=== PATIENT | female | born 1960 | race Caucasian/White ===

== ENCOUNTER 2020-11-22 12:24 | Outpatient (REF) | payer OTHER, SELFPAY ==
--- NOTE | ~2020-11-22 | XR_ITS ---
EXAMINATION: XR SHOULDER, RIGHT CLINICAL INFORMATION: Pain right shoulder. COMPARISON: None TECHNIQUE: AP external rotation, Grashey, scapular Y, and axillary views of the right shoulder. FINDINGS: The glenohumeral joint space is normal. There is mild reduction in the right AC joint space with periarticular spurring. There is downsloping of the acromion. No visible acute fracture, dislocation or subluxation seen. XR/XR shoulder RT min 2V IMPRESSION: Mild degenerative changes right AC joint with downsloping of the acromion. The glenohumeral joint space is normal.
== END 2020-11-22 12:25 | disposition home or self-care (01) ==
LOC: HO.XRAY 12:24
PROVIDERS: PCP Student in an Organized Health Care Education/Training Program; Visit Provider Student in an Organized Health Care Education/Training Program
DX: M25.511 Pain in right shoulder (principal)
CPT/HCPCS: 73030

== ENCOUNTER → 2021-03-04 13:17 | Outpatient (REF) | payer OTHER, SELFPAY ==
--- NOTE | 2021-03-04 14:03 | ECG_ITS ---
Hook-up date: 2021-03-04 13:35:00 Duration: 25:46:00 Test Indications: SYNCOPE Medications: 227040 QRS complexes 7 Ventricular ectopics which represent <1 % of total QRS comp. 28 Supraventricular ectopics which represent <1 % of total QRS comp. * Paced QRS complexs which represent % of total QRS comp. VENTRICULAR ECTOPY 7 Isolated 0 Bigeminal Cycles 0 Couplets 0 Runs 0 Beats in Runs * Beats LONGEST at * BPM at :: -- * Beats FASTEST at * BPM at :: -- SUPRAVENTRICULAR ECTOPY 18 Isolated 5 Couplets 0 Runs 0 Beats in Runs * Beats LONGEST at * BPM at :: -- * Beats FASTEST at * BPM at :: -- HEART RATES 62 MIN at 07:53:23 2021-03-05 89 AVG 137 MAX at 12:17:00 2021-03-05 LONGEST RR 1.1520 secs at 07:53:12 2021-03-05 S-T LEVELS Channel 1 - 128 mm at 13:35:00 2021-03-04 - 128 mm at 13:35:00 2021-03-04 Channel 2 - 128 mm at 13:35:00 2021-03-04 - 128 mm at 13:35:00 2021-03-04 Channel 3 - 128 mm at 03:25:41 -- - 128 mm at 03:25:41 Basic rhythm Normal sinus rhythm No long pause or profound bradycardia Rare ectopics No dangerous dysrhythm periods Patient did not report any symptoms in the diary Referred By: Jae Moreno Overread By: JILL TAY MD
== END ==
LOC: HO.CARD 13:17
PROVIDERS: PCP Student in an Organized Health Care Education/Training Program; Visit Provider Psychiatry & Neurology Neurology
DX: R55 Syncope and collapse (principal)
CPT/HCPCS: 93225; 93226

== ENCOUNTER 2021-04-16 15:35 | Outpatient (REF) | payer OTHER, SELFPAY ==
--- NOTE | ~2021-04-16 | MM_ITS ---
EXAMINATION: MM SCREENING DIGITAL BREAST TOMOSYNTHESIS, BILATERAL CLINICAL INFORMATION: Screening. Asymptomatic. The lifetime risk of breast cancer based on the Tyrer-Cuzick Model is 7%. COMPARISON: Mammography: 07/01/2018, targeted left breast ultrasound 07/05/2018 TECHNIQUE: Digital breast tomosynthesis is performed in both the craniocaudal and mediolateral oblique views along with computer-aided detection (CAD). Synthesized 2D images are generated from the tomosynthesis. FINDINGS: The breasts are heterogeneously dense, which may obscure small masses (ACR BI-RADS breast composition Category c). There is fibronodular parenchymal pattern. No interval significant mass or architectural abnormality. Smooth dominant nodule left central outer breast is stable to borderline decreased, consistent with cyst on ultrasound. No abnormal calcifications. The axilla and skin contours are unremarkable. MM/MM tomosynthesis screening BI IMPRESSION: No significant changes from prior exam. ASSESSMENT: BI-RADS 2: Benign RECOMMENDATION: Routine annual mammography screening. This patient's information was entered into a reminder system with a target due date for their next mammogram.
== END 2021-04-16 15:36 | disposition home or self-care (01) ==
LOC: HO.MAMMO 15:35
PROVIDERS: Visit Provider Student in an Organized Health Care Education/Training Program
DX: Z12.31 Encounter for screening mammogram for malignant neoplasm of breast (principal)
CPT/HCPCS: 77063; 77067

== ENCOUNTER 2021-07-02 14:01 | Outpatient (REF) | payer OTHER, SELFPAY ==
--- NOTE | ~2021-07-02 | XR_ITS ---
EXAMINATION: XR HAND, RIGHT XR HAND, LEFT CLINICAL INFORMATION: Right and left hand pain. COMPARISON: None TECHNIQUE: AP, oblique, and lateral views of the right and left hand. FINDINGS: Right Hand: No fracture or dislocation. Normal carpal alignment. No significant joint space narrowing or marginal osteophytes. No osseous erosion. No periarticular osteopenia. No abnormal soft tissue calcification. Left Hand: No fracture or dislocation. Normal carpal alignment. No significant joint space narrowing or marginal osteophytes. No osseous erosion. No periarticular osteopenia. No abnormal soft tissue calcification. XR/XR hand RT min 3V IMPRESSION: Right Hand: Unremarkable examination. Left Hand: Unremarkable examination.
--- NOTE | ~2021-07-02 | XR_ITS ---
EXAMINATION: XR HAND, RIGHT XR HAND, LEFT CLINICAL INFORMATION: Right and left hand pain. COMPARISON: None TECHNIQUE: AP, oblique, and lateral views of the right and left hand. FINDINGS: Right Hand: No fracture or dislocation. Normal carpal alignment. No significant joint space narrowing or marginal osteophytes. No osseous erosion. No periarticular osteopenia. No abnormal soft tissue calcification. Left Hand: No fracture or dislocation. Normal carpal alignment. No significant joint space narrowing or marginal osteophytes. No osseous erosion. No periarticular osteopenia. No abnormal soft tissue calcification. XR/XR hand LT min 3V IMPRESSION: Right Hand: Unremarkable examination. Left Hand: Unremarkable examination.
== END 2021-07-02 14:02 | disposition home or self-care (01) ==
LOC: HO.XRAY 14:01
PROVIDERS: PCP Student in an Organized Health Care Education/Training Program; Visit Provider Student in an Organized Health Care Education/Training Program
DX: M79.641 Pain in right hand (principal); M79.642 Pain in left hand
CPT/HCPCS: 73130

== ENCOUNTER 2021-12-03 14:36 | Outpatient (REF) | payer OTHER, SELFPAY ==
--- NOTE | ~2021-12-03 | XR_ITS ---
EXAMINATION: XR HIP, RIGHT CLINICAL INFORMATION: Pain. COMPARISON: None TECHNIQUE: Two views of the right hip. FINDINGS: Bones and soft tissues are normal. No fracture. Alignment is anatomic. Hip joint space is maintained. XR/XR hip RT min 2V IMPRESSION: Unremarkable right hip.
== END 2021-12-03 14:37 | disposition home or self-care (01) ==
LOC: HO.XRAY 14:36
PROVIDERS: Absent Provider Student in an Organized Health Care Education/Training Program; PCP Student in an Organized Health Care Education/Training Program; Visit Provider Internal Medicine
DX: M25.551 Pain in right hip (principal)
CPT/HCPCS: 73502

== ENCOUNTER 2022-04-28 11:47 | Outpatient (REF) | payer OTHER, SELFPAY ==
[2022-04-28 12:28] LABS: MANUAL DIFF FLAG NO
[2022-04-28 13:07] LABS: Basophils Percent Auto 0.5 % (0-2); Eosinophils Absolute Auto 0.1 X10*3/uL (0.0-0.4); Eosinophils Percent Auto 1.9 % (0-4); Hematocrit 44.8 % (37.0-47.0); Hemoglobin 14.1 g/dl (12.0-16.0); Imm Gran Abs Auto 0.03 X10*3/uL (0.00-0.03); Imm Gran Pct Auto 0.4 % (0.0-0.4); Lymphocytes Absolute Auto 1.9 X10*3/uL (1.2-4.9); Lymphocytes Percent Auto 25.6 % (20-40); Mean Corpuscular HGB Conc 31.5 g/dl (31.0-35.0); Mean Corpuscular Hemoglobin 25.7 pg (27.0-33.0); Mean Corpuscular Volume 81.8 fL (80.0-98.0); Mean Platelet Volume 10.7 fL (9.4-12.3); Monocytes Absolute Auto 0.4 X10*3/uL (0.1-1.2); Monocytes Percent Auto 5.9 % (2-11); Neutrophils Absolute Auto 4.9 x10*3/uL (2.0-8.3); Neutrophils Percent Auto 65.7 % (45-73); Platelet Count 245 X10*3/uL (160-400); Red Blood Count 5.48 X10*6/uL (4.20-5.50); Red Cell Distribution Width 14.8 % (11.0-16.0); White Blood Count 7.4 X10*3/uL (4.8-10.8)
[2022-04-28 13:40] LABS: Alanine Aminotransferase 27 U/L (0-31); Albumin Level 4.4 g/dL (3.5-5.0); Alkaline Phosphatase 123 U/L (39-117); Anion Gap 17 (12-20); Aspartate Amino Transferase 19 U/L (5-31); Bilirubin Total 0.6 mg/dL (0.0-1.0); Blood Urea Nitrogen 16 mg/dL (9-16); C Reactive Protein 2.05 mg/dL (< or = 0.50); Calcium 9.7 mg/dL (8.4-10.2); Carbon Dioxide 22 mmol/L (22-29); Chloride 106 mmol/L (96-108); Cholesterol 164 mg/dL; Estimated Glomerular Filt Rate > 60; Glucose Fasting 116 mg/dL (60-99); HDL Cholesterol 62 mg/dL; Iron 53 mcg/dL (30-160); LDL Cholesterol Calculated 86 mg/dl; Percent Iron Saturation 13 % (15-50); Potassium 4.3 mmol/L (3.3-5.1); Sodium 141 mmol/L (135-145); Total Iron Binding Capacity 408 mcg/dL (228-428); Total Protein 7.7 g/dL (6.5-8.0); Triglycerides 82 mg/dL; Unsaturated Iron Binding 355 ug/dL
[2022-04-28 13:57] LABS: Rheumatoid Factor < 15.0 IU/mL (<15.0)
[2022-04-28 14:09] LABS: Thyroid Stimulating Hormone 1.11 uIU/mL (0.32-4.0); Vitamin D 25-OH Total 32.7 ng/mL (>30)
[2022-04-28 14:19] LABS: Erythrocyte Sedimentation Rate 22 MM/HR (0-20)
[2022-04-28 14:23] LABS: Folate 15.3 ng/mL (> or = 4.0); Vitamin B12 846 pg/mL (200-900)
[2022-04-30 12:42] LABS: Anti DNA DS Antibody 3 IU/mL
[2022-04-30 16:26] LABS: Cyclic Citrullinated Peptide <16 UNITS
== END 2022-04-28 11:48 | disposition home or self-care (01) ==
LOC: HO.LAB 11:47
PROVIDERS: PCP Internal Medicine; Visit Provider Internal Medicine
DX: M06.9 Rheumatoid arthritis, unspecified (principal); M79.7 Fibromyalgia; E78.5 Hyperlipidemia, unspecified; E66.01 Morbid (severe) obesity due to excess calories; E55.9 Vitamin D deficiency, unspecified; D64.9 Anemia, unspecified
CPT/HCPCS: 36415; 80053; 80061; 82306; 82607; 82746; 83540; 84443; 85025; 85652; 86140; 86200; 86225; 86431

== ENCOUNTER 2022-05-01 13:59 | Outpatient (REF) | payer OTHER, SELFPAY ==
--- NOTE | ~2022-05-01 | MM_ITS ---
EXAMINATION: BONE DENSITOMETRY CLINICAL INDICATION: Age-related osteoporosis without current pathological fracture. COMPARISON: Baseline BD dated 09/23/2016. TECHNIQUE: Using a [employer] DXA System (software version: 13.1) manufactured by [employer], dual-energy x-ray absorptiometry was performed of the lumbar spine and left hip. The images are of good technical quality. Summary results are attached. FINDINGS: AP SPINE L1-L4: Current: BMD 0.805 g/cm2, Z-score -3.0, T-score -3.1, osteoporosis, 3.5% decrease from baseline (<5% change is not significant). Baseline: BMD 0.834 g/cm2. LEFT FEMUR, NECK: Current: BMD 0.845 g/cm2, Z-score -0.9, T-score -1.4, osteopenia. Baseline: BMD 0.865 g/cm2. LEFT FEMUR, TOTAL: Current: BMD 0.946 g/cm2, Z-score -0.3, T-score -0.5, normal, 2.6% increase from baseline (<5% change is not significant). Baseline: BMD 0.922 g/cm2. IDENTIFIED RISK FACTORS: Early menopause, secondary osteoporosis, low calcium intake, osteoporosis, recurrent falls, rheumatoid arthritis. HISTORY OF FRACTURE: None listed. MEDICATIONS: Calcium supplements or multivitamin, vitamin D. MM/XR DEXA axial skeleton IMPRESSION: 1. DIAGNOSIS: Osteoporosis based on the lowest T-score value of -3.1 in the lumbar spine applying World Health Organization criteria. 2. 10-YEAR FRACTURE RISK PREDICTION, FRAX: According to the guidelines, FRAX calculation should only be performed on patients in the osteopenia bone density category. Therefore, FRAX was not performed on this patient. 3. Treatment Recommendations: NOF guidelines recommend consideration for treatment in postmenopausal women and men age 50 and older presenting with the following: -A hip or vertebral (clinical or morphometric) fracture. -T-score less than or equal to -2.5 at the femoral neck or spine after appropriate evaluation to exclude secondary causes. -Low bone mass at the hip or spine and a 10-year fracture probability by FRAX of greater than or equal to 3% for hip fracture or greater than or equal to 20% for major osteoporotic fracture based on the [place] adapted WHO algorithm. 4. Other Recommendations: All treatment decisions require clinical judgment and consideration of individual patient factors, including patient preferences, comorbidities, previous drug use, risk factors not captured in the FRAX model (e.g. frailty, falls, vitamin D deficiency, increased bone turnover, interval significant decline in bone density) and possible under or overestimation of fracture risk by FRAX. Additional medical evaluation for secondary cause of low bone mineral density may be appropriate. FUTURE SCAN RECOMMENDATION: People with diagnosed cases of osteoporosis or at high risk for fracture should have regular bone mineral density tests. For patients eligible for Medicare, routine testing is allowed once every 2 years. The testing frequency can be increased to one year for patients who have rapidly progressing disease, those who are receiving or discontinuing medical therapy to restore bone mass, or have additional risk factors.
--- NOTE | ~2022-05-01 | MM_ITS ---
EXAMINATION: MM SCREENING DIGITAL BREAST TOMOSYNTHESIS, BILATERAL CLINICAL INFORMATION: Screening. Asymptomatic. The lifetime risk of breast cancer based on the Tyrer-Cuzick Model is 15%. COMPARISON: Mammography: 04/16/2021, 07/01/2018; left breast ultrasound 07/05/2018. TECHNIQUE: Digital breast tomosynthesis is performed in both the craniocaudal and mediolateral oblique views along with computer-aided detection (CAD). Synthesized 2D images are generated from the tomosynthesis. Additional left MLO view is provided. FINDINGS: The breasts are heterogeneously dense, which may obscure small masses (ACR BI-RADS breast composition Category c). Parenchymal pattern is similar to prior studies. Breast tissue composition borders on average fibroglandular. There is minor fibronodular parenchymal pattern with some scattered smooth circumscribed nodules similar to prior study. No developing density or significant mass or architectural abnormality. No abnormal calcifications. The axilla and skin contours are unremarkable. MM/MM tomosynthesis screening BI IMPRESSION: No mammographic evidence of malignancy. ASSESSMENT: BI-RADS 2: Benign RECOMMENDATION: Routine annual mammography screening. This patient's information was entered into a reminder system with a target due date for their next mammogram.
== END 2022-05-01 14:00 | disposition home or self-care (01) ==
LOC: HO.MAMMO 13:59
PROVIDERS: PCP Internal Medicine; Visit Provider Nurse Practitioner Family
DX: Z12.31 Encounter for screening mammogram for malignant neoplasm of breast (principal); Z13.820 Encounter for screening for osteoporosis; M81.0 Age-related osteoporosis without current pathological fracture; Z78.0 Asymptomatic menopausal state
CPT/HCPCS: 77063; 77067; 77080

== ENCOUNTER → 2022-05-13 15:16 | Outpatient (BNVA) | payer OTHER, SELFPAY | PROVIDERS: PCP Internal Medicine; Visit Provider Internal Medicine | DX: J44.9 Chronic obstructive pulmonary disease, unspecified (principal); G47.33 Obstructive sleep apnea (adult) (pediatric); E66.01 Morbid (severe) obesity due to excess calories; M06.9 Rheumatoid arthritis, unspecified; M17.0 Bilateral primary osteoarthritis of knee; M47.9 Spondylosis, unspecified; M16.0 Bilateral primary osteoarthritis of hip; Z79.899 Other long term (current) drug therapy; Z99.89 Dependence on other enabling machines and devices; Z68.42 Body mass index [BMI] 45.0-49.9, adult | CPT/HCPCS: 99202 ==

== ENCOUNTER 2022-05-27 08:02 | Outpatient (REF) | payer OTHER, SELFPAY ==
--- NOTE | 2022-05-27 13:42 | PFT_ITS ---
FLOWS: FEV1 57% of predicted at 1.17 L. FVC 53% of predicted at 1.40 L. FEV1 to FVC ratio of 0.84. No bronchodilator response. LUNG VOLUMES: Total lung capacity 72% of predicted at 3.10 L. Residual volume 78% of predicted at 1.39 L. Slow vital capacity 67% of predicted at 1.72 L. Expiratory reserve volume 20% of predicted at 0.13 L. Diffusion capacity is normal. In comparison to pulmonary function test from June 2018, FEV1 has decreased by 0.24 L; FVC has decreased by 0.39 L; residual volume, total lung capacity, slow vital capacity have been without significant changes; expiratory reserve volume has decreased by 0.22 L; diffusion capacity has improved by 2.29 mL/minutes per mmHg. IMPRESSION: Moderate restrictive ventilatory defect with no bronchodilator response. Decreased expiratory reserve volume suggests extrathoracic restriction likely secondary to abdominal obesity. MD CHRISTIANE Rodriguez/MOD[facility] / [id number]
== END 2022-05-27 08:03 | disposition home or self-care (01) ==
LOC: HO.RESP 08:02
PROVIDERS: PCP Internal Medicine; Visit Provider Internal Medicine
DX: J44.9 Chronic obstructive pulmonary disease, unspecified (principal)
CPT/HCPCS: 94060; 94727; 94729

== ENCOUNTER → 2022-07-21 10:33 | Outpatient (BNVA) | payer OTHER, SELFPAY | PROVIDERS: PCP Internal Medicine; Visit Provider Internal Medicine | DX: J98.4 Other disorders of lung (principal); J44.9 Chronic obstructive pulmonary disease, unspecified; G47.33 Obstructive sleep apnea (adult) (pediatric); E66.01 Morbid (severe) obesity due to excess calories; M06.9 Rheumatoid arthritis, unspecified; Z99.89 Dependence on other enabling machines and devices; Z68.42 Body mass index [BMI] 45.0-49.9, adult | CPT/HCPCS: 99212 ==

== ENCOUNTER 2022-10-16 08:41 | Outpatient (REF) | payer OTHER, SELFPAY ==
--- NOTE | ~2022-10-16 | XR_ITS ---
EXAMINATION: XR THORACOLUMBAR SPINE CLINICAL INFORMATION: Pain COMPARISON: None TECHNIQUE: 3 views. FINDINGS: There is normal thoracic kyphosis. The vertebral heights and alignment is normal. There is loss of disc height virtually at every disc level with ventral spondylosis. XR/XR thoracic spine 2V IMPRESSION: Degenerative disc changes with ventral spondylosis. No visible acute fracture or dislocation seen.
== END 2022-10-16 08:42 | disposition home or self-care (01) ==
LOC: HO.XRAY 08:41
PROVIDERS: PCP Internal Medicine; Visit Provider Internal Medicine
DX: M54.6 Pain in thoracic spine (principal)
CPT/HCPCS: 72070

== ENCOUNTER → 2022-10-23 08:16 | Outpatient (BNVA) | payer OTHER, SELFPAY | PROVIDERS: PCP Internal Medicine; Visit Provider Internal Medicine | DX: G47.33 Obstructive sleep apnea (adult) (pediatric) (principal); J44.9 Chronic obstructive pulmonary disease, unspecified; J98.4 Other disorders of lung; E66.01 Morbid (severe) obesity due to excess calories; Z99.89 Dependence on other enabling machines and devices; Z68.42 Body mass index [BMI] 45.0-49.9, adult | CPT/HCPCS: 99212 ==

== ENCOUNTER 2022-11-25 08:27 | Emergency (ER) | payer OTHER, SELFPAY ==
--- NOTE | 2022-11-25 | ECG_ITS ---
Test Reason : cp Blood Pressure : / mmHG Vent. Rate : 080 BPM Atrial Rate : 080 BPM P-R Int : 148 ms QRS Dur : 076 ms QT Int : 394 ms P-R-T Axes : 054 029 049 degrees QTc Int : 454 ms Normal sinus rhythm Normal ECG When compared with ECG of 01-APR-2019 12:45, QT has lengthened Referred By: Generic ED Physician Electronically Signed By:OPAL BARGER
--- NOTE | 2022-11-25 | ECG_ITS ---
Test Reason : worsening cp,lt arm numbness Blood Pressure : / mmHG Vent. Rate : 079 BPM Atrial Rate : 079 BPM P-R Int : 146 ms QRS Dur : 076 ms QT Int : 380 ms P-R-T Axes : 050 033 048 degrees QTc Int : 435 ms Normal sinus rhythm Normal ECG When compared with ECG of 25-NOV-2022 08:37, No significant change was found Referred By: Generic ED Physician Electronically Signed By:OPAL BARGER
--- NOTE | ~2022-11-25 | CT_ITS ---
EXAMINATION: CT ANGIOGRAM OF THE CHEST WITH AND WITHOUT CONTRAST (CT PULMONARY ANGIOGRAM FOR PE) CLINICAL INFORMATION: Reason for Exam chest pain, SOB, elevated d dimer COMPARISON: No prior CT. Chest radiograph from today. TECHNIQUE: Prior to contrast administration, noncontrast localization images were obtained. Subsequently, multidetector volumetric imaging was performed from the thoracic inlet to below the diaphragms following the administration of 70 mL Omnipaque 350 intravenous contrast. No contrast reaction reported Sagittal, coronal, and MIP oblique sagittal reformatted images were obtained on the CT workstation, uploaded to PACS, and reviewed. This CT examination was performed using dose optimization techniques as appropriate, variously including the following: *Automated exposure control *Adjustment of mA and/or kV according to patient size (this includes techniques or standardized protocols for targeted exams where dose is matched to indication/reason for exam; i.e. extremities or head) *Use of iterative reconstruction technique Total exam dose-length product 410 mGy-cm FINDINGS: QUALITY OF STUDY/CONTRAST BOLUS: Satisfactory. PULMONARY ARTERIES: No central or segmental pulmonary emboli. THORACIC AORTA: No aneurysm or dissection. LUNG: No focal consolidation, nodules or masses. The central airways are patent. Linear left basilar atelectasis. Linear atelectasis/scarring anteriorly in the left upper lobe. Fissural lymph node noted along the right minor fissure. PLEURA: No pleural effusion or pneumothorax. MEDIASTINUM: Normal heart size. No pericardial effusion. No hilar or mediastinal lymphadenopathy. No evidence of septal bowing or right heart strain. CORONARY ARTERY CALCIFICATION: None visualized on this study. CHEST WALL/AXILLA: No axillary or internal mammary lymphadenopathy. OSSEOUS STRUCTURES: No acute or suspicious osseous abnormality. Mild degenerative change throughout the spine. UPPER ABDOMEN: Unremarkable. No reflux of contrast into the hepatic veins to suggest elevated right heart pressures. CT/CT angio chest PE protocol IMPRESSION: No pulmonary embolism or other acute intrathoracic abnormality. VTE: negative
--- NOTE | ~2022-11-25 | XR_ITS ---
EXAMINATION: XR CHEST CLINICAL INFORMATION: Chest pain. COMPARISON: 04/02/2018 chest radiographs. TECHNIQUE: Frontal view of the chest was obtained. FINDINGS: No significant abnormality is noted involving the heart, lungs, mediastinum, bony thorax or soft tissues. Cervical spine anterior fusion plate appears in good position. XR/XR chest 1V IMPRESSION: No acute cardiopulmonary process.
[2022-11-25 08:50] VITALS: BP 145/58; PULSE 81; RESP 18; TEMP 36.2; O2SAT 94; BMI 48.0
[2022-11-25 08:54] LABS: MANUAL DIFF FLAG NO
[2022-11-25 08:55] LABS: Basophils Percent Auto 0.4 % (0-2); Eosinophils Absolute Auto 0.2 X10*3/uL (0.0-0.4); Eosinophils Percent Auto 2.1 % (0-4); Hematocrit 40.5 % (37.0-47.0); Hemoglobin 13.4 g/dl (12.0-16.0); Imm Gran Abs Auto 0.05 X10*3/uL (0.00-0.03); Imm Gran Pct Auto 0.7 % (0.0-0.4); Lymphocytes Absolute Auto 2.1 X10*3/uL (1.2-4.9); Lymphocytes Percent Auto 28.2 % (20-40); Mean Corpuscular HGB Conc 33.1 g/dl (31.0-35.0); Mean Corpuscular Hemoglobin 26.9 pg (27.0-33.0); Mean Corpuscular Volume 81.2 fL (80.0-98.0); Mean Platelet Volume 10.3 fL (9.4-12.3); Monocytes Absolute Auto 0.4 X10*3/uL (0.1-1.2); Monocytes Percent Auto 5.8 % (2-11); Neutrophils Absolute Auto 4.8 x10*3/uL (2.0-8.3); Neutrophils Percent Auto 62.8 % (45-73); Platelet Count 232 X10*3/uL (160-400); Red Blood Count 4.99 X10*6/uL (4.20-5.50); Red Cell Distribution Width 14.6 % (11.0-16.0); White Blood Count 7.6 X10*3/uL (4.8-10.8)
[2022-11-25 09:00] LABS: Prothrombin Time 11.8 SEC (10.0-13.1)
[2022-11-25 09:10] LABS: Alanine Aminotransferase 25 U/L (0-31); Albumin Level 3.9 g/dL (3.5-5.0); Alkaline Phosphatase 100 U/L (39-117); Anion Gap 15 (12-20); Aspartate Amino Transferase 18 U/L (5-31); Bilirubin Total 0.8 mg/dL (0.0-1.0); Blood Urea Nitrogen 25 mg/dL (9-16); Calcium 9.7 mg/dL (8.4-10.2); Carbon Dioxide 27 mmol/L (22-29); Chloride 100 mmol/L (96-108); Creatinine Clr Calc Pharmacy 78.5; Estimated Glomerular Filt Rate > 60; Glucose Random 144 mg/dL (60-115); Potassium 3.5 mmol/L (3.3-5.1); Sodium 138 mmol/L (135-145); Total Protein 6.6 g/dL (6.5-8.0)
[2022-11-25 09:14] LABS: Troponin-I High Sensitivity < 3.5 ng/L (<3.5-17.0)
--- NOTE | 2022-11-25 09:45 | PC.NURSE ---
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
[2022-11-25 10:35] VITALS: BP 114/63; PULSE 73; RESP 18; O2SAT 94
--- NOTE | 2022-11-25 10:35 | ED.CHESTPAIN ---
HPI - Chest Pain General Chief Complaint: Chest Pain Stated Complaint: Chest pain/Diff breathing Time Seen by Provider: 11/25/22 10:35 Source: patient Mode of arrival: ambulatory Limitations: no limitations History of Present Illness HPI narrative: Patient is a 62 year old assigned female at with a history of HTN, COPD, depression, and fibromyalgia presenting to the emergency department today with left sided chest pain. Patient states that over the last several weeks she has had intermittent chest pain that radiates to the left side of her body and is worth with deep breathing. Patient states that she had a stress test 6 months ago that was normal. Patient denies any dizziness, lightheadedness, abdominal pain, nausea, vomiting, fever, chills, blurry vision, double vision, loss of vision, difficulty breathing, shortness of breath, back pain, night sweats, pain with urination, increased urinary frequency, increased urinary urgency, blood in her urine or stool, syncope or a near syncopal episode, recent trauma or falls, bowel incontinence, bladder incontinence, bowel retention, bladder retention, or any other complaints at this time. MD complaint: chest pain Onset (ago): week(s) (several) Timing of current episode: episodic Pain location: left chest Pain radiation: left arm, neck and left shoulder Severity: mild Pain scale (0-10): 3 Relieving factors: nothing Exacerbating factors: inspiration Treatment prior to arrival: none Risk Factors Coronary artery disease risk factors: hypertension Related Data On Oral Contraceptives: No Home Medications Medication Instructions Recorded Confirmed venlafaxine 75 mg capsule,extended mg PO BID 01/14/22 10/23/22 release 24 hr multivitamin with folic acid 400 1 tab PO DAILY 07/21/22 10/23/22 mcg tablet (Tab-A-Duarte) Previous Rx's Medication Instructions Recorded atorvastatin 20 mg tablet 20 mg PO DAILY 90 days #90 tabs 03/20/22 cyclobenzaprine 5 mg tablet 5 mg PO BID PRN muscle spasm #14 03/28/22 tabs meloxicam 7.5 mg tablet 15 mg PO DAILY PRN pain #14 tabs 05/29/22 Incruse Ellipta 62.5 mcg/actuation 1 inh inhalation BEDTIME 30 days 07/30/22 powder for inhalation #30 ea (umeclidinium) albuterol sulfate 90 mcg/actuation 2 puff inhalation Q6H PRN 07/31/22 aerosol inhaler (Ventolin HFA) bronchospasm #8.5 grams ibuprofen 400 mg tablet 200 mg PO Q8H 30 days #45 tabs 09/08/22 calcium citrate 500 mg-vitamin D3 1 tab PO BID 90 days #180 tabs 09/09/22 12.5 mcg (500 unit) chewable tablet alendronate 70 mg tablet 70 mg PO QWEEK 90 days #13 tabs 09/15/22 trazodone 100 mg tablet 100 mg PO BEDTIME 30 days #30 tabs 09/22/22 acetaminophen 650 mg 650 mg PO Q8H 90 days #270 tabs 09/30/22 tablet,extended release (Mapap Arthritis Pain) docusate sodium 100 mg capsule 100 mg PO BID 90 days #180 caps 10/09/22 escitalopram oxalate 20 mg tablet 20 mg PO DAILY 90 days #90 tabs 10/21/22 blood pressure monitor (Blood #1 ea 11/01/22 Pressure Kit) omeprazole 40 mg capsule,delayed 40 mg PO DAILY 90 days #90 caps 11/03/22 release pregabalin 150 mg capsule 150 mg PO BID 30 days #60 caps 11/18/22 losartan 25 mg tablet 25 mg PO DAILY 90 days #90 tabs 11/21/22 Allergies Allergy/AdvReac Type Severity Reaction Status Date / Time pineapple [PINEAPPLE] AdvReac Severe DIARRHEA Verified 10/23/22 09:08 Review of Systems Constitutional: Constitutional: Reports no additional constitutional complaints, Denies chills, Denies fever(s) and Denies night sweats Eyes: Eyes: Reports no additional eye complaints, Denies blurry vision, Denies change in vision, Denies diplopia, Denies eye discharge, Denies loss of vision and Denies eye pain ENT: Denies dizziness Cardiovascular: Cardiovascular: Reports no additional cardiovascular complaints, Reports chest pain, Denies lightheadedness, Denies Loss of Consciousness and Denies dyspnea Respiratory: Respiratory: Reports no additional respiratory complaints and Denies dyspnea Gastrointestinal: Gastrointestinal: Reports no additional gastrointestinal complaints, Denies abdominal pain, Denies melena, Denies hematochezia, Denies change in bowel habits and Denies change in stool character Genitourinary: Genitourinary: Denies hematuria, Denies urinary frequency, Denies dysuria, Denies urinary incontinence, Denies urinary hesitancy and Denies urinary urgency Musculoskeletal: Musculoskeletal: Reports no additional musculoskeletal complaints, Denies numbness and Denies tingling Neurologic: Denies dizziness, Denies loss of vision, Denies numbness and Denies tingling Psychiatric: Psychiatric: Reports no additional psychiatric complaints Endocrine: Endocrine: Reports no additional endocrine complaints Hematologic/Lymphatic: Hematologic/Lymphatic: Reports no additional hematologic/lymphatic complaints Allergic/Immunologic: Allergic/Immunologic: Reports no additional allergic/immunologic complaints PMFSH Past Medical History Attestation statement: The following information was validated with the patient. 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 Pure hypercholesterolemia Restrictive lung disease Rheumatoid arthritis Severe major depression Surgical History H/O colonoscopy History of back surgery History of neck surgery Family History Family History Mother Uterus cancer Breast cancer, Onset Age: 43 Diabetes Arthritis IBS (irritable bowel syndrome) Father Heart disease Sister Mental health disorder Brother Mental health disorder Social History Social History Housing: Apartment Alcohol intake: never Patient Tobacco Use Status: Former Tobacco user Tobacco use type: Cigarette e-Cigarette/Vaping Use: Never Used Second Hand Smoke Exposure: No Advance Directives: Yes Advance Directives Information Provided: Yes Advance Directives on File: No service: No Current occupational status: disabled 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) Hearing needs: No Vision needs: Yes Physical Exam Vital Signs: Vital Signs: Last Vital Signs Temp 97.2 F 11/25/22 08:50 Pulse 68 11/25/22 12:07 Resp 18 11/25/22 12:07 BP 122/56 L 11/25/22 12:07 Pulse Ox 97 11/25/22 12:07 O2 Del Method 11/25/22 10:35 BMI result Body Mass Index 48.0 Const: General: cooperative, no acute distress, alert and awake Nutritional Appearance: well nourished Orientation/consciousness: patient oriented x3 Limitations: no limitations HEENT: Head: Yes normal to inspection and Yes atraumatic Ears: hearing grossly normal bilaterally and external ears normal General nose exam: Normal external nose present, no nasal discharge noted and no epistaxis Face and sinus: Yes normal facial exam, No abrasion and No laceration Mouth: Normal oral and palatal mucosa present, no drooling and no muffled voice Eyes: General: appearance normal, both eyes and all related structures Periorbital: periorbital findings normal Eyelids: Yes eyelids normal Conjunctivae: conjunctivae normal Pupils: Equal, round and reactive pupils present EOM: EOMs intact bilaterally Neck: Neck: Yes normal visual inspection, Yes full ROM and Yes no lymphadenopathy Chest: Chest palpation & inspection: normal inspection of the chest Resp: Effort & Inspection: normal respiratory effort and able to speak in complete sentences Auscultation: clear to auscultation bilaterally Cardio: Rate: regular rate Rhythm: regular rhythm GI: Inspection: Yes normal to inspection Palpation (GI): Soft to palpation, not firm, nontender, no guarding and not rigid Neuro: General: patient oriented x3 and moves all extremities Cranial nerves: Yes Equal, round and reactive pupils present Cognition (Neuro): normal cognition Motor exam (neuro): 5/5 motor strength present throughout Sensory Exam: Normal double simultaneous stimulation for sensation Coordination: [id number] test normal Extrem: General: Yes normal to inspection, Yes full ROM and Yes capillary refill normal Psych: Appearance: grossly normal Mental Status: mental status grossly normal Affect: normal affect Attitude: cooperative Thought process: Normal thought process present Thought content: Normal thought content present Insight: Good insight present (Psych) Medications Administered Discontinued Medications Generic Name Dose Route Start Last Admin Trade Name Freq PRN Reason Stop Dose Admin Iohexol 100 ml 11/25/22 11:34 11/25/22 11:34 Iohexol 350 Mg/Ml 100 Ml Infus..Btl IV 11/25/22 11:35 71 ml ONCE ONE Administration Ketorolac Tromethamine 15 mg 11/25/22 10:43 11/25/22 10:55 Ketorolac Tromethamine 15 Mg/Ml Vial IM 11/25/22 10:44 15 mg ONCE ONE Administration Medical Decision Making Medical Decision Making MDM Narrative: Patient is a 62 year old assigned female at with a history of HTN, COPD, depression, and fibromyalgia presenting to the emergency department today with left sided chest pain. Patient's physical exam was unremarkable. Patient's blood work showed an elevated d dimer but was otherwise unremarkable. Patient's EKGs were unremarkable. Patient's chest x-ray showed no acute process. Patient's CTA PE study showed no acute process. I explained my physical exam findings as well as all test results to the patient. I answered all questions asked by the patient. I stressed the importance of the patient taking her medication as prescribed. I stressed the importance of the patient following up with her primary care provider and her advisory application developer. I stressed the importance of the patient returning to the emergency department immediately if her symptoms were to worsen or if she were to develop any dizziness, shortness of breath, difficulty breathing, chest pain, blurry vision, loss of vision, nausea, vomiting, abdominal pain, fever, chills, back pain, or any other complaints. Patient verbalized agreement and understanding with this treatment plan and discharge. Differential Diagnosis Differential Diagnoses: The differential diagnosis associated with the presentation includes chest wall pain Lab Data [facility] Lab Attestation statement: I reviewed the patient's lab results. 11/25/22 08:44 11/25/22 08:44 Labs: Lab Results 11/25/22 11/25/22 11/25/22 Range/Units 08:44 08:44 08:44 WBC 7.6 (4.8-10.8) X10*3/uL RBC 4.99 (4.20-5.50) X10*6/uL Hgb 13.4 (12.0-16.0) g/dl Hct 40.5 (37.0-47.0) % MCV 81.2 (80.0-98.0) fL MCH 26.9 L (27.0-33.0) pg MCHC 33.1 (31.0-35.0) g/dl RDW 14.6 (11.0-16.0) % Plt Count 232 (160-400) X10*3/uL MPV 10.3 (9.4-12.3) fL Immature Gran % (Auto) 0.7 H (0.0-0.4) % Neut % (Auto) 62.8 (45-73) % Lymph % (Auto) 28.2 (20-40) % Freestone % (Auto) 5.8 (2-11) % Eos % (Auto) 2.1 (0-4) % Baso % (Auto) 0.4 (0-2) % Lymph # (Auto) 2.1 (1.2-4.9) X10*3/uL Freestone # (Auto) 0.4 (0.1-1.2) X10*3/uL Eos # (Auto) 0.2 (0.0-0.4) X10*3/uL Baso # (Auto) 0.0 (0.0-0.2) X10*3/uL Abs Immat Gran (auto) 0.05 H (0.00-0.03) X10*3/uL Absolute Neuts (auto) 4.8 (2.0-8.3) x10*3/uL Absolute Nucleated RBC 0.000 (0.0-0.012) X10*3/uL Nucleated RBC % (auto) 0.0 (0.0-0.2) /100WBC PT 11.8 (10.0-13.1) SEC INR 1.0 (0.9-1.1) D-Dimer High Sensitivty NG/ML Sodium 138 (135-145) mmol/L Potassium 3.5 (3.3-5.1) mmol/L Chloride 100 (96-108) mmol/L Carbon Dioxide 27 (22-29) mmol/L Anion Gap 15 (12-20) BUN 25 H (9-16) mg/dL Creatinine 0.82 (0.5-1.4) mg/dL Estim Creat Clear Calc 78.5 Estimated GFR > 60 Random Glucose 144 H (60-115) mg/dL Calcium 9.7 (8.4-10.2) mg/dL Total Bilirubin 0.8 (0.0-1.0) mg/dL AST 18 (5-31) U/L ALT 25 (0-31) U/L Alkaline Phosphatase 100 (39-117) U/L Troponin I High Sens (<3.5-17.0) ng/L Total Protein 6.6 (6.5-8.0) g/dL Albumin 3.9 (3.5-5.0) g/dL 11/25/22 11/25/22 11/25/22 Range/Units 08:44 10:54 10:54 WBC (4.8-10.8) X10*3/uL RBC (4.20-5.50) X10*6/uL Hgb (12.0-16.0) g/dl Hct (37.0-47.0) % MCV (80.0-98.0) fL MCH (27.0-33.0) pg MCHC (31.0-35.0) g/dl RDW (11.0-16.0) % Plt Count (160-400) X10*3/uL MPV (9.4-12.3) fL Immature Gran % (Auto) (0.0-0.4) % Neut % (Auto) (45-73) % Lymph % (Auto) (20-40) % Freestone % (Auto) (2-11) % Eos % (Auto) (0-4) % Baso % (Auto) (0-2) % Lymph # (Auto) (1.2-4.9) X10*3/uL Freestone # (Auto) (0.1-1.2) X10*3/uL Eos # (Auto) (0.0-0.4) X10*3/uL Baso # (Auto) (0.0-0.2) X10*3/uL Abs Immat Gran (auto) (0.00-0.03) X10*3/uL Absolute Neuts (auto) (2.0-8.3) x10*3/uL Absolute Nucleated RBC (0.0-0.012) X10*3/uL Nucleated RBC % (auto) (0.0-0.2) /100WBC PT (10.0-13.1) SEC INR (0.9-1.1) D-Dimer High Sensitivty 528 NG/ML Sodium (135-145) mmol/L Potassium (3.3-5.1) mmol/L Chloride (96-108) mmol/L Carbon Dioxide (22-29) mmol/L Anion Gap (12-20) BUN (9-16) mg/dL Creatinine (0.5-1.4) mg/dL Estim Creat Clear Calc Estimated GFR Random Glucose (60-115) mg/dL Calcium (8.4-10.2) mg/dL Total Bilirubin (0.0-1.0) mg/dL AST (5-31) U/L ALT (0-31) U/L Alkaline Phosphatase (39-117) U/L Troponin I High Sens < 3.5 < 3.5 (<3.5-17.0) ng/L Total Protein (6.5-8.0) g/dL Albumin (3.5-5.0) g/dL Independent Interpretation I performed an independent interpretation of an: EKG Interpretation: Vent. Rate: 079 BPM ? ? Atrial Rate: 079 BPM P-R Int: 146 ms? QRS Dur: 076 ms QT Int: 380 ms ? ? ? P-R-T Axes: 050 033 048 degrees QTc Int: 435 ms ? Normal sinus rhythm Normal ECG When compared with ECG of 25-NOV-2022 08:37, No significant change was found ? Electronically Signed By:RAUL BARGER Dictated By: Raul Barger MD Signed By: Electronically signed by Raul Barger MD 11/25/22 1236 Vent. Rate: 080 BPM ? ? Atrial Rate: 080 BPM P-R Int: 148 ms? QRS Dur: 076 ms QT Int: 394 ms ? ? ? P-R-T Axes: 054 029 049 degrees QTc Int: 454 ms ? Normal sinus rhythm Normal ECG When compared with ECG of 01-APR-2019 12:45, QT has lengthened Electronically Signed By:RAUL BARGER Dictated By: Raul Barger MD Signed By: Electronically signed by Raul Barger MD 11/25/22 1235 Radiology Impression Radiologist Impression: My interpretation is in agreement with the radiologist's impression of these imaging studies. EXAMINATION: XR CHEST CLINICAL INFORMATION: Chest pain. COMPARISON: 04/02/2018 chest radiographs. TECHNIQUE: Frontal view of the chest was obtained. FINDINGS: No significant abnormality is noted involving the heart, lungs, mediastinum, bony thorax or soft tissues. Cervical spine anterior fusion plate appears in good position. XR/XR chest 1V IMPRESSION: No acute cardiopulmonary process. ? Dictated By: Junior Schaefer MD Signed By: Electronically signed by Junior Schaefer MD 11/25/22 0908 EXAMINATION: CT ANGIOGRAM OF THE CHEST WITH AND WITHOUT CONTRAST (CT PULMONARY ANGIOGRAM FOR PE) CLINICAL INFORMATION: Reason for Exam chest pain, SOB, elevated d dimer COMPARISON: No prior CT. Chest radiograph from today.? TECHNIQUE: Prior to contrast administration, noncontrast localization images were obtained. ? Subsequently, multidetector volumetric imaging was performed from the thoracic inlet to below the diaphragms following the administration of 70 mL Omnipaque 350 intravenous contrast. No contrast reaction reported Sagittal, coronal, and MIP oblique sagittal reformatted images were obtained on the CT workstation, uploaded to PACS, and reviewed. This CT examination was performed using dose optimization techniques as appropriate, variously including the following: *Automated exposure control *Adjustment of mA and/or kV according to patient size (this includes techniques or standardized protocols for targeted exams where dose is matched to indication/reason for exam; i.e. extremities or head) *Use of iterative reconstruction technique Total exam dose-length product 410 mGy-cm FINDINGS: QUALITY OF STUDY/CONTRAST BOLUS: Satisfactory. PULMONARY ARTERIES: No central or segmental pulmonary emboli.? THORACIC AORTA: No aneurysm or dissection. LUNG: No focal consolidation, nodules or masses. The central airways are patent. Linear left basilar atelectasis. Linear atelectasis/scarring anteriorly in the left upper lobe. Fissural lymph node noted along the right minor fissure. PLEURA: No pleural effusion or pneumothorax. MEDIASTINUM: Normal heart size.? No pericardial effusion.? No hilar or mediastinal lymphadenopathy.? No evidence of septal bowing or right heart strain. CORONARY ARTERY CALCIFICATION: None visualized on this study. CHEST WALL/AXILLA: No axillary or internal mammary lymphadenopathy. OSSEOUS STRUCTURES: No acute or suspicious osseous abnormality. Mild degenerative change throughout the spine. UPPER ABDOMEN: Unremarkable.? No reflux of contrast into the hepatic veins to suggest elevated right heart pressures. CT/CT angio chest PE protocol IMPRESSION: No pulmonary embolism or other acute intrathoracic abnormality. ? VTE: negative Dictated By: Wade Martini MD Signed By: Electronically signed by Wade Martini MD 11/25/22 1148 Chronic Conditions Patient?s care impacted by: Hypertension Critical Care Time Critical Care Time Critical Care Time: Yes Total Critical Care Time: 30 Attestation: I spent 30 minutes of Critical Care Time with this patient. This does not include time spent on separately reported billable procedures. Discharge Plan Discharge Clinical Impression: Acute chest wall pain Patient Disposition: Home, Self-Care Instructions: Chest Wall Pain (ED) Additional Instructions: Follow up with your primary care provider and a advisory application developer. Return to the emergency department immediately if your symptoms worsen or if you develop any dizziness, shortness of breath, difficulty breathing, chest pain, blurry vision, loss of vision, nausea, vomiting, abdominal pain, fever, chills, back pain, or any other complaints. Prescriptions: No Action atorvastatin 20 mg tablet 20 mg PO DAILY 90 Days Qty: 90 1RF Incruse Ellipta 62.5 mcg/actuation blister with device 1 inh inhalation BEDTIME 30 Days Qty: 30 3RF albuterol sulfate [Ventolin HFA] 90 mcg/actuation HFA aerosol inhaler 2 puff inhalation Q6H PRN (Reason: bronchospasm) Qty: 8.5 0RF ibuprofen 400 mg tablet 200 mg PO Q8H 30 Days Qty: 45 1RF calcium citrate-vitamin D3 500 mg-12.5 mcg (500 unit) tablet,chewable 1 tab PO BID 90 Days Qty: 180 1RF alendronate 70 mg tablet 70 mg PO QWEEK 90 Days Qty: 13 1RF trazodone 100 mg tablet 100 mg PO BEDTIME 30 Days Qty: 30 0RF acetaminophen [Mapap Arthritis Pain] 650 mg tablet extended release 650 mg PO Q8H 90 Days Qty: 270 0RF docusate sodium 100 mg capsule 100 mg PO BID 90 Days Qty: 180 0RF escitalopram oxalate 20 mg tablet 20 mg PO DAILY 90 Days Qty: 90 1RF (DME) blood pressure monitor [Blood Pressure Kit] Kit See Rx Instructions .Route Qty: 1 0RF Rx Instructions: As directed omeprazole 40 mg capsule,delayed release(DR/EC) 40 mg PO DAILY 90 Days Qty: 90 1RF pregabalin 150 mg capsule 150 mg PO BID 30 Days Qty: 60 0RF losartan 25 mg tablet 25 mg PO DAILY 90 Days Qty: 90 0RF venlafaxine 75 mg capsule,extended release 24hr PO BID cyclobenzaprine 5 mg tablet 5 mg PO BID PRN (Reason: muscle spasm) Qty: 14 0RF meloxicam 7.5 mg tablet 15 mg PO DAILY PRN (Reason: pain) Qty: 14 0RF multivitamin with folic acid [Tab-A-Duarte] 400 mcg tablet 1 tab PO DAILY Referrals: [facility] [place] Cardi[facility] [Provider Group] Riddhi Chan MD [Primary Care Provider] - Interventions: ED Discharge Assessment Last Done: 11/25/22 12:07 Discharge Date/Time: 11/25/22 12:08 Print Language: Turkish
--- NOTE | 2022-11-25 10:40 | PC.NURSE ---
NSR on monitor
[2022-11-25] MEDS: Ketorolac Tromethamine 15 MG/ML VIAL IM (10:55)
[2022-11-25 11:14] LABS: D Dimer High Sensitivity 528 NG/ML
[2022-11-25 11:28] LABS: Troponin-I High Sensitivity < 3.5 ng/L (<3.5-17.0)
[2022-11-25] MEDS: iohexoL 350 MG/ML 100 ML INFUS..BTL IV (11:34)
[2022-11-25 12:07] VITALS: BP 122/56; PULSE 68; RESP 18; O2SAT 97
== END 2022-11-25 12:08 | disposition home or self-care (01) ==
PROVIDERS: Physician Assistant Medical; Emergency Provider Emergency Medicine; PCP Internal Medicine
DX: R07.89 Other chest pain (principal); R06.02 Shortness of breath; M54.2 Cervicalgia; Z87.891 Personal history of nicotine dependence; Z79.899 Other long term (current) drug therapy
CPT/HCPCS: 36415; 71045; 71275; 80053; 84484; 85025; 85379; 85610; 93005; 96372; 99284; 99285; J1885; Q9967

== ENCOUNTER → 2022-12-04 08:51 | Outpatient (BNVA) | payer OTHER, SELFPAY | PROVIDERS: PCP Internal Medicine; Visit Provider Nurse Practitioner Family | DX: M54.6 Pain in thoracic spine (principal); M25.511 Pain in right shoulder; M19.011 Primary osteoarthritis, right shoulder; M47.816 Spondylosis without myelopathy or radiculopathy, lumbar region; M54.16 Radiculopathy, lumbar region; M79.7 Fibromyalgia; M81.0 Age-related osteoporosis without current pathological fracture; M17.12 Unilateral primary osteoarthritis, left knee | CPT/HCPCS: 99202 ==

== ENCOUNTER 2022-12-05 12:59 | Outpatient (REF) | payer OTHER, SELFPAY ==
--- NOTE | ~2022-12-05 | XR_ITS ---
EXAMINATION: XR lumbar spine 6V w bending CLINICAL INFORMATION: Reason for Exam M47.816 - Spondylosis without myelopathy or radiculopathy, lumbar region COMPARISON: None TECHNIQUE: 5 views of the lumbar spine FINDINGS: 5 nonrib-bearing lumbar-type vertebral bodies. Vertebral body heights are maintained. Leftward scoliosis of the lumbar spine anterolisthesis of L4 on L5. Minimal degenerative change and small anterior disc osteophyte complexes. Disc space heights are maintained. Paravertebral soft tissues are unremarkable. XR/XR lumbar spine 6V w bending IMPRESSION: 1. Mild spondylosis of the lumbar spine, as above detailed. 2. Spondylolisthesis, as above detailed.
--- NOTE | ~2022-12-05 | XR_ITS ---
EXAMINATION: XR SHOULDER, RIGHT CLINICAL INFORMATION: Shoulder pain COMPARISON: 11/22/2020 TECHNIQUE: AP external rotation, Grashey, scapular Y, and axillary views of the right shoulder. FINDINGS: There is mild acromioclavicular osteoarthritis. Glenohumeral joint is well preserved. No fracture. Alignment is anatomic. Soft tissues are normal with no abnormal calcifications. XR/XR shoulder RT min 2V IMPRESSION: Mild osteoarthritis of the acromioclavicular joint.
== END 2022-12-05 13:00 | disposition home or self-care (01) ==
LOC: HO.XRAY 12:59
PROVIDERS: PCP Internal Medicine; Visit Provider Nurse Practitioner Family
DX: M47.816 Spondylosis without myelopathy or radiculopathy, lumbar region (principal); M54.16 Radiculopathy, lumbar region; M19.011 Primary osteoarthritis, right shoulder
CPT/HCPCS: 72114; 73030

== ENCOUNTER → 2022-12-29 08:48 | Outpatient (REF) | payer OTHER, SELFPAY ==
--- NOTE | ~2022-12-29 | NM_ITS ---
Lexiscan Myocardial perfusion study Indication: Chest pain, assess for coronary disease ischemia Technique: The patient was brought in for a Lexiscan perfusion study on 12/29/2022 and was injected 0.4 mg of Lexiscan intravenously. Within a minute of this injection 25 mCi of sestamibi was given intravenously. Images were obtained using the SPECT gamma camera interlaced with the gating device. Images were obtained in supine position. Resting perfusion study was performed on 12/31/2022. Patient was administered 25 mCi of sestamibi intravenously at rest. Images were then obtained in supine position. Images were processed with the software and compared side to side in short axis, horizontal long axis and vertical long axis views. Total DLP 193mGy-cm. Findings: Raw acquisition reviewed. Arms by the patient's side. The stress perfusion study showed mildly reduced tracer uptake in the basal part of septum. Seen in CT corrected as well as uncorrected images, but possibly artifactual. The gated study shows normal LV systolic function with calculated LVEF of 69%. LV cavity is normal in size. The gated study shows normal wall thickening and contraction of segments. Resting study shows no significant perfusion abnormality. Gating at rest reveals normal wall motion with ejection fraction at 60%. The findings are consistent with no clear reversible or fixed perfusion defects. NM/NM emanuel perf SPECT rest & str Impression: 1. Myocardial perfusion imaging study shows probably normal myocardial perfusion. No clear evidence of any ischemia or infarction. 2. Gated LVEF is 69% during stress and 60% during rest. 3. Transient ischemic dilatation not present. EKG component of the test reported separately.
--- NOTE | 2022-12-29 08:51 | CA_ITS ---
Acquisition Time: 2022-12-29 09:09:42 Total Exercise Time: 00:02:00 Test Indications: CP Medications: SEE H Protocol: LEXISCAN Max HR: 100 BPM 62% of Pred: 159 BPM Max BP: 130/082 mmHG Max Work Load: 1.0 METS Pharmacological stress test with Lexiscan injection, while sitting and kicking her legs, with report of pressure in chest post injection, without arrythmia, with normotensive response to injection, with nondiagnostic EKG for ischemia. In recovery she reported lightheadedness and was treated with Aminophylline 75mg IVP to reverse Lexiscan with resolution of symptom. Nuclear images pending. Test reviewed with Dr Cardoso Referred By: Riddhi Michael Overread By: VIDAL CHRIS
== END ==
LOC: HO.CARD 08:48
PROVIDERS: PCP Internal Medicine; Visit Provider Internal Medicine
DX: R07.9 Chest pain, unspecified (principal)
CPT/HCPCS: 78452; 93017; A9500; J0280; J2785

== ENCOUNTER → 2023-01-01 14:53 | Outpatient (BNVA) | payer OTHER, SELFPAY | PROVIDERS: PCP Internal Medicine; Visit Provider Physician Assistant | DX: M19.011 Primary osteoarthritis, right shoulder (principal); M25.511 Pain in right shoulder; M79.7 Fibromyalgia; M75.81 Other shoulder lesions, right shoulder | CPT/HCPCS: 20610; 99202; J1040 ==

== ENCOUNTER → 2023-02-20 14:55 | Outpatient (BNVA) | payer OTHER, SELFPAY | PROVIDERS: PCP Internal Medicine; Visit Provider Nurse Practitioner Family | DX: M54.16 Radiculopathy, lumbar region (principal); M47.816 Spondylosis without myelopathy or radiculopathy, lumbar region; M81.0 Age-related osteoporosis without current pathological fracture; M79.7 Fibromyalgia; M96.1 Postlaminectomy syndrome, not elsewhere classified | CPT/HCPCS: 99212 ==

== ENCOUNTER → 2023-03-11 12:57 | Outpatient (BNVA) | payer OTHER, SELFPAY | PROVIDERS: PCP Internal Medicine; Referring Provider Internal Medicine; Visit Provider Internal Medicine | DX: R07.9 Chest pain, unspecified (principal) | CPT/HCPCS: 99202 ==

== ENCOUNTER → 2023-04-17 14:24 | Outpatient (BNVA) | payer OTHER, SELFPAY | PROVIDERS: PCP Internal Medicine; Visit Provider Nurse Practitioner Family ==

== ENCOUNTER → 2023-05-13 12:50 | Outpatient (REF) | payer OTHER, SELFPAY ==
--- NOTE | 2023-05-13 12:52 | CA_ITS ---
Transthoracic Echocardiogram Patient (Last, First, Middle): Kiersten Park, Gender: Female Date of : 1960 Age: 63 Procedure Date: 05/13/2023 Procedure Type: Transthoracic Echocardiogram Location: OP Height: 149.86 cm Weight: 102.51 kg BSA: 1.94 m2 Heart Rate: bpm BP: 140 / 90 mmHg Dietitian Helper: TO Referring MD: Raul Gonzalez MD Symptoms: R07.9 - Chest pain, unspecified Study Quality: Fair/Contrast ECG Rhythm: Sinus Conclusions: - The left ventricular systolic function is normal. The visually estimated ejection fraction is between 60-65%. - No obvious valvular pathology seen on this study. Findings Procedure Information Contrast agent, definity, is being given per protocol without apparent complications. Left Ventricle Normal left ventricular cavity size. The left ventricular systolic function is normal. The visually estimated ejection fraction is between 60-65%. There is no evidence of regional wall motion abnormalities. Diastolic function is normal for age. Mild focal hypertrophy of the basal septum. Right Ventricle Normal right ventricular cavity size and systolic function. Atria Both atria are normal in size. Aortic Valve There is a normal trileaflet aortic valve. There is no aortic valve stenosis. There is no aortic valve regurgitation. Mitral Valve The mitral valve appears normal. There is no mitral valve regurgitation. There is no mitral valve stenosis. Pulmonic Valve The pulmonic valve is likely normal. Tricuspid Valve There is mild tricuspid valve regurgitation. Top normal RVSP. Great Vessels The asc aorta is normal in size. Venous The inferior vena cava is normal in size and collapses greater than 50% with inspiration. Pericardium/Pleural There is no evidence of pericardial effusion. Prior Study Comparison No significant change compared to prior study dated: 03/01/2016. Recommendations, Care & Conclusions No obvious valvular pathology seen on this study. Measurements 2D Linear Measurements IVSd: 1.37 0.6-0.9/0.6-1.0 cm LVIDd: 4.02 3.9-5.3/4.2-5.9 cm LVIDd Index: 2.07 2.4-3.2/2.2-3.1 cm/m2 LVIDs: 1.98 2.0-3.6 cm LVPWd: 0.78 0.7-1.1 cm LA Diam: 3.80 2.7-3.8/3.0-4.0 cm LAIDs Index: 1.96 1.5-2.3 cm/m2 LV Mass: 177.19 67-162/88-224 g LV Mass Index: 91.34 43-95/49-115 g/m2 LVOT Diam: 1.80 3.0+(-)1.3 cm 2D Systolic Function EF 4C: 64.70 >55% Mitral Valve MV Pk E: 0.75 MV PK A: 0.83 MV Decel Time: 267.00 E/A: 0.90 E'Lateral: 9.36 E'Medial: 7.29 E/E' Med: 10.20 E/E' Lat: 8.00 PHT: 78.00 MVA PHT: 2.82 Decel [place]: 2.79 Aortic Valve AoV Pk Manohar: 1.58 AoV Mn Manohar: 0.95 AoV VTI: 0.30 AoV Pk Grad: 10.00 Aov Mn Grad: 4.00 SHARATH Cont.VTI: 2.16 LVOT LVOT Pk Manohar: 1.38 LVOT Mn Manohar: 0.94 LVOT VTI: 0.25 LVOT Pk Grad: 8.00 LVOT Mn Grad: 4.00 LVOT Diam: 1.80 LVOT Area: 2.54 Diastolic Function MV Pk E: 0.75 MV Pk A: 0.83 E/A: 0.90 E'Medial: 7.29 E/E' Med: 10.20 E' Laterial: 9.36 E/E' Lat: 8.00 Right Ventricle TAPSE (mm): 24.40 TVS' Manohar: 16.40 Tricuspid Valve TR Pk Manohar: 2.84 TR Pk Grad: 32.00 RA Press: 3.00 RVSP: 35.00 Great Vessels Aorta Sinus of Valsalva: 3.03 2.0-3.5 cm Ao Asc: 3.40 2.1-3.4 cm Updated in Other Vendor System with Status of Final Raul Gonzalez MD electronically signed on 05/15/2023 12:34:56 PM with status of Final
== END ==
LOC: HO.CARD 12:50
PROVIDERS: PCP Internal Medicine; Visit Provider Internal Medicine
DX: R07.9 Chest pain, unspecified (principal)
CPT/HCPCS: 93306; Q9957

== ENCOUNTER → 2023-05-13 12:52 | Outpatient (BNV) | payer OTHER, SELFPAY | PROVIDERS: PCP Internal Medicine; Visit Provider Internal Medicine | DX: I36.1 Nonrheumatic tricuspid (valve) insufficiency (principal) | CPT/HCPCS: 93306 ==

== ENCOUNTER 2023-05-20 09:56 | Outpatient (REF) | payer OTHER, SELFPAY ==
--- NOTE | ~2023-05-20 | MR_ITS ---
MR LUMBAR SPINE WITHOUT CONTRAST CLINICAL INFORMATION: Postlaminectomy syndrome. COMPARISON: Lumbar spine MRI 04/16/2017 and lumbar spine radiographs 12/05/2022. TECHNIQUE: MRI of the lumbar spine was obtained using routine sequences without contrast. FINDINGS: Motion degraded MRI of the lumbar spine. There are 5 nonrib-bearing lumbar-type vertebral bodies with hypoplastic ribs at the lowermost thoracic type segment and the last completely developed intervertebral disc considered L5-S1. There is slight grade 1 anterolisthesis of L4 on L5. Lumbar alignment is otherwise maintained. The vertebral body heights are preserved. There is partial disc desiccation at all lumbar levels. There is no bone marrow edema. There are no acute fractures. Conus terminates at the L1-L2 level. Extrarenal pelvises bilaterally. No significant extraspinal soft tissue findings. L1-L2: Slight annular disc bulge. Mild bilateral facet arthropathy. No central canal stenosis and no foraminal stenosis. Findings unchanged. L2-L3: The previously seen small superiorly migrating left paracentral disc extrusion has resorbed. Small annular disc bulge and mild bilateral facet arthropathy. There is no central canal stenosis and there is no foraminal stenosis. L3-L4: There is a small annular disc bulge and there is mild bilateral facet arthropathy. There is no central canal stenosis and there is no foraminal stenosis. L4-L5: There is slight grade 1 anterolisthesis. Diffuse annular disc bulge and severe bilateral facet arthropathy and ligamentum flavum thickening. Findings in concert result in mild bilateral foraminal encroachment. Findings are progressed. L5-S1: Small annular disc bulge. Right greater than left facet arthropathy. No central canal stenosis and mild right-sided foraminal encroachment. MR/MR lumbar spine wo con IMPRESSION: - At L2-L3, the previously seen small superiorly migrating left paracentral disc extrusion has resorbed. - At L4-L5, there is slight grade 1 degenerative anterolisthesis in the setting of advanced bilateral hypertrophic facet arthropathy resulting in worsening mild bilateral foraminal encroachment without exiting nerve root compression. - Additional stable mild spondylitic changes as described. No severe central canal stenosis and no severe foraminal stenosis within the lumbar spine.
== END 2023-05-20 09:57 | disposition home or self-care (01) ==
LOC: HO.MRI 09:56
PROVIDERS: PCP Internal Medicine; Visit Provider Nurse Practitioner Family
DX: M47.816 Spondylosis without myelopathy or radiculopathy, lumbar region (principal); M54.16 Radiculopathy, lumbar region; M96.1 Postlaminectomy syndrome, not elsewhere classified
CPT/HCPCS: 72148

== ENCOUNTER 2023-06-19 02:38 | Emergency (ER) | payer OTHER, SELFPAY ==
--- NOTE | ~2023-06-19 | CT_ITS ---
EXAMINATION: CT HEAD WITHOUT CONTRAST CLINICAL INFORMATION: Headache, hypertension COMPARISON: 11/25/2016 TECHNIQUE: Contiguous axial imaging was performed from the skull base to vertex without intravenous administration of contrast. This CT examination was performed using dose optimization techniques as appropriate, variously including the following: *Automated exposure control *Adjustment of mA and/or kV according to patient size (this includes techniques or standardized protocols for targeted exams where dose is matched to indication/reason for exam; i.e. extremities or head) *Use of iterative reconstruction technique DLP: 640 mGy-cm FINDINGS: There is no evidence of acute intracranial hemorrhage or territorial infarction. No abnormal mass-effect or midline shift is seen. Kaiser to white matter differentiation is well preserved. No extra-axial fluid collections are identified. The ventricles are normal in size. There is no abnormal attenuation within the brain parenchyma. The osseous structures and soft tissues are normal. There is near complete opacification of the left frontal sinus. The mastoid air cells are well-aerated. CT/CT head/brain wo IV con IMPRESSION: No acute intracranial pathology. Near complete opacification of the left frontal sinus.
[2023-06-19 02:43] VITALS: BP 155/90; PULSE 80; O2SAT 96
[2023-06-19 02:47] VITALS: BP 174/81; PULSE 71; RESP 20; TEMP 36.6; O2SAT 95; BMI 46.4
[2023-06-19 02:51] VITALS: BP 174/81; PULSE 73; RESP 20; TEMP 36.6; O2SAT 96
--- NOTE | 2023-06-19 03:02 | ECG_ITS ---
Test Reason : ELEVATED BP Blood Pressure : / mmHG Vent. Rate : 068 BPM Atrial Rate : 068 BPM P-R Int : 144 ms QRS Dur : 072 ms QT Int : 408 ms P-R-T Axes : 057 039 057 degrees QTc Int : 433 ms Normal sinus rhythm Normal ECG When compared with ECG of 25-NOV-2022 09:52, No significant change was found Referred By: Generic ED Physician Electronically Signed By:ELIZABETH KANG
[2023-06-19 03:43] VITALS: BP 156/64; PULSE 72; RESP 16; TEMP 36.6; O2SAT 95
[2023-06-19 03:48] LABS: Basophils Percent Auto 0.5 % (0-2); Eosinophils Absolute Auto 0.2 X10*3/uL (0.0-0.4); Eosinophils Percent Auto 2.8 % (0-4); Hematocrit 41.1 % (37.0-47.0); Hemoglobin 13.4 g/dl (12.0-16.0); Imm Gran Abs Auto 0.03 X10*3/uL (0.00-0.03); Imm Gran Pct Auto 0.5 % (0.0-0.4); Lymphocytes Absolute Auto 1.8 X10*3/uL (1.2-4.9); Lymphocytes Percent Auto 26.8 % (20-40); MANUAL DIFF FLAG NO; Mean Corpuscular HGB Conc 32.6 g/dl (31.0-35.0); Mean Corpuscular Hemoglobin 26.6 pg (27.0-33.0); Mean Corpuscular Volume 81.7 fL (80.0-98.0); Mean Platelet Volume 10.7 fL (9.4-12.3); Monocytes Absolute Auto 0.6 X10*3/uL (0.1-1.2); Monocytes Percent Auto 8.7 % (2-11); Neutrophils Percent Auto 60.7 % (45-73); Platelet Count 221 X10*3/uL (160-400); Red Blood Count 5.03 X10*6/uL (4.20-5.50); Red Cell Distribution Width 15.1 % (11.0-16.0); White Blood Count 6.5 X10*3/uL (4.8-10.8)
--- NOTE | 2023-06-19 03:48 | ED_ITS ---
HPI - Headache General Chief Complaint: Headache Stated Complaint: HTN with headache Time Seen by Provider: 06/19/23 03:41 Source: patient Mode of arrival: EMS Limitations: no limitations History of Present Illness HPI Narrative: Patient comes to the emergency room complaining of high blood pressure and headache. Patient states that for the whole week, patient has been having blood pressure in the 190s and low 200s systolic. Patient takes losartan 50 mg daily, compliant with medication. Headache started yesterday. Patient complaining of photophobia. -patient denies chest pain or shortness of breath. EMS gave the patient 324 mg of aspirin. Patient states that the headache is starting to decrease but it is still present. Related Data Home Medications Medication Instructions Recorded Confirmed venlafaxine 75 mg capsule,extended mg PO BID 01/14/22 03/11/23 release 24 hr multivitamin with folic acid 400 1 tab PO DAILY 07/21/22 03/11/23 mcg tablet (Tab-A-Duarte) hydrochlorothiazide 25 mg tablet 25 mg PO DAILY 12/04/22 03/11/23 bupropion HCl 150 mg 24 hr tablet, 150 mg PO DAILY 03/11/23 03/11/23 extended release Previous Rx's Medication Instructions Recorded albuterol sulfate 90 mcg/actuation 2 puff inhalation Q6H PRN 07/31/22 aerosol inhaler (Ventolin HFA) bronchospasm #8.5 grams calcium citrate 500 mg-vitamin D3 1 tab PO BID 90 days #180 tabs 09/09/22 12.5 mcg (500 unit) chewable tablet trazodone 100 mg tablet 100 mg PO BEDTIME 30 days #30 tabs 09/22/22 escitalopram oxalate 20 mg tablet 20 mg PO DAILY 90 days #90 tabs 10/21/22 blood pressure monitor (Blood #1 ea 11/01/22 Pressure Kit) alendronate 70 mg tablet 70 mg PO QWEEK 90 days #13 tabs 12/29/22 atorvastatin 20 mg tablet 20 mg PO DAILY 90 days #90 tabs 12/29/22 calcium citrate 200 mg 1 tab PO BID 30 days #60 tabs 03/12/23 calcium-vitamin D3 6.25 mcg (250 unit) tablet (Prowers Calcium-Vitamin D3) ferrous sulfate 325 mg (65 mg 325 mg PO DAILY anemia #90 tabs 04/10/23 iron) tablet,delayed release losartan 50 mg tablet 50 mg PO DAILY 90 days #90 tabs 04/16/23 docusate sodium 100 mg capsule 100 mg PO BID 90 days #180 caps 04/28/23 Incruse Ellipta 62.5 mcg/actuation 1 inh inhalation BEDTIME 30 days 05/07/23 powder for inhalation #30 ea (umeclidinium) omeprazole 40 mg capsule,delayed 40 mg PO DAILY 90 days #90 caps 05/08/23 release pregabalin 200 mg capsule 200 mg PO BID pain 30 days #60 caps 06/01/23 acetaminophen 650 mg 650 mg PO Q8H 90 days #270 tabs 06/12/23 tablet,extended release (Mapap Arthritis Pain) ibuprofen 400 mg tablet 200 mg (1/2 x 400 mg) PO Q8H 30 06/12/23 days #45 tabs amlodipine 5 mg tablet 5 mg PO DAILY #30 tabs 06/19/23 ketorolac 10 mg tablet 10 mg PO .B.i.d. PRN pain #7 tabs 06/19/23 Allergies Allergy/AdvReac Type Severity Reaction Status Date / Time pineapple [PINEAPPLE] AdvReac Severe DIARRHEA Verified 06/19/23 02:45 Review of Systems 2 Review of Systems: Constitutional : No Weight loss, No Fever, No Chills, No Night Sweats, No Fatigue, No Malaise ENT/Mouth : No Hearing loss, No Ear Pain, No Nasal Congestion, No Sinus Pain, No Hoarseness, No sore throat, No Rhinorrhea, No Swallowing Difficulty Eyes: No Eye Pain, No Swelling, No Redness, No Foreign Body, No Discharge, No Vision Changes Cardiovascular : No Chest Pain, No SOB, No Dyspnea on Exertion, No Orthopnea, No Edema, No Palpitations, complaining of elevated blood pressure Respiratory : No Cough, No Sputum, No Wheezing, No Smoke Exposure, No Dyspnea Gastrointestinal : No Nausea, No Vomiting, No Diarrhea, No Constipation, No abdominal Pain, No Hematochezia, No Melena Genitourinary : no irregular bleeding, No Dysuria, No Urinary Frequency, No Hematuria, No Urinary Incontinence, No Urgency, No Flank Pain, No Urinary Flow Changes, No Hesitancy Musculoskeletal : No joint pain, No Myalgias, No Joint Swelling Skin : No Skin Lesions, No rash Neuro : No Weakness, No Numbness, No Paresthesias, No Loss of Consciousness, No Dizziness, complaining of headache Psych : No Anxiety/Panic, No Depression, No SI/HI/AH/VH, No Social Issues, Heme/Lymph: No Bruising, No Bleeding,No Lymphadenopathy Endocrine : No Polyuria, No Polydipsia, No Temperature Intolerance [facility] Past Medical History Medical History History of high cholesterol History of high blood pressure Right shoulder pain Restrictive lung disease Morbid obesity with BMI of 45.0-49.9, adult MAGGIE (generalized anxiety disorder) 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 Rheumatoid arthritis Insomnia Chronic back pain COPD (chronic obstructive pulmonary disease) Iron deficiency anemia Morbid obesity Fibromyalgia Chronic GERD Constipation by delayed colonic transit Hypovitaminosis D Pure hypercholesterolemia Severe major depression Surgical History H/O colonoscopy History of back surgery History of neck surgery Family History Family History Mother Uterus cancer Breast cancer, Onset Age: 43 Diabetes Arthritis IBS (irritable bowel syndrome) Father Heart disease Sister Mental health disorder Brother Mental health disorder Social History Social History Housing: Apartment Alcohol intake: never Patient Tobacco Use Status: Former Tobacco user Tobacco use type: Cigarette Smoked in Last 30 Days: No e-Cigarette/Vaping Use: Never Used Second Hand Smoke Exposure: No Use of substances other than those prescribed or required for medical reasons: No Advance Directives: No Advance Directives Information Provided: Yes service: No Current occupational status: disabled 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 Oriented X3. No acute distress. Eyes: Pupils equal, round and reactive to light. Patient has or phobia ENT: Pharynx normal. Neck: Normal inspection. Neck supple. No lymph nodes noted. No crepitus CVS: Normal heart rate and rhythm. Pulses normal. Normal S1 and S2 Respiratory: No respiratory distress. Breath sounds normal. No Wheezing. No rales Abdomen: Soft and nontender. No rigidity. No distention. Skin: Skin warm and dry. Normal skin color. Normal skin turgor. Extremities: No lower extremity edema. No Lacerations. No Rash Neuro: Oriented X 3. No motor deficit. No sensory deficit. Moving all extremities. No slurred speech. CN 2 through 12 grossly intact Psych: calm, cooperative, normal affect Course Course Course Narrative: -patient's labs and head CT pending -depending on the head CT, if negative, patient will get IV ketorolac Medications Administered Discontinued Medications Generic Name Dose Route Start Last Admin Trade Name Freq PRN Reason Stop Dose Admin Diphenhydramine HCl 25 mg 06/19/23 05:00 06/19/23 05:43 Diphenhydramine Hcl 50 Mg/Ml Vial IVPUSH 06/19/23 05:01 25 mg ONCE ONE Administration Sodium Chloride 500 mls @ 999 mls/hr 06/19/23 05:00 06/19/23 05:39 Ns IVCONT 06/19/23 05:30 999 mls/hr .Q31M ONE Administration Ketorolac Tromethamine 30 mg 06/19/23 05:00 06/19/23 05:40 Ketorolac Tromethamine 30 Mg/Ml Vial IVPUSH 06/19/23 05:01 30 mg ONCE ONE Administration Metoclopramide HCl 10 mg 06/19/23 05:00 06/19/23 05:43 Metoclopramide Hcl 10 Mg/2 Ml Vial IVPUSH 06/19/23 05:01 10 mg ONCE ONE Administration Medical Decision Making Medical Decision Making MDM Narrative: -my interpretation a head CT: No intracranial bleed -patient given IV fluids, Toradol -patient states that she is feeling much better, patient ready for discharge. -blood pressure 162/64, discussed with the patient starting a new medication, patient agreeable Differential Diagnosis Differential Diagnoses: The differential diagnosis associated with the presentation includes (Hypertensive urgency, migraine, tension headache) Admission/Observation Consideration of admission/observation: Escalation of care including admission/observation considered (Patient reported a very high blood pressure on arrival, admission considered) Lab Data MDM Lab Attestation statement: I reviewed the patient's lab results. 06/19/23 03:40 06/19/23 03:40 Labs: Lab Results 06/19/23 Range/Units 03:40 WBC 6.5 (4.8-10.8) X10*3/uL RBC 5.03 (4.20-5.50) X10*6/uL Hgb 13.4 (12.0-16.0) g/dl Hct 41.1 (37.0-47.0) % MCV 81.7 (80.0-98.0) fL MCH 26.6 L (27.0-33.0) pg MCHC 32.6 (31.0-35.0) g/dl RDW 15.1 (11.0-16.0) % Plt Count 221 (160-400) X10*3/uL MPV 10.7 (9.4-12.3) fL Immature Gran % (Auto) 0.5 H (0.0-0.4) % Neut % (Auto) 60.7 (45-73) % Lymph % (Auto) 26.8 (20-40) % [place] % (Auto) 8.7 (2-11) % Eos % (Auto) 2.8 (0-4) % Baso % (Auto) 0.5 (0-2) % Lymph # (Auto) 1.8 (1.2-4.9) X10*3/uL [place] # (Auto) 0.6 (0.1-1.2) X10*3/uL Eos # (Auto) 0.2 (0.0-0.4) X10*3/uL Baso # (Auto) 0.0 (0.0-0.2) X10*3/uL Abs Immat Gran (auto) 0.03 (0.00-0.03) X10*3/uL Absolute Neuts (auto) 4.0 (2.0-8.3) x10*3/uL Absolute Nucleated RBC 0.000 (0.0-0.012) X10*3/uL Nucleated RBC % (auto) 0.0 (0.0-0.2) /100WBC Sodium 140 (135-145) mmol/L Potassium 3.5 (3.3-5.1) mmol/L Chloride 108 (96-108) mmol/L Carbon Dioxide 18 L (22-29) mmol/L Anion Gap 18 (12-20) BUN 14 (9-16) mg/dL Creatinine 0.77 (0.5-1.4) mg/dL Estim Creat Clear Calc 80.8 Estimated GFR > 60 Random Glucose 105 (60-115) mg/dL Calcium 9.3 (8.4-10.2) mg/dL Total Bilirubin 0.6 (0.0-1.0) mg/dL AST 16 (5-31) U/L ALT 19 (0-31) U/L Alkaline Phosphatase 111 (39-117) U/L Troponin I High Sens < 2.7 (<3.5-17.0) ng/L Total Protein 7.2 (6.5-8.0) g/dL Albumin 4.0 (3.5-5.0) g/dL Independent Interpretation I performed an independent interpretation of an: CT Scan Radiology Impression Discussion of test interpretation with radiology: I have reviewed the radiologist's reading. Radiologist Impression: FINDINGS: There is no evidence of acute intracranial hemorrhage or territorial infarction. No abnormal mass-effect or midline shift is seen. Kaiser to white matter differentiation is well preserved. No extra-axial fluid collections are identified. The ventricles are normal in size. There is no abnormal attenuation within the brain parenchyma. The osseous structures and soft tissues are normal. There is near complete opacification of the left frontal sinus. The mastoid air cells are well-aerated. CT/CT head/brain wo IV con IMPRESSION: No acute intracranial pathology. Near complete opacification of the left frontal sinus. Independent Historian Clinical information obtained from an independent historian. History obtained from or confirmed by: Spouse Critical Care Time Critical Care Time Critical Care Time: Yes Total Critical Care Time: 60 Attestation: I have personally provided critical care time. Time includes review of lab data, radiology results, discussion with consultants, and monitoring for potential decompensation. Intervention performed as documented. Discharge Plan Discharge Clinical Impression: Headache, Hypertension Patient Disposition: Home, Self-Care Instructions: Acute Headache (ED), Hypertension (ED) Additional Instructions: Please follow-up with your primary care physician tomorrow. If you have any worsening or new symptoms, please return to the emergency room or call 911 Prescriptions: New ketorolac 10 mg tablet 10 mg PO .B.i.d. PRN (Reason: pain) Qty: 7 0RF amlodipine 5 mg tablet 5 mg PO DAILY Qty: 30 1RF No Action albuterol sulfate [Ventolin HFA] 90 mcg/actuation HFA aerosol inhaler 2 puff inhalation Q6H PRN (Reason: bronchospasm) Qty: 8.5 0RF calcium citrate-vitamin D3 500 mg-12.5 mcg (500 unit) tablet,chewable 1 tab PO BID 90 Days Qty: 180 1RF trazodone 100 mg tablet 100 mg PO BEDTIME 30 Days Qty: 30 0RF escitalopram oxalate 20 mg tablet 20 mg PO DAILY 90 Days Qty: 90 1RF (DME) blood pressure monitor [Blood Pressure Kit] Kit See Rx Instructions .Route Qty: 1 0RF Rx Instructions: As directed alendronate 70 mg tablet 70 mg PO QWEEK 90 Days Qty: 13 1RF atorvastatin 20 mg tablet 20 mg PO DAILY 90 Days Qty: 90 1RF calcium citrate-vitamin D3 [Prowers Calcium-Vitamin D3] 200 mg-6.25 mcg (250 unit) tablet 1 tab PO BID 30 Days Qty: 60 4RF ferrous sulfate 325 mg (65 mg iron) tablet,delayed release (DR/EC) 325 mg PO DAILY Qty: 90 1RF losartan 50 mg tablet 50 mg PO DAILY 90 Days Qty: 90 1RF docusate sodium 100 mg capsule 100 mg PO BID 90 Days Qty: 180 0RF Incruse Ellipta 62.5 mcg/actuation blister with device 1 inh inhalation BEDTIME 30 Days Qty: 30 3RF omeprazole 40 mg capsule,delayed release(DR/EC) 40 mg PO DAILY 90 Days Qty: 90 1RF pregabalin 200 mg capsule 200 mg PO BID 30 Days Qty: 60 1RF acetaminophen [Mapap Arthritis Pain] 650 mg tablet extended release 650 mg PO Q8H 90 Days Qty: 270 0RF ibuprofen 400 mg tablet 200 mg PO Q8H 30 Days Qty: 45 1RF venlafaxine 75 mg capsule,extended release 24hr PO BID multivitamin with folic acid [Tab-A-Duarte] 400 mcg tablet 1 tab PO DAILY hydrochlorothiazide 25 mg tablet 25 mg PO DAILY bupropion HCl 150 mg tablet extended release 24 hr 150 mg PO DAILY
[2023-06-19 04:01] LABS: Alanine Aminotransferase 19 U/L (0-31); Alkaline Phosphatase 111 U/L (39-117); Anion Gap 18 (12-20); Aspartate Amino Transferase 16 U/L (5-31); Bilirubin Total 0.6 mg/dL (0.0-1.0); Blood Urea Nitrogen 14 mg/dL (9-16); Calcium 9.3 mg/dL (8.4-10.2); Carbon Dioxide 18 mmol/L (22-29); Chloride 108 mmol/L (96-108); Creatinine Clr Calc Pharmacy 80.8; Estimated Glomerular Filt Rate > 60; Glucose Random 105 mg/dL (60-115); Potassium 3.5 mmol/L (3.3-5.1); Sodium 140 mmol/L (135-145); Total Protein 7.2 g/dL (6.5-8.0)
[2023-06-19 04:11] LABS: Troponin-I High Sensitivity < 2.7 ng/L (<3.5-17.0)
[2023-06-19] MEDS: 0.9 % Sodium Chloride 500 ML 999 ML IVCONT (05:39)
[2023-06-19] MEDS: Ketorolac Tromethamine 30 MG/ML VIAL IVPUSH (05:40)
[2023-06-19] MEDS: diphenhydrAMINE HCL 50 MG/ML VIAL 25 MG IVPUSH (05:43)
[2023-06-19] MEDS: Metoclopramide HCl 10 MG/2 ML VIAL IVPUSH (05:43)
[2023-06-19 05:46] VITALS: BP 162/64; PULSE 76; RESP 16; TEMP 36.5
[2023-06-19 07:28] VITALS: BP 130/65; PULSE 78; RESP 18; TEMP 36.6; O2SAT 96
--- NOTE | 2023-06-19 07:29 | PC.NURSE ---
Assumed care of pt at 0700. Pt sleeping quietly in bed. at bedside. No apparent distress.
== END 2023-06-19 07:58 | disposition home or self-care (01) ==
PROVIDERS: Emergency Provider Emergency Medicine
DX: R51.9 Headache, unspecified (principal); I10 Essential (primary) hypertension; E78.00 Pure hypercholesterolemia, unspecified; G47.33 Obstructive sleep apnea (adult) (pediatric); Z99.89 Dependence on other enabling machines and devices; E66.9 Obesity, unspecified; Z68.42 Body mass index [BMI] 45.0-49.9, adult; Z87.891 Personal history of nicotine dependence; Z79.899 Other long term (current) drug therapy
CPT/HCPCS: 36415; 70450; 80053; 84484; 85025; 93005; 96361; 96374; 96375; 99284; 99285; J1200; J1885; J2765

== ENCOUNTER 2023-07-30 09:25 | Outpatient (AMB) | payer OTHER, SELFPAY ==
--- NOTE | 2023-07-30 09:27 | MHC.OFFVIS ---
Intake Vital Signs 07/30/23 09:30 Height 4 ft 11 in Weight 224 lb 6 oz BMI 45.3 BP 161/81 H Blood Pressure Location Rt radial Position Sitting Pulse 101 H Pulse Source Pulse Oximeter Pulse Oximetry (%) 97 Oxygen Delivery Method Room Air Intake Visit Reasons: Back pain Allergies pineapple [PINEAPPLE] Adverse Reaction (Severe, Verified 07/30/23 09:31) DIARRHEA HPI HPI Comments History of Present Illness Details Patient presents today for follow up to review lumbar spine MRI results and discuss pain management for ongoing low back pain. Pain increases with any movements, worse with range of motions, lumbar extension worse then flexion, sleep and cold weather changes. Pain radiates up to her mid thoracic area but not her legs. She does reports widespread head to toe pain due to fibromyalgia. Lumbar spine MRI results were reviewed with patient today and are noted below. She would like to proceed with minimally invasive Sprint PNS trial for axial low back pain instead of SCS trial. Patient denies any fever, bladder or bowel incontinence or saddle anesthesia. PRIOR: Patient presents today for follow up with increasing low back pain and left sided radiculopathy. She is suffering from chronic polyarthralgias, fibromyalgia, osteoarthritis and degenerative arthritis. Patient reports back pain has been worsening, affecting her daily ADLs, mobility, functioning and sleep. Patient reports intermittent but frequent episodes of significant muscle spasming form neck to her lower back, worse on the left side. She has been taking daily Ibuprofen and has noticed increase in BP and also had recent cardiac work up for chest pain. Patient reports she recently underwent stress test and was notified it was grossly normal. Patient states her pain levels have been unbearable and back and left leg pain increases with walking, standing, prolonged sitting or bending. She ambulates with antalgic gait and uses cane. Patient is interested to undergo diagnostic injections for Sprint PNS as this was discussed last visit but also is reconsidering to undergo another SCS trial with a different system than a Roberto and Roberto that was implanted for one year at [facility] with minimal pain relief. We will update patient's lumbar spine MRI and proceed with behavioral evaluation for SCS trial. Patient denies any fever, bladder or bowel incontinence or saddle anesthesia. PRIOR: Patient is a 62 years old female presents with history of fibromyalgia, major depression, osteoporosis, OA, RA, morbid obesity, previous cervical and lumbar spine surgeries, presents today with chronic widespread pain throughout her body with neck to lower back pain, right shoulder pain, and left knee pain. Her main complaint today is lower back pain and right shoulder pain. She previously managed her pain through [facility] with interventional therapies, including multiple therapeutic injections and short term SCS implant for one year. Her back pain is axial and also radiates to her left lower extremity laterally and posteriorly with numbness and tingling in her left obrien, calf, and toes. Pain is described as constant sharp, pinching, wrenching, searing, exhausting, punishing, spreading, radiating, and tight. Patient rates her daily pain intensity at 10/10. She notes numbness and tingling throughout her body in upper and lower extremities due to fibromyalgia. Denies bladder or bowel incontinence or saddle anesthesia. Ambulates with antalgic gait with mild limping and uses a walker. Patient presents with difficulty with overhead reaches on the right due to significant right shoulder pain. She received [facility]one [facility] [place] with minimal results. Patient was recently at [facility] on 11/25/22 with chest pain with pain radiation into her left arm with intermittent numbness and was referred to cardiology. She denies any shortness of breath, dizziness, chest pain, pressure or tightness today. Patient reports she is currently active with aquatic therapy at [facility] [place]. She is also starting a formal weight management program at [facility]. She completed physical therapy in the past with temporary mild improvements. Patient reports she does not drink sodas or sugary beverages but loves to drink a lot of milk. She is taking Tylenol and Ibuprofen, ice and heat therapy for her pain with minimal to no pain relief. Patient also takes pregabalin with partial results. Previous imaging for cervical and thoracolumbar spines, shoulder and bone scan are reviewed and noted below. 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 Rheumatoid arthritis Insomnia Chronic back pain COPD (chronic obstructive pulmonary disease) Iron deficiency anemia Morbid obesity Fibromyalgia Chronic GERD Constipation by delayed colonic transit Hypovitaminosis D Pure hypercholesterolemia Severe major depression Surgical History H/O colonoscopy History of back surgery History of neck surgery Family History Mother Uterus cancer Breast cancer, Onset Age: 43 Diabetes Arthritis IBS (irritable bowel syndrome) Father Heart disease Sister Mental health disorder Brother Mental health disorder Social History Housing: Apartment Alcohol intake: never Patient Tobacco Use Status: Former Tobacco user Tobacco use type: Cigarette e-Cigarette/Vaping Use: Never Used Second Hand Smoke Exposure: No service: No Current occupational status: disabled 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 Alert and oriented. Mood and affect appropriate. Follows and participates in conversation appropriately. Respiratory effort is unlabored. No cough. Able to transition from sit to stand unassisted. Uses cane with ambulation. Ambulates with bilaterally normal heel strike and toe off. Neck Neck: Yes no lymphadenopathy, Yes supple, No anterior neck swelling and Yes prominent dorsocervical fat pad Back/Spine/Pelvis Other: Lumbar extention reproduces moderate to severe pain, flexion reproduces mild to moderate pain. Painful facet loading bilaterally. Back: back tenderness Cervical Spine: cervical muscular tenderness, Cervical spine scars present and No Cervical spine tenderness Thoracic/Lumbar Spine: thoracic and lumbar spine normal to inspection, straight leg raise negative bilaterally, kyphosis, pain with thoraco-lumbar ROM, paraspinal muscle tenderness, thoraco-lumbar ROM limited, No thoracic spinal tenderness and lumbar spinal tenderness Pelvis: buttock tenderness bilaterally Sacroiliac joints: bilaterally tender to palpation Extrem General: Yes capillary refill normal, Yes no clubbing, cyanosis or edema and Yes no calf tenderness Results Reviewed Results Reviewed: MR LUMBAR SPINE WITHOUT CONTRAST 05/20/23 CLINICAL INFORMATION: Postlaminectomy syndrome. COMPARISON: Lumbar spine MRI 04/16/2017 and lumbar spine radiographs 12/05/2022. TECHNIQUE: MRI of the lumbar spine was obtained using routine sequences without contrast. FINDINGS: Motion degraded MRI of the lumbar spine. There are 5 nonrib-bearing lumbar-type vertebral bodies with hypoplastic ribs at the lowermost thoracic type segment and the last completely developed intervertebral disc considered L5-S1. There is slight grade 1 anterolisthesis of L4 on L5. Lumbar alignment is otherwise maintained. The vertebral body heights are preserved. There is partial disc desiccation at all lumbar levels. There is no bone marrow edema. There are no acute fractures. Conus terminates at the L1-L2 level. Extrarenal pelvises bilaterally. No significant extraspinal soft tissue findings. L1-L2: Slight annular disc bulge. Mild bilateral facet arthropathy. No central canal stenosis and no foraminal stenosis. Findings unchanged. L2-L3: The previously seen small superiorly migrating left paracentral disc extrusion has resorbed. Small annular disc bulge and mild bilateral facet arthropathy. There is no central canal stenosis and there is no foraminal stenosis. L3-L4: There is a small annular disc bulge and there is mild bilateral facet arthropathy. There is no central canal stenosis and there is no foraminal stenosis. L4-L5: There is slight grade 1 anterolisthesis. Diffuse annular disc bulge and severe bilateral facet arthropathy and ligamentum flavum thickening. Findings in concert result in mild bilateral foraminal encroachment. Findings are progressed. L5-S1: Small annular disc bulge. Right greater than left facet arthropathy. No central canal stenosis and mild right-sided foraminal encroachment. IMPRESSION: - At L2-L3, the previously seen small superiorly migrating left paracentral disc extrusion has resorbed. - At L4-L5, there is slight grade 1 degenerative anterolisthesis in the setting of advanced bilateral hypertrophic facet arthropathy resulting in worsening mild bilateral foraminal encroachment without exiting nerve root compression. - Additional stable mild spondylitic changes as described. No severe central canal stenosis and no severe foraminal stenosis within the lumbar spine. Assessment & Plan Assessment & Plan (1) Post laminectomy syndrome: Code(s): M96.1 - Postlaminectomy syndrome, not elsewhere classified (2) Lumbar spondylosis: Code(s): M47.816 - Spondylosis without myelopathy or radiculopathy, lumbar region (3) Fibromyalgia: Code(s): M79.7 - Fibromyalgia (4) Osteoporosis: Code(s): M81.0 - Age-related osteoporosis without current pathological fracture (5) Lumbar degenerative disc disease: Code(s): M51.36 - Other intervertebral disc degeneration, lumbar region Plan 1. Continue pregabalin to 200 mg BID. I will send her short script of tramadol for moderate-severe pain, side effects and precautions discussed with patient. 2. Lumbar spine MRI results reviewed with patient. She would like to proceed with minimally invasive Sprint PNS trial for axial low back pain instead of SCS trial. Will schedule bilateral diagnostic medial branch blocks of L3-L4-L5 with local and fluoroscopy. Patient is noted candidate for therapeutic lumbar injections due to significant osteoporosis based on T-score value of -3.1 in her lumbar spine. Informational pamphlets were provided. All questions were answered and patient agreed with the plan. Follow up after injections and sooner if needed. Anticoagulation: Patient on anticoagulation (Aspirin) and instructions given on when to pause with prescribing physician permission. Justification for interventional therapy: ? Patient with average pain > 6/10 ? Patient has exhausted conservative therapy, NSAIDs, PT, aqua therapy The risks, consequences, alternatives, and benefits of various treatment options were discussed with the patient in great detail, including conservative management, injections and procedures. Medications: New meloxicam Take it with food and full glass of water. Avoid other NSAIDs. 7.5 mg PO DAILY PRN 60 tabs 0RF pain M47.816 - Spondylosis without myelopathy or radiculopathy, lumbar region, M96.1 - Postlaminectomy syndrome, not elsewhere classified tramadol 50 mg PO BID-TID 7 days PRN 21 tabs 0RF pain M47.816 - Spondylosis without myelopathy or radiculopathy, lumbar region, M96.1 - Postlaminectomy syndrome, not elsewhere classified Discontinued ketorolac Discontinued Reason: Doctor's Order 10 mg PO .B.i.d. PRN 7 tabs 0RF pain ibuprofen Discontinued Reason: Patient Completed Course 200 mg (1/2 x 400 mg) PO Q8H 30 days 45 tabs 1RF Coding Level of Care Code Est Pt Level 4 (55582) Diagnoses Post laminectomy syndrome M96.1 Lumbar spondylosis M47.816 Fibromyalgia M79.7 Osteoporosis M81.0 Lumbar degenerative disc disease M51.36
[2023-07-30 09:30] VITALS: BP 161/81; PULSE 101; O2SAT 97; BMI 45.3
== END 2023-07-30 09:48 | disposition home or self-care (01) ==
PROVIDERS: Visit Provider Nurse Practitioner Family
DX: M96.1 Postlaminectomy syndrome, not elsewhere classified (principal); M47.816 Spondylosis without myelopathy or radiculopathy, lumbar region; M79.7 Fibromyalgia; M81.0 Age-related osteoporosis without current pathological fracture; M51.36 Other intervertebral disc degeneration, lumbar region
CPT/HCPCS: 99214

== ENCOUNTER → 2023-07-30 09:25 | Outpatient (BNVA) | payer OTHER, SELFPAY | PROVIDERS: Visit Provider Nurse Practitioner Family | DX: M96.1 Postlaminectomy syndrome, not elsewhere classified (principal); M47.816 Spondylosis without myelopathy or radiculopathy, lumbar region; M79.7 Fibromyalgia; M81.0 Age-related osteoporosis without current pathological fracture; M51.36 Other intervertebral disc degeneration, lumbar region | CPT/HCPCS: 99212 ==

== ENCOUNTER 2023-08-26 06:09 | Outpatient (REF) | payer OTHER, SELFPAY ==
--- NOTE | ~2023-08-26 | FL_ITS ---
EXAMINATION: XR FLUOROSCOPY WITH IMAGES CLINICAL INFORMATION: Other intervertebral disc degeneration, lumbar region. COMPARISON: None available. TECHNIQUE: Fluoroscopy Supervised By: Dr. Wenceslao Walsh. Fluoroscopy Time: 0.2 minutes. Cumulative Dose: 7.70 mGy. DAP: 1.10 Gycm2. Images: 4. FINDINGS: Images demonstrate needle placement and contrast injection adjacent to the bilateral lateral L3, L4 and L5 vertebrae FL/FL guidance in treatment room IMPRESSION: Fluoroscopic guidance for lumbar pain management procedure.
== END 2023-08-26 06:10 | disposition home or self-care (01) ==
LOC: CF 06:09
PROVIDERS: Visit Provider Internal Medicine
DX: M51.36 Other intervertebral disc degeneration, lumbar region (principal); M47.816 Spondylosis without myelopathy or radiculopathy, lumbar region
CPT/HCPCS: 64493; 64494; J2795; Q9967

== ENCOUNTER 2023-08-26 07:50 | Outpatient (AMB) | payer OTHER, SELFPAY ==
[2023-08-26 07:56] VITALS: BP 130/78; PULSE 91; RESP 12; O2SAT 95
--- NOTE | 2023-08-26 07:56 | A.OFFVIS_ITS ---
Intake Vital Signs 08/26/23 07:56 08/26/23 09:31 BP 130/78 140/80 H Blood Pressure Location Rt brachial Rt radial Position Sitting Sitting Respiration 12 12 Pulse 91 82 Pulse Source Pulse Oximeter Pulse Oximeter Pulse Oximetry (%) 95 96 Oxygen Delivery Method Room Air Room Air Intake Visit Reasons: Jacky Dx L3-L4-L5 Allergies pineapple [PINEAPPLE] Adverse Reaction (Severe, Verified 08/26/23 07:57) DIARRHEA HPI Jacky Dx L3-L4-L5 HPI Details Patient presents for scheduled procedure. Denies any recent cough, cold, infection, fever or other significant changes in medical history since last office visit. 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 Rheumatoid arthritis Insomnia Chronic back pain COPD (chronic obstructive pulmonary disease) Iron deficiency anemia Morbid obesity Fibromyalgia Chronic GERD Constipation by delayed colonic transit Hypovitaminosis D Pure hypercholesterolemia Severe major depression Surgical History H/O colonoscopy History of back surgery History of neck surgery Family History Mother Uterus cancer Breast cancer, Onset Age: 43 Diabetes Arthritis IBS (irritable bowel syndrome) Father Heart disease Sister Mental health disorder Brother Mental health disorder Social History Housing: Apartment Alcohol intake: never Patient Tobacco Use Status: Former Tobacco user Tobacco use type: Cigarette e-Cigarette/Vaping Use: Never Used Second Hand Smoke Exposure: No service: No Current occupational status: disabled 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 The patient was placed in a prone position. The respective lumbosacral area was prepped with chloraprep and draped in sterile fashion. The skin over the target medial branch nerves was ane sthetized with 0.5% lidocaine. A 22 gauge 3.5 inch needle was inserted into the target medial branch nerve under fluoroscopic guidance. No paresthesias were elicited with needle placement and aspiration was negative for blood and CSF. Next, 0.2cc of omnipaque 180 was injected to verify positioning. Next 0.5 ml 0.5% ropivicaine was injected (0.5cc total per level). The identical procedure was performed at the remaining levels. The skin was cleansed and a sterile bandage was applied. Following the procedure the patient's vital signs were stable. The patient tolerated the procedure well and no complications were encountered. Following the procedure the patient's vital signs were stable. The patient was discharged home in good condition with post-procedural instructions. Time Out: Immediately prior to the procedure, the following was verbally confirmed that there is a signed consent form and that the correct patient, planned procedure, site and side are consistent with documentation and that necessary equipment and/or blood products are available prior to the start of the case. Complications: none EBL: <5 cc 68625 - second level, with Fluoroscopy (bilateral) Procedure code (CPT) selection complete Assessment & Plan Assessment & Plan (1) Lumbar spondylosis: Code(s): M47.816 - Spondylosis without myelopathy or radiculopathy, lumbar region Plan Patient is status post bilateral L3, L4 MB and L5 DR diagnostic blocks. Patient tolerated procedure well and was discharged home in stable condition with discharge instructions. All questions were answered. We will follow-up via telephone or in clinic to assess response to therapy. A follow-up appointment was made during today's visit. Coding Level of Care Code Procedure Only Diagnoses Lumbar spondylosis M47.816 CPT Codes Facet Injection-Lumbar/Sacral - CPT: 26290 - second level, with Fluoroscopy ([id number])
[2023-08-26 09:31] VITALS: BP 140/80; PULSE 82; RESP 12; O2SAT 96
== END 2023-08-26 09:23 | disposition home or self-care (01) ==
LOC: HO.PMCPRC 07:50
PROVIDERS: Visit Provider Internal Medicine
DX: M47.816 Spondylosis without myelopathy or radiculopathy, lumbar region (principal)
CPT/HCPCS: 64493; 64494

== ENCOUNTER 2023-08-28 12:43 | Outpatient (AMB) | payer OTHER, SELFPAY ==
--- NOTE | 2023-08-28 12:52 | MHC.OFFVIS ---
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 Walsh. Patient reports 40% pain relief for one hour post procedure. She states her fibromyalgia was exacerbated after injections during which she felt very tense and stiff. Patient reports immediately after procedure her pain was significantly minimized which she wishes would have longer lasting. She is interested to repeat diagnostic lumbar medial branch block injections with sedation in order to establish reproducible response to the treatment for potential Sprint peripheral nerve stimulation. Denies any recent cough, cold, infection, fever, bladder or bowel dysfunction, saddle anesthesia or other significant changes in medical history since last office visit. Past Procedures: 08/26/23: Diagnostic Bilateral L3-L4-L5 MBB-40% pain relief for 1 hour PRIOR: Patient presents today for follow up to review lumbar spine MRI results and discuss pain management for ongoing low back pain. Pain increases with any movements, worse with range of motions, lumbar extension worse then flexion, sleep and cold weather changes. Pain radiates up to her mid thoracic area but not her legs. She does reports widespread head to toe pain due to fibromyalgia. Lumbar spine MRI results were reviewed with patient today and are noted below. She would like to proceed with minimally invasive Sprint PNS trial for axial low back pain instead of SCS trial. Patient denies any fever, bladder or bowel incontinence or saddle anesthesia. PRIOR: Patient presents today for follow up with increasing low back pain and left sided radiculopathy. She is suffering from chronic polyarthralgias, fibromyalgia, osteoarthritis and degenerative arthritis. Patient reports back pain has been worsening, affecting her daily ADLs, mobility, functioning and sleep. Patient reports intermittent but frequent episodes of significant muscle spasming form neck to her lower back, worse on the left side. She has been taking daily Ibuprofen and has noticed increase in BP and also had recent cardiac work up for chest pain. Patient reports she recently underwent stress test and was notified it was grossly normal. Patient states her pain levels have been unbearable and back and left leg pain increases with walking, standing, prolonged sitting or bending. She ambulates with antalgic gait and uses cane. Patient is interested to undergo diagnostic injections for Sprint PNS as this was discussed last visit but also is reconsidering to undergo another SCS trial with a different system than a Roberto and Roberto that was implanted for one year at [facility] with minimal pain relief. We will update patient's lumbar spine MRI and proceed with behavioral evaluation for SCS trial. Patient denies any fever, bladder or bowel incontinence or saddle anesthesia. PRIOR: Patient is a 62 years old female presents with history of fibromyalgia, major depression, osteoporosis, OA, RA, morbid obesity, previous cervical and lumbar spine surgeries, presents today with chronic widespread pain throughout her body with neck to lower back pain, right shoulder pain, and left knee pain. Her main complaint today is lower back pain and right shoulder pain. She previously managed her pain through [facility] with interventional therapies, including multiple therapeutic injections and short term SCS implant for one year. Her back pain is axial and also radiates to her left lower extremity laterally and posteriorly with numbness and tingling in her left obrien, calf, and toes. Pain is described as constant sharp, pinching, wrenching, searing, exhausting, punishing, spreading, radiating, and tight. Patient rates her daily pain intensity at 10/10. She notes numbness and tingling throughout her body in upper and lower extremities due to fibromyalgia. Denies bladder or bowel incontinence or saddle anesthesia. Ambulates with antalgic gait with mild limping and uses a walker. Patient presents with difficulty with overhead reaches on the right due to significant right shoulder pain. She received [facility] [place] with minimal results. Patient was recently at [facility] on 11/25/22 with chest pain with pain radiation into her left arm with intermittent numbness and was referred to cardiology. She denies any shortness of breath, dizziness, chest pain, pressure or tightness today. Patient reports she is currently active with aquatic therapy at [facility] at [place]. She is also starting a formal weight management program at [facility]. She completed physical therapy in the past with temporary mild improvements. Patient reports she does not drink sodas or sugary beverages but loves to drink a lot of milk. She is taking Tylenol and Ibuprofen, ice and heat therapy for her pain with minimal to no pain relief. Patient also takes pregabalin with partial results. Previous imaging for cervical and thoracolumbar spines, shoulder and bone scan are reviewed and noted below. 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 Rheumatoid arthritis Insomnia Chronic back pain COPD (chronic obstructive pulmonary disease) Iron deficiency anemia Morbid obesity Fibromyalgia Chronic GERD Constipation by delayed colonic transit Hypovitaminosis D Pure hypercholesterolemia Severe major depression Surgical History H/O colonoscopy History of back surgery History of neck surgery Family History Mother Uterus cancer Breast cancer, Onset Age: 43 Diabetes Arthritis IBS (irritable bowel syndrome) Father Heart disease Sister Mental health disorder Brother Mental health disorder Social History Housing: Apartment Alcohol intake: never Patient Tobacco Use Status: Former Tobacco user Tobacco use type: Cigarette e-Cigarette/Vaping Use: Never Used Second Hand Smoke Exposure: No service: No Current occupational status: disabled 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) Hearing needs: No Vision needs: Yes Review of Systems Const All systems reviewed & are unremarkable except as noted in HPI and below Physical Exam Vital Signs: Last Vital Signs Pulse 85 08/28/23 13:05 BP 137/73 08/28/23 13:05 Pulse Ox 97 08/28/23 13:05 Oxygen Delivery Method Room Air 08/28/23 13:05 BMI result Body Mass Index 46.9 General: Appears afebrile. Alert and oriented. Mood and affect appropriate. Follows and participates in conversation appropriately. Respiratory effort is unlabored. No cough. Able to transition from sit to stand unassisted. Uses cane with ambulation. Ambulates with bilaterally normal heel strike and toe off. Back/Spine/Pelvis Other: No midline tenderness to palpation in the thoracic or lumbar spine. Painful facet loading bilaterally. Lumbar extention reproduces moderate to severe pain, flexion reproduces mild to moderate pain. Multiple widespread TTP 16/16 of upper and lower extremities. Back: back tenderness Cervical Spine: cervical muscular tenderness, pain with cervical ROM, Cervical spine scars present and No Cervical spine tenderness Thoracic/Lumbar Spine: thoracic and lumbar spine normal to inspection, Thoracic/lumbar spine scar(s), straight leg raise negative bilaterally, kyphosis, pain with thoraco-lumbar ROM, paraspinal muscle tenderness, thoraco-lumbar ROM limited, No thoracic spinal tenderness and lumbar spinal tenderness Pelvis: buttock tenderness bilaterally Sacroiliac joints: bilaterally tender to palpation Results Reviewed Results Reviewed: MR LUMBAR SPINE WITHOUT CONTRAST 05/20/23 CLINICAL INFORMATION: Postlaminectomy syndrome. COMPARISON: Lumbar spine MRI 04/16/2017 and lumbar spine radiographs 12/05/2022. TECHNIQUE: MRI of the lumbar spine was obtained using routine sequences without contrast. FINDINGS: Motion degraded MRI of the lumbar spine. There are 5 nonrib-bearing lumbar-type vertebral bodies with hypoplastic ribs at the lowermost thoracic type segment and the last completely developed intervertebral disc considered L5-S1. There is slight grade 1 anterolisthesis of L4 on L5. Lumbar alignment is otherwise maintained. The vertebral body heights are preserved. There is partial disc desiccation at all lumbar levels. There is no bone marrow edema. There are no acute fractures. Conus terminates at the L1-L2 level. Extrarenal pelvises bilaterally. No significant extraspinal soft tissue findings. L1-L2: Slight annular disc bulge. Mild bilateral facet arthropathy. No central canal stenosis and no foraminal stenosis. Findings unchanged. L2-L3: The previously seen small superiorly migrating left paracentral disc extrusion has resorbed. Small annular disc bulge and mild bilateral facet arthropathy. There is no central canal stenosis and there is no foraminal stenosis. L3-L4: There is a small annular disc bulge and there is mild bilateral facet arthropathy. There is no central canal stenosis and there is no foraminal stenosis. L4-L5: There is slight grade 1 anterolisthesis. Diffuse annular disc bulge and severe bilateral facet arthropathy and ligamentum flavum thickening. Findings in concert result in mild bilateral foraminal encroachment. Findings are progressed. L5-S1: Small annular disc bulge. Right greater than left facet arthropathy. No central canal stenosis and mild right-sided foraminal encroachment. IMPRESSION: - At L2-L3, the previously seen small superiorly migrating left paracentral disc extrusion has resorbed. - At L4-L5, there is slight grade 1 degenerative anterolisthesis in the setting of advanced bilateral hypertrophic facet arthropathy resulting in worsening mild bilateral foraminal encroachment without exiting nerve root compression. - Additional stable mild spondylitic changes as described. No severe central canal stenosis and no severe foraminal stenosis within the lumbar spine. Assessment & Plan Assessment & Plan (1) Post laminectomy syndrome: Code(s): M96.1 - Postlaminectomy syndrome, not elsewhere classified (2) Lumbar spondylosis: Code(s): M47.816 - Spondylosis without myelopathy or radiculopathy, lumbar region (3) Fibromyalgia: Code(s): M79.7 - Fibromyalgia (4) Osteoporosis: Code(s): M81.0 - Age-related osteoporosis without current pathological fracture (5) Lumbar degenerative disc disease: Code(s): M51.36 - Other intervertebral disc degeneration, lumbar region Plan Schedule for repeat bilateral diagnostic L3-L4-L5 MBB with sedation and fluoroscopy. Her recent lumbar MBBs injections provided 40% pain relief for one hour and have significantly exacerbated her fibromyalgia symptoms. She would like to in order to establish reproducible response to the treatment for potential Sprint peripheral nerve stimulation. Patient is not interested in SCS trial. Patient is not candidate for therapeutic lumbar injections due to significant osteoporosis based on T-score value of -3.1 in her lumbar spine. All questions were answered and patient agreed with the plan. Follow up after injections and sooner if needed. Anticoagulation: Patient on anticoagulation (Aspirin) and instructions given on when to pause with prescribing physician permission. Justification for interventional therapy: ? Patient with average pain > 6/10 ? Patient has exhausted conservative therapy, NSAIDs, PT, aqua therapy The risks, consequences, alternatives, and benefits of various treatment options were discussed with the patient in great detail, including conservative management, injections and procedures. Coding Level of Care Code Est Pt Level 3 (73952) Diagnoses Post laminectomy syndrome M96.1 Lumbar spondylosis M47.816 Fibromyalgia M79.7 Osteoporosis M81.0 Lumbar degenerative disc disease M51.36
[2023-08-28 13:05] VITALS: BP 137/73; PULSE 85; O2SAT 97; BMI 46.9
== END 2023-08-28 13:22 | disposition home or self-care (01) ==
PROVIDERS: Visit Provider Nurse Practitioner Family
DX: M96.1 Postlaminectomy syndrome, not elsewhere classified (principal); M47.816 Spondylosis without myelopathy or radiculopathy, lumbar region; M79.7 Fibromyalgia; M81.0 Age-related osteoporosis without current pathological fracture; M51.36 Other intervertebral disc degeneration, lumbar region
CPT/HCPCS: 99213

== ENCOUNTER → 2023-08-28 12:43 | Outpatient (BNVA) | payer OTHER, SELFPAY | PROVIDERS: Visit Provider Nurse Practitioner Family | DX: M96.1 Postlaminectomy syndrome, not elsewhere classified (principal); M47.816 Spondylosis without myelopathy or radiculopathy, lumbar region; M79.7 Fibromyalgia; M81.0 Age-related osteoporosis without current pathological fracture; M51.36 Other intervertebral disc degeneration, lumbar region | CPT/HCPCS: 99212 ==

== ENCOUNTER 2023-10-14 12:42 | Day surgery (SDC) | payer OTHER, SELFPAY ==
[2023-10-12 10:33] VITALS: BMI 46.9
--- NOTE | 2023-10-13 08:25 | P.CONAN_ITS ---
Documented by User: Daksha Little NP 10/13/23 08:32 HPI - Anesthesia Eval Consult details Narrative: 63yo F for Bilateral Diagnostic L3-L4-L5 Medial Branch Block Seen by [facility] cardiology 02/2023 for abnormal EKG. ECHO and stress OK. [facility] Active Problems Active Problems: All Active Problems (Updated 07/30/23 @ 10:05 by KATERINE Mills) Lumbar degenerative disc disease (Acute) Post laminectomy syndrome (Acute) Tendinitis of right rotator cuff (Acute) Osteoarthritis of right acromioclavicular joint (Acute) Chest pain (Acute) Lumbar back pain with radiculopathy affecting left lower extremity (Acute) Lumbar spondylosis (Acute) Osteoarthritis of right shoulder (Acute) Right shoulder pain (Acute) Essential hypertension (Acute) Restrictive lung disease (Acute) Mild recurrent major depression (Acute) Thoracic spine pain (Acute) Screening for cervical cancer (Acute) Physical exam (Acute) Morbid obesity with BMI of 45.0-49.9, adult (Acute) Osteoarthritis of left knee (Acute) Left leg pain (Acute) Osteoporosis (Acute) MAGGIE (generalized anxiety disorder) (Acute) 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 (Acute) Rheumatoid arthritis (Acute) Insomnia (Acute) Chronic back pain (Acute) COPD (chronic obstructive pulmonary disease) (Acute) Iron deficiency anemia (Acute) Morbid obesity (Acute) Fibromyalgia (Acute) Chronic GERD (Acute) Constipation by delayed colonic transit (Acute) Hypovitaminosis D (Acute) Pure hypercholesterolemia (Acute) Severe major depression (Acute) Past Medical History Medical History History of high cholesterol History of high blood pressure Right shoulder pain Restrictive lung disease Morbid obesity with BMI of 45.0-49.9, adult MAGGIE (generalized anxiety disorder) 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 Rheumatoid arthritis Insomnia Chronic back pain COPD (chronic obstructive pulmonary disease) Iron deficiency anemia Morbid obesity Fibromyalgia Chronic GERD Constipation by delayed colonic transit Hypovitaminosis D Pure hypercholesterolemia Severe major depression Family History Family History Mother Uterus cancer Breast cancer, Onset Age: 43 Diabetes Arthritis IBS (irritable bowel syndrome) Father Heart disease Sister Mental health disorder Brother Mental health disorder Surgical History Surgical History H/O colonoscopy History of back surgery History of neck surgery Social History Social History Housing: Apartment Alcohol intake: never Patient Tobacco Use Status: Former Tobacco user Tobacco use type: Cigarette e-Cigarette/Vaping Use: Never Used Second Hand Smoke Exposure: No Use of substances other than those prescribed or required for medical reasons: No Are you DNR?: No Advance Directives: No Advance Directives Information Provided: Yes service: No Current occupational status: disabled 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) Hearing needs: No Vision needs: Yes Meds Allergies Allergy/AdvReac Type Severity Reaction Status Date / Time pineapple [PINEAPPLE] AdvReac Severe DIARRHEA Verified 08/28/23 13:01 Home Medications Medication Instructions Recorded Confirmed Last Taken Type venlafaxine 75 mg capsule,extended 75 mg PO BID 01/14/22 10/12/23 Unknown History release 24 hr multivitamin with folic acid 400 1 tab PO DAILY 07/21/22 10/12/23 Unknown History mcg tablet (Tab-A-Duarte) hydrochlorothiazide 25 mg tablet 25 mg PO DAILY 12/04/22 10/12/23 Unknown History bupropion HCl 150 mg 24 hr tablet, 150 mg PO DAILY 03/11/23 10/12/23 Unknown History extended release Exam Height,Weight and Vital Signs: Height 4 ft 11 in Weight 105.233 kg Pertinent Lab Results Pertinent Lab Results: Laboratory Tests 06/19/23 03:40 WBC 6.5 Hgb 13.4 Hct 41.1 Plt Count 221 Sodium 140 Potassium 3.5 Chloride 108 Carbon Dioxide 18 L BUN 14 Creatinine 0.77 Narrative Narrative: EKG 05/2023 Vent. Rate : 068 BPM Atrial Rate : 068 BPM P-R Int : 144 ms QRS Dur : 072 ms QT Int : 408 ms P-R-T Axes : 057 039 057 degrees QTc Int : 433 ms Normal sinus rhythm Normal ECG When compared with ECG of 25-NOV-2022 09:52, No significant change was found ECHO 04/2023 Conclusions: - The left ventricular systolic function is normal. The visually estimated ejection fraction is between 60-65%. - No obvious valvular pathology seen on this study. NM emanuel perf SPECT rest & str 04/2023 Impression: 1. Myocardial perfusion imaging study shows probably normal myocardial perfusion. No clear evidence of any ischemia or infarction. 2. Gated LVEF is 69% during stress and 60% during rest. 3. Transient ischemic dilatation not present. EKG component of the test reported separately. 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 Rheumatoid arthritis Insomnia Chronic back pain COPD (chronic obstructive pulmonary disease) Iron deficiency anemia Morbid obesity Fibromyalgia Chronic GERD Constipation by delayed colonic transit Hypovitaminosis D Pure hypercholesterolemia Severe major depression Family History Family History Mother Uterus cancer Breast cancer, Onset Age: 43 Diabetes Arthritis IBS (irritable bowel syndrome) Father Heart disease Sister Mental health disorder Brother Mental health disorder Family history of problems with anesthesia: No Surgical History Surgical History H/O colonoscopy History of back surgery History of neck surgery History of Problems with Anesthesia: No Social History Social History Housing: Apartment Alcohol intake: never Patient Tobacco Use Status: Former Tobacco user Tobacco use type: Cigarette e-Cigarette/Vaping Use: Never Used Second Hand Smoke Exposure: No Use of substances other than those prescribed or required for medical reasons: No Are you DNR?: No Advance Directives: No Advance Directives Information Provided: Yes service: No Current occupational status: disabled 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) Hearing needs: No Vision needs: Yes Meds Allergies Allergy/AdvReac Type Severity Reaction Status Date / Time pineapple [PINEAPPLE] AdvReac Severe DIARRHEA Verified 08/28/23 13:01 Home Medications Medication Instructions Recorded Confirmed Last Taken Type venlafaxine 75 mg capsule,extended 75 mg PO BID 01/14/22 10/12/23 Unknown History release 24 hr multivitamin with folic acid 400 1 tab PO DAILY 07/21/22 10/12/23 Unknown History mcg tablet (Tab-A-Duarte) hydrochlorothiazide 25 mg tablet 25 mg PO DAILY 12/04/22 10/12/23 Unknown History bupropion HCl 150 mg 24 hr tablet, 150 mg PO DAILY 03/11/23 10/12/23 Unknown History extended release Exam Airway Mallampati Class: III TM Dist: >3cm Neck ROM: Full Heart: rrr Lungs: cts Assessment and Plan Assessment Anesthesia Assessment: Anesthesia Plan Discussed Final Anesthetic Review Family History of Problems with Anesthesia: No History of Problems with Anesthesia: No NPO: Yes ASA Class: III Final Preanesthetic Review: No Changes in Pt Med Stat, Meds/Allgs Chart Reviewed and Consent Obtained/Reviewed Patient Risk: Intermediate Procedure Risk: Intermediate Anesthetic Plan Anesthetic Plan: MAC: Disposition: Standard PACU
--- NOTE | ~2023-10-14 | FL_ITS ---
EXAMINATION: XR FLUOROSCOPY WITH IMAGES CLINICAL INFORMATION: Bilateral lumbar MBB. COMPARISON: Intraoperative fluoroscopy dated 09/01/2023. TECHNIQUE: Fluoroscopy Supervised By: Dr. Wenceslao Walsh. Fluoroscopy Time: 0.2 minutes. Cumulative Dose: 8.19 mGy. DAP: 0.768 Gycm2. Images: 4. FINDINGS: The intraoperative fluoroscopic images show needle placements and contrast injections at the left L3-L4, L4-L5 and L5-S1 levels and the right L4-L5 level. FL/FL guidance in OR IMPRESSION: Intraoperative fluoroscopic guidance is provided for pain management injection. Please see the patient's Operative Report for full procedural details.
[2023-10-14 13:05] VITALS: BMI 46.3
[2023-10-14 13:23] VITALS: BP 144/80; PULSE 72; RESP 16; TEMP 36.3; O2SAT 93
[2023-10-14] MEDS: Lactated Ringers 1,000 ML 100 ML IVCONT (13:32)
--- NOTE | 2023-10-14 15:29 | MHC.SHP ---
Pre-Procedural Eval Section A Date of Service: 10/14/23 The patient is an INPATIENT: No Changes since office visit: Yes Patient answered all questions The History & Physical has been completed within 30 days and I have reviewed it.: No Section B Chief Complaint: Spondylosis without myelopathy or radiculopathy, Relevant Family History (Specify if Yes): No Relevant Social History: None Present Medications: see Short Stay Collaborative assessment Medical History: No relevant PMH History of Previous Operations: Relevant previous surgery/procedure and date(s) Allergies: Allergies Allergy/AdvReac Type Severity Reaction Status Date / Time pineapple [PINEAPPLE] AdvReac Severe DIARRHEA Verified 08/28/23 13:01 Review of Systems Sugical H&P ROS: Negative: Constitution, Cardiovascular and Respiratory Exam Surgical H&P Exam: Normal: HEENT, Normal: Heart and Normal: Lungs Plan Diagnosis/Plan: Unchanged I have reviewed the history and physical and performed a pertinent physical examination on my patient. No changes have occurred unless specified. Time Spent With Patient Time: Total time managing care of this patient today ____ minutes.
--- NOTE | 2023-10-14 15:54 | PM.OP ---
Brief Operative Note Date of Service: 10/14/23 Pre-op diagnosis: Lumbar spondylosis Post-op diagnosis: same Procedure: Diagnostic bilateral L3, L4, L5 medial branch blocks Implants: None Surgeon: Wenceslao Walsh MD Anesthesia: MAC Was an Industrial Management Teacher used for this Procedure?: No Estimated blood loss (mL): 1 Pathology: none sent Condition: stable Disposition: same day
--- NOTE | 2023-10-14 15:56 | W.PM.OPN ---
Operative Note Operative Note Date of Service: 10/14/23 Narrative: Lumbar Medial Branch Block, Bilateral L3, L4 medial branches and L5 Dorsal Ramus (2 levels, 3 nerves) After obtaining written consent, pre-procedure blood pressure and pulse were recorded and are in the nursing record for review. The patient was placed in a prone position and sedated by the stretch box tender. The respective lumbosacral area was prepped with chloraprep and draped in sterile fashion. The skin over the target medial branch nerves was anesthetized with 0.5% lidocaine. A 22 gauge 5 inch needle was inserted into the target medial branch nerve under fluoroscopic guidance. No paresthesias were elicited with needle placement and aspiration was negative for blood and CSF. Next, 0.2cc of omnipaque 180 was injected to verify positioning. Next 0.5 ml 0.5% bupivicaine was injected (0.5cc total per level). The identical procedure was performed at the remaining levels. The skin was cleansed and a sterile bandage was applied. Following the procedure the patient's vital signs were stable. The patient tolerated the procedure well and no complications were encountered. Following the procedure the patient's vital signs were stable. The patient was discharged home in good condition with post-procedural instructions. Time Out: Immediately prior to the procedure, the following was verbally confirmed that there is a signed consent form and that the correct patient, planned procedure, site and side are consistent with documentation and that necessary equipment and/or blood products are available prior to the start of the case. Complications: none EBL: <5 cc
[2023-10-14 15:58] VITALS: BP 117/78; PULSE 76; RESP 16; TEMP 37.1; O2SAT 94
[2023-10-14 16:13] VITALS: BP 143/75; PULSE 61; RESP 16; O2SAT 96
== END 2023-10-14 16:45 | disposition home or self-care (01) ==
PROVIDERS: PCP Internal Medicine; Visit Provider Internal Medicine
PROC: (CPT 64493; principal; 2023-10-14 14:40)
DX: M47.816 Spondylosis without myelopathy or radiculopathy, lumbar region (principal); M54.50 Low back pain, unspecified; G89.29 Other chronic pain; M79.7 Fibromyalgia; M06.9 Rheumatoid arthritis, unspecified; M81.0 Age-related osteoporosis without current pathological fracture; E66.01 Morbid (severe) obesity due to excess calories; Z68.42 Body mass index [BMI] 45.0-49.9, adult; F32.A Depression, unspecified; G47.33 Obstructive sleep apnea (adult) (pediatric); I10 Essential (primary) hypertension; E78.00 Pure hypercholesterolemia, unspecified; E55.9 Vitamin D deficiency, unspecified; Z79.899 Other long term (current) drug therapy; Z99.89 Dependence on other enabling machines and devices; Z98.890 Other specified postprocedural states; Z87.891 Personal history of nicotine dependence
CPT/HCPCS: 64493; 64494; J2250; J2704; J2795; Q9965; Q9967

== ENCOUNTER → 2023-10-14 12:42 | Outpatient (BNV) | payer OTHER, SELFPAY | PROVIDERS: PCP Internal Medicine; Visit Provider Internal Medicine | DX: M47.816 Spondylosis without myelopathy or radiculopathy, lumbar region (principal) | CPT/HCPCS: 64493; 64494 ==

== ENCOUNTER 2023-10-19 08:46 | Outpatient (AMB) | payer OTHER, SELFPAY ==
--- NOTE | 2023-10-19 09:03 | A.OFFVIS_ITS ---
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 Walsh. Patient reports 100% pain relief for 4 days post procedure with significant improvement in her daily functioning, mobility, social activities and sleep. Patient reports she did not take her usual pain relief medications, including Tylenol, during these 4 days of significant pain relief. Patient reports she was able to participate in daily home exercise program, more walking and also signed up for yoga class. 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 Pain is rated at 10/10 today. Patient is interested to proceed with bilateral lumbar medial branch Sprint PNS trial as next steps for a longer term pain relief. Denies any recent cough, cold, infection, fever, bladder or bowel dysfunction, saddle anesthesia or other significant changes in medical history since last office visit. Past Procedures: 10/14/23: Repeat Diagnostic Bilateral L3 -L4-L5 MBB with 0.5% bupivicaine -100% pain relief for 4 days 08/26/23: Diagnostic Bilateral L3-L4-L5 MBB with 0.5% ropivicaine -40% pain r elief for 1 hour PRIOR: Patient presents today for follow up with increasing low back pain and left sided radiculopathy. She is suffering from chronic polyarthralgias, fibromyalgia, osteoarthritis and degenerative arthritis. Patient reports back pain has been worsening, affecting her daily ADLs, mobility, functioning and sleep. Patient reports intermittent but frequent episodes of significant muscle spasming form neck to her lower back, worse on the left side. She has been taking daily Ibuprofen and has noticed increase in BP and also had recent cardiac work up for chest pain. Patient reports she recently underwent stress test and was notified it was grossly normal. Patient states her pain levels have been unbearable and back and left leg pain increases with walking, standing, prolonged sitting or bending. She ambulates with antalgic gait and uses cane. Patient is interested to undergo diagnostic injections for Sprint PNS as this was discussed last visit but also is reconsidering to undergo another SCS trial with a different system than a Roberto and Roberto [place] [facility] [place] relief. We will update patient's lumbar spine MRI and proceed with behavioral evaluation for SCS trial. Patient denies any fever, bladder or bowel incontinence or saddle anesthesia. PRIOR: Patient is a 62 years old female presents with history of fibromyalgia, major depression, osteoporosis, OA, RA, morbid obesity, previous cervical and lumbar spine surgeries, presents today with chronic widespread pain throughout her body with neck to lower back pain, right shoulder pain, and left knee pain. Her main complaint today is lower back pain and right shoulder pain. She previously managed her pain through PSSP with interventional therapies, including multiple therapeutic injections and short term SCS implant for one year. Her back pain is axial and also radiates to her left lower extremity laterally and posteriorly with numbness and tingling in her left obrien, calf, and toes. Pain is described as constant sharp, pinching, wrenching, searing, exhausting, punishing, spreading, radiating, and tight. Patient rates her daily pain intensity at 10/10. She notes numbness and tingling throughout her body in upper and lower extremities due to fibromyalgia. Denies bladder or bowel incontinence or saddle anesthesia. Ambulates with antalgic gait with mild limping and uses a walker. Patient presents with difficulty with overhead reaches on the right due to significant right shoulder pain. She received [facility] [place] with minimal results. Patient was recently at [facility] on 11/25/22 with chest pain with pain radiation into her left arm with intermittent numbness and was referred to cardiology. She denies any shortness of breath, dizziness, chest pain, pressure or tightness today. Patient reports she is currently active with aquatic therapy at [facility] [place]. She is also starting a formal weight management program at [facility]. She completed physical therapy in the past with temporary mild improvements. Patient reports she does not drink sodas or sugary beverages but loves to drink a lot of milk. She is taking Tylenol and Ibuprofen, ice and heat therapy for her pain with minimal to no pain relief. Patient also takes pregabalin with partial results. Previous imaging for cervical and thoracolumbar spines, shoulder and bone scan are reviewed and noted below. 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 Rheumatoid arthritis Insomnia Chronic back pain COPD (chronic obstructive pulmonary disease) Iron deficiency anemia Morbid obesity Fibromyalgia Chronic GERD Constipation by delayed colonic transit Hypovitaminosis D Pure hypercholesterolemia Severe major depression Surgical History H/O colonoscopy History of back surgery History of neck surgery Family History Mother Uterus cancer Breast cancer, Onset Age: 43 Diabetes Arthritis IBS (irritable bowel syndrome) Father Heart disease Sister Mental health disorder Brother Mental health disorder Social History Housing: Apartment Alcohol intake: never Patient Tobacco Use Status: Former Tobacco user Tobacco use type: Cigarette e-Cigarette/Vaping Use: Never Used Second Hand Smoke Exposure: No service: No Current occupational status: disabled 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 Alert and oriented. Mood and affect appropriate. Follows and participates in conversation appropriately. Respiratory effort is unlabored. No cough. Able to transition from sit to stand unassisted. Uses cane with ambulation. Ambulates with bilaterally normal heel strike and toe off. Back/Spine/Pelvis Other: Limited lumbar ROM due to pain. Painful facet loading bilaterally. Lumbar extention reproduces moderate to severe pain, flexion reproduces mild to moderate pain. Multiple widespread TTP 16/16 of upper and lower extremities. Cervical Spine: cervical ROM normal, cervical muscular tenderness, Cervical spine scars present and No Cervical spine tenderness Thoracic/Lumbar Spine: thoracic and lumbar spine normal to inspection, Thoracic/lumbar spine scar(s), Lasegue's sign negative, straight leg raise negative bilaterally, kyphosis, pain with thoraco-lumbar ROM, paraspinal muscle tenderness, thoraco-lumbar ROM limited, No thoracic spinal tenderness and lumbar spinal tenderness Pelvis: buttock tenderness bilaterally Sacroiliac joints: bilaterally (+Mike's) tender to palpation Results Reviewed Results Reviewed: MR LUMBAR SPINE WITHOUT CONTRAST 05/20/23 CLINICAL INFORMATION: Postlaminectomy syndrome. COMPARISON: Lumbar spine MRI 04/16/2017 and lumbar spine radiographs 12/05/2022. TECHNIQUE: MRI of the lumbar spine was obtained using routine sequences without contrast. FINDINGS: Motion degraded MRI of the lumbar spine. There are 5 nonrib-bearing lumbar-type vertebral bodies with hypoplastic ribs at the lowermost thoracic type segment and the last completely developed intervertebral disc considered L5-S1. There is slight grade 1 anterolisthesis of L4 on L5. Lumbar alignment is otherwise maintained. The vertebral body heights are preserved. There is partial disc desiccation at all lumbar levels. There is no bone marrow edema. There are no acute fractures. Conus terminates at the L1-L2 level. Extrarenal pelvises bilaterally. No significant extraspinal soft tissue findings. L1-L2: Slight annular disc bulge. Mild bilateral facet arthropathy. No central canal stenosis and no foraminal stenosis. Findings unchanged. L2-L3: The previously seen small superiorly migrating left paracentral disc extrusion has resorbed. Small annular disc bulge and mild bilateral facet arthropathy. There is no central canal stenosis and there is no foraminal stenosis. L3-L4: There is a small annular disc bulge and there is mild bilateral facet arthropathy. There is no central canal stenosis and there is no foraminal stenosis. L4-L5: There is slight grade 1 anterolisthesis. Diffuse annular disc bulge and severe bilateral facet arthropathy and ligamentum flavum thickening. Findings in concert result in mild bilateral foraminal encroachment. Findings are progressed. L5-S1: Small annular disc bulge. Right greater than left facet arthropathy. No central canal stenosis and mild right-sided foraminal encroachment. IMPRESSION: - At L2-L3, the previously seen small superiorly migrating left paracentral disc extrusion has resorbed. - At L4-L5, there is slight grade 1 degenerative anterolisthesis in the setting of advanced bilateral hypertrophic facet arthropathy resulting in worsening mild bilateral foraminal encroachment without exiting nerve root compression. - Additional stable mild spondylitic changes as described. No severe central canal stenosis and no severe foraminal stenosis within the lumbar spine. Assessment & Plan Assessment & Plan (1) Post laminectomy syndrome: Code(s): M96.1 - Postlaminectomy syndrome, not elsewhere classified (2) Lumbar spondylosis: Code(s): M47.816 - Spondylosis without myelopathy or radiculopathy, lumbar region (3) Fibromyalgia: Code(s): M79.7 - Fibromyalgia (4) Lumbar degenerative disc disease: Code(s): M51.36 - Other intervertebral disc degeneration, lumbar region Plan Patient is status post repeat bilateral diagnostic lumbar medial branch blocks with 0.5% bupivicaine which provided her 100% pain relief for 4 days. She reports improved functioning, ROM, mobility and sleep. Schedule for Bilateral L3 medial branch Sprint PNS trial with sedation and fluoroscopy for a longer term pain relief for axial low back pain. Continue HEP, daily physical activity, walking, weight loss and good posture. I will provide her short script of tramadol for moderate-severe pain while she awaits for Sprint procedure. All questions were answered and patient agreed with the plan. Follow up after injections and sooner if needed. Anticoagulation: Patient on anticoagulation (Aspirin) and instructions given on when to pause with prescribing physician permission. Justification for interventional therapy: ? Patient with average pain > 6/10 ? Patient has exhausted conservative therapy, NSAIDs, PT, aqua therapy, yoga ? Diagnostic lumbar MBB injections provided 100% pain relief x 4 days The risks, consequences, alternatives, and benefits of various treatment options were discussed with the patient in great detail, including conservative management, injections and procedures. Medications: Changed From tramadol 50 mg PO BID-TID PRN 21 tabs 0RF pain 7 days M47.816 - Spondylosis without myelopathy or radiculopathy, lumbar region, M96.1 - Postlaminectomy syndrome, not elsewhere classified To tramadol 50 mg PO BID 10 days PRN 20 tabs 0RF pain M47.816 - Spondylosis without myelopathy or radiculopathy, lumbar region, M96.1 - Postlaminectomy syndrome, not elsewhere classified Coding Level of Care Code Est Pt Level 4 (01452) Diagnoses Post laminectomy syndrome M96.1 Lumbar spondylosis M47.816 Fibromyalgia M79.7 Lumbar degenerative disc disease M51.36
[2023-10-19 09:06] VITALS: BP 139/62; PULSE 84; O2SAT 96; BMI 46.4
== END 2023-10-19 09:20 | disposition home or self-care (01) ==
PROVIDERS: PCP Internal Medicine; Visit Provider Nurse Practitioner Family
DX: M96.1 Postlaminectomy syndrome, not elsewhere classified (principal); M47.816 Spondylosis without myelopathy or radiculopathy, lumbar region; M79.7 Fibromyalgia; M51.36 Other intervertebral disc degeneration, lumbar region
CPT/HCPCS: 99214

== ENCOUNTER → 2023-10-19 08:46 | Outpatient (BNVA) | payer OTHER, SELFPAY | PROVIDERS: PCP Internal Medicine; Visit Provider Nurse Practitioner Family | DX: M96.1 Postlaminectomy syndrome, not elsewhere classified (principal); M47.816 Spondylosis without myelopathy or radiculopathy, lumbar region; M79.7 Fibromyalgia; M51.36 Other intervertebral disc degeneration, lumbar region | CPT/HCPCS: 99212 ==

== ENCOUNTER 2023-11-12 06:10 | Outpatient (REF) | payer OTHER, SELFPAY ==
--- NOTE | ~2023-11-12 | FL_ITS ---
INDICATION: Intraoperative fluoroscopy. FLUOROSCOPY: Fluoroscopy Time: 0.1 minutes Dose/air kerma: 7.94 mGy Images saved: 3 FINDINGS: Multiple intraoperative fluoroscopic images are submitted during reported surgical procedure of the spine. Correlation with operative report. Evaluation is limited secondary to fluoroscopic technique. IMPRESSION: Intra-operative fluoroscopic imaging provided by radiology during reported surgical procedure of the lumbar spine. Please refer to operative note for further information.
== END 2023-11-12 06:11 | disposition home or self-care (01) ==
LOC: CF 06:10
PROVIDERS: Visit Provider Internal Medicine
DX: M47.816 Spondylosis without myelopathy or radiculopathy, lumbar region (principal); M96.1 Postlaminectomy syndrome, not elsewhere classified
CPT/HCPCS: 64555; C1778

== ENCOUNTER 2023-11-12 10:49 | Outpatient (AMB) | payer OTHER, SELFPAY ==
--- NOTE | 2023-11-12 11:52 | A.OFFVIS_ITS ---
Intake Vital Signs 11/12/23 12:10 11/12/23 12:13 Height 4 ft 11 in Weight 230 lb BMI 46.4 BP 136/76 144/88 H Blood Pressure Location Rt radial Rt radial Position Sitting Sitting Respiration 16 16 Pulse 78 84 Pulse Source Pulse Oximeter Pulse Oximeter Pulse Oximetry (%) 98 96 Oxygen Delivery Method Room Air Room Air Comment Pre-Op Post-Op Intake Visit Reasons: Left L3 Sprint Allergies pineapple [PINEAPPLE] Adverse Reaction (Severe, Verified 10/19/23 09:07) DIARRHEA HPI Left L3 Sprint HPI Details Patient presents for scheduled procedure. Denies any recent cough, cold, infection, fever or other significant changes in medical history since last office visit. 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 Rheumatoid arthritis Insomnia Chronic back pain COPD (chronic obstructive pulmonary disease) Iron deficiency anemia Morbid obesity Fibromyalgia Chronic GERD Constipation by delayed colonic transit Hypovitaminosis D Pure hypercholesterolemia Severe major depression Surgical History H/O colonoscopy History of back surgery History of neck surgery Family History Mother Uterus cancer Breast cancer, Onset Age: 43 Diabetes Arthritis IBS (irritable bowel syndrome) Father Heart disease Sister Mental health disorder Brother Mental health disorder Social History Housing: Apartment Alcohol intake: never Patient Tobacco Use Status: Former Tobacco user Tobacco use type: Cigarette e-Cigarette/Vaping Use: Never Used Second Hand Smoke Exposure: No service: No Current occupational status: disabled 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 After the risks, benefits and alternatives were discussed with the patient and informed consent was obtained, patient was placed in the prone position and padded to foster comfort. The skin overlying the lumbosacral spine was prepped and draped in sterile fashion. Fluoroscopy was used to identify the spinous process and lamina in the center of the patient?s region of pain. After identifying and marking the intended target along the course of the medial branch nerve, the skin around the planned entry point and the subcutaneous tissues were injected with lidocaine 1%. An introducer needle and stimulating probe were assembled, inserted and advanced along the intended course of the medial branch nerve as it traverses the lamina medial and inferior to the zygapophyseal joint, taking care to maintain the proper depth of insertion as the introducer is advanced under fluoroscopic guidance. The introducer needle was delivered to a location in proximity to the nerve. Multiple stimulation parameters were used to deliver stimulation to the target medial branch nerve in concert with stimulating at multiple positions around the nerve. Nerve target acquisition was confirmed noting generation of paresthesias in the paravertebral regions corresponding to the level being stimulated. Various electrical parameter combinations were tested, and the lead location was adjusted (physically relocated) until the patient indicated paresthesia/muscle tension overlapping the distribution of the patient?s typical region of pain. The stimulating probe was removed from the introducer and a percutaneous lead was guided through the needle and delivered to a location in similar proximity to the nerve. Final location was verified with electrical stimulation and documented with fluoroscopy. The introducer needle was removed, and the exposed end of the percutaneous lead was attached to an external stimulator unit. Various electrical parameter combinations were again tested until the patient indicated paresthesia or muscle tension overlapping the distribution of the patient?s typical region of pain. After confirming that lead impedance was in the normal range, the external unit was detached, the needle was removed, and the lead was anchored at the skin. The lead was threaded into the connector block and electrical continuity and desired patient response was confirmed. The connector block was attached to the external stimulator unit. The site was covered with a sterile occlusive dressing. The patient was observed for stability of vital signs and comfort. Sprint PNS Device: Sprint PNS Device [id number] Percutaneous Peripheral Neuroelectrode Procedure: 58995 - Percutaneous Peripheral Neuroelectrode Procedure code (CPT) selection complete Office Meds lidocaine (PF) 50 mg/5 mL (1 %) injection syringe Performing Provider: Kristi Ramirez APRN, CNP Performing Location: [facility] Administered by: Darshana Garcia LPN on 11/12/23 11:52 Dose Route Admin Location Dispensed Lot Number Expiration Date NDC Miner Pick 5 mL subcut 5 mL Assessment & Plan Assessment & Plan (1) Intractable back pain: Code(s): M54.9 - Dorsalgia, unspecified (2) Post laminectomy syndrome: Code(s): M96.1 - Postlaminectomy syndrome, not elsewhere classified Plan Patient is status post temporary left L3 medial branch nerve stimulator placement. Patient tolerated procedure well and was discharged home in stable condition with discharge instructions. All questions were answered. We will follow-up via telephone or in clinic to assess response to therapy. A follow-up appointment was made during today's visit. Orders: Orders AMB Sprint PNS Today M47.816 - Spondylosis without myelopathy or radiculopathy, lumbar region Coding Level of Care Code Procedure Only Diagnoses Intractable back pain M54.9 Post laminectomy syndrome M96.1 CPT Codes Sprint PNS - Sprint PNS Device: Sprint PNS Device ([id number]) Sprint PNS - SPRINT: [id number] - Percutaneous Peripheral Neuroelectrode ([id number])
[2023-11-12 12:10] VITALS: BP 136/76; PULSE 78; RESP 16; O2SAT 98; BMI 46.4
[2023-11-12 12:13] VITALS: BP 144/88; PULSE 84; RESP 16; O2SAT 96
== END 2023-11-12 12:03 | disposition home or self-care (01) ==
LOC: HO.PMCPRC 10:49
PROVIDERS: PCP Internal Medicine; Visit Provider Internal Medicine
DX: M54.9 Dorsalgia, unspecified (principal); M96.1 Postlaminectomy syndrome, not elsewhere classified
CPT/HCPCS: 64555

== ENCOUNTER 2023-11-16 08:03 | Outpatient (AMB) | payer OTHER, SELFPAY ==
--- NOTE | 2023-11-16 08:05 | MHC.OFFVIS ---
Intake Vital Signs 11/16/23 08:07 Height 4 ft 11 in Weight 230 lb BMI 46.4 BP 130/82 Blood Pressure Location Lt brachial Position Sitting Respiration 14 Pulse 94 Pulse Source Pulse Oximeter Pulse Oximetry (%) 94 Oxygen Delivery Method Room Air Intake Visit Reasons: s/p Left L3 Sprint Allergies pineapple [PINEAPPLE] Adverse Reaction (Severe, Verified 11/16/23 08:09) DIARRHEA Medication List - Last Reconciled 11/16/23 by Darshana Garcia LPN acetaminophen ER 650 mg PO Q8H 90 days albuterol sulfate 90 mcg/actuation (Ventolin HFA) 2 puffs inhalation Q6H PRN alendronate 70 mg PO QWEEK 90 days amlodipine 5 mg PO DAILY 90 days atorvastatin 20 mg PO DAILY 90 days blood pressure monitor (Blood Pressure Kit) As directed bupropion HCl 150 mg PO DAILY calcium citrate-vitamin D3 200 mg-6.25 mcg (250 unit) (Harper Calcium-Vitamin D3) 1 tab PO BID 30 days docusate sodium 100 mg PO BID 90 days escitalopram oxalate 20 mg PO DAILY 90 days ferrous sulfate 325 mg PO DAILY hydrochlorothiazide 25 mg PO DAILY Incruse Ellipta 62.5 mcg/actuation (umeclidinium) 1 inh inhalation BEDTIME 30 days NS losartan 50 mg PO DAILY 90 days meloxicam 7.5 mg PO DAILY PRN multivitamin with folic acid 400 mcg (Tab-A-Duarte) 1 tab PO DAILY omeprazole 40 mg PO DAILY 90 days pregabalin 200 mg PO BID 30 days selenium sulfide 1% (Dandruff Shampoo (selenium sulfide)) 5 mL topical 2XW 14 days tramadol 50 mg PO BID PRN 10 days trazodone 100 mg PO BEDTIME 30 days triamcinolone acetonide 0.1% 1 appl topical DAILY 30 days venlafaxine ER 75 mg PO BID HPI s/p Left L3 Sprint HPI Details 63-year-old female who presents today to the office for a status post left L3 sprint. The patient reports 80-90 % relief following the procedure. The patient has been doing well. She has no concerns today. She changed her dressing today in the office. She reports mild upper back pain this morning, worsening with cold weather changes and movements. She has had a history of cervical and lumbar spine surgeries in the past. Past Procedures: 11/12/23: Lumbar Medial Branch Nerve Stimulation Lead Placement, SPR (Sprint) System, Left L3: 80-90% initial relief. 10/14/23: Diagnostic Bilateral L3-L4-L5 MBB with 0.5% bupivicaine -100% pain relief for 4 days 08/26/23: Lumbar Medial Branch Block, Bilateral L3, L4 medial branches and L5 Dorsal Ramus (2 levels, 3 nerves): % relief. 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 Rheumatoid arthritis Insomnia Chronic back pain COPD (chronic obstructive pulmonary disease) Iron deficiency anemia Morbid obesity Fibromyalgia Chronic GERD Constipation by delayed colonic transit Hypovitaminosis D Pure hypercholesterolemia Severe major depression Surgical History H/O colonoscopy History of back surgery History of neck surgery Family History Mother Uterus cancer Breast cancer, Onset Age: 43 Diabetes Arthritis IBS (irritable bowel syndrome) Father Heart disease Sister Mental health disorder Brother Mental health disorder Social History Housing: Apartment Alcohol intake: never Patient Tobacco Use Status: Former Tobacco user Tobacco use type: Cigarette e-Cigarette/Vaping Use: Never Used Second Hand Smoke Exposure: No service: No Current occupational status: disabled 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 Alert and oriented. Mood and affect appropriate. Follows and participates in conversation appropriately. Respiratory effort is unlabored. Able to transition from sit to stand unassisted. Ambulates with bilaterally normal heel strike and toe off. Lead insertion site is clean dry and intact. Results Reviewed Results Reviewed: No imaging is available for review. Assessment & Plan Assessment & Plan (1) Cervicalgia: Code(s): M54.2 - Cervicalgia (2) Intractable back pain: Code(s): M54.9 - Dorsalgia, unspecified (3) Lumbar degenerative disc disease: Code(s): M51.36 - Other intervertebral disc degeneration, lumbar region Plan The patient will continue the stimulation therapy. The dressing was changed today. She will follow up in seven weeks for the removal of the device. For her upper back pain, we will order an x-ray of the cervical spine for further evaluation.? Scribed for Dr. Walsh by Martir Elise, medical language specialist, on 11/16/2023. I, Dr. Walsh, have personally reviewed and agree with the information entered by the scribe. Orders: Orders XR cervical spine 2V 11/16/23 M51.36 - Other intervertebral disc degeneration, lumbar region, M54.2 - Cervicalgia, M54.9 - Dorsalgia, unspecified Coding Level of Care Code Est Pt Level 3 (10109) Diagnoses Cervicalgia M54.2 Intractable back pain M54.9 Lumbar degenerative disc disease M51.36
[2023-11-16 08:07] VITALS: BP 130/82; PULSE 94; RESP 14; O2SAT 94; BMI 46.4
== END 2023-11-16 08:28 | disposition home or self-care (01) ==
PROVIDERS: PCP Internal Medicine; Visit Provider Internal Medicine
DX: M54.2 Cervicalgia (principal); M54.9 Dorsalgia, unspecified; M51.36 Other intervertebral disc degeneration, lumbar region
CPT/HCPCS: 99024

== ENCOUNTER → 2023-11-16 08:03 | Outpatient (BNVA) | payer OTHER, SELFPAY | PROVIDERS: PCP Internal Medicine; Visit Provider Internal Medicine | DX: M54.2 Cervicalgia (principal); M54.9 Dorsalgia, unspecified; M51.36 Other intervertebral disc degeneration, lumbar region | CPT/HCPCS: 99212 ==

== ENCOUNTER 2023-11-26 06:15 | Outpatient (REF) | payer OTHER, SELFPAY ==
--- NOTE | ~2023-11-26 | FL_ITS ---
EXAMINATION: XR FLUOROSCOPY WITH IMAGES CLINICAL INFORMATION: Dorsalgia. COMPARISON: MR lumbar spine 05/20/2023. TECHNIQUE: Fluoroscopy Supervised By: Dr. Walsh. Fluoroscopy Time: 0.1 minute. Cumulative Dose: 5.57 mGy. DAP: 0.753 Gycm2. Images: 2. FINDINGS: Two images provided show what appears to be a needle near a facet joint on the right. Please see Dr. Walsh' report for complete details. FL/FL guidance in treatment room IMPRESSION: Fluoroscopy and spot films provided during lumbar procedure.
== END 2023-11-26 06:16 | disposition home or self-care (01) ==
LOC: CF 06:15
PROVIDERS: Visit Provider Internal Medicine
DX: M47.816 Spondylosis without myelopathy or radiculopathy, lumbar region (principal)
CPT/HCPCS: 64555; C1778

== ENCOUNTER 2023-11-26 07:49 | Outpatient (AMB) | payer OTHER, SELFPAY ==
--- NOTE | 2023-11-26 07:58 | MHC.OFFVIS ---
Intake Vital Signs 11/26/23 07:59 11/26/23 09:06 Height 4 ft 11 in Weight 230 lb BMI 46.4 BP 132/82 120/82 Blood Pressure Location Lt brachial Lt brachial Position Sitting Sitting Respiration 18 16 Pulse 86 86 Pulse Source Pulse Oximeter Pulse Oximeter Pulse Oximetry (%) 96 97 Oxygen Delivery Method Room Air Room Air Comment Pre-Op Post-Op Intake Visit Reasons: Right L3 Sprint Allergies pineapple [PINEAPPLE] Adverse Reaction (Severe, Verified 11/16/23 08:09) DIARRHEA HPI Right L3 Sprint HPI Details Patient presents for scheduled procedure. Denies any recent cough, cold, infection, fever or other significant changes in medical history since last office visit. 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 Rheumatoid arthritis Insomnia Chronic back pain COPD (chronic obstructive pulmonary disease) Iron deficiency anemia Morbid obesity Fibromyalgia Chronic GERD Constipation by delayed colonic transit Hypovitaminosis D Pure hypercholesterolemia Severe major depression Surgical History H/O colonoscopy History of back surgery History of neck surgery Family History Mother Uterus cancer Breast cancer, Onset Age: 43 Diabetes Arthritis IBS (irritable bowel syndrome) Father Heart disease Sister Mental health disorder Brother Mental health disorder Social History Housing: Apartment Alcohol intake: never Patient Tobacco Use Status: Former Tobacco user Tobacco use type: Cigarette e-Cigarette/Vaping Use: Never Used Second Hand Smoke Exposure: No service: No Current occupational status: disabled 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) Hearing needs: No Vision needs: Yes Physical Exam Vital Signs: Last Vital Signs Pulse 86 11/26/23 07:59 Resp 18 11/26/23 07:59 BP 132/82 11/26/23 07:59 Pulse Ox 96 11/26/23 07:59 Oxygen Delivery Method Room Air 11/26/23 07:59 BMI result Body Mass Index 46.4 Office Procedures Details: Lumbar Medial Branch Nerve Stimulation Lead Placement, SPR (Sprint) System, Right L3 ? After the risks, benefits and alternatives were discussed with the patient and informed consent was obtained, patient was placed in the prone position and padded to foster comfort. The skin overlying the lumbosacral spine was prepped and draped in sterile fashion. Fluoroscopy was used to identify the spinous process and lamina in the center of the patient?s region of pain. After identifying and marking the intended target along the course of the medial branch nerve, the skin around the planned entry point and the subcutaneous tissues were injected with lidocaine 1%. An introducer needle and stimulating probe were assembled, inserted and advanced along the intended course of the medial branch nerve as it traverses the lamina medial and inferior to the zygapophyseal joint, taking care to maintain the proper depth of insertion as the introducer is advanced under fluoroscopic guidance. The introducer needle was delivered to a location in proximity to the nerve. Multiple stimulation parameters were used to deliver stimulation to the target medial branch nerve in concert with stimulating at multiple positions around the nerve. Nerve target acquisition was confirmed noting generation of paresthesias in the paravertebral regions corresponding to the level being stimulated. Various electrical parameter combinations were tested, and the lead location was adjusted (physically relocated) until the patient indicated paresthesia/muscle tension overlapping the distribution of the patient?s typical region of pain. The stimulating probe was removed from the introducer and a percutaneous lead was guided through the needle and delivered to a location in similar proximity to the nerve. Final location was verified with electrical stimulation and documented with fluoroscopy. The introducer needle was removed, and the exposed end of the percutaneous lead was attached to an external stimulator unit. Various electrical parameter combinations were again tested until the patient indicated paresthesia or muscle tension overlapping the distribution of the patient?s typical region of pain. After confirming that lead impedance was in the normal range, the external unit was detached, the needle was removed, and the lead was anchored at the skin. The lead was threaded into the connector block and electrical continuity and desired patient response was confirmed. The connector block was attached to the external stimulator unit. The site was covered with a sterile occlusive dressing. The patient was observed for stability of vital signs and comfort. Sprint PNS Device: Sprint PNS Device [id number] Percutaneous Peripheral Neuroelectrode Procedure: 53978 - Percutaneous Peripheral Neuroelectrode Procedure code (CPT) selection complete Office Meds lidocaine (PF) 50 mg/5 mL (1 %) injection syringe Performing Provider: KATERINE Mills Performing Location: [facility] [place] [facility] Administered by: Darshana Garcia LPN on 11/26/23 08:49 Dose Route Admin Location Dispensed Lot Number Expiration Date NDC [facility] Nursing Director 5 mL subcut 5 mL Assessment & Plan Assessment & Plan (1) Intractable back pain: Code(s): M54.9 - Dorsalgia, unspecified Plan Patient is status post temporary right L3 medial branch nerve stimulator placement. Patient tolerated procedure well and was discharged home in stable condition with discharge instructions. All questions were answered. We will follow-up via telephone or in clinic to assess response to therapy. A follow-up appointment was made during today's visit. Orders: Orders FL guidance in treatment room Today M47.816 - Spondylosis without myelopathy or radiculopathy, lumbar region, M54.9 - Dorsalgia, unspecified AMB Sprint PNS Today M47.816 - Spondylosis without myelopathy or radiculopathy, lumbar region, M54.9 - Dorsalgia, unspecified Coding Level of Care Code Procedure Only Diagnoses Intractable back pain M54.9 CPT Codes Sprint PNS - Sprint PNS Device: Sprint PNS Device ([id number]) Sprint PNS - SPRINT: 49514 - Percutaneous Peripheral Neuroelectrode ([id number]) Implantable Device Implantable Device Implantable Devices Qty [facility] Nursing Director Implant Date Expiration Date Analgesic PENS system 1 [employer] 11/12/23 04/30/25 Analgesic PENS system 1 [employer] 11/26/23 01/16/25
[2023-11-26 07:59] VITALS: BP 132/82; PULSE 86; RESP 18; O2SAT 96; BMI 46.4
[2023-11-26 09:06] VITALS: BP 120/82; PULSE 86; RESP 16; O2SAT 97
== END 2023-11-26 09:04 | disposition home or self-care (01) ==
LOC: HO.PMCPRC 07:49
PROVIDERS: PCP Internal Medicine; Visit Provider Internal Medicine
DX: M54.9 Dorsalgia, unspecified (principal)
CPT/HCPCS: 64555

== ENCOUNTER → 2023-12-03 14:20 | Outpatient (BNVA) | payer OTHER, SELFPAY | PROVIDERS: PCP Internal Medicine; Visit Provider Internal Medicine ==

== ENCOUNTER 2023-12-04 11:27 | Outpatient (AMB) | payer OTHER, SELFPAY ==
[2023-12-04 11:36] VITALS: BP 142/74; PULSE 72; RESP 12; BMI 46.4
--- NOTE | 2023-12-04 11:36 | MHC.OFFVIS ---
Intake Vital Signs 12/04/23 11:36 Height 4 ft 11 in Weight 230 lb BMI 46.4 BP 142/74 H Blood Pressure Location Lt radial Position Sitting Respiration 12 Pulse 72 Pulse Source Pulse Oximeter Intake Visit Reasons: RIGHT L3 SPRINT Allergies pineapple [PINEAPPLE] Adverse Reaction (Severe, Verified 12/04/23 11:37) DIARRHEA HPI RIGHT L3 SPRINT HPI Details 63-year-old female who presents today to the office for a right L3 sprint. The patient reports significant relief following the procedure. She has noticed some improvement on her right side. She rates her pain level at 6/10 on the right side and 8/10 in intensity on the left side. The dressing was changed today in the office. She requested a prescription for a muscle relaxant for her upper back pain. She is taking tramadol for pain management. Past Procedures: 11/26/23: Lumbar Medial Branch Nerve Stimulation Lead Placement, SPR (Sprint) System, Right L3: >60% relief. 11/12/23: Lumbar Medial Branch Nerve Stimulation Lead Placement, SPR (Sprint) System, Left L3: 80-90% initial relief. 10/14/23: Diagnostic Bilateral L3-L4-L5 MBB with 0.5% bupivicaine -100% pain relief for 4 days 08/26/23: Lumbar Medial Branch Block, Bilateral L3, L4 medial branches and L5 Dorsal Ramus (2 levels, 3 nerves): % relief. 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 Rheumatoid arthritis Insomnia Chronic back pain COPD (chronic obstructive pulmonary disease) Iron deficiency anemia Morbid obesity Fibromyalgia Chronic GERD Constipation by delayed colonic transit Hypovitaminosis D Pure hypercholesterolemia Severe major depression Surgical History H/O colonoscopy History of back surgery History of neck surgery Family History Mother Uterus cancer Breast cancer, Onset Age: 43 Diabetes Arthritis IBS (irritable bowel syndrome) Father Heart disease Sister Mental health disorder Brother Mental health disorder Social History Housing: Apartment Alcohol intake: never Patient Tobacco Use Status: Former Tobacco user Tobacco use type: Cigarette e-Cigarette/Vaping Use: Never Used Second Hand Smoke Exposure: No service: No Current occupational status: disabled 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) Hearing needs: No Vision needs: Yes Review of Systems Const All systems reviewed & are unremarkable except as noted in HPI and below Physical Exam Vital Signs: Last Vital Signs Pulse 72 12/04/23 11:36 Resp 12 12/04/23 11:36 BP 142/74 H 12/04/23 11:36 BMI result Body Mass Index 46.4 General: Appears afebrile. Alert and oriented. Mood and affect appropriate. Follows and participates in conversation appropriately. Respiratory effort is unlabored. Able to transition from sit to stand unassisted. Ambulates with bilaterally normal heel strike and toe off. Results Reviewed Results Reviewed: No imaging is available for review. Assessment & Plan Assessment & Plan (1) Intractable back pain: Code(s): M54.9 - Dorsalgia, unspecified Plan The patient will continue the stimulation therapy for the next seven weeks and follow-up for the removal of the device. The dressing was changed today in the office. I also prescribed cyclobenzaprine (5 mg) for back pain. I advised her to avoid taking tramadol and cyclobenzaprine together. Scribed for Dr. Walsh by Martir Elise, spanish medical interpreter, on 12/04/2023. I, Dr. Walsh, have personally reviewed and agree with the information entered by the scribe. Medications: New cyclobenzaprine 5 mg PO TID PRN 90 tabs 0RF muscle spasm Coding Level of Care Code Est Pt Level 3 (87889) Diagnoses Intractable back pain M54.9
== END 2023-12-04 11:56 | disposition home or self-care (01) ==
PROVIDERS: PCP Internal Medicine; Visit Provider Internal Medicine
DX: M54.9 Dorsalgia, unspecified (principal)
CPT/HCPCS: 99024

== ENCOUNTER → 2023-12-04 11:27 | Outpatient (BNVA) | payer OTHER, SELFPAY | PROVIDERS: PCP Internal Medicine; Visit Provider Internal Medicine | DX: M54.9 Dorsalgia, unspecified (principal); Z98.890 Other specified postprocedural states | CPT/HCPCS: 99212 ==

== ENCOUNTER 2024-01-08 09:24 | Outpatient (AMB) | payer OTHER, SELFPAY ==
[2024-01-08 09:31] VITALS: BP 118/69; PULSE 109; RESP 18; O2SAT 94; BMI 46.4
--- NOTE | 2024-01-08 09:31 | A.OFFVIS_ITS ---
Vital Signs 01/08/24 09:31 Height 4 ft 11 in Weight 230 lb BMI 46.4 BP 118/69 Blood Pressure Location Lt brachial Position Sitting Respiration 18 Pulse 109 H Pulse Source Pulse Oximeter Pulse Oximetry (%) 94 Oxygen Delivery Method Room Air Intake Visit Reasons: Left L3 Sprint removal Allergies pineapple [PINEAPPLE] Adverse Reaction (Severe, Verified 01/08/24 09:30) DIARRHEA HPI Comments Details: Patient presents back to the office for follow-up and removal of left L3 sprint PNS Pain today is rated as a 0/10 Patient denies untoward effects of the device She is requesting that both leads we pulled today Today complaining of pain over right GTB, worse with walking that has been going on for several months but seems to be getting worse Prior: 63-year-old female who presents today to the office for a right L3 sprint. The patient reports significant relief following the procedure. She has noticed some improvement on her right side. She rates her pain level at 6/10 on the right side and 8/10 in intensity on the left side. The dressing was changed today in the office. She requested a prescription for a muscle relaxant for her upper back pain. She is taking tramadol for pain management. Past Procedures: 11/26/23: Lumbar Medial Branch Nerve Stimulation Lead Placement, SPR (Sprint) System, Right L3: >60% relief. 11/12/23: Lumbar Medial Branch Nerve Stimulation Lead Placement, SPR (Sprint) System, Left L3: 80-90% initial relief. 10/14/23: Diagnostic Bilateral L3-L4-L5 MBB with 0.5% bupivicaine -100% pain relief for 4 days 08/26/23: Lumbar Medial Branch Block, Bilateral L3, L4 medial branches and L5 Dorsal Ramus (2 levels, 3 nerves): % relief. 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 Rheumatoid arthritis Insomnia Chronic back pain COPD (chronic obstructive pulmonary disease) Iron deficiency anemia Morbid obesity Fibromyalgia Chronic GERD Constipation by delayed colonic transit Hypovitaminosis D Pure hypercholesterolemia Severe major depression Surgical History H/O colonoscopy History of back surgery History of neck surgery Family History Mother Uterus cancer Breast cancer, Onset Age: 43 Diabetes Arthritis IBS (irritable bowel syndrome) Father Heart disease Sister Mental health disorder Brother Mental health disorder Social History Housing: Apartment Alcohol intake: never Patient Tobacco Use Status: Former Tobacco user Tobacco use type: Cigarette e-Cigarette/Vaping Use: Never Used Second Hand Smoke Exposure: No service: No Current occupational status: disabled 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) Hearing needs: No Vision needs: Yes Review of Systems Const All systems reviewed & are unremarkable except as noted in HPI and below Physical Exam Vital Signs: Last Vital Signs Pulse 109 H 01/08/24 09:31 Resp 18 01/08/24 09:31 BP 118/69 01/08/24 09:31 Pulse Ox 94 01/08/24 09:31 Oxygen Delivery Method Room Air 01/08/24 09:31 BMI result Body Mass Index 46.4 General: awake, alert, oriented. Answers questions appropriately. Fully engaged in examination. Skin: warm, dry, intact HEENT: Normocephalic. Hearing intact. Cardiac: External chest normal in appearance. Respiratory: No cough, audible wheezing or stridor. Abdomen: without gross distension. MS: No obvious swelling or deformities. Tenderness to palpation over right GTB Nontender over PSIS No pain with internal or external rotation of the right hip SLR negative on the right Neurological: Oriented to person, place, time and situation. Thought process intact. No gait abnormalities appreciated. Psychiatric: Appropriate mood and affect. Good judgment and insight. Sprint removal: Dressing removed, Site dry, clean, intact. Area cleansed with chloraprep, both leads removed with intacts tip. Area cleansed again with chloraprep, bacitracin dressing with tegaderm applied. Patient tolerated removal well. Assessment & Plan Assessment & Plan (1) Intractable back pain: Code(s): M54.9 - Dorsalgia, unspecified Category: Medical Plan Patient presented to the office today for follow-up, removal of left L3 sprint PNS device Sprint device removed as per above. Patient requested both leads be removed today. Pain was rated as 0/10 Patient with tenderness to palpation over right GTB, worse with movement and palpation. Will schedule for right GTB steroid injection All questions and concerns were answered, patient agrees with the plan, follow up for injection sooner if needed.
== END 2024-01-08 09:50 | disposition home or self-care (01) ==
PROVIDERS: PCP Internal Medicine; Visit Provider Registered Nurse Emergency
DX: M54.9 Dorsalgia, unspecified (principal)
CPT/HCPCS: 99213

== ENCOUNTER → 2024-01-08 09:24 | Outpatient (BNVA) | payer OTHER, SELFPAY | PROVIDERS: PCP Internal Medicine; Visit Provider Registered Nurse Emergency | DX: M54.9 Dorsalgia, unspecified (principal) | CPT/HCPCS: 99212 ==

== ENCOUNTER 2024-01-20 10:43 | Outpatient (AMB) | payer OTHER, SELFPAY ==
--- NOTE | 2024-01-20 10:46 | MHC.OFFVIS ---
Vital Signs 01/20/24 10:47 Height 4 ft 11 in Weight 231 lb BMI 46.7 BP 162/77 H Blood Pressure Location Lt radial Position Sitting Respiration 14 Pulse 86 Pulse Source Pulse Oximeter Pulse Oximetry (%) 95 Oxygen Delivery Method Room Air Intake Visit Reasons: Right GTB inj/ Right Sprint removal Allergies pineapple [PINEAPPLE] Adverse Reaction (Severe, Verified 01/20/24 10:49) DIARRHEA Medication List - Last Reconciled 01/20/24 by Darshana Garcia LPN acetaminophen ER 650 mg PO Q8H 90 days albuterol sulfate 90 mcg/actuation (Ventolin HFA) 2 puffs inhalation Q6H PRN alendronate 70 mg PO QWEEK 90 days amlodipine 5 mg PO DAILY 90 days atorvastatin 20 mg PO DAILY 90 days blood pressure monitor (Blood Pressure Kit) As directed bupropion HCl XL 150 mg PO DAILY calcium citrate-vitamin D3 200 mg-6.25 mcg (250 unit) ([place] Calcium-Vitamin D3) 1 tab PO BID 30 days cyclobenzaprine 5 mg PO TID PRN docusate sodium 100 mg PO BID 90 days escitalopram oxalate 20 mg PO DAILY 90 days ferrous sulfate 325 mg PO DAILY hydrochlorothiazide 25 mg PO DAILY Incruse Ellipta 62.5 mcg/actuation (umeclidinium) 1 inh inhalation BEDTIME 30 days NS losartan 50 mg PO DAILY 90 days meloxicam 7.5 mg PO DAILY PRN multivitamin with folic acid 400 mcg (Tab-A-Duarte) 1 tab PO DAILY omeprazole 40 mg PO DAILY 90 days pregabalin 200 mg PO BID 30 days selenium sulfide 1% (Dandruff Shampoo (selenium sulfide)) 5 mL topical 2XW 14 days tramadol 50 mg PO BID PRN 10 days trazodone 100 mg PO BEDTIME 30 days triamcinolone acetonide 0.1% 1 appl topical DAILY 30 days venlafaxine ER 75 mg PO BID HPI HPI Right GTB inj/ Right Sprint removal: Details: 63-year-old female who presents today to the office for right GTB injection Primary Site: Right greater trochanteric bursa, ultrasound guided Prep: site was prepped using sterile technique Injected: 40 mg of, Kenalog, with 3 mL of (0.5% ropivacaine) and other (Around the right greater trochanter) Approach Used: other (Lateral approach under ultrasound guidance) Procedure: The patient tolerated the procedure well The patient tolerated the procedure well. Patient denied any lower extremity weakness or numbness. Patient was observed for 30 min and was discharged after fulfilling the standard discharge criteria. Past Procedures: 11/26/23: Lumbar Medial Branch Nerve Stimulation Lead Placement, SPR (Sprint) System, Right L3: >60% relief. 11/12/23: Lumbar Medial Branch Nerve Stimulation Lead Placement, SPR (Sprint) System, Left L3: 80-90% initial relief. 10/14/23: Diagnostic Bilateral L3-L4-L5 MBB with 0.5% bupivicaine -100% pain relief for 4 days 08/26/23: Lumbar Medial Branch Block, Bilateral L3, L4 medial branches and L5 Dorsal Ramus (2 levels, 3 nerves): % relief. 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 Rheumatoid arthritis Insomnia Chronic back pain COPD (chronic obstructive pulmonary disease) Iron deficiency anemia Morbid obesity Fibromyalgia Chronic GERD Constipation by delayed colonic transit Hypovitaminosis D Pure hypercholesterolemia Severe major depression Surgical History H/O colonoscopy History of back surgery History of neck surgery Family History Mother Uterus cancer Breast cancer, Onset Age: 43 Diabetes Arthritis IBS (irritable bowel syndrome) Father Heart disease Sister Mental health disorder Brother Mental health disorder Social History Housing: Apartment Alcohol intake: never Patient Tobacco Use Status: Former Tobacco user Tobacco use type: Cigarette e-Cigarette/Vaping Use: Never Used Second Hand Smoke Exposure: No service: No Current occupational status: disabled 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) Hearing needs: No Vision needs: Yes Review of Systems Const All systems reviewed & are unremarkable except as noted in HPI and below Physical Exam Vital Signs: Last Vital Signs Pulse 86 01/20/24 10:47 Resp 14 01/20/24 10:47 BP 162/77 H 01/20/24 10:47 Pulse Ox 95 01/20/24 10:47 Oxygen Delivery Method Room Air 01/20/24 10:47 BMI result Body Mass Index 46.7 General: Appears afebrile. Alert and oriented. Mood and affect appropriate. Follows and participates in conversation appropriately. Respiratory effort is unlabored. Able to transition from sit to stand unassisted. Results Reviewed Results Reviewed: 11/26/23: XR FLUOROSCOPY WITH IMAGES FINDINGS: Two images provided show what appears to be a needle near a facet joint on the right. Please see Dr. Walsh' report for complete details. IMPRESSION: Fluoroscopy and spot films provided during lumbar procedure. Assessment & Plan Assessment & Plan (1) Cervicalgia: Code(s): M54.2 - Cervicalgia Category: Medical (2) Greater trochanteric pain syndrome: Code(s): M25.559 - Pain in unspecified hip Category: Medical Plan She will follow up in the fall to decide the next steps for further treatment of her upper back and bilateral shoulder pain. She is interested in trialing PNS for those areas, but would like to wait a few months to see which area she would like to proceed with the next. Scribed for Dr. Walsh by Ayush Guy, medical practice manager, on 01/20/2024. I, Dr. Walsh, have personally reviewed and agree with the information entered by the scribe. Coding Level of Care Code Est Pt Level 3 (56848) Diagnoses Cervicalgia M54.2 Greater trochanteric pain syndrome M25.559
[2024-01-20 10:47] VITALS: BP 162/77; PULSE 86; RESP 14; O2SAT 95; BMI 46.7
== END 2024-01-20 11:12 | disposition home or self-care (01) ==
PROVIDERS: PCP Internal Medicine; Visit Provider Internal Medicine
DX: M54.2 Cervicalgia (principal); M25.551 Pain in right hip
CPT/HCPCS: 20611; 99213

== ENCOUNTER → 2024-01-20 10:43 | Outpatient (BNVA) | payer OTHER, SELFPAY | PROVIDERS: PCP Internal Medicine; Visit Provider Internal Medicine | DX: M25.551 Pain in right hip (principal); M54.2 Cervicalgia | CPT/HCPCS: 20611; 99212; J2795; J3301 ==

== ENCOUNTER 2024-02-25 10:29 | Emergency (ER) | payer OTHER, SELFPAY ==
--- NOTE | ~2024-02-25 | XR_ITS ---
EXAMINATION: LEFT KNEE, THORACIC SPINE CLINICAL INFORMATION: Fall with left knee and upper back pain COMPARISON: CT chest 11/25/2022, left knee 11/25/2017 TECHNIQUE: 4 views left knee, 3 views thoracic spine FINDINGS: Knee: Some minimal tricompartmental degenerative changes are present with some mild compartmental narrowing. Small posterior patellar osteophytes noted inferiorly. No acute fractures or chondrocalcinosis. No joint effusion. Thoracic spine: Mild degenerative change seen in the midthoracic spine with some disc space narrowing endplate sclerosis and mild osteophyte formation. Fractures or bony destructive lesions are seen. Paraspinal soft tissues appear normal incidental note made of ACDF hardware from C4 through C6. XR/XR thoracic spine 3V IMPRESSION: 1. No evidence of an acute traumatic injury. 2. Mild degenerative changes in the left knee and thoracic spine.
--- NOTE | ~2024-02-25 | XR_ITS ---
EXAMINATION: LEFT KNEE, THORACIC SPINE CLINICAL INFORMATION: Fall with left knee and upper back pain COMPARISON: CT chest 11/25/2022, left knee 11/25/2017 TECHNIQUE: 4 views left knee, 3 views thoracic spine FINDINGS: Knee: Some minimal tricompartmental degenerative changes are present with some mild compartmental narrowing. Small posterior patellar osteophytes noted inferiorly. No acute fractures or chondrocalcinosis. No joint effusion. Thoracic spine: Mild degenerative change seen in the midthoracic spine with some disc space narrowing endplate sclerosis and mild osteophyte formation. Fractures or bony destructive lesions are seen. Paraspinal soft tissues appear normal incidental note made of ACDF hardware from C4 through C6. XR/XR knee LT 4V IMPRESSION: 1. No evidence of an acute traumatic injury. 2. Mild degenerative changes in the left knee and thoracic spine.
[2024-02-25 10:38] VITALS: BP 186/71; PULSE 87; RESP 18; TEMP 37; O2SAT 96; BMI 46.9
[2024-02-25 10:44] VITALS: BP 186/71; PULSE 87; RESP 18; TEMP 37; O2SAT 96
--- NOTE | 2024-02-25 10:47 | PC.NURSE ---
Pt reports dizzy and fall around 0800 falling on left hip. C/O back pain from attempting to brace fall. Also reports right LE tingling that started around 0600 that is mostly resolved at this time, no unilateral weakness on exam, other neuros intact, clear speech and symmetrical smile. Skin PWD. Pt reports HTN with visiting RN, paulak reading. Compliant with meds at home. Left knee ?swelling per pt, old bruising noted. NSR on tele, breathing even and unlabored. Dr Dhaliwal to bedside for eval at this time
--- NOTE | 2024-02-25 10:53 | ED.GENADULT ---
HPI - General Adult General Chief complaint: General Medical Stated complaint: High BP, fall today, numbness R leg Time Seen by Provider: 02/25/24 10:40 Source: patient Mode of arrival: ambulatory Limitations: no limitations History of Present Illness ED Provider: Dr. Joselito Pete HPI narrative: 63-year-old female past medical history hypertension hyperlipidemia anxiety depression COPD intractable back pain degenerative disc disease status post laminectomy morbid obesity osteoporosis leg pain anemia fibromyalgia presents emergency department with multiple complaints. She states she was ambulating when she had some slight dizziness she does have chronic dizziness states this is nothing does have normal when she tried to sit down on the couch she missed and hit her back and then landed on her knees. She only has pain to her left knee and she states that her back was rinsing she has pain to her back from this as well. She has not take anything for pain. States that this morning she woke up she also had some numbness to her right knee down to her toes Related Data Home Medications ?Medication ?Instructions ?Recorded ?Confirmed venlafaxine 75 mg capsule,extended 75 mg PO BID 01/14/22 01/20/24 release 24 hr multivitamin with folic acid 400 1 tab PO DAILY 07/21/22 01/20/24 mcg tablet (Tab-A-Duarte) hydrochlorothiazide 25 mg tablet 25 mg PO DAILY 12/04/22 01/20/24 bupropion HCl 150 mg 24 hr tablet, 150 mg PO DAILY 03/11/23 01/20/24 extended release Previous Rx's ?Medication ?Instructions ?Recorded escitalopram oxalate 20 mg tablet 20 mg PO DAILY 90 days #90 tabs 10/21/22 blood pressure monitor (Blood #1 ea 11/01/22 Pressure Kit) meloxicam 7.5 mg tablet 7.5 mg PO DAILY PRN pain #60 tabs 07/30/23 acetaminophen 650 mg 650 mg PO Q8H 90 days #270 tabs 09/03/23 tablet,extended release ferrous sulfate 325 mg (65 mg 325 mg PO DAILY #30 tabs 10/14/23 iron) tablet,delayed release tramadol 50 mg tablet 50 mg PO BID PRN pain 10 days #20 10/19/23 tabs selenium sulfide 1 % shampoo 5 ml topical 2XW 14 days #207 mL 11/03/23 (Dandruff Shampoo (selenium sulfide)) amlodipine 5 mg tablet 5 mg PO DAILY 90 days #90 tabs 11/06/23 trazodone 100 mg tablet 100 mg PO BEDTIME 30 days #30 tabs 11/06/23 triamcinolone acetonide 0.1 % 1 appl topical DAILY 30 days #30 11/06/23 topical cream grams cyclobenzaprine 5 mg tablet 5 mg PO TID PRN muscle spasm #90 12/04/23 tabs omeprazole 40 mg capsule,delayed 40 mg PO DAILY 90 days #90 caps 12/13/23 release docusate sodium 100 mg capsule 100 mg PO BID 90 days #180 caps 12/18/23 atorvastatin 20 mg tablet 20 mg PO DAILY 90 days #90 tabs 12/23/23 losartan 50 mg tablet 50 mg PO DAILY 90 days #90 tabs 01/05/24 alendronate 70 mg tablet 70 mg PO QWEEK 90 days #13 tabs 01/25/24 Incruse Ellipta 62.5 mcg/actuation 1 inh inhalation BEDTIME 30 days 02/10/24 powder for inhalation #30 ea (umeclidinium) calcium citrate 200 mg 1 tab PO BID 30 days #60 tabs 02/16/24 calcium-vitamin D3 6.25 mcg (250 unit) tablet ([place] Calcium-Vitamin D3) albuterol sulfate 90 mcg/actuation 2 puff inhalation Q6H PRN 02/17/24 aerosol inhaler (Ventolin HFA) bronchospasm #8.5 grams pregabalin 200 mg capsule 200 mg PO BID pain 30 days #60 caps 02/19/24 acetaminophen 325 mg tablet 325 mg PO QID PRN pain #90 tabs 02/25/24 (Tylenol) cyclobenzaprine 5 mg tablet 5 mg PO BEDTIME PRN muscle spasm 02/25/24 #20 tabs prednisone 20 mg tablet 60 mg (3 x 20 mg) PO DAILY Asthma 02/25/24 5 days #15 tabs Allergies Allergy/AdvReac Type Severity Reaction Status Date / Time pineapple [PINEAPPLE] AdvReac Severe DIARRHEA Verified 02/25/24 10:39 Review of Systems Review of Systems: Review of systems: General: Patient denies any fever chills recent illness Musculoskeletal: Back pain denies any or body aches or other injuries HEENT: denies headache, runny nose, ear pain Respiratory: denies shortness of breath, cough Cardiovascular: no chest pain or palpitations : denies dysuria, frequency Abdomen: no nausea vomiting denies abdominal pain Extremities: no swelling, left knee pain and pain from her right knee down to her toes Skin: no diaphoresis Yes all other systems are reviewed and are negative PMFSH Past Medical History Medical History History of high cholesterol History of high blood pressure Right shoulder pain Restrictive lung disease Morbid obesity with BMI of 45.0-49.9, adult MAGGIE (generalized anxiety disorder) 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 Rheumatoid arthritis Insomnia Chronic back pain COPD (chronic obstructive pulmonary disease) Iron deficiency anemia Morbid obesity Fibromyalgia Chronic GERD Constipation by delayed colonic transit Hypovitaminosis D Pure hypercholesterolemia Severe major depression Surgical History H/O colonoscopy History of back surgery History of neck surgery Family History Family History Mother Uterus cancer Breast cancer, Onset Age: 43 Diabetes Arthritis IBS (irritable bowel syndrome) Father Heart disease Sister Mental health disorder Brother Mental health disorder Social History Social History Housing: Apartment Alcohol intake: never Patient Tobacco Use Status: Former Tobacco user Tobacco use type: Cigarette Smoked in Last 30 Days: No e-Cigarette/Vaping Use: Never Used Second Hand Smoke Exposure: No Use of substances other than those prescribed or required for medical reasons: No Advance Directives: Yes Advance Directives Information Provided: Yes Advance Directives on File: No Patient : No service: No Current occupational status: disabled 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) Hearing needs: No Vision needs: Yes Physical Exam ED Vital Signs: Vital Signs - 24 hr 02/25/24 10:38 02/25/24 10:44 02/25/24 11:11 Temperature 98.6 F 98.6 F Pulse Rate 87 87 79 Respiratory Rate 18 18 16 Blood Pressure 186/71 H 186/71 H 132/51 L Pulse Oximetry 96 96 Oxygen Delivery Method Room Air Room Air BMI result Body Mass Index 46.9 General: Well-appearing well-nourished in no signs of distress HEENT: Normocephalic atraumatic Neck: No signs of JVD, no masses no tenderness or lymphadenopathy Cardiovascular: Regular rate and rhythm Respiratory: Clear to auscultation bilaterally Abdomen: Soft nontender no masses Extremities: Normal pedal pulses no signs of edema Skin: Dry warm no rashes Back: Tenderness to back to palpation in the thoracic there is no tenderness in the cervical or lumbar area it is in the midthoracic and between the shoulder blades full range motion normal strength full ROM negative straight leg test able to bend and flex the knee and ankle has normal sensation to lower extremity Course Course Course Narrative: X-rays are unremarkable pain has completely resolved patient is feeling much better sample with a plan to go home I will send home with cyclobenzaprine and prednisone. She can take Tylenol as needed for pain Medications Administered Discontinued Medications Generic Name Dose Route Start Last Admin Trade Name Freq PRN Reason Stop Dose Admin Acetaminophen 650 mg 02/25/24 10:51 02/25/24 11:09 Acetaminophen 325 Mg Tablet PO 02/25/24 10:52 650 mg ONCE ONE Administration Ketorolac Tromethamine 15 mg 02/25/24 10:51 02/25/24 11:09 Ketorolac Tromethamine 30 Mg/Ml Vial IM 02/25/24 10:52 15 mg ONCE ONE Administration Medical Decision Making Medical Decision Making MDM Narrative: Will give the patient over for x-ray of the thoracic spine and the left knee I do not think this is electrolyte abnormality started the day that is chronic problem for the patient I do not think workup is required for that today she has no other concerning features appears at baseline at this time. Differential Diagnosis Differential Diagnoses: The differential diagnosis associated with the presentation includes Back pain after a fall does appear to be musculoskeletal as she states she wrenched her back she was falling as far as the right leg pain this does sound like it could be sciatica but she is normal strength normal sensation and normal pulses does not appear to be an arterial issue as far as her left knee she had fallen the knee could be contusion or fracture Independent Interpretation I performed an independent interpretation of an: Plain X-Ray Radiology Impression Discussion of test interpretation with radiology: I have reviewed the radiologist's reading. External Record Review External record reviewed: Inpatient record, Office record, Outpatient record and Prior outpatient radiology Discharge Plan Discharge Clinical Impression: Strain of muscle and tendon of back wall of thorax, initial encounter, Contusion of knee, left Patient Disposition: Home, Self-Care Instructions: Contusion in Adults (ED), Thoracic Back Strain (ED) Additional Instructions: You were seen in the emergency room after fall onto her knees and hurting her back. You had x-rays done which were all unremarkable. He was started on prednisone you can take cyclobenzaprine as needed help you sleep at night do not mix with alcohol or drive while on cyclobenzaprine. Please call follow-up doctor. Prescriptions: New acetaminophen [Tylenol] 325 mg tablet 325 mg PO QID PRN (Reason: pain) Qty: 90 0RF prednisone 20 mg tablet 60 mg PO DAILY 5 Days Qty: 15 0RF cyclobenzaprine 5 mg tablet 5 mg PO BEDTIME PRN (Reason: muscle spasm) Qty: 20 0RF No Action escitalopram oxalate 20 mg tablet 20 mg PO DAILY 90 Days Qty: 90 1RF (DME) blood pressure monitor [Blood Pressure Kit] Kit See Rx Instructions .Route Qty: 1 0RF Rx Instructions: As directed acetaminophen 650 mg tablet extended release 650 mg PO Q8H 90 Days Qty: 270 0RF ferrous sulfate 325 mg (65 mg iron) tablet,delayed release (DR/EC) 325 mg PO DAILY Qty: 30 0RF Dandruff Shampoo (selenium) 1 % shampoo 5 ml topical 2XW 14 Days Qty: 207 2RF Rx Instructions: lather into wet hair; leave in place for approximately 3 mins ; rinse amlodipine 5 mg tablet 5 mg PO DAILY 90 Days Qty: 90 3RF triamcinolone acetonide 0.1 % cream 1 appl topical DAILY 30 Days Qty: 30 1RF trazodone 100 mg tablet 100 mg PO BEDTIME 30 Days Qty: 30 6RF omeprazole 40 mg capsule,delayed release(DR/EC) 40 mg PO DAILY 90 Days Qty: 90 1RF docusate sodium 100 mg capsule 100 mg PO BID 90 Days Qty: 180 0RF atorvastatin 20 mg tablet 20 mg PO DAILY 90 Days Qty: 90 1RF losartan 50 mg tablet 50 mg PO DAILY 90 Days Qty: 90 4RF alendronate 70 mg tablet 70 mg PO QWEEK 90 Days Qty: 13 0RF Incruse Ellipta 62.5 mcg/actuation blister with device 1 inh inhalation BEDTIME 30 Days Qty: 30 2RF calcium citrate-vitamin D3 [[place] Calcium-Vitamin D3] 200 mg-6.25 mcg (250 unit) tablet 1 tab PO BID 30 Days Qty: 60 3RF albuterol sulfate [Ventolin HFA] 90 mcg/actuation HFA aerosol inhaler 2 puff inhalation Q6H PRN (Reason: bronchospasm) Qty: 8.5 0RF pregabalin 200 mg capsule 200 mg PO BID 30 Days Qty: 60 1RF venlafaxine 75 mg capsule,extended release 24hr 75 mg PO BID multivitamin with folic acid [Tab-A-Duarte] 400 mcg tablet 1 tab PO DAILY hydrochlorothiazide 25 mg tablet 25 mg PO DAILY meloxicam 7.5 mg tablet 7.5 mg PO DAILY PRN (Reason: pain) Qty: 60 0RF Rx Instructions: Take it with food and full glass of water. Avoid other NSAIDs. cyclobenzaprine 5 mg tablet 5 mg PO TID PRN (Reason: muscle spasm) Qty: 90 0RF bupropion HCl 150 mg tablet extended release 24 hr 150 mg PO DAILY tramadol 50 mg tablet 50 mg PO BID PRN (Reason: pain) 10 Days Qty: 20 0RF Print Language: Kyr[place]
[2024-02-25] MEDS: Ketorolac Tromethamine 30 MG/ML VIAL 15 MG IM (11:09)
[2024-02-25] MEDS: Acetaminophen 325 MG TABLET 650 MG PO (11:09)
[2024-02-25 11:11] VITALS: BP 132/51; PULSE 79; RESP 16
[2024-02-25 14:36] VITALS: BP 140/77; PULSE 63; RESP 95; TEMP 36.6; O2SAT 95
== END 2024-02-25 14:39 | disposition home or self-care (01) ==
PROVIDERS: Emergency Provider Student in an Organized Health Care Education/Training Program; PCP Internal Medicine
DX: S29.012A Strain of muscle and tendon of back wall of thorax, initial encounter (principal); S80.02XA Contusion of left knee, initial encounter; R20.0 Anesthesia of skin; M25.562 Pain in left knee; M54.50 Low back pain, unspecified; W01.10XA Fall on same level from slipping, tripping and stumbling with subsequent striking against unspecified object, initial encounter; Y93.9 Activity, unspecified; Y92.9 Unspecified place or not applicable; Y99.8 Other external cause status; Z79.899 Other long term (current) drug therapy
CPT/HCPCS: 72072; 73564; 96372; 99284; J1885

== ENCOUNTER 2024-03-01 14:09 | Outpatient (REF) | payer OTHER, SELFPAY | END 2024-03-01 14:10 | disposition home or self-care (01) | LOC: HO.MAMMO 14:09 | PROVIDERS: PCP Internal Medicine; Visit Provider Internal Medicine | DX: Z12.31 Encounter for screening mammogram for malignant neoplasm of breast (principal) | CPT/HCPCS: 77063; 77067 ==

== ENCOUNTER → 2024-03-01 14:30 | Outpatient (BNV) | payer OTHER, SELFPAY | PROVIDERS: PCP Internal Medicine; Visit Provider Radiology Diagnostic Radiology | DX: Z12.31 Encounter for screening mammogram for malignant neoplasm of breast (principal) | CPT/HCPCS: 77063; 77067 ==

== ENCOUNTER 2024-03-02 10:17 | Outpatient (AMB) | payer OTHER, SELFPAY ==
--- NOTE | 2024-03-02 10:26 | A.OFFVIS_ITS ---
Vital Signs 03/02/24 10:28 Height 4 ft 11 in Weight 230 lb BMI 46.4 BP 142/87 H Blood Pressure Location Lt radial Position Sitting Respiration 14 Pulse 92 Pulse Source Pulse Oximeter Pulse Oximetry (%) 93 Oxygen Delivery Method Room Air Intake Visit Reasons: RIGHT GTB INJECTION Allergies pineapple [PINEAPPLE] Adverse Reaction (Severe, Verified 03/02/24 10:29) DIARRHEA Medication List - Last Reconciled 03/02/24 by Darshana Garcia LPN acetaminophen (Tylenol) 325 mg PO QID PRN acetaminophen ER 650 mg PO Q8H 90 days albuterol sulfate 90 mcg/actuation (Ventolin HFA) 2 puffs inhalation Q6H PRN alendronate 70 mg PO QWEEK 90 days amlodipine 5 mg PO DAILY 90 days atorvastatin 20 mg PO DAILY 90 days blood pressure monitor (Blood Pressure Kit) As directed bupropion HCl XL 150 mg PO DAILY calcium citrate-vitamin D3 200 mg-6.25 mcg (250 unit) ([place] Calcium-Vitamin D3) 1 tab PO BID 30 days cyclobenzaprine 5 mg PO BEDTIME PRN cyclobenzaprine 5 mg PO TID PRN docusate sodium 100 mg PO BID 90 days escitalopram oxalate 20 mg PO DAILY 90 days ferrous sulfate 325 mg PO DAILY hydrochlorothiazide 25 mg PO DAILY Incruse Ellipta 62.5 mcg/actuation (umeclidinium) 1 inh inhalation BEDTIME 30 days NS losartan 50 mg PO DAILY 90 days meloxicam 7.5 mg PO DAILY PRN multivitamin with folic acid 400 mcg (Tab-A-Duarte) 1 tab PO DAILY omeprazole 40 mg PO DAILY 90 days prednisone 60 mg (3 x 20 mg) PO DAILY 5 days pregabalin 200 mg PO BID 30 days selenium sulfide 1% (Dandruff Shampoo (selenium sulfide)) 5 mL topical 2XW 14 days tramadol 50 mg PO BID PRN 10 days trazodone 100 mg PO BEDTIME 30 days triamcinolone acetonide 0.1% 1 appl topical DAILY 30 days venlafaxine ER 75 mg PO BID HPI HPI RIGHT GTB INJECTION: Details: 63-year-old female who presents for upper and mid back pain that got worse after a fall. Her low back pain has been under good control. She has tried ibuprofen, heat and ice for her upper back pain that has not been helpful. She is interested in trigger point injections to her upper back today. Past Procedures: 11/26/23: Lumbar Medial Branch Nerve Stimulation Lead Placement, SPR (Sprint) System, Right L3: >60% relief. 11/12/23: Lumbar Medial Branch Nerve Stimulation Lead Placement, SPR (Sprint) System, Left L3: 80-90% initial relief. 10/14/23: Diagnostic Bilateral L3-L4-L5 MBB with 0.5% bupivicaine -100% pain relief for 4 days 08/26/23: Lumbar Medial Branch Block, Bilateral L3, L4 medial branches and L5 Dorsal Ramus (2 levels, 3 nerves): 90% relief. 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 Rheumatoid arthritis Insomnia Chronic back pain COPD (chronic obstructive pulmonary disease) Iron deficiency anemia Morbid obesity Fibromyalgia Chronic GERD Constipation by delayed colonic transit Hypovitaminosis D Pure hypercholesterolemia Severe major depression Surgical History H/O colonoscopy History of back surgery History of neck surgery Family History Mother Uterus cancer Breast cancer, Onset Age: 43 Diabetes Arthritis IBS (irritable bowel syndrome) Father Heart disease Sister Mental health disorder Brother Mental health disorder Social History Housing: Apartment Alcohol intake: never Patient Tobacco Use Status: Former Tobacco user Tobacco use type: Cigarette e-Cigarette/Vaping Use: Never Used Second Hand Smoke Exposure: No service: No Current occupational status: disabled 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) Hearing needs: No Vision needs: Yes Review of Systems Const All systems reviewed & are unremarkable except as noted in HPI and below Physical Exam Vital Signs: Last Vital Signs Pulse 92 03/02/24 10:28 Resp 14 03/02/24 10:28 BP 142/87 H 03/02/24 10:28 Pulse Ox 93 03/02/24 10:28 Oxygen Delivery Method Room Air 03/02/24 10:28 BMI result Body Mass Index 46.4 General: Appears afebrile. Alert and oriented. Mood and affect appropriate. Follows and participates in conversation appropriately. Respiratory effort is unlabored. Able to transition from sit to stand unassisted. Tenderness to palpation in the mid back area in the lower thoracic spine Office Procedures Injection Trigger Point Multi Trigger Point Injections: Pre-procedure diagnosis: Myofascial pain Post-procedure diagnosis: Myofascial pain Site and number of trigger points: Thoracic paraspinal muscles Solution: Total volume administered 20 ml ropivacaine 0.5% The procedure, its benefits, and its risks were explained to the patient and all questions were answered. Prior to the start of the procedure, a ?time out? was performed to confirm correct patient, procedure, and laterality. Trigger points were identified by manual palpation and marked. The skin was cleaned with Chloraprep. A 1.5 inch 25 G needle was used. Each of the trigger points were approximated and elevated in the direction away from the body. Dry needling then took place for five seconds. Approximately 0.5 ml to 1 ml of injectate was delivered to the trigger point followed by dry needling for five seconds. This process was repeated at each trigger point site. The patient tolerated the procedure well. Post-procedure, breath sounds were equal at both sides of the chest. The patient tolerated the procedure well, without complication. The patient denied any numbness, paresthesias, or weakness. Post-procedure vitals were recorded as part of the nursing discharge note in electronic medical record. Following a period of observation, the patient was discharged in stable condition with written discharge instructions. Site and number of trigger points: Trapezius, bilateral Rhomboid, bilateral Latissimus dorsi, bilateral Trigger Point Multiple: 92771- Trigger point injection =/>3 Results Reviewed Results Reviewed: 02/25/24: LEFT KNEE, THORACIC SPINE FINDINGS: Knee: Some minimal tricompartmental degenerative changes are present with some mild compartmental narrowing. Small posterior patellar osteophytes noted inferiorly. No acute fractures or chondrocalcinosis. No joint effusion. Thoracic spine: Mild degenerative change seen in the midthoracic spine with some disc space narrowing endplate sclerosis and mild osteophyte formation. Fractures or bony destructive lesions are seen. Paraspinal soft tissues appear normal incidental note made of ACDF hardware from C4 through C6. IMPRESSION: 1. No evidence of an acute traumatic injury. 2. Mild degenerative changes in the left knee and thoracic spine. 11/26/23: XR FLUOROSCOPY WITH IMAGES FINDINGS: Two images provided show what appears to be a needle near a facet joint on the right. Please see Dr. Walsh' report for complete details. IMPRESSION: Fluoroscopy and spot films provided during lumbar procedure. Assessment & Plan Assessment & Plan (1) Myofascial pain: Code(s): M79.18 - Myalgia, other site Category: Medical (2) Thoracic spine pain: Code(s): M54.6 - Pain in thoracic spine Category: Medical (3) Intractable back pain: Code(s): M54.9 - Dorsalgia, unspecified Category: Medical Plan We can repeat trigger point injections as needed for mid back pain. We had originally planned to potentially proceed with trial of temporary nerve stimulation for her mid back pain in the fall. We will request insurance authorization for a Sprint trial for her mid back pain if the trigger point injections are not helpful in providing long-term relief. Scribed for Dr. Walsh by Ayush Guy certified medical records coder, on 03/02/2024. I, Dr. Walsh, have personally reviewed and agree with the information entered by the scribe. Coding Level of Care Code Est Pt Level 3 (76678) Diagnoses Myofascial pain M79.18 Thoracic spine pain M54.6 Intractable back pain M54.9 CPT Codes Details - Trigger Point Multiple: 29525- Trigger point injection =/>3 ([id number])
[2024-03-02 10:28] VITALS: BP 142/87; PULSE 92; RESP 14; O2SAT 93; BMI 46.4
== END 2024-03-02 10:51 | disposition home or self-care (01) ==
PROVIDERS: PCP Internal Medicine; Visit Provider Internal Medicine
DX: M54.6 Pain in thoracic spine (principal); M54.9 Dorsalgia, unspecified; M79.18 Myalgia, other site
CPT/HCPCS: 20553; 99213

== ENCOUNTER → 2024-03-02 10:17 | Outpatient (BNVA) | payer OTHER, SELFPAY | PROVIDERS: PCP Internal Medicine; Visit Provider Internal Medicine | DX: M79.18 Myalgia, other site (principal); M54.6 Pain in thoracic spine; M54.9 Dorsalgia, unspecified | CPT/HCPCS: 20553; 99212; J2795 ==

== ENCOUNTER 2024-04-13 14:42 | Outpatient (AMB) | payer OTHER, SELFPAY ==
[2024-04-13 14:57] VITALS: BP 170/90; BMI 48.1
--- NOTE | 2024-04-13 14:57 | A.OFFPC_ITS ---
Vital Signs 04/13/24 14:57 Height 4 ft 11 in Weight 238 lb BMI 48.1 BP 170/90 H Blood Pressure Location Lt brachial Position Sitting Intake Visit Reasons: Hip pain Intake Note: Patient here for bilateral hip pain [employer] Repair Technician Required: No Accompanied by: Self / Same As Patient Allergies pineapple [PINEAPPLE] Adverse Reaction (Severe, Verified 04/13/24 15:20) DIARRHEA Medication List - Last Reconciled 04/13/24 by Riddhi Michael MD acetaminophen (Tylenol) 325 mg PO QID PRN acetaminophen ER 650 mg PO Q8H 90 days albuterol sulfate 90 mcg/actuation (Ventolin HFA) 2 puffs inhalation Q6H PRN alendronate 70 mg PO QWEEK 90 days amlodipine 5 mg PO DAILY 90 days atorvastatin 20 mg PO DAILY 90 days blood pressure monitor (Blood Pressure Kit) As directed bupropion HCl XL 150 mg PO DAILY calcium citrate-vitamin D3 200 mg-6.25 mcg (250 unit) ([place] Calcium) 1 tab PO BID 30 days cyclobenzaprine 5 mg PO BEDTIME PRN cyclobenzaprine 5 mg PO TID PRN docusate sodium 100 mg PO BID 90 days escitalopram oxalate 20 mg PO DAILY 90 days ferrous sulfate 325 mg PO DAILY hydrochlorothiazide 25 mg PO DAILY incontinence pad, liner, disp Use 1 pad three times a day Incruse Ellipta 62.5 mcg/actuation (umeclidinium) 1 inh inhalation BEDTIME 30 days NS losartan 50 mg PO DAILY 90 days meloxicam 7.5 mg PO DAILY PRN multivitamin with folic acid 400 mcg (Tab-A-Duarte) 1 tab PO DAILY omeprazole 40 mg PO DAILY 90 days prednisone 60 mg (3 x 20 mg) PO DAILY 5 days pregabalin 200 mg PO BID 30 days selenium sulfide 1% (Dandruff Shampoo (selenium sulfide)) 5 mL topical 2XW 14 days tramadol 50 mg PO BID PRN 10 days trazodone 100 mg PO BEDTIME 30 days triamcinolone acetonide 0.1% 1 appl topical DAILY 30 days venlafaxine ER 75 mg PO BID walker (Ultra-Light Rollator misc) As directed [wipes As directed] Tobacco use date assessed: 04/13/24 Dental Screening Dental Screen Date: 04/13/24 Did you have a dental visit in the last 12 months?: Yes Did you have a dental problem in the last 6 months where you did not have access to dental care?: No Was dental information given to patient?: Patient has dentist HPI HPI Comments History of Present Illness Details This is a 64 year old female with hypertension, mild recurrent major depression, morbid obesity, COPD and rheumatoid arthritis that comes today complaining of bilateral hip pain that started few weeks ago. Denies previous trauma. Walks with a walker for gait stability. Clinically has pain in right hip on hip adduction. Blood pressure elevated and will be recheck in 3 weeks by nurse navigator. Depression stable with medications and follow by Psychiatry. She is morbidly obese with a BMI of 48.1 and declines weight loss surgery. I will start her on Wegovy. Common side effects such as abdominal pain and nausea as well as vomiting were discussed. COPD stable. Rheumatoid arthritis follow by Rheumatology. 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 Rheumatoid arthritis Insomnia Chronic back pain COPD (chronic obstructive pulmonary disease) Iron deficiency anemia Morbid obesity Fibromyalgia Chronic GERD Constipation by delayed colonic transit Hypovitaminosis D Pure hypercholesterolemia Severe major depression Surgical History H/O colonoscopy History of back surgery History of neck surgery Family History Mother Uterus cancer Breast cancer, Onset Age: 43 Diabetes Arthritis IBS (irritable bowel syndrome) Father Heart disease Sister Mental health disorder Brother Mental health disorder Social History Housing: Apartment Alcohol intake: never Patient Tobacco Use Status: Former Tobacco user Tobacco use type: Cigarette e-Cigarette/Vaping Use: Never Used Second Hand Smoke Exposure: No service: No Current occupational status: disabled 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) Hearing needs: No Vision needs: Yes Questionnaire PHQ-9 Over the last 2 weeks, how often have you been bothered by any of the following problems? 1. Little interest or pleasure in doing things: several days 2. Feeling down, depressed, or hopeless: nearly every day 3. Trouble falling or staying asleep, or sleeping too much: nearly every day 4. Feeling tired or having little energy: nearly every day 5. Poor appetite or overeating: several days 6. Feeling bad about yourself - or that you are a failure or have let yourself or your family down: nearly every day 7. Trouble concentrating on things, such as reading the newspaper or watching television: nearly every day 8. Moving or speaking so slowly that other people could have noticed. Or the opposite - being so fidgety or restless that you have been moving around a lot more than usual: several days 9. Thoughts that you would be better off or of hurting yourself in some way: not at all Total score: 18 Depression Screening Interpretation: Positive (no suicidal thoughts) Depression Screening Follow-up: Existing condition, In treatment, Community Mental Health Worker F/U and Follow-up Visit Requested Depression Screening Done: Yes Source: Developed by Drs. Luis Antonio Rice, Alyssa Levin, Larry Dennison and colleagues, with an educational kareem from [employer]. Thrive Questionnaire Date Thrive assessed: 04/13/24 I am a: Patient What is your living situation today?: I have a steady place to live Within the past 12 months, did the food you bought not last and you didn't have the money to get more?: Never true Within the past 12 months, did you worry whether your food would run out before you got money to buy more?: Never true Do you have trouble paying for medicines?: No Do you have trouble getting transportation to medical appointments?: No Do you have trouble paying your heating and electricity bill?: No Do you have trouble taking care of your child, family member or friend?: No Do you have trouble with day-to-day activities such as bathing, preparing meals, shopping, managing finances, etc.?: Yes Are you currently unemployed and looking for a job?: No Are you interested in more education?: No Please select the resources that you would like help with: None Currently or been in a relationship where the following occur: No concerns reported THRIVE Score: 0 AUDIT C Alcohol Use Questionnaire (AUDIT-C) 1. How often do you have a drink containing alcohol?: Never Total Score: 0 Score Reviewed/Action Taken: No MAGGIE-7 AMB Questionnaire MAGGIE-7 Date MAGGIE - 7 assessed: 04/13/24 Feeling nervous, anxious, or on edge: 3 = Nearly every day Not being able to stop or control worryin = Not at all Worrying too much about different things: 1 = Several days Trouble relaxin = More than half the days Being so restless that it is hard to sit still: 2 = More than half the days Becoming easily annoyed or irritable: 0 = Not at all Feeling afraid as if something awful might happen: 0 = Not at all Total MAGIGE-7 score (0-4 normal; 5-9 mild; 10-14 moderate; 15-21 severe): 8 Source: Developed by Drs. Luis Antonio Rice, Alyssa Levin, Larry Dennison and colleagues, with an educational kareem from [employer]. MAGGIE-7 Assessment Billing MAGGIE-7 Assessment Tool: MAGGIE-7 Assessment 35703 Review of Systems Const All systems reviewed & are unremarkable except as noted in HPI and below Card Denies chest pain at rest, Denies chest pain with activity, Denies edema, Denies irregular heart rhythm, Denies claudication, Denies dyspnea, Denies dyspnea on exertion, Denies orthopnea, Denies paroxysmal nocturnal dyspnea and Denies slow heart rate Resp Denies cough, Denies dyspnea and Denies dyspnea on exertion Musc Reports back pain and Reports arthralgias Physical exam (Primary Care) Vital Signs: Last Vital Signs BP 170/90 H 04/13/24 14:57 BMI result Body Mass Index 48.1 BMI Assessment/Plan discussion: High BMI High, discussed plan: lifestyle, weight reduction, dietary and physical activity Tobacco/Smoking Status: Tobacco use Status Tobacco use date assessed 04/13/24 04/13/24 15:06 Patient Tobacco Use Status Former Tobacco user 04/13/24 15:06 Tobacco use type Cigarette 04/13/24 15:06 e-Cigarette/Vaping Use Never Used 04/13/24 15:06 PHQ-9: PHQ-9 Score PHQ-9: Total score 18 04/13/24 15:25 Depression Screening Interpretation: Positive (no suicidal thoughts) Depression Screening Follow-up: Existing condition, In treatment, Community Mental Health Worker F/U and Follow-up Visit Requested Thrive Assessment: Date of Thrive Assessment Date Thrive assessed 04/13/24 04/13/24 15:06 Currently or been in a relationship where the following occur: No concerns reported Const General: cooperative Limitations: ambulation with walker Resp Effort & Inspection: normal respiratory effort Auscultation: clear to auscultation bilaterally Cardio Jugular venous distension: no JVD Rate: regular rate Rhythm: regular rhythm Heart sounds: S1 normal heart sound present and S2 normal heart sound present Extrem General: Yes full ROM Right lower extremity: hip/thigh Details: tenderness Location: of the hip Location: laterally and abnormal ROM Details: pain with passive ROM during Details: to ADduction Assessment and Plan Assessment & Plan (1) Mild recurrent major depression: Code(s): F33.0 - Major depressive disorder, recurrent, mild Plan: Continue bupropion. Follow-up with psychiatry. (2) Morbid obesity with BMI of 45.0-49.9, adult: Comment: Explained that her sleep apnea as well as dyspnea on exertion is due to her morbid obesity. She needs to lose weight but is handicap because of her arthritis , Advised to reduce the intake of calories especially by carbohydrates. Code(s): E66.01 - Morbid (severe) obesity due to excess calories; Z68.42 - Body mass index [BMI] 45.0-49.9, adult Plan: Start Wegovy. BMI goal is less 30 (3) Essential hypertension: Code(s): I10 - Essential (primary) hypertension Plan: Continue amlodipine. Recheck blood pressure with nurse navigator in 3 weeks. Blood pressure goal is equal or less than 130/80. (4) Rheumatoid arthritis: Comment: Follow by oven tender bagels Dr. Knox at [facility] Code(s): M06.9 - Rheumatoid arthritis, unspecified Plan: Follow with rheumatology. (5) COPD (chronic obstructive pulmonary disease): Comment: Patient known to have mild to moderate degree of chronic obstructive pulmonary disease. Doing well with use of Incruse Ellipta 1 inhalation daily. Should also have a rescue inhaler on hand and I have prescribed ProAir 2 puffs Q 6 hours p.r.n. * I explained to her that her obstructive disorder is very mild, CONTINUE TO USE INCRUSE ELLIPTA ONE INH DAILY AND VENTOLIN HFA 2 PUFFS Q 6 HRS ONLY PRN . Code(s): J44.9 - Chronic obstructive pulmonary disease, unspecified Qualifiers: COPD type: unspecified COPD Qualified Code(s): J44.9 - Chronic obstructive pulmonary disease, unspecified Plan: Use rescue inhaler as needed. (6) Right hip pain: Code(s): M25.551 - Pain in right hip Plan: X-ray ordered. (7) Left hip pain: Code(s): M25.552 - Pain in left hip Plan: X-ray ordered. Orders: Orders XR hip LT min 2V Today M25.552 - Pain in left hip Comprehensive [place]. Panel Fast Today I10 - Essential (primary) hypertension Lipid Panel Today I10 - Essential (primary) hypertension Complete Blood Count Auto Diff Today D64.9 - Anemia, unspecified IRON PROFILE Today D64.9 - Anemia, unspecified XR DEXA axial skeleton Today N95.9 - Unspecified menopausal and perimenopausal disorder XR hip RT min 2V Today M25.551 - Pain in right hip Vitamin D 25-OH Total Today E55.9 - Vitamin D deficiency, unspecified Medications: New semaglutide (weight loss) (Wegovy) administer weeks 1 through 4 of therapy 0.25 mg (0.5 mL) subcut QWEEK 4 weeks 2 mL 0RF Discontinued prednisone Discontinued Reason: Patient Completed Course 60 mg (3 x 20 mg) PO DAILY 5 days 15 tabs 0RF Asthma Coding Level of Care Code Est Pt Level 4 (90025) Diagnoses Mild recurrent major depression F33.0 Morbid obesity with BMI of 45.0-49.9, adult E66.01; Z68.42 Essential hypertension I10 Rheumatoid arthritis M06.9 Chronic obstructive pulmonary disease, unspecified COPD type J44.9 COPD type: unspecified COPD Right hip pain M25.551 Left hip pain M25.552 Additional Codes MAGGIE-7 Assessment Billing - MAGGIE-7 Assessment Tool: MAGGIE-7 Assessment 23366 ([id number]) Time Spent (min) 24
== END 2024-04-13 15:32 | disposition home or self-care (01) ==
PROVIDERS: PCP Internal Medicine; Visit Provider Internal Medicine
DX: M06.9 Rheumatoid arthritis, unspecified (principal); F33.0 Major depressive disorder, recurrent, mild; E66.01 Morbid (severe) obesity due to excess calories; Z68.42 Body mass index [BMI] 45.0-49.9, adult; J44.9 Chronic obstructive pulmonary disease, unspecified; I10 Essential (primary) hypertension; M25.551 Pain in right hip; M25.552 Pain in left hip
CPT/HCPCS: 99214

== ENCOUNTER 2024-04-14 13:43 | Outpatient (REF) | payer OTHER, SELFPAY ==
--- NOTE | ~2024-04-14 | XR_ITS ---
EXAMINATION: XR HIP, RIGHT CLINICAL INFORMATION: Pain in the right COMPARISON: 12/03/2021 TECHNIQUE: Two views of the right hip. FINDINGS: No fracture. Alignment is anatomic. Hip joint space is maintained. Soft tissues are unremarkable. XR/XR hip RT min 2V IMPRESSION: Normal right hip.
--- NOTE | ~2024-04-14 | XR_ITS ---
EXAMINATION: XR HIP, LEFT CLINICAL INFORMATION: Pain in left hip COMPARISON: None available. TECHNIQUE: Two views of the left hip. FINDINGS: No fracture. Alignment is anatomic. Hip joint space is maintained. Soft tissues are unremarkable. XR/XR hip LT min 2V IMPRESSION: Normal left hip.
== END 2024-04-14 13:44 | disposition home or self-care (01) ==
LOC: HO.XRAY 13:43
PROVIDERS: PCP Internal Medicine; Visit Provider Internal Medicine
DX: M25.552 Pain in left hip (principal); M25.551 Pain in right hip
CPT/HCPCS: 73502

== ENCOUNTER 2024-04-15 08:49 | Outpatient (REF) | payer OTHER, SELFPAY ==
[2024-04-15 09:06] LABS: MANUAL DIFF FLAG NO
[2024-04-15 09:30] LABS: Basophils Percent Auto 0.6 % (0-2); Eosinophils Absolute Auto 0.2 X10*3/uL (0.0-0.4); Eosinophils Percent Auto 2.5 % (0-4); Hematocrit 43.4 % (37.0-47.0); Hemoglobin 14.4 g/dl (12.0-16.0); Imm Gran Abs Auto 0.03 X10*3/uL (0.00-0.03); Imm Gran Pct Auto 0.5 % (0.0-0.4); Lymphocytes Absolute Auto 2.4 X10*3/uL (1.2-4.9); Lymphocytes Percent Auto 37.2 % (20-40); Mean Corpuscular HGB Conc 33.2 g/dl (31.0-35.0); Mean Corpuscular Hemoglobin 27.7 pg (27.0-33.0); Mean Corpuscular Volume 83.6 fL (80.0-98.0); Mean Platelet Volume 10.7 fL (9.4-12.3); Monocytes Absolute Auto 0.5 X10*3/uL (0.1-1.2); Monocytes Percent Auto 7.4 % (2-11); Neutrophils Absolute Auto 3.4 x10*3/uL (2.0-8.3); Neutrophils Percent Auto 51.8 % (45-73); Platelet Count 233 X10*3/uL (160-400); Red Blood Count 5.19 X10*6/uL (4.20-5.50); Red Cell Distribution Width 14.4 % (11.0-16.0); White Blood Count 6.5 X10*3/uL (4.8-10.8)
[2024-04-15 10:30] LABS: Alanine Aminotransferase 27 U/L (0-31); Albumin Level 4.3 g/dL (3.5-5.0); Alkaline Phosphatase 117 U/L (39-117); Anion Gap 15 (12-20); Aspartate Amino Transferase 20 U/L (5-31); Blood Urea Nitrogen 11 mg/dL (9-16); Calcium 9.3 mg/dL (8.4-10.2); Carbon Dioxide 23 mmol/L (22-29); Chloride 107 mmol/L (96-108); Cholesterol 172 mg/dL (<200); Estimated Glomerular Filt Rate > 60; Glucose Fasting 123 mg/dL (60-99); HDL Cholesterol 67 mg/dL (>40); Iron 95 mcg/dL (30-160); LDL Cholesterol Calculated 79 mg/dL (<100); Percent Iron Saturation 27 % (15-50); Potassium 3.8 mmol/L (3.3-5.1); Sodium 141 mmol/L (135-145); Total Iron Binding Capacity 357 mcg/dL (228-428); Total Protein 7.5 g/dL (6.5-8.0); Triglycerides 131 mg/dL (<150); Unsaturated Iron Binding 262 ug/dL
[2024-04-15 10:46] LABS: Vitamin D 25-OH Total 30.9 ng/mL (>30)
== END 2024-04-15 08:50 | disposition home or self-care (01) ==
LOC: HO.LAB 08:49
PROVIDERS: PCP Internal Medicine; Visit Provider Internal Medicine
DX: I10 Essential (primary) hypertension (principal); E55.9 Vitamin D deficiency, unspecified; D64.9 Anemia, unspecified
CPT/HCPCS: 36415; 80053; 80061; 82306; 83540; 85025

== ENCOUNTER 2024-04-20 10:43 | Outpatient (AMB) | payer OTHER, SELFPAY ==
[2024-04-20 10:45] VITALS: BP 192/100; BMI 47.9
--- NOTE | 2024-04-20 10:45 | MHC.PC.OV ---
Vital Signs 04/20/24 10:45 04/20/24 12:17 Height 4 ft 11 in Weight 237 lb BMI 47.9 BP 192/100 H 190/100 H Blood Pressure Location Lt brachial Lt brachial Position Sitting Sitting Intake Visit Reasons: Annual Exam Intake Note: Patient here for a physical exam Vault Teller Required: No Accompanied by: Self / Same As Patient Allergies pineapple [PINEAPPLE] Adverse Reaction (Severe, Verified 04/20/24 10:54) DIARRHEA Medication List - Last Reconciled 04/20/24 by Riddhi Michael MD acetaminophen (Tylenol) 325 mg PO QID PRN acetaminophen ER 650 mg PO Q8H 90 days albuterol sulfate 90 mcg/actuation (Ventolin HFA) 2 puffs inhalation Q6H PRN alendronate 70 mg PO QWEEK 90 days amlodipine 5 mg PO DAILY 90 days atorvastatin 20 mg PO DAILY 90 days blood pressure monitor (Blood Pressure Kit) As directed bupropion HCl XL 150 mg PO DAILY calcium citrate-vitamin D3 200 mg-6.25 mcg (250 unit) ([place] Calcium) 1 tab PO BID 30 days cyclobenzaprine 5 mg PO BEDTIME PRN cyclobenzaprine 5 mg PO TID PRN docusate sodium 100 mg PO BID 90 days escitalopram oxalate 20 mg PO DAILY 90 days ferrous sulfate 325 mg PO DAILY hydrochlorothiazide 25 mg PO DAILY incontinence pad, liner, disp Use 1 pad three times a day Incruse Ellipta 62.5 mcg/actuation (umeclidinium) 1 inh inhalation BEDTIME 30 days NS losartan 50 mg PO DAILY 90 days meloxicam 7.5 mg PO DAILY PRN multivitamin with folic acid 400 mcg (Tab-A-Duarte) 1 tab PO DAILY omeprazole 40 mg PO DAILY 90 days pregabalin 200 mg PO BID 30 days selenium sulfide 1% (Dandruff Shampoo (selenium sulfide)) 5 mL topical 2XW 14 days semaglutide (weight loss) (Wegovy) 0.25 mg (0.5 mL) subcut QWEEK 4 weeks tramadol 50 mg PO BID PRN 10 days trazodone 100 mg PO BEDTIME 30 days triamcinolone acetonide 0.1% 1 appl topical DAILY 30 days venlafaxine ER 75 mg PO BID walker (Ultra-Light Rollator misc) As directed [wipes As directed] Tobacco use date assessed: 04/13/24 Dental Screening Dental Screen Date: 04/13/24 HPI HPI Comments History of Present Illness Details This is a 64-year-old female with mild recurrent major depression, morbid obesity, COPD and rheumatoid arthritis that comes for her physical exam. Mammogram up-to-date. Pap smear was last year and was normal as per patient. Colonoscopy done 2018 and was normal. Last bone DXA scan was 2021 and I will order another DEXA. Depression stable with medications and follow by Psychiatry. She is morbidly obese with a BMI of 47.9 and declines weight loss surgery. Wegovy will start if insurance approves. Has COPD and would like a 2nd opinion in [place]. Rheumatoid arthritis is follow by Rheumatology. Complains of tender varicose pain and will be referred to vascular surgery. Labs were discussed and has impaired glucose tolerance and low-carbohydrate diet was advised. Blood pressure elevated and I will increase losartan and change hydrochlorothiazide to chlorthalidone. Blood pressure will be recheck in 3 weeks by nurse navigator. 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 Rheumatoid arthritis Insomnia Chronic back pain COPD (chronic obstructive pulmonary disease) Iron deficiency anemia Morbid obesity Fibromyalgia Chronic GERD Constipation by delayed colonic transit Hypovitaminosis D Pure hypercholesterolemia Severe major depression Surgical History H/O colonoscopy History of back surgery History of neck surgery Family History Mother Uterus cancer Breast cancer, Onset Age: 43 Diabetes Arthritis IBS (irritable bowel syndrome) Father Heart disease Sister Mental health disorder Brother Mental health disorder Social History Housing: Apartment Alcohol intake: never Patient Tobacco Use Status: Former Tobacco user Tobacco use type: Cigarette e-Cigarette/Vaping Use: Never Used Second Hand Smoke Exposure: No service: No Current occupational status: disabled 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) Hearing needs: No Vision needs: Yes Questionnaire Thrive Questionnaire Date Thrive assessed: 04/13/24 MAGGIE-7 AMB Questionnaire MAGGIE-7 Date MAGGIE - 7 assessed: 04/13/24 Source: Developed by Drs. Luis Antonio Rice, Alyssa Levin, Larry Dennison and colleagues, with an educational kareem from [employer]. Review of Systems Const All systems reviewed & are unremarkable except as noted in HPI and below Card Denies chest pain at rest, Denies chest pain with activity, Denies edema, Denies irregular heart rhythm, Denies claudication, Denies dyspnea, Denies dyspnea on exertion, Denies orthopnea, Denies paroxysmal nocturnal dyspnea and Denies slow heart rate Resp Denies cough, Denies dyspnea and Denies dyspnea on exertion Neuro Denies lack of coordination Physical exam (Primary Care) Vital Signs: Last Vital Signs BP 192/100 H 04/20/24 10:45 BMI result Body Mass Index 47.9 BMI Assessment/Plan discussion: High BMI High, discussed plan: lifestyle, weight reduction, dietary and physical activity Tobacco/Smoking Status: Tobacco use Status Tobacco use date assessed 04/13/24 04/20/24 10:49 Patient Tobacco Use Status Former Tobacco user 04/20/24 10:49 Tobacco use type Cigarette 04/20/24 10:49 e-Cigarette/Vaping Use Never Used 04/20/24 10:49 Thrive Assessment: Date of Thrive Assessment Date Thrive assessed 04/13/24 04/20/24 10:49 Const Limitations: ambulation with walker HENMT Head: Yes normal to inspection, Yes normocephalic and Yes atraumatic Ears: external ears normal Eyes General: appearance normal, both eyes and all related structures Eyelids: Yes eyelids normal Conjunctivae: conjunctivae normal Neck Neck: Yes normal visual inspection and Yes supple Resp Effort & Inspection: normal respiratory effort Auscultation: clear to auscultation bilaterally Cardio Jugular venous distension: no JVD Rate: regular rate Rhythm: regular rhythm Heart sounds: S1 normal heart sound present and S2 normal heart sound present GI Inspection: Yes normal to inspection Palpation (GI): Soft to palpation and nontender Auscultation: normal bowel sounds Skin General skin exam: no rashes or lesions noted Neuro General: no focal motor deficits Extrem General: Yes full ROM Psych Appearance: grossly normal Assessment and Plan Assessment & Plan (1) Physical exam: Code(s): Z00.00 - Encounter for general adult medical examination without abnormal findings Plan: Repeat in a year. (2) Mild recurrent major depression: Code(s): F33.0 - Major depressive disorder, recurrent, mild Plan: Continue bupropion and escitalopram. Follow-up with psychiatry. (3) Morbid obesity with BMI of 45.0-49.9, adult: Comment: Explained that her sleep apnea as well as dyspnea on exertion is due to her morbid obesity. She needs to lose weight but is handicap because of her arthritis , Advised to reduce the intake of calories especially by carbohydrates. Code(s): E66.01 - Morbid (severe) obesity due to excess calories; Z68.42 - Body mass index [BMI] 45.0-49.9, adult Plan: Start WEgovy. (4) Rheumatoid arthritis: Comment: Follow by oleo hasher and renderer Dr. Knox at [facility] Code(s): M06.9 - Rheumatoid arthritis, unspecified Plan: Follow-up with rheumatology. (5) COPD (chronic obstructive pulmonary disease): Comment: Patient known to have mild to moderate degree of chronic obstructive pulmonary disease. Doing well with use of Incruse Ellipta 1 inhalation daily. Should also have a rescue inhaler on hand and I have prescribed ProAir 2 puffs Q 6 hours p.r.n. * I explained to her that her obstructive disorder is very mild, CONTINUE TO USE INCRUSE ELLIPTA ONE INH DAILY AND VENTOLIN HFA 2 PUFFS Q 6 HRS ONLY PRN . Code(s): J44.9 - Chronic obstructive pulmonary disease, unspecified Qualifiers: COPD type: unspecified COPD Qualified Code(s): J44.9 - Chronic obstructive pulmonary disease, unspecified Plan: Referred to pulmonology. (6) Venous (peripheral) insufficiency: Code(s): I87.2 - Venous insufficiency (chronic) (peripheral) Plan: Referred to vascular surgery. Orders: Orders XR DEXA axial skeleton Today N95.9 - Unspecified menopausal and perimenopausal disorder Medications: Refilled semaglutide (weight loss) (Wegovy) administer weeks 1 through 4 of therapy 0.25 mg (0.5 mL) subcut QWEEK 4 weeks 2 mL 0RF Coding Level of Care Code Est Pt Level 3 (45381) Est Pt Prev Care 40-64y(16945) Diagnoses Physical exam Z00.00 Mild recurrent major depression F33.0 Morbid obesity with BMI of 45.0-49.9, adult E66.01; Z68.42 Rheumatoid arthritis M06.9 Chronic obstructive pulmonary disease, unspecified COPD type J44.9 COPD type: unspecified COPD Venous (peripheral) insufficiency I87.2 Time Spent (min) 35
[2024-04-20 12:17] VITALS: BP 190/100
== END 2024-04-20 11:18 | disposition home or self-care (01) ==
PROVIDERS: PCP Internal Medicine; Visit Provider Internal Medicine
DX: Z00.00 Encounter for general adult medical examination without abnormal findings (principal); F33.0 Major depressive disorder, recurrent, mild; E66.01 Morbid (severe) obesity due to excess calories; Z68.42 Body mass index [BMI] 45.0-49.9, adult; J44.9 Chronic obstructive pulmonary disease, unspecified; I87.2 Venous insufficiency (chronic) (peripheral)
CPT/HCPCS: 99213; 99396

== ENCOUNTER 2024-05-18 08:23 | Outpatient (AMB) | payer OTHER, SELFPAY ==
--- NOTE | 2024-05-18 08:26 | MHC.OFFVIS ---
Vital Signs 05/18/24 08:27 Height 4 ft 11 in Weight 236 lb BMI 47.7 BP 140/84 H Blood Pressure Location Rt brachial Position Sitting Pulse 86 Pulse Source Pulse Oximeter Pulse Oximetry (%) 95 Oxygen Delivery Method Room Air Intake Visit Reasons: geraldo upper back pain/ Nico Pt Allergies pineapple [PINEAPPLE] Adverse Reaction (Severe, Verified 05/18/24 08:28) DIARRHEA Medication List - Last Reconciled 05/18/24 by Mary Acosta acetaminophen (Tylenol) 325 mg PO QID PRN acetaminophen ER 650 mg PO Q8H 90 days albuterol sulfate 90 mcg/actuation (Ventolin HFA) 2 puffs inhalation Q6H PRN alendronate 70 mg PO QWEEK 90 days amlodipine 5 mg PO DAILY 90 days atorvastatin 20 mg PO DAILY 90 days [bath mat As directed] blood pressure monitor (Blood Pressure Kit) As directed bupropion HCl XL 150 mg PO DAILY calcium citrate-vitamin D3 200 mg-6.25 mcg (250 unit) ([place] Calcium) 1 tab PO BID 30 days chlorthalidone 25 mg PO DAILY 90 days cyclobenzaprine 5 mg PO BEDTIME PRN cyclobenzaprine 5 mg PO TID PRN docusate sodium 100 mg PO BID 90 days escitalopram oxalate 20 mg PO DAILY 90 days incontinence pad, liner, disp Use 1 pad three times a day Incruse Ellipta 62.5 mcg/actuation (umeclidinium) 1 inh inhalation BEDTIME 30 days NS losartan 100 mg PO DAILY 90 days meloxicam 7.5 mg PO DAILY PRN multivitamin with folic acid 400 mcg (Tab-A-Duarte) 1 tab PO DAILY omeprazole 40 mg PO DAILY 90 days pregabalin 200 mg PO BID 30 days selenium sulfide 1% (Dandruff Shampoo (selenium sulfide)) 5 mL topical 2XW 14 days semaglutide (weight loss) (Wegovy) 0.25 mg (0.5 mL) subcut QWEEK 4 weeks tramadol 50 mg PO BID PRN 10 days trazodone 100 mg PO BEDTIME 30 days triamcinolone acetonide 0.1% 1 appl topical DAILY 30 days venlafaxine ER 75 mg PO BID walker (Ultra-Light Rollator misc) As directed [wipes As directed] HPI Comments Details: Patient presents back to the office today for follow-up thoracic back pain She states no relief after trigger point injections that she received at last visit. She then had family emergency and was not able to follow up with our office until today. Today reports 10/10 bilateral thoracic back pain, worse with movement and palpation She is currently in physical therapy doing aquatherapy Has been taking Tylenol, ibuprofen and using tiger balm without improvement of her symptoms 03/02/[address] Walsh: 63-year-old female who presents for upper and mid back pain that got worse after a fall. Her low back pain has been under good control. She has tried ibuprofen, heat and ice for her upper back pain that has not been helpful. She is interested in trigger point injections to her upper back today. Past Procedures: 11/26/23: Lumbar Medial Branch Nerve Stimulation Lead Placement, SPR (Sprint) System, Right L3: >60% relief. 11/12/23: Lumbar Medial Branch Nerve Stimulation Lead Placement, SPR (Sprint) System, Left L3: 80-90% initial relief. 10/14/23: Diagnostic Bilateral L3-L4-L5 MBB with 0.5% bupivicaine -100% pain relief for 4 days 08/26/23: Lumbar Medial Branch Block, Bilateral L3, L4 medial branches and L5 Dorsal Ramus (2 levels, 3 nerves): 90% relief. 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 Rheumatoid arthritis Insomnia Chronic back pain COPD (chronic obstructive pulmonary disease) Iron deficiency anemia Morbid obesity Fibromyalgia Chronic GERD Constipation by delayed colonic transit Hypovitaminosis D Pure hypercholesterolemia Severe major depression Surgical History H/O colonoscopy History of back surgery History of neck surgery Family History Mother Uterus cancer Breast cancer, Onset Age: 43 Diabetes Arthritis IBS (irritable bowel syndrome) Father Heart disease Sister Mental health disorder Brother Mental health disorder Social History Housing: Apartment Alcohol intake: never Patient Tobacco Use Status: Former Tobacco user Tobacco use type: Cigarette e-Cigarette/Vaping Use: Never Used Second Hand Smoke Exposure: No service: No Current occupational status: disabled 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) Hearing needs: No Vision needs: Yes Review of Systems Const All systems reviewed & are unremarkable except as noted in HPI and below Physical Exam Vital Signs: Last Vital Signs Pulse 86 05/18/24 08:27 BP 140/84 H 05/18/24 08:27 Pulse Ox 95 05/18/24 08:27 Oxygen Delivery Method Room Air 05/18/24 08:27 BMI result Body Mass Index 47.7 General: awake, alert, oriented. Answers questions appropriately. Fully engaged in examination. Skin: warm, dry, intact HEENT: Normocephalic. Hearing intact. Cardiac: External chest normal in appearance. Respiratory: No cough, audible wheezing or stridor. Abdomen: without gross distension. MS: No obvious swelling or deformities. Significantly tender to palpation of her thoracic back, midline thoracic vertebrae and paraspinal muscles Neurological: Oriented to person, place, time and situation. Thought process intact. No gait abnormalities appreciated. Psychiatric: Appropriate mood and affect. Good judgment and insight. Results Reviewed Results Reviewed: 02/25/24: LEFT KNEE, THORACIC SPINE FINDINGS: Knee: Some minimal tricompartmental degenerative changes are present with some mild compartmental narrowing. Small posterior patellar osteophytes noted inferiorly. No acute fractures or chondrocalcinosis. No joint effusion. Thoracic spine: Mild degenerative change seen in the midthoracic spine with some disc space narrowing endplate sclerosis and mild osteophyte formation. Fractures or bony destructive lesions are seen. Paraspinal soft tissues appear normal incidental note made of ACDF hardware from C4 through C6. IMPRESSION: 1. No evidence of an acute traumatic injury. 2. Mild degenerative changes in the left knee and thoracic spine. 11/26/23: XR FLUOROSCOPY WITH IMAGES FINDINGS: Two images provided show what appears to be a needle near a facet joint on the right. Please see Dr. Walsh' report for complete details. IMPRESSION: Fluoroscopy and spot films provided during lumbar procedure. Assessment & Plan Assessment & Plan (1) Myofascial pain: Code(s): M79.18 - Myalgia, other site Category: Medical (2) Thoracic spine pain: Code(s): M54.6 - Pain in thoracic spine Category: Medical (3) Intractable back pain: Code(s): M54.9 - Dorsalgia, unspecified Category: Medical Plan Patient presented back to the office today for follow-up thoracic back pain She has exhausted conservative therapy including PT, ice, topical applications, nonsteroidal anti-inflammatory medications and [id number] medications Methocarbamol 500 mg p.o. t.i.d. as needed for muscle spasms. Patient advised on cautions for use. Celecoxib 100 mg p.o. twice daily as needed. Patient advised on cautions for use. Do not take with any other nonsteroidal anti-inflammatory medications. Discussed at length patient's diagnosis and treatment options. She would like to proceed with sprint PNS trial. Will schedule for bilateral T10 sprint PNS local anesthetic under fluoroscopy guidance. She would like to start with the right side, left side will follow 2 weeks after. All questions and concerns were answered, patient agrees with the plan. Follow-up after procedure, sooner if needed Medications: New celecoxib 100 mg PO BID 60 caps 0RF methocarbamol No driving while taking this medication. 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 Avoid other NSAIDs. Discontinued Reason: Doctor's Order 7.5 mg PO DAILY PRN 60 tabs 0RF pain M47.816 - Spondylosis without myelopathy or radiculopathy, lumbar region, M96.1 - Postlaminectomy syndrome, not elsewhere classified cyclobenzaprine Discontinued Reason: Doctor's Order 5 mg PO TID PRN 90 tabs 0RF muscle spasm Coding Level of Care Code Est Pt Level 4 (57231) Diagnoses Myofascial pain M79.18 Thoracic spine pain M54.6 Intractable back pain M54.9
[2024-05-18 08:27] VITALS: BP 140/84; PULSE 86; O2SAT 95; BMI 47.7
== END 2024-05-18 08:43 | disposition home or self-care (01) ==
PROVIDERS: PCP Internal Medicine; Visit Provider Registered Nurse Emergency
DX: M79.18 Myalgia, other site (principal); M54.6 Pain in thoracic spine; M54.9 Dorsalgia, unspecified
CPT/HCPCS: 99214

== ENCOUNTER → 2024-05-18 08:23 | Outpatient (BNVA) | payer OTHER, SELFPAY | PROVIDERS: PCP Internal Medicine; Visit Provider Registered Nurse Emergency | DX: M47.816 Spondylosis without myelopathy or radiculopathy, lumbar region (principal); M79.18 Myalgia, other site; M96.1 Postlaminectomy syndrome, not elsewhere classified; M54.6 Pain in thoracic spine; M54.9 Dorsalgia, unspecified | CPT/HCPCS: 99212 ==

== ENCOUNTER 2024-06-16 06:02 | Outpatient (REF) | payer OTHER, SELFPAY | END 2024-06-16 06:03 | disposition home or self-care (01) | LOC: CF 06:02 | PROVIDERS: Visit Provider Internal Medicine | DX: M54.9 Dorsalgia, unspecified (principal); M47.814 Spondylosis without myelopathy or radiculopathy, thoracic region | CPT/HCPCS: 64555; C1778 ==

== ENCOUNTER 2024-06-16 08:39 | Outpatient (AMB) | payer OTHER, SELFPAY ==
[2024-06-16 08:46] VITALS: BP 143/80; PULSE 115; RESP 18; O2SAT 94
--- NOTE | 2024-06-16 09:22 | MHC.OFFVIS ---
Vital Signs 06/16/24 08:46 06/16/24 09:39 BP 143/80 H 189/69 H Blood Pressure Location Rt brachial Rt brachial Position Sitting Sitting Respiration 18 19 Pulse 115 H 98 Pulse Source Pulse Oximeter Pulse Oximeter Pulse Oximetry (%) 94 95 Oxygen Delivery Method Room Air Room Air Comment Pre-op Post-op Intake Visit Reasons: Right T10 Sprint/ Ativan Allergies pineapple [PINEAPPLE] Adverse Reaction (Severe, Verified 05/18/24 08:28) DIARRHEA HPI HPI Right T10 Sprint/ Ativan: Details: Patient presents for scheduled procedure. Denies any recent cough, cold, infection, fever or other significant changes in medical history since last office visit. 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 Rheumatoid arthritis Insomnia Chronic back pain COPD (chronic obstructive pulmonary disease) Iron deficiency anemia Morbid obesity Fibromyalgia Chronic GERD Constipation by delayed colonic transit Hypovitaminosis D Pure hypercholesterolemia Severe major depression Surgical History H/O colonoscopy History of back surgery History of neck surgery Family History Mother Uterus cancer Breast cancer, Onset Age: 43 Diabetes Arthritis IBS (irritable bowel syndrome) Father Heart disease Sister Mental health disorder Brother Mental health disorder Social History Housing: Apartment Alcohol intake: never Patient Tobacco Use Status: Former Tobacco user Tobacco use type: Cigarette e-Cigarette/Vaping Use: Never Used Second Hand Smoke Exposure: No service: No Current occupational status: disabled 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) Hearing needs: No Vision needs: Yes Physical Exam Vital Signs: Last Vital Signs Pulse 98 06/16/24 09:39 Resp 19 06/16/24 09:39 BP 189/69 H 06/16/24 09:39 Pulse Ox 95 06/16/24 09:39 Oxygen Delivery Method Room Air 09/26/24 09:39 Office Procedures Details: Thoracic Medial Branch Nerve Stimulation Lead Placement, SPR (Sprint) System, Right T12 ? After the risks, benefits and alternatives were discussed with the patient and informed consent was obtained, patient was placed in the prone position and padded to foster comfort. The skin overlying the lumbosacral spine was prepped and draped in sterile fashion. Fluoroscopy was used to identify the spinous process and lamina in the center of the patient?s region of pain. After identifying and marking the intended target along the course of the medial branch nerve, the skin around the planned entry point and the subcutaneous tissues were injected with lidocaine 1%. An introducer needle and stimulating probe were assembled, inserted and advanced along the intended course of the medial branch nerve as it traverses the lamina medial and inferior to the zygapophyseal joint, taking care to maintain the proper depth of insertion as the introducer is advanced under fluoroscopic guidance. The introducer needle was delivered to a location in proximity to the nerve. Multiple stimulation parameters were used to deliver stimulation to the target medial branch nerve in concert with stimulating at multiple positions around the nerve. Nerve target acquisition was confirmed noting generation of paresthesias in the paravertebral regions corresponding to the level being stimulated. Various electrical parameter combinations were tested, and the lead location was adjusted (physically relocated) until the patient indicated paresthesia/muscle tension overlapping the distribution of the patient?s typical region of pain. The stimulating probe was removed from the introducer and a percutaneous lead was guided through the needle and delivered to a location in similar proximity to the nerve. Final location was verified with electrical stimulation and documented with fluoroscopy. The introducer needle was removed, and the exposed end of the percutaneous lead was attached to an external stimulator unit. Various electrical parameter combinations were again tested until the patient indicated paresthesia or muscle tension overlapping the distribution of the patient?s typical region of pain. After confirming that lead impedance was in the normal range, the external unit was detached, the needle was removed, and the lead was anchored at the skin. The lead was threaded into the connector block and electrical continuity and desired patient response was confirmed. The connector block was attached to the external stimulator unit. The site was covered with a sterile occlusive dressing. The patient was observed for stability of vital signs and comfort. Sprint PNS Device: Sprint PNS Device [id number] Percutaneous Peripheral Neuroelectrode Procedure: 98426 - Percutaneous Peripheral Neuroelectrode Procedure code (CPT) selection complete Office Meds lidocaine HCl 10 mg/mL (1 %) injection solution Performing Provider: Kristi Ramirez APRN, SIMI Performing Location: [facility] Administered by: Darshana Garcia LPN on 06/16/24 09:22 Dose Route Admin Location Dispensed Lot Number Expiration Date NDC [place] Mixer Operator 5 mL subcut 5 mL Assessment & Plan Assessment & Plan (1) Intractable back pain: Code(s): M54.9 - Dorsalgia, unspecified Category: Medical (2) Thoracic spondylosis: Code(s): M47.814 - Spondylosis without myelopathy or radiculopathy, thoracic region Category: Medical Plan Patient is status post temporary right T12 medial branch nerve stimulator placement. Patient tolerated procedure well and was discharged home in stable condition with discharge instructions. All questions were answered. We will follow-up via telephone or in clinic to assess response to therapy. A follow-up appointment was made during today's visit. Orders: Orders FL guidance in treatment room Today M54.9 - Dorsalgia, unspecified AMB Sprint PNS Today M54.9 - Dorsalgia, unspecified Medications: New lorazepam (Ativan) Take 30 minutes prior to arrival to procedure 1 mg PO ONCE 1 tab 0RF anxiety Coding Level of Care Code Procedure Only Diagnoses Intractable back pain M54.9 Thoracic spondylosis M47.814 CPT Codes Sprint PNS - Sprint PNS Device: Sprint PNS Device ([id number]) Sprint PNS - SPRINT: 67625 - Percutaneous Peripheral Neuroelectrode ([id number]) Implantable Device Implantable Device Implantable Devices Qty [place] Mixer Operator Implant Date Expiration Date Analgesic PENS system 1 [employer] 06/16/24 12/09/25
[2024-06-16 09:39] VITALS: BP 189/69; PULSE 98; RESP 19; O2SAT 95
== END 2024-06-16 09:43 | disposition home or self-care (01) ==
LOC: HO.PMCPRC 08:39
PROVIDERS: PCP Internal Medicine; Visit Provider Internal Medicine
DX: M54.9 Dorsalgia, unspecified (principal); M47.814 Spondylosis without myelopathy or radiculopathy, thoracic region
CPT/HCPCS: 64555

== ENCOUNTER 2024-06-22 09:31 | Outpatient (AMB) | payer OTHER, SELFPAY ==
--- NOTE | 2024-06-22 09:46 | A.OFFVIS_ITS ---
Vital Signs 06/22/24 09:48 Height 4 ft 11 in Weight 232 lb BMI 46.9 BP 134/83 Blood Pressure Location Lt brachial Position Sitting Respiration 16 Pulse 102 H Pulse Source Pulse Oximeter Pulse Oximetry (%) 94 Oxygen Delivery Method Room Air Intake Visit Reasons: s/p Right T10 Sprint Allergies pineapple [PINEAPPLE] Adverse Reaction (Severe, Verified 07/07/24 13:44) DIARRHEA Medication List - Last Reconciled 06/22/24 by Darshana Garcia LPN acetaminophen (Tylenol) 325 mg PO QID PRN acetaminophen ER 650 mg PO Q8H 90 days albuterol sulfate 90 mcg/actuation (Ventolin HFA) 2 puffs inhalation Q6H PRN alendronate 70 mg PO QWEEK 90 days amlodipine 5 mg PO DAILY 90 days atorvastatin 20 mg PO DAILY 90 days [bath mat As directed] blood pressure monitor (Blood Pressure Kit) As directed bupropion HCl XL 150 mg PO DAILY calcium citrate-vitamin D3 200 mg-6.25 mcg (250 unit) ([place] Calcium) 1 tab PO BID 30 days celecoxib 100 mg PO BID chlorthalidone 25 mg PO DAILY 90 days docusate sodium 100 mg PO BID 90 days escitalopram oxalate 20 mg PO DAILY 90 days incontinence pad, liner, disp Use 1 pad three times a day Incruse Ellipta 62.5 mcg/actuation (umeclidinium) 1 inh inhalation BEDTIME 30 days NS lorazepam (Ativan) 1 mg PO ONCE losartan 100 mg PO DAILY 90 days methocarbamol 500 mg PO TID PRN multivitamin with folic acid 400 mcg (Tab-A-Duarte) 1 tab PO DAILY omeprazole 40 mg PO DAILY 90 days pregabalin 200 mg PO BID 30 days selenium sulfide 1% (Dandruff Shampoo (selenium sulfide)) 5 mL topical 2XW 14 days semaglutide (weight loss) (Wegovy) 0.5 mg (0.5 mL) subcut QWEEK 4 weeks tramadol 50 mg PO BID PRN 10 days trazodone 100 mg PO BEDTIME 30 days triamcinolone acetonide 0.1% 1 appl topical DAILY 30 days venlafaxine ER 75 mg PO BID walker (Ultra-Light Rollator misc) As directed [wipes As directed] HPI HPI s/p Right T10 Sprint: Details: 64-year-old female who presents today for status post temporary right T12 medial branch nerve stimulator placement. The patient reports she is starting to get relief following the procedure. She reports pain in the upper back area at the insertion site; however, her usual pain is starting to improve. Past Procedures: 06/16/24: Temporary right T12 medial branch nerve stimulator placement: starting to get relief. 03/02/24: Trigger point injections: No relief. 11/26/23: Lumbar Medial Branch Nerve Stimulation Lead Placement, SPR (Sprint) System, Right L3: >60% relief. 11/12/23: Lumbar Medial Branch Nerve Stimulation Lead Placement, SPR (Sprint) Sy stem, Left L3: 80-90% initial relief. 10/14/23: Diagnostic Bilateral L3-L4-L5 MBB with 0.5% bupivicaine -100% pain relief for 4 days 08/26/23: Lumbar Medial Branch Block, Bilateral L3, L4 medial branches and L5 Dorsal Ramus (2 levels, 3 nerves): 90% relief. 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 Rheumatoid arthritis Insomnia Chronic back pain COPD (chronic obstructive pulmonary disease) Iron deficiency anemia Morbid obesity Fibromyalgia Chronic GERD Constipation by delayed colonic transit Hypovitaminosis D Pure hypercholesterolemia Severe major depression Surgical History H/O colonoscopy History of back surgery History of neck surgery Family History Mother Uterus cancer Breast cancer, Onset Age: 43 Diabetes Arthritis IBS (irritable bowel syndrome) Father Heart disease Sister Mental health disorder Brother Mental health disorder Social History Housing: Apartment Alcohol intake: never Patient Tobacco Use Status: Former Tobacco user Tobacco use type: Cigarette e-Cigarette/Vaping Use: Never Used Second Hand Smoke Exposure: No service: No Current occupational status: disabled 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) Hearing needs: No Vision needs: Yes Physical Exam Vital Signs: Last Vital Signs Pulse 102 H 06/22/24 09:48 Resp 16 06/22/24 09:48 BP 134/83 06/22/24 09:48 Pulse Ox 94 06/22/24 09:48 Oxygen Delivery Method Room Air 06/22/24 09:48 BMI result Body Mass Index 46.9 General: Appears afebrile. Alert and oriented. Mood and affect appropriate. Follows and participates in conversation appropriately. Respiratory effort is unlabored. Able to transition from sit to stand unassisted. Ambulates with bilaterally normal heel strike and toe off. Lead insertion site is clean, dry and intact. Dressing was changed in the office today. Assessment & Plan Assessment & Plan (1) Thoracic spondylosis: Code(s): M47.814 - Spondylosis without myelopathy or radiculopathy, thoracic region Category: Medical (2) Intractable back pain: Code(s): M54.9 - Dorsalgia, unspecified Category: Medical Plan Patient reports initial improvement in her pain following the temporary right T12 medial branch nerve stimulator placement. Counseled on continuing the thera py for 7 weeks. She will follow-up for left-sided placement as previously scheduled. Scribed for Dr. Walsh by [place] medical office technologist, on 06/22/2024. I, Dr. Walsh, have personally reviewed and agree with the information entered by the scribe. Coding Level of Care Code Est Pt Level 3 (51264) Diagnoses Thoracic spondylosis M47.814 Intractable back pain M54.9
[2024-06-22 09:48] VITALS: BP 134/83; PULSE 102; RESP 16; O2SAT 94; BMI 46.9
== END 2024-06-22 10:08 | disposition home or self-care (01) ==
PROVIDERS: PCP Internal Medicine; Visit Provider Internal Medicine
DX: M47.814 Spondylosis without myelopathy or radiculopathy, thoracic region (principal); M54.9 Dorsalgia, unspecified
CPT/HCPCS: 99024

== ENCOUNTER → 2024-06-22 09:31 | Outpatient (BNVA) | payer OTHER, SELFPAY | PROVIDERS: PCP Internal Medicine; Visit Provider Internal Medicine | DX: M47.814 Spondylosis without myelopathy or radiculopathy, thoracic region (principal); Z96.82 Presence of neurostimulator | CPT/HCPCS: 99212 ==

== ENCOUNTER 2024-06-30 06:01 | Outpatient (REF) | payer OTHER, SELFPAY | END 2024-06-30 06:02 | disposition home or self-care (01) | LOC: CF 06:01 | PROVIDERS: Visit Provider Internal Medicine | DX: M47.814 Spondylosis without myelopathy or radiculopathy, thoracic region (principal); Z45.42 Encounter for adjustment and management of neurostimulator | CPT/HCPCS: 64555; C1778; J2003 ==

== ENCOUNTER 2024-06-30 08:52 | Outpatient (AMB) | payer OTHER, SELFPAY ==
--- NOTE | 2024-06-30 08:53 | MHC.OFFVIS ---
Vital Signs 06/30/24 09:00 06/30/24 09:53 BP 135/91 H 153/74 H Blood Pressure Location Lt brachial Lt brachial Position Sitting Sitting Pulse 93 82 Pulse Source Pulse Oximeter Pulse Oximeter Pulse Oximetry (%) 96 94 Oxygen Delivery Method Room Air Room Air Intake Visit Reasons: Left T10 Sprint/ Ativan Allergies pineapple [PINEAPPLE] Adverse Reaction (Severe, Verified 06/22/24 09:49) DIARRHEA HPI HPI Left T10 Sprint/ Ativan: Details: Patient presents for scheduled procedure. Denies any recent cough, cold, infection, fever or other significant changes in medical history since last office visit. 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 Rheumatoid arthritis Insomnia Chronic back pain COPD (chronic obstructive pulmonary disease) Iron deficiency anemia Morbid obesity Fibromyalgia Chronic GERD Constipation by delayed colonic transit Hypovitaminosis D Pure hypercholesterolemia Severe major depression Surgical History H/O colonoscopy History of back surgery History of neck surgery Family History Mother Uterus cancer Breast cancer, Onset Age: 43 Diabetes Arthritis IBS (irritable bowel syndrome) Father Heart disease Sister Mental health disorder Brother Mental health disorder Social History Housing: Apartment Alcohol intake: never Patient Tobacco Use Status: Former Tobacco user Tobacco use type: Cigarette e-Cigarette/Vaping Use: Never Used Second Hand Smoke Exposure: No service: No Current occupational status: disabled 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 After the risks, benefits and alternatives were discussed with the patient and informed consent was obtained, patient was placed in the prone position and padded to foster comfort. The skin overlying the thoracolumbar spine was prepped and draped in sterile fashion. Fluoroscopy was used to identify the spinous process and lamina in the center of the patient?s region of pain. After identifying and marking the intended target along the course of the medial branch nerve, the skin around the planned entry point and the subcutaneous tissues were injected with lidocaine 1%. An introducer needle and stimulating probe were assembled, inserted and advanced along the intended course of the medial branch nerve as it traverses the lamina medial and inferior to the zygapophyseal joint, taking care to maintain the proper depth of insertion as the introducer is advanced under fluoroscopic guidance. The introducer needle was delivered to a location in proximity to the nerve. Multiple stimulation parameters were used to deliver stimulation to the target medial branch nerve in concert with stimulating at multiple positions around the nerve. Nerve target acquisition was confirmed noting generation of paresthesias in the paravertebral regions corresponding to the level being stimulated. Various electrical parameter combinations were tested, and the lead location was adjusted (physically relocated) until the patient indicated paresthesia/muscle tension overlapping the distribution of the patient?s typical region of pain. The stimulating probe was removed from the introducer and a percutaneous lead was guided through the needle and delivered to a location in similar proximity to the nerve. Final location was verified with electrical stimulation and documented with fluoroscopy. The introducer needle was removed, and the exposed end of the percutaneous lead was attached to an external stimulator unit. Various electrical parameter combinations were again tested until the patient indicated paresthesia or muscle tension overlapping the distribution of the patient?s typical region of pain. After confirming that lead impedance was in the normal range, the external unit was detached, the needle was removed, and the lead was anchored at the skin. The lead was threaded into the connector block and electrical continuity and desired patient response was confirmed. The connector block was attached to the external stimulator unit. The site was covered with a sterile occlusive dressing. The patient was observed for stability of vital signs and comfort. Sprint PNS Device: Sprint PNS Device [id number] Percutaneous Peripheral Neuroelectrode Procedure: 87955 - Percutaneous Peripheral Neuroelectrode Procedure code (CPT) selection complete Office Med lidocaine HCl 10 mg/mL (1 %) injection solution Performing Provider: Kristi Ramirez APRN, SIMI Performing Location: [facility] [place] Administered by: Darshana Garcia LPN on 06/30/24 09:35 Dose Route Admin Location Dispensed Lot Number Expiration Date ND Cold Header 5 mL subcut 5 mL Assessment & Plan Assessment & Plan (1) Thoracic spine pain: Code(s): M54.6 - Pain in thoracic spine Category: Medical (2) Intractable back pain: Code(s): M54.9 - Dorsalgia, unspecified Category: Medical Plan Patient is status post left thoracic T12 medial branch nerve stimulator placement. Patient tolerated procedure well and was discharged home in stable condition with discharge instructions. All questions were answered. We will follow-up via telephone or in clinic to assess response to therapy. A follow-up appointment was made during today's visit. Orders: Orders [place] guidance in treatment room Today M47.814 - Spondylosis without myelopathy or radiculopathy, thoracic region AMB Sprint PNS Today M47.814 - Spondylosis without myelopathy or radiculopathy, thoracic region Medications: Refilled lorazepam (Ativan) Take 30 minutes prior to arrival to procedure 1 mg PO ONCE 1 tab 0RF anxiety Coding Level of Care Code Procedure Only Diagnoses Thoracic spine pain M54.6 Intractable back pain M54.9 CPT Codes Sprint PNS - Sprint PNS Device: Sprint PNS Device ([id number]) Sprint PNS - SPRINT: 92919 - Percutaneous Peripheral Neuroelectrode ([id number]) Implantable Device Implantable Device Implantable Devices Qty Cold Header Implant Date Expiration Date Analgesic PENS system 1 [employer] 06/16/24 12/09/25 Analgesic PENS system 1 [employer] 06/30/24 02/10/26
[2024-06-30 09:00] VITALS: BP 135/91; PULSE 93; O2SAT 96
[2024-06-30 09:53] VITALS: BP 153/74; PULSE 82; O2SAT 94
== END 2024-06-30 10:00 | disposition home or self-care (01) ==
LOC: HO.PMCPRC 08:52
PROVIDERS: PCP Internal Medicine; Visit Provider Internal Medicine
DX: M54.6 Pain in thoracic spine (principal); M54.9 Dorsalgia, unspecified
CPT/HCPCS: 64555

== ENCOUNTER 2024-07-06 08:52 | Outpatient (AMB) | payer OTHER, SELFPAY ==
--- NOTE | 2024-07-06 08:58 | A.OFFVIS_ITS ---
Vital Signs 07/06/24 09:00 Height 4 ft 11 in Weight 232 lb BMI 46.9 BP 173/95 H Blood Pressure Location Lt radial Position Sitting Respiration 16 Pulse 101 H Pulse Source Pulse Oximeter Pulse Oximetry (%) 95 Oxygen Delivery Method Room Air Intake Visit Reasons: s/p Left T10 Sprint Allergies pineapple [PINEAPPLE] Adverse Reaction (Severe, Verified 07/15/24 08:29) DIARRHEA Medication List - Last Reconciled 07/06/24 by Darshana Garcia LPN acetaminophen (Tylenol) 325 mg PO QID PRN acetaminophen ER 650 mg PO Q8H 90 days albuterol sulfate 90 mcg/actuation (Ventolin HFA) 2 puffs inhalation Q6H PRN alendronate 70 mg PO QWEEK 90 days amlodipine 5 mg PO DAILY 90 days atorvastatin 20 mg PO DAILY 90 days [bath mat As directed] blood pressure monitor (Blood Pressure Kit) As directed bupropion HCl XL 150 mg PO DAILY 90 days calcium citrate-vitamin D3 200 mg-6.25 mcg (250 unit) ([place] Calcium) 1 tab PO BID 30 days celecoxib 100 mg PO BID chlorthalidone 25 mg PO DAILY 90 days docusate sodium 100 mg PO BID 90 days escitalopram oxalate 20 mg PO DAILY 90 days incontinence pad, liner, disp Use 1 pad three times a day Incruse Ellipta 62.5 mcg/actuation (umeclidinium) 1 inh inhalation BEDTIME 30 days NS lorazepam (Ativan) 1 mg PO ONCE losartan 100 mg PO DAILY 90 days methocarbamol 500 mg PO TID PRN multivitamin with folic acid 400 mcg (Tab-A-Duarte) 1 tab PO DAILY omeprazole 40 mg PO DAILY 90 days pregabalin 200 mg PO BID 30 days selenium sulfide 1% (Dandruff Shampoo (selenium sulfide)) 5 mL topical 2XW 14 days semaglutide (weight loss) (Wegovy) 0.5 mg (0.5 mL) subcut QWEEK 4 weeks trazodone 100 mg PO BEDTIME 30 days triamcinolone acetonide 0.1% 1 appl topical DAILY 30 days venlafaxine ER 75 mg PO BID walker (Ultra-Light Rollator misc) As directed [wipes As directed] HPI HPI s/p Left T10 Sprint: Details: 64-year-old female who presents today for status post temporary s/p left T10 sprint. The patient reports 80% relief following the procedure. She reports her back pain has improved. She states she has been having trouble keeping the dressing because of the shape of her back at the lead insertion site. Past Procedures: 06/30/24: Thoracic medial branch nerve stimulator lead placement, SPR system, left T12: 80% relief. 06/16/24: Temporary right T12 medial branch nerve stimulator placement: starting to get relief. 03/02/24: Trigger point injections: No relief. 11/26/23: Lumbar Medial Branch Nerve Stimulation Lead Placement, SPR (Sprint) System, Right L3: >60% relief. 11/12/23: Lumbar Medial Branch Nerve Stimulation Lead Placement, SPR (Sprint) System, Left L3: 80-90% initial relief. 10/14/23: Diagnostic Bilateral L3-L4-L5 MBB with 0.5% bupivicaine -100% pain rel ief for 4 days 08/26/23: Lumbar Medial Branch Block, Bilateral L3, L4 medial branches and L5 Dorsal Ramus (2 levels, 3 nerves): 90% relief. 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 Rheumatoid arthritis Insomnia Chronic back pain COPD (chronic obstructive pulmonary disease) Iron deficiency anemia Morbid obesity Fibromyalgia Chronic GERD Constipation by delayed colonic transit Hypovitaminosis D Pure hypercholesterolemia Severe major depression Surgical History H/O colonoscopy History of back surgery History of neck surgery Family History Mother Uterus cancer Breast cancer, Onset Age: 43 Diabetes Arthritis IBS (irritable bowel syndrome) Father Heart disease Sister Mental health disorder Brother Mental health disorder Social History Housing: Apartment Alcohol intake: never Patient Tobacco Use Status: Former Tobacco user Tobacco use type: Cigarette e-Cigarette/Vaping Use: Never Used Second Hand Smoke Exposure: No service: No Current occupational status: disabled 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) Hearing needs: No Vision needs: Yes Physical Exam Vital Signs: Last Vital Signs Pulse 101 H 07/06/24 09:00 Resp 16 07/06/24 09:00 BP 173/95 H 07/06/24 09:00 Pulse Ox 95 07/06/24 09:00 Oxygen Delivery Method Room Air 07/06/24 09:00 BMI result Body Mass Index 46.9 General: Appears afebrile. Alert and oriented. Mood and affect appropriate. Follows and participates in conversation appropriately. Respiratory effort is unlabored. Able to transition from sit to stand unassisted. Ambulates with bilaterally normal heel strike and toe off. Lead insertion sites are dry. Assessment & Plan Assessment & Plan (1) Thoracic spondylosis: Code(s): M47.814 - Spondylosis without myelopathy or radiculopathy, thoracic region Category: Medical (2) Intractable back pain: Code(s): M54.9 - Dorsalgia, unspecified Category: Medical Plan She is reporting 80% relief so far. She has been having trouble keeping the dressing because of the shape of her back at the lead insertion site. Advised to contact SPR reps for larger dressings. Scribed for Dr. Walsh by [place] medical representative, on 07/06/2024. I, Dr. Walsh, have personally reviewed and agree with the information entered by the scribe Coding Level of Care Code Est Pt Level 3 (17077) Diagnoses Thoracic spondylosis M47.814 Intractable back pain M54.9
[2024-07-06 09:00] VITALS: BP 173/95; PULSE 101; RESP 16; O2SAT 95; BMI 46.9
== END 2024-07-06 09:29 | disposition home or self-care (01) ==
PROVIDERS: PCP Internal Medicine; Visit Provider Internal Medicine
DX: M47.814 Spondylosis without myelopathy or radiculopathy, thoracic region (principal); M54.9 Dorsalgia, unspecified
CPT/HCPCS: 99024

== ENCOUNTER → 2024-07-06 08:52 | Outpatient (BNVA) | payer OTHER, SELFPAY | PROVIDERS: PCP Internal Medicine; Visit Provider Internal Medicine | DX: M47.814 Spondylosis without myelopathy or radiculopathy, thoracic region (principal); M54.9 Dorsalgia, unspecified | CPT/HCPCS: 99212 ==

== ENCOUNTER → 2024-07-07 13:04 | Outpatient (BNVA) | payer OTHER, SELFPAY | PROVIDERS: PCP Internal Medicine; Visit Provider Internal Medicine ==

== ENCOUNTER 2024-07-15 08:22 | Outpatient (AMB) | payer OTHER, SELFPAY ==
--- NOTE | 2024-07-15 08:24 | A.OFFVIS_ITS ---
Vital Signs 07/15/24 08:26 Height 4 ft 11 in Weight 232 lb BMI 46.9 BP 140/84 H Blood Pressure Location Lt brachial Position Sitting Respiration 15 Pulse 96 Pulse Source Pulse Oximeter Pulse Oximetry (%) 93 Oxygen Delivery Method Room Air Intake Visit Reasons: FOLLOW UP AFTER RT SIDE SPRINT REMOVAL Allergies pineapple [PINEAPPLE] Adverse Reaction (Severe, Verified 07/15/24 08:29) DIARRHEA Medication List - Last Reconciled 07/15/24 by Darshana Garcia LPN acetaminophen (Tylenol) 325 mg PO QID PRN acetaminophen ER 650 mg PO Q8H 90 days albuterol sulfate 90 mcg/actuation (Ventolin HFA) 2 puffs inhalation Q6H PRN alendronate 70 mg PO QWEEK 90 days amlodipine 5 mg PO DAILY 90 days atorvastatin 20 mg PO DAILY 90 days [bath mat As directed] blood pressure monitor (Blood Pressure Kit) As directed bupropion HCl XL 150 mg PO DAILY 90 days calcium citrate-vitamin D3 200 mg-6.25 mcg (250 unit) 1 tab PO BID 30 days celecoxib 100 mg PO BID chlorthalidone 25 mg PO DAILY 90 days docusate sodium 100 mg PO BID 90 days escitalopram oxalate 20 mg PO DAILY 90 days incontinence pad, liner, disp Use 1 pad three times a day Incruse Ellipta 62.5 mcg/actuation (umeclidinium) 1 inh inhalation BEDTIME 30 days NS lorazepam (Ativan) 1 mg PO ONCE losartan 100 mg PO DAILY 90 days losartan 50 mg PO DAILY methocarbamol 500 mg PO TID PRN multivitamin with folic acid 400 mcg (Tab-A-Duarte) 1 tab PO DAILY omeprazole 40 mg PO DAILY 90 days pregabalin 200 mg PO BID 30 days selenium sulfide 1% (Dandruff Shampoo (selenium sulfide)) 5 mL topical 2XW 14 days semaglutide (weight loss) (Wegovy) 0.5 mg (0.5 mL) subcut QWEEK 4 weeks trazodone 100 mg PO BEDTIME 30 days triamcinolone acetonide 0.1% 1 appl topical DAILY 30 days venlafaxine ER 75 mg PO BID walker (Ultra-Light Rollator misc) As directed [wipes As directed] HPI HPI FOLLOW UP AFTER RT SIDE SPRINT REMOVAL: Details: 64-year-old female who presents today to the office for a follow up after right side sprint dislodgment. Her right-side sprint lead became dislodged after a fall. This was subsequently completely removed with the tip intact by our nurse. Today, she presents for f ollow-up to discuss next steps. The left-sided lead continues to be in adequate position. However, it has been giving a lead connection error since yesterday. She has not been able to connect with the sprint representatives yet. She requested the dressing change today in the office. She has been taking pregabalin. She has been taking Advil and tylenol with minimal to no relief. Past Procedures: 06/30/24: Thoracic medial branch nerve stimulator lead placement, SPR system, left T12: 80% relief. 06/16/24: Temporary right T12 medial branch nerve stimulator placement: starting to get relief. 03/02/24: Trigger point injections: No relief. 11/26/23: Lumbar Medial Branch Nerve Stimulation Lead Placement, SPR (Sprint) System, Right L3: >60% relief. 11/12/23: Lumbar Medial Branch Nerve Stimulation Lead Placement, SPR (Sprint) System, Left L3: 80-90% initial relief. 10/14/23: Diagnostic Bilateral L3-L4-L5 MBB with 0.5% bupivicaine -100% pain relief for 4 days 08/26/23: Lumbar Medial Branch Block, Bilateral L3, L4 medial branches and L5 Dorsal Ramus (2 levels, 3 nerves): 90% relief. [facility] Medical History (Updated 06/30/24 @ 11:05 by Wenceslao Walsh MD) History of high cholesterol History of high blood pressure Right shoulder pain Restrictive lung disease Morbid obesity with BMI of 45.0-49.9, adult MAGGIE (generalized anxiety disorder) 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 Rheumatoid arthritis Insomnia Chronic back pain COPD (chronic obstructive pulmonary disease) Iron deficiency anemia Morbid obesity Fibromyalgia Chronic GERD Constipation by delayed colonic transit Hypovitaminosis D Pure hypercholesterolemia Severe major depression Surgical History H/O colonoscopy History of back surgery History of neck surgery Family History Mother Uterus cancer Breast cancer, Onset Age: 43 Diabetes Arthritis IBS (irritable bowel syndrome) Father Heart disease Sister Mental health disorder Brother Mental health disorder Social History Housing: Apartment Alcohol intake: never Patient Tobacco Use Status: Former Tobacco user Tobacco use type: Cigarette e-Cigarette/Vaping Use: Never Used Second Hand Smoke Exposure: No service: No Current occupational status: disabled 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) Hearing needs: No Vision needs: Yes Review of Systems Const All systems reviewed & are unremarkable except as noted in HPI and below Physical Exam Vital Signs: Last Vital Signs Pulse 96 07/15/24 08:26 Resp 15 07/15/24 08:26 BP 140/84 H 07/15/24 08:26 Pulse Ox 93 07/15/24 08:26 Oxygen Delivery Method Room Air 07/15/24 08:26 BMI result Body Mass Index 46.9 General: Appears afebrile. Alert and oriented. Mood and affect appropriate. Follows and participates in conversation appropriately. Respiratory effort is unlabored. Able to transition from sit to stand unassisted. Ambulates with bilaterally normal heel strike and toe off. Lead site was clean, dry, and intact. The left sided lead dressing was changed today in the office. Results Reviewed Results Reviewed: No imaging is available for review. Assessment & Plan Assessment & Plan (1) Thoracic spondylosis: Code(s): M47.814 - Spondylosis without myelopathy or radiculopathy, thoracic region Category: Medical (2) Intractable back pain: Code(s): M54.9 - Dorsalgia, unspecified Category: Medical Plan She will continue with the left-sided therapy for now after touching base with the sprint representatives to fix the lead connection error. I will not be replacing the right-sided lead yet since it is difficult to adequately cover both leads with one dressing given the shape of her midback area. She expressed understanding we will consider replacing the right-sided lead once she has completed the left-sided treatment and if her symptoms are still not well controlled. She requested additional oral medications to help with her pain in the meantime. We discussed continuing pregabalin, ibuprofen, and Tylenol as needed. I also encouraged her to try magnesium and turmeric supplements to see if that might help with better pain. I informed her that I would not be able to prescribe tramadol on a long-term basis. Patient expressed understanding. She will follow up in six weeks for the removal of the left-sided sprint device. Scribed for Dr. Walsh by Martir Elise, medical staff services coordinator, on 07/15/2024. I, Dr. Walsh, have personally reviewed and agree with the information entered by the scribe. Coding Level of Care Code Est Pt Level 3 (80106) Diagnoses Thoracic spondylosis M47.814 Intractable back pain M54.9
[2024-07-15 08:26] VITALS: BP 140/84; PULSE 96; RESP 15; O2SAT 93; BMI 46.9
== END 2024-07-15 08:49 | disposition home or self-care (01) ==
PROVIDERS: PCP Internal Medicine; Visit Provider Internal Medicine
DX: M47.814 Spondylosis without myelopathy or radiculopathy, thoracic region (principal); M54.9 Dorsalgia, unspecified
CPT/HCPCS: 99213

== ENCOUNTER → 2024-07-15 08:22 | Outpatient (BNVA) | payer OTHER, SELFPAY | PROVIDERS: PCP Internal Medicine; Visit Provider Internal Medicine | DX: M47.814 Spondylosis without myelopathy or radiculopathy, thoracic region (principal); M54.9 Dorsalgia, unspecified | CPT/HCPCS: 99212 ==

== ENCOUNTER 2024-08-04 16:38 | Outpatient (AMB) | payer OTHER, SELFPAY ==
--- NOTE | 2024-08-04 16:47 | A.OFFPC_ITS ---
Vital Signs 08/04/24 16:49 Height 4 ft 11 in Weight 226 lb BMI 45.6 BP 170/102 H Blood Pressure Location Lt brachial Position Sitting Intake Visit Reasons: 3-4 months Intake Note: Patient here for a 3 month follow up Supervisor Smoke Control Required: No Accompanied by: Self / Same As Patient Allergies pineapple [PINEAPPLE] Adverse Reaction (Severe, Verified 08/04/24 17:10) DIARRHEA Medication List - Last Reconciled 08/04/24 by Riddhi Michael MD acetaminophen ER 650 mg PO Q8H 90 days albuterol sulfate 90 mcg/actuation (Ventolin HFA) 2 puffs inhalation Q6H PRN alendronate 70 mg PO QWEEK 90 days amlodipine 5 mg PO DAILY 90 days atorvastatin 20 mg PO DAILY 90 days [bath mat As directed] blood pressure monitor (Blood Pressure Kit) As directed bupropion HCl XL 150 mg PO DAILY 90 days calcium citrate-vitamin D3 200 mg-6.25 mcg (250 unit) 1 tab PO BID 30 days celecoxib 100 mg PO BID chlorthalidone 25 mg PO DAILY 90 days docusate sodium 100 mg PO BID 90 days escitalopram oxalate 20 mg PO DAILY 90 days incontinence pad, liner, disp Use 1 pad three times a day Incruse Ellipta 62.5 mcg/actuation (umeclidinium) 1 inh inhalation BEDTIME 30 days NS lorazepam (Ativan) 1 mg PO ONCE losartan 100 mg PO DAILY 90 days losartan 50 mg PO DAILY methocarbamol 500 mg PO TID PRN multivitamin with folic acid 400 mcg (Tab-A-Duarte) 1 tab PO DAILY omeprazole 40 mg PO DAILY 90 days pregabalin 200 mg PO BID 30 days selenium sulfide 1% (Dandruff Shampoo (selenium sulfide)) 5 mL topical 2XW 14 days semaglutide (weight loss) (Wegovy) 0.5 mg (0.5 mL) subcut QWEEK 4 weeks semaglutide (weight loss) (Wegovy) 1 mg (0.5 mL) subcut Q7D 4 weeks trazodone 100 mg PO BEDTIME 30 days triamcinolone acetonide 0.1% 1 appl topical DAILY 30 days venlafaxine ER 75 mg PO BID walker (Ultra-Light Rollator misc) As directed [wipes As directed] Tobacco use date assessed: 04/13/24 Dental Screening Dental Screen Date: 04/13/24 HPI HPI Comments History of Present Illness Details This is a 64-year-old female with hypertension, mild recurrent major depression, morbid obesity and intractable back pain that comes today complaining of severe back pain after her right sprint lead dislodged due to her moving around blood. Blood pressure elevated and will be recheck in 3 weeks by nurse navigator. Depression stable with bupropion. She is morbidly obese with a BMI of 45.6 and was advised to do diet and exercise to reach BMI goal less than 30. Follows with pain management for intractable back pain and has another appointment next week. I will give her oxycodone for her pain up until she sees pain management. 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 Rheumatoid arthritis Insomnia Chronic back pain COPD (chronic obstructive pulmonary disease) Iron deficiency anemia Morbid obesity Fibromyalgia Chronic GERD Constipation by delayed colonic transit Hypovitaminosis D Pure hypercholesterolemia Severe major depression Surgical History H/O colonoscopy History of back surgery History of neck surgery Family History Mother Uterus cancer Breast cancer, Onset Age: 43 Diabetes Arthritis IBS (irritable bowel syndrome) Father Heart disease Sister Mental health disorder Brother Mental health disorder Social History Housing: Apartment Alcohol intake: never Patient Tobacco Use Status: Former Tobacco user Tobacco use type: Cigarette e-Cigarette/Vaping Use: Never Used Second Hand Smoke Exposure: No service: No Current occupational status: disabled 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) Hearing needs: No Vision needs: Yes Questionnaire Thrive Questionnaire Date Thrive assessed: 04/13/24 AUDIT C Alcohol Use Questionnaire (AUDIT-C) 1. How often do you have a drink containing alcohol?: Never 3. How often do you have six or more drinks on one occasion?: Never Total Score: 0 MAGGIE-7 AMB Questionnaire MAGGIE-7 Date MAGGIE - 7 assessed: 04/13/24 Source: Developed by Drs. Luis Antonio Rice, Alyssa Levin, Larry Dennison and colleagues, with an educational kareem from [employer]. Review of Systems Const All systems reviewed & are unremarkable except as noted in HPI and below Card Denies chest pain at rest, Denies chest pain with activity, Denies edema, Denies irregular heart rhythm, Denies claudication, Denies dyspnea, Denies dyspnea on exertion, Denies orthopnea, Denies paroxysmal nocturnal dyspnea and Denies slow heart rate Resp Denies cough, Denies dyspnea and Denies dyspnea on exertion Physical exam (Primary Care) Vital Signs: Last Vital Signs BP 170/102 H 08/04/24 16:49 BMI result Body Mass Index 45.6 BMI Assessment/Plan discussion: High BMI High, discussed plan: lifestyle, weight reduction, dietary and physical activity Tobacco/Smoking Status: Tobacco use Status Tobacco use date assessed 04/13/24 08/04/24 16:59 Patient Tobacco Use Status Former Tobacco user 08/04/24 16:59 Tobacco use type Cigarette 08/04/24 16:59 e-Cigarette/Vaping Use Never Used 08/04/24 16:59 Thrive Assessment: Date of Thrive Assessment Date Thrive assessed 04/13/24 08/04/24 16:59 Const Nutritional Appearance: obese Limitations: ambulation with walker Resp Effort & Inspection: normal respiratory effort Auscultation: clear to auscultation bilaterally Cardio Jugular venous distension: no JVD Rate: regular rate Rhythm: regular rhythm Heart sounds: S1 normal heart sound present and S2 normal heart sound present Extrem General: Yes full ROM Office Procedures Flu Questionnaire Does the patient have a severe egg allergy?: No Does the patient have severe life threatening allergies?: No Does the patient have a fever or illness today?: No Has the patient ever had Guillain-Mittie Syndrome?: No Has the patient ever had any past reaction to a flu shot?: No Immunizations Fluarix Triv [id number] (PF) 45 mcg (15 mcg x 3)/0.5 mL IM syringe Performing Provider: Riddhi Michael MD [facility] Administered by: JAM Vallejo on 08/04/24 17:25 Dose Route Admin Location Dispensed Lot Number Expiration Date NDC [place] 0.5 mL IM Left Deltoid 0.5 mL [id number] 03/10/25 [id number] [employer] VIS Given Date VIS Provided VIS Publication Date 08/04/24 Single Vaccine 21 Eligibility Eligibility Date Funding Source Not VF Eligible 08/04/24 Private Coding Level of Care Code Est Pt Level 4 (24098) Complex EM visit Add On G2211 Diagnoses Intractable back pain M54.9 Mild recurrent major depression F33.0 Morbid obesity with BMI of 45.0-49.9, adult E66.01; Z68.42 Essential hypertension I10 Time Spent (min) 23 Assessment & Plan Assessment & Plan (1) Intractable back pain: Code(s): M54.9 - Dorsalgia, unspecified Category: Medical Plan: Start oxycodone for only a week. Follow-up with pain management. (2) Mild recurrent major depression: Code(s): F33.0 - Major depressive disorder, recurrent, mild Category: Medical Plan: Continue bupropion and escitalopram. (3) Morbid obesity with BMI of 45.0-49.9, adult: Comment: Explained that her sleep apnea as well as dyspnea on exertion is due to her morbid obesity. She needs to lose weight but is handicap because of her arthritis , Advised to reduce the intake of calories especially by carbohydrates. Code(s): E66.01 - Morbid (severe) obesity due to excess calories; Z68.42 - Body mass index [BMI] 45.0-49.9, adult Category: Medical Plan: Start diet and exercise. BMI goal is less than 30. (4) Essential hypertension: Code(s): I10 - Essential (primary) hypertension Category: Medical Plan: Continue losartan, chlorthalidone and amlodipine. Blood pressure goal is equal or less than 130/80. Recheck blood pressure with nurse navigator in 3 weeks. Orders: Orders Influenza [id number] Immunization 08/04/24 Z23 - Encounter for immunization Medications: New oxycodone Partial Fill upon patient request. 5 mg PO Q8H 7 days PRN 21 tabs 0RF pain
[2024-08-04 16:49] VITALS: BP 170/102; BMI 45.6
== END 2024-08-04 17:18 | disposition home or self-care (01) ==
PROVIDERS: PCP Internal Medicine; Visit Provider Internal Medicine
DX: M54.9 Dorsalgia, unspecified (principal); F33.0 Major depressive disorder, recurrent, mild; E66.01 Morbid (severe) obesity due to excess calories; Z68.42 Body mass index [BMI] 45.0-49.9, adult; I10 Essential (primary) hypertension

== ENCOUNTER → 2024-08-04 16:38 | Outpatient (BNVA) | payer OTHER, SELFPAY | PROVIDERS: PCP Internal Medicine; Visit Provider Internal Medicine | DX: Z23 Encounter for immunization (principal); M54.9 Dorsalgia, unspecified; F33.0 Major depressive disorder, recurrent, mild; E66.01 Morbid (severe) obesity due to excess calories; Z68.42 Body mass index [BMI] 45.0-49.9, adult; I10 Essential (primary) hypertension | CPT/HCPCS: 90471; 90656; 99212 ==

== ENCOUNTER → 2024-08-05 13:09 | Outpatient (BNVA) | payer OTHER, SELFPAY | PROVIDERS: PCP Internal Medicine; Visit Provider Internal Medicine ==

== ENCOUNTER 2024-08-24 08:59 | Outpatient (AMB) | payer OTHER, SELFPAY ==
--- NOTE | 2024-08-24 09:00 | MHC.OFFVIS ---
Vital Signs 08/24/24 09:02 Height 4 ft 11 in Weight 225 lb BMI 45.4 BP 158/76 H Blood Pressure Location Lt radial Position Sitting Respiration 16 Pulse 97 Pulse Source Pulse Oximeter Pulse Oximetry (%) 94 Oxygen Delivery Method Room Air Intake Visit Reasons: Left Sprint removal Allergies pineapple [PINEAPPLE] Adverse Reaction (Severe, Verified 08/24/24 09:03) DIARRHEA Medication List - Last Reconciled 08/24/24 by Darshana Garcia LPN acetaminophen ER 650 mg PO Q8H 90 days albuterol sulfate 90 mcg/actuation (Ventolin HFA) 2 puffs inhalation Q6H PRN alendronate 70 mg PO QWEEK 90 days amlodipine 5 mg PO DAILY 90 days atorvastatin 20 mg PO DAILY 90 days [bath mat As directed] blood pressure monitor (Blood Pressure Kit) As directed bupropion HCl XL 150 mg PO DAILY 90 days calcium citrate-vitamin D3 200 mg-6.25 mcg (250 unit) 1 tab PO BID 30 days celecoxib 100 mg PO BID chlorthalidone 25 mg PO DAILY 90 days docusate sodium 100 mg PO BID 90 days escitalopram oxalate 20 mg PO DAILY 90 days incontinence pad, liner, disp Use 1 pad three times a day Incruse Ellipta 62.5 mcg/actuation (umeclidinium) 1 inh inhalation BEDTIME 30 days NS lorazepam (Ativan) 1 mg PO ONCE losartan 100 mg PO DAILY 90 days losartan 50 mg PO DAILY methocarbamol 500 mg PO TID PRN multivitamin with folic acid 400 mcg (Tab-A-Duarte) 1 tab PO DAILY omeprazole 40 mg PO DAILY 90 days pregabalin 200 mg PO BID 30 days selenium sulfide 1% (Dandruff Shampoo (selenium sulfide)) 5 mL topical 2XW 14 days semaglutide (weight loss) (Wegovy) 1 mg (0.5 mL) subcut Q7D 4 weeks trazodone 100 mg PO BEDTIME 30 days triamcinolone acetonide 0.1% 1 appl topical DAILY 30 days venlafaxine ER 75 mg PO BID walker (Ultra-Light Rollator misc) As directed [wipes As directed] HPI HPI Left Sprint removal: Details: 64-year-old female who presents to the office today. Unfortunately, neither of her devices were able to stay in place for the duration of the therapy. The left-sided device fell out 1st, followed by the right-sided device a few weeks later. She reports excellent pain relief during the time that the devices were in place, but unfortunately the location of the placement was not conducive to retaining the lead in place. She inquires about other treatment options including permanent implants to see if that might help over the long-term. Past Procedures: 06/30/24: Thoracic medial branch nerve stimulator lead placement, SPR system, left T12: 80% relief. 06/16/24: Temporary right T12 medial branch nerve stimulator placement: starting to get relief. 03/02/24: Trigger point injections: No relief. 11/26/23: Lumbar Medial Branch Nerve Stimulation Lead Placement, SPR (Sprint) System, Right L3: >60% relief. 11/12/23: Lumbar Medial Branch Nerve Stimulation Lead Placement, SPR (Sprint) System, Left L3: 80-90% initial relief. 10/14/23: Diagnostic Bilateral L3-L4-L5 MBB with 0.5% bupivicaine -100% pain relief for 4 days 08/26/23: Lumbar Medial Branch Block, Bilateral L3, L4 medial branches and L5 Dorsal Ramus (2 levels, 3 nerves): 90% relief. 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 Rheumatoid arthritis Insomnia Chronic back pain COPD (chronic obstructive pulmonary disease) Iron deficiency anemia Morbid obesity Fibromyalgia Chronic GERD Constipation by delayed colonic transit Hypovitaminosis D Pure hypercholesterolemia Severe major depression Surgical History H/O colonoscopy History of back surgery History of neck surgery Family History Mother Uterus cancer Breast cancer, Onset Age: 43 Diabetes Arthritis IBS (irritable bowel syndrome) Father Heart disease Sister Mental health disorder Brother Mental health disorder Social History Housing: Apartment Alcohol intake: never Patient Tobacco Use Status: Former Tobacco user Tobacco use type: Cigarette e-Cigarette/Vaping Use: Never Used Second Hand Smoke Exposure: No service: No Current occupational status: disabled 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) Hearing needs: No Vision needs: Yes Review of Systems Const All systems reviewed & are unremarkable except as noted in HPI and below Physical Exam Vital Signs: Last Vital Signs Pulse 97 08/24/24 09:02 Resp 16 08/24/24 09:02 BP 158/76 H 08/24/24 09:02 Pulse Ox 94 08/24/24 09:02 Oxygen Delivery Method Room Air 08/24/24 09:02 BMI result Body Mass Index 45.4 General: Appears afebrile. Alert and oriented. Mood and affect appropriate. Follows and participates in conversation appropriately. Respiratory effort is unlabored. Able to transition from sit to stand unassisted. Ambulates with bilaterally normal heel strike and toe off. Leads were previously removed with tips intact. Results Reviewed Results Reviewed: 04/14/24: XR HIP, RIGHT FINDINGS: No fracture. Alignment is anatomic. Hip joint space is maintained. Soft tissues are unremarkable. IMPRESSION: Normal right hip. 04/14/24: XR HIP, LEFT FINDINGS: No fracture. Alignment is anatomic. Hip joint space is maintained. Soft tissues are unremarkable. IMPRESSION: Normal left hip. Assessment & Plan Assessment & Plan (1) Intractable back pain: Code(s): M54.9 - Dorsalgia, unspecified Category: Medical (2) Thoracic spondylosis: Code(s): M47.814 - Spondylosis without myelopathy or radiculopathy, thoracic region Category: Medical Plan 64-year-old female with intractable back pain and thoracic spondylosis who had an excellent response to temporary stimulation of the thoracic medial branch nerves, but unfortunately the site of the lead placement was not conducive to rotating the leads in place. Her leads fell out prematurely. Given the location of her painful area, it may not be conducive to placement of permanent leads either and I discussed the futility of trying to place permanent leads in an area that is likely to lead to complications including skin irritation and erosion. Patient expressed understanding. I recommended that she look into noninvasive modes of neuromuscular stimulation. As potential options we looked at the neuro MD device as well as discussed obtaining an [id number] TNS unit for temporary relief as needed. Patient is in agreement with the plan and will follow-up as needed. Scribed for Dr. Walsh by [place] medical technologist, on 08/24/2024. I, Dr. Walsh, have personally reviewed and agree with the information entered by the scribe. Coding Level of Care Code Est Pt Level 3 (24528) Diagnoses Intractable back pain M54.9 Thoracic spondylosis M47.814
[2024-08-24 09:02] VITALS: BP 158/76; PULSE 97; RESP 16; O2SAT 94; BMI 45.4
--- OUTSIDE RECORDS SUMMARY | 2024-08-30 16:40 | XMS_ITS | Data Portability ---
Author Organization [employer] [place] Address [address] [place] [address] Care Team Providers Care Alliance Manager Name Role Phone REI ALBERTO Primary Care Provider HIM NICKOLAS OTHER Assessment Encounter Date Assessment Date Assessment LastModified by Organization Details LastModified Time 05/11/2024 05/11/2024 As noted, we shruthi e called to see this patient regarding concerns of chronic low back pain. Evaluation in the field was performed by my delivery tech colleague, as noted above, I provided real-time direction and supervision for this visit. The evaluation revealed low back pain. Impression: 64yo/f with hx of chronic back pain requesting evaluation for low back pain. Patient is 64yo/f, multiple chronic medical problem as above including chronic back pain. On lyrica, tylenol, nsaids. Took 400mg IBU this 6AM. States having exacerbation of her chronic pain. No new falls or trauma. No new neurologic symptoms of numbness/weakness /paresthesias. No saddle anesthesia/parest hesias, bowel or bladder incontinence, fevers/chills. No other red flag symptoms for back pain. No other systemic symptoms of illness. States does not have a pain doctor at this time. For medic in home she is awake, alert, in no distress. Laying in bed. Able to ambulate although is uncomfortable. Neuro intact. She denies other ROS. Plan: Patient states this is an exacerbation of her chronic pain, without other new or associated symptoms. No red flag signs or symptoms for medic on evaluation in home today. Patient requesting dose of IM toradol, she is not anticoagulated and states no history of CKD, states last exacerbation approx 1 year ago and symptoms improved. I believe reasonable to give 1 time dose of ketorolac, refer to PMD for re-evaluation and discussion regarding PT and pain clinic followup. Lower suspicion for an occult emergency medical condition at this time including cauda equina, ostemyelitis/disc itis, epidural abscess or hematoma. Primary care, consider pain clinic followup Disposition: We discussed the diagnostic uncertainty of home visits and the risk associated with this. In this case, the patient and I felt this to be an acceptable and reasonable amount of risk given the benefit of avoiding an ED visit. We discussed the need to seek care urgently/emergent ly in the setting of any new or worsening serious symptoms, particularly acute worsening or change in symptoms and red flag back pain symptoms to be re-evaluated for. [id number] Not available 05/11/2024 13:29:27 Plan of Treatment Reminders Order Date Submit Date Provider Last Modified By Organization Details Last Modified Time Details Appointments None recorded. Lab None recorded. Referral None recorded. Procedures None recorded. Surgeries None recorded. Imaging None recorded. Medication Orders ketorolac 30 mg/mL (1 mL) injection solution 2023 024 rsullivan 84 [facility], [address] [place] [address], [id number], 13:24:46 Patient TargetsNo targets recorded. Patient InstructionsNo instructions recorded. Reason for Referral None Reported. Medical Equipment None Reported. Medications Name Sig Start Date Stop Date Status Note LastModified by Organization Details LastModified Time losartan 50 mg tablet active Not Available Not Available No t Available amoxicillin 500 mg capsule active Not Available Not Available Not Available acetaminophe n 325 mg tablet active Not Available Not Available Not Available atorvastatin 20 mg tablet active Not Available Not Available Not Available prednisone 20 mg tablet active Not Available Not Available Not Available alendronate 70 mg tablet active Not Available Not Available Not Available chlorthalido ne 25 mg tablet active Not Available Not Available Not Available amlodipine 5 mg tablet active Not Available Not Available No t Available omeprazole 40 mg capsule,asha yed release active Not Available Not Available Not Available tramadol 50 mg tablet active Not Available Not Available No t Available triamcinolon e acetonide 0.1 % topical cream active Not Available Not Available Not Available ketorolac 30 mg/mL (1 mL) injection solution Inject 30 mg by intramuscul ar route. 2023 active Not Available Not Available Not Avai lable acetaminophe n ER 650 mg tablet,exten ded release active Not Available Not Available Not Available meloxicam 7.5 mg tablet active Not Available Not Available Not Available trazodone 100 mg tablet active Not Available Not Available Not Available trazodone 150 mg tablet active Not Available Not Available Not Available ibuprofen 400 mg tablet active Not Available Not Available Not Available docusate sodium 100 mg capsule active Not Available Not Available N ot Available albuterol sulfate HFA 90 mcg/actuatio n aerosol inhaler active Not Available Not Available Not Available ferrous sulfate 325 mg (65 mg iron) tablet,delay ed release active Not Available Not Available N ot Available losartan 100 mg tablet active Not Available Not Available No t Available escitalopram 20 mg tablet active Not Available Not Available Not Available cyclobenzapr ine 5 mg tablet active Not Available Not Available Not Available bupropion HCl XL 150 mg 24 hr tablet, extended release active Not Available Not Available Not Available pregabalin 200 mg capsule active Not Available Not Available Not Available calcium 200 mg (as citrate)-vit malloy D3 6.25 mcg (250 unit) tablet active Not Available Not Available Not Available Anti-Dandruf f 1 % shampoo active Not Available Not Available Not Available Incruse Ellipta 62.5 mcg/actuatio n powder for inhalation active Not Available Not Available N ot Available Tab-A-Duarte 400 mcg tablet active Not Available Not Available Not Available Wegovy 0.25 mg/0.5 mL subcutaneous pen injector active Not Available Not Available Not Available Vitals Date Recorded Body temperature Respiratory rate Oxygen saturation Oxygen saturation in Arterial blood by Pulse oximetry Heart rate Systolic blood pressure Diastolic blood pressure Provider Name and Address Organization Details Last Updated DateTime 4 98.7 [degF] 18 /min 97 % 97 % 73 /min 130 mm[Hg] 82 mm[Hg] Not Available [employer] 4 13:23:21 Social History None recorded. Functional Status None recorded. Mental Status None recorded. Family History Nothing Reported. Medical History No medical history recorded. Gynecological HistoryNo gynecological history recorded. Obstetrics History GPAL:G 0 P 0 0 0 0 Past Encounters Encounter ID Performer Location Encounter Start Date Encounter Closed Date Diagnosis/Indication Diagnosis SNOMED-CT Code Diagnosis ICD10 Code [id number] Roberth Escalona MD [facility] [address] [place] [phone] 05/11/2024 13:23:18 05/11/2024 19:04:19 Chronic low back pain [id number] M54.50 Health Concerns Section Related Observation LastModified by Organization Detai ls LastModified Time None Recorded Concern Status LastModified by Organization Details LastModified Time None Recorded Advance Directives Directive None Recorded Payers Encounter Date Sequence Insurance Name Policy Number Policy Sood Covered Member ID Sood Member ID Guarantor Name 05/11/2024 1 [facility] - DOS ON OR AFTER 2022 - DUAL ELIGIBLE - [employer] AND ONE [employer] (MEDICARE REPLACEMENT/AD VANTAGE - HMO) Kiersten Park [id number] Kiersten Park Notes Date Note Type Note Provider Name and Address Organization Details Recorded Time 05/11/2024 text/html [facility] Nurse Triage Notes (Dianne Santiago): Reason For Request: lower back pain Chief Complaints: Pain PMH: COPD/Asthma, Other Allergies: No Known Comments: Member is calling with chronic back. 06/30. Member takes OTC medications, no changes in the pain level. Member has sob due to the pain. Member has a h/o of COPD/ asthma has 2 inhalers but no [address] PMH> RA/ COPD/ ASthma. osteoarthritis, JASPER Allergies > NKDA No blood thinners ................. ................. ................. ................. ................. ................. ................. ................. ..... School [employer] Aide Note From Joel Elizabeth: Dispatched to the call address for the female with acute on chronic back pain. Pt states she has a Hx of multiple arthritis in her back. She states she has chronic pain but it is worse today. She advises she took 400mg of Motrin this morning approx 0600 as well as her daily Lyrica. Neither of them have helped very much with the pain. She has also used heating pad with very little relief. Pt denies Hx of GI bleeds or kidney issues. Pt also denies difficulty breathing, CP or cold/flu s/s.Pt was found laying left lateral on couch, CAOx4, airway open and patent, breathing non labored, able to speak in full sentences, -JVD, -HEENT, skin PWD with good turgor, abd soft non tender/distended, pupils PERRL, +CMSx4, -edema, no obvious signs of trauma, mucous membranes pink and moist. [facility] consulted. Pt given 30mg IM Ketorolac ( R Deltoid). Red flags discussed. ALL times are approx. ................. ................. ................. ................. ................. ................. ................. ................. ..... Disposition: Fulfilled Roberth Escalona MD [address] [facility],[address], [place], [phone], [employer] 05/11/2024 14:27:37 OBGyn Episode No OBEpisode recorded.
== END 2024-08-24 09:29 | disposition home or self-care (01) ==
PROVIDERS: PCP Internal Medicine; Visit Provider Internal Medicine
DX: M54.9 Dorsalgia, unspecified (principal); M47.814 Spondylosis without myelopathy or radiculopathy, thoracic region
CPT/HCPCS: 99213

== ENCOUNTER → 2024-08-24 08:59 | Outpatient (BNVA) | payer OTHER, SELFPAY | PROVIDERS: PCP Internal Medicine; Visit Provider Internal Medicine | DX: M54.9 Dorsalgia, unspecified (principal); M47.814 Spondylosis without myelopathy or radiculopathy, thoracic region | CPT/HCPCS: 99212 ==

== ENCOUNTER 2024-09-22 16:18 | Outpatient (AMB) | payer OTHER, SELFPAY ==
--- NOTE | 2024-09-22 16:47 | MHC.PC.OV ---
Vital Signs 09/22/24 16:50 09/22/24 20:34 Height 4 ft 11 in Weight 222 lb 2 oz BMI 44.9 BP 142/86 H 140/80 H Blood Pressure Location Rt brachial Lt brachial Position Sitting Sitting Pulse 86 Pulse Source Pulse Oximeter Pulse Oximetry (%) 97 Oxygen Delivery Method Room Air Intake Visit Reasons: [facility] lt 10/07 rt 10/27 Intake Note: Barb The patient is here for a pre-op evaluation for cataract surgery on both eyes, scheduled with Dr. Mora on 10/07/24 and 10/27/24. Fax: Grease [employer] Head Required: No Accompanied by: Self / Same As Patient Allergies pineapple [PINEAPPLE] Adverse Reaction (Severe, Verified 09/22/24 17:03) DIARRHEA Medication List - Last Reconciled 09/22/24 by Riddhi Michael MD acetaminophen ER 650 mg PO Q8H 90 days albuterol sulfate 90 mcg/actuation (Ventolin HFA) 2 puffs inhalation Q6H PRN alendronate 70 mg PO QWEEK 90 days amlodipine 5 mg PO DAILY 90 days atorvastatin 20 mg PO DAILY 90 days [bath mat As directed] blood pressure monitor (Blood Pressure Kit) As directed bupropion HCl XL 150 mg PO DAILY 90 days calcium citrate-vitamin D3 200 mg-6.25 mcg (250 unit) 1 tab PO BID 30 days celecoxib 100 mg PO BID chlorthalidone 25 mg PO DAILY 90 days docusate sodium 100 mg PO BID 90 days escitalopram oxalate 20 mg PO DAILY 90 days incontinence pad, liner, disp Use 1 pad three times a day Incruse Ellipta 62.5 mcg/actuation (umeclidinium) 1 inh inhalation BEDTIME 30 days NS lorazepam (Ativan) 1 mg PO ONCE losartan 100 mg PO DAILY 90 days losartan 50 mg PO DAILY methocarbamol 500 mg PO TID PRN multivitamin with folic acid 400 mcg (Tab-A-Duarte) 1 tab PO DAILY omeprazole 40 mg PO DAILY 90 days pregabalin 200 mg PO BID 30 days selenium sulfide 1% (Dandruff Shampoo (selenium sulfide)) 5 mL topical 2XW 14 days semaglutide (weight loss) (Wegovy) 1 mg (0.5 mL) subcut Q7D 4 weeks trazodone 100 mg PO BEDTIME 30 days triamcinolone acetonide 0.1% 1 appl topical DAILY 30 days venlafaxine ER 75 mg PO BID walker (Ultra-Light Rollator misc) As directed [wipes As directed] Tobacco use date assessed: 04/13/24 Dental Screening Dental Screen Date: 09/22/24 HPI HPI Comments History of Present Illness Details The patient is a 64-year-old female presenting for the pre-operative evaluation of bilateral cataract extraction. The patient has been scheduled for cataract surgery, with the first procedure planned for October 07 and the second on October 27. The patient is undergoing this evaluation to ensure all necessary medical clearances, such as electrocardiograms and relevant lab work, are completed ahead of the procedure. The cataracts have been affecting her vision, thereby necessitating surgical intervention. She has hypertension in which blood pressure is borderline elevated. She also has moderate major depression with anxiety follow by Psychiatry. She is morbidly obese and is on semaglutide for this matter. Complains of chronic low back pain follow by pain management and walks with a walker. Also has COPD follow by pulmonology and rheumatoid arthritis follow by Rheumatology. Going to a low risk surgery. [facility] Medical History (Updated 09/22/24 @ 20:36 by Riddhi Michael MD) Mild recurrent major depression History of high cholesterol History of high blood pressure Right shoulder pain Restrictive lung disease Morbid obesity with BMI of 45.0-49.9, adult MAGGIE (generalized anxiety disorder) 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 Rheumatoid arthritis Insomnia Chronic back pain COPD (chronic obstructive pulmonary disease) Iron deficiency anemia Morbid obesity Fibromyalgia Chronic GERD Constipation by delayed colonic transit Hypovitaminosis D Pure hypercholesterolemia Severe major depression Surgical History H/O colonoscopy History of back surgery History of neck surgery Family History Mother Uterus cancer Breast cancer, Onset Age: 43 Diabetes Arthritis IBS (irritable bowel syndrome) Father Heart disease Sister Mental health disorder Brother Mental health disorder Social History Housing: Apartment Alcohol intake: never Patient Tobacco Use Status: Former Tobacco user Tobacco use type: Cigarette e-Cigarette/Vaping Use: Never Used Second Hand Smoke Exposure: No service: No Current occupational status: disabled 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) Hearing needs: No Vision needs: Yes Questionnaire PHQ-9 Over the last 2 weeks, how often have you been bothered by any of the following problems? 1. Little interest or pleasure in doing things: several days 2. Feeling down, depressed, or hopeless: nearly every day 3. Trouble falling or staying asleep, or sleeping too much: nearly every day 4. Feeling tired or having little energy: nearly every day 5. Poor appetite or overeating: several days 6. Feeling bad about yourself - or that you are a failure or have let yourself or your family down: nearly every day 7. Trouble concentrating on things, such as reading the newspaper or watching television: nearly every day 8. Moving or speaking so slowly that other people could have noticed. Or the opposite - being so fidgety or restless that you have been moving around a lot more than usual: several days 9. Thoughts that you would be better off or of hurting yourself in some way: not at all Total score: 18 Depression Screening Interpretation: Positive (no suicidal thoughts) Depression Screening Follow-up: Existing condition, In treatment and Follow-up Visit Requested Depression Screening Done: Yes 93104 - PHQ-9 Billing: Yes Source: Developed by Drs. Luis Antonio Rice, Alyssa Levin, Larry Dennison and colleagues, with an educational kareem from [employer]. Thrive Questionnaire Date Thrive assessed: 09/22/24 I am a: Patient What is your living situation today?: I have a steady place to live Within the past 12 months, did the food you bought not last and you didn't have the money to get more?: Never true Within the past 12 months, did you worry whether your food would run out before you got money to buy more?: Never true Do you have trouble paying for medicines?: No Do you have trouble getting transportation to medical appointments?: No Do you have trouble paying your heating and electricity bill?: No Do you have trouble taking care of your child, family member or friend?: No Do you have trouble with day-to-day activities such as bathing, preparing meals, shopping, managing finances, etc.?: No Are you currently unemployed and looking for a job?: No Are you interested in more education?: No Please select the resources that you would like help with: None Currently or been in a relationship where the following occur: No concerns reported THRIVE Score: 0 AUDIT C Alcohol Use Questionnaire (AUDIT-C) 1. How often do you have a drink containing alcohol?: Never 3. How often do you have six or more drinks on one occasion?: Never Total Score: 0 Score Reviewed/Action Taken: No MAGGIE-7 AMB Questionnaire MAGGIE-7 Date MAGGIE - 7 assessed: 09/22/24 Feeling nervous, anxious, or on edge: 1 = Several days Not being able to stop or control worryin = More than half the days Worrying too much about different things: 1 = Several days Trouble relaxin = Several days Being so restless that it is hard to sit still: 1 = Several days Becoming easily annoyed or irritable: 1 = Several days Feeling afraid as if something awful might happen: 2 = More than half the days Total MAGGIE-7 score (0-4 normal; 5-9 mild; 10-14 moderate; 15-21 severe): 9 Source: Developed by Drs. Luis Antonio Rice, Alyssa Levin, Larry Dennison and colleagues, with an educational kareem from [employer]. MAGGIE-7 Assessment Billing MAGGIE-7 Assessment Tool: MAGGIE-7 Assessment 75492 Review of Systems Const All systems reviewed & are unremarkable except as noted in HPI and below Card Denies chest pain at rest, Denies chest pain with activity, Denies edema, Denies irregular heart rhythm, Denies claudication, Denies dyspnea, Denies dyspnea on exertion, Denies orthopnea, Denies paroxysmal nocturnal dyspnea and Denies slow heart rate Resp Denies cough, Denies dyspnea and Denies dyspnea on exertion GI Denies abdominal pain, Denies change in bowel habits, Denies excessive flatus, Denies nausea and Denies vomiting Musc Reports back pain Physical exam (Primary Care) Vital Signs: Last Vital Signs Pulse 86 09/22/24 16:50 BP 142/86 H 09/22/24 16:50 Pulse Ox 97 09/22/24 16:50 Oxygen Delivery Method Room Air 09/22/24 16:50 BMI result Body Mass Index 44.9 BMI Assessment/Plan discussion: High BMI High, discussed plan: lifestyle, weight reduction, dietary and physical activity Tobacco/Smoking Status: Tobacco use Status Tobacco use date assessed 04/13/24 09/22/24 16:47 Patient Tobacco Use Status Former Tobacco user 09/22/24 16:47 Tobacco use type Cigarette 09/22/24 16:47 e-Cigarette/Vaping Use Never Used 09/22/24 16:47 PHQ-9: PHQ-9 Score PHQ-9: Total score 18 09/22/24 17:04 Depression Screening Interpretation: Positive (no suicidal thoughts) Depression Screening Follow-up: Existing condition, In treatment and Follow-up Visit Requested Thrive Assessment: Date of Thrive Assessment Date Thrive assessed 09/22/24 09/22/24 17:02 Currently or been in a relationship where the following occur: No concerns reported Const Limitations: ambulation with walker Resp Effort & Inspection: normal respiratory effort Auscultation: clear to auscultation bilaterally Cardio Jugular venous distension: no JVD Rate: regular rate Rhythm: regular rhythm Heart sounds: S1 normal heart sound present and S2 normal heart sound present Coding Level of Care Code Est Pt Level 4 (43330) Complex EM visit Add On G2211 Diagnoses Pre-op evaluation Z01.818 Essential hypertension I10 Lumbar degenerative disc disease M51.36 Morbid obesity with BMI of 45.0-49.9, adult E66.01; Z68.42 Rheumatoid arthritis M06.9 Chronic obstructive pulmonary disease, unspecified COPD type J44.9 COPD type: unspecified COPD Moderate recurrent major depression F33.1 Additional Codes MAGGIE-7 Assessment Billing - MAGGIE-7 Assessment Tool: MAGGIE-7 Assessment 31977 ([id number]) PHQ-9 - 67509 - PHQ-9 Billing: Yes ([id number]) Time Spent (min) 24 Assessment & Plan Assessment & Plan (1) Pre-op evaluation: Code(s): Z01.818 - Encounter for other preprocedural examination Category: Medical (2) Essential hypertension: Code(s): I10 - Essential (primary) hypertension Category: Medical (3) Lumbar degenerative disc disease: Code(s): M51.36 - Other intervertebral disc degeneration, lumbar region Category: Medical (4) Morbid obesity with BMI of 45.0-49.9, adult: Comment: Explained that her sleep apnea as well as dyspnea on exertion is due to her morbid obesity. She needs to lose weight but is handicap because of her arthritis , Advised to reduce the intake of calories especially by carbohydrates. Code(s): E66.01 - Morbid (severe) obesity due to excess calories; Z68.42 - Body mass index [BMI] 45.0-49.9, adult Category: Medical (5) Rheumatoid arthritis: Comment: Follow by motor electrician Dr. Knox at [facility] Code(s): M06.9 - Rheumatoid arthritis, unspecified Category: Medical (6) COPD (chronic obstructive pulmonary disease): Comment: Patient known to have mild to moderate degree of chronic obstructive pulmonary disease. Doing well with use of Incruse Ellipta 1 inhalation daily. Should also have a rescue inhaler on hand and I have prescribed ProAir 2 puffs Q 6 hours p.r.n. * I explained to her that her obstructive disorder is very mild, CONTINUE TO USE INCRUSE ELLIPTA ONE INH DAILY AND VENTOLIN HFA 2 PUFFS Q 6 HRS ONLY PRN . Code(s): J44.9 - Chronic obstructive pulmonary disease, unspecified Category: Medical Qualifiers: COPD type: unspecified COPD Qualified Code(s): J44.9 - Chronic obstructive pulmonary disease, unspecified (7) Moderate recurrent major depression: Code(s): F33.1 - Major depressive disorder, recurrent, moderate Category: Medical Plan - Proceed with obtaining an electrocardiogram for pre-operative clearance. - Conduct necessary laboratory tests to evaluate the patient?s surgical readiness. - Coordinate scheduling and completion of the identified medical clearances prior to cataract surgery. - Maintain communication with surgical team to ensure all pre-operative requirements are met. Patient was informed and verbally consented to the use of an ambient scribe for clinic note documentation during this visit. I discussed with the patient the planned bilateral cataract extraction surgery, including the need for pre-operative clearances such as obtaining an EKG and lab work. I emphasized that these are routine preparatory steps to ensure optimal surgical outcomes. The patient has been informed of the dates for the surgeries, and no concerns were raised regarding the outlined plan. Additionally, I explained the importance of these pre-operative tests to prevent any surgical or anesthesia-related complications. Orders: Orders Comprehensive Valier. Panel Fast Today Z01.818 - Encounter for other preprocedural examination ECG 12 lead EKG Today Z01.818 - Encounter for other preprocedural examination Complete Blood Count Auto Diff Today D64.9 - Anemia, unspecified Lipid Panel Today E78.5 - Hyperlipidemia, unspecified Medications: New semaglutide (weight loss) (Wegovy) administer weeks 13 through 16 of therapy 1.7 mg (0.75 mL) subcut QWEEK 3 mL 0RF 4 weeks E66.01 - Morbid (severe) obesity due to excess calories, Z68.42 - Body mass index [BMI] 45.0-49.9, adult Discontinued semaglutide (weight loss) (Wegovy) Discontinued Reason: Patient Completed Course 1 mg (0.5 mL) subcut Q7D 4 weeks 2 mL 0RF E66.01 - Morbid (severe) obesity due to excess calories, Z68.42 - Body mass index [BMI] 45.0-49.9, adult Patient Instructions: - Complete all scheduled pre-operative tests, including EKG and lab work, as directed. - Ensure all paperwork is ready for the surgical team by the first surgery date. - Contact the clinic if there are any questions or concerns before the surgery. - Follow all pre-surgery guidelines provided by the medicaid plan compliance director's office. - Arrive on time for both scheduled surgeries on October 07 and October 27.
[2024-09-22 16:50] VITALS: BP 142/86; PULSE 86; O2SAT 97; BMI 44.9
--- OUTSIDE RECORDS SUMMARY | 2024-09-22 17:33 | XMS_ITS | Data Portability ---
Author Organization [employer] [place] [employer] Address [address] [place] [address] Care Team Providers Care Hand Spinner Name Role Phone REI ALBERTO Primary Care Provider HIM NICKOLAS OTHER Assessment Encounter Date Assessment Date Assessment LastModified by Organization Details LastModified Time 05/11/2024 05/11/2024 As noted, we shruthi e called to see this patient regarding concerns of chronic low back pain. Evaluation in the field was performed by my charge machine operator colleague, as noted above, I provided real-time [...] back pain symptoms to be re-evaluated for. [email or web address] Not available 05/11/2024 13:29:27 Plan of Treatment Reminders Order Date Submit Date Provider Last Modified By Organization Details Last Modified Time Details Appointments None recorded. Lab None recorded. Referral None recorded. Procedures None recorded. Surgeries None recorded. Imaging None recorded. Medication Orders ketorolac 30 mg/mL (1 mL) injection solution 2023 024 rsullivan 84 [facility], [address] [place] [address], [id number], 13:24:46 Patient TargetsNo targets recorded. Patient InstructionsNo [...] /min 130 mm[Hg] 82 mm[Hg] Not Available [employer] - production 4 13:23:21 Social History None recorded. Functional Status None recorded. Mental Status None recorded. Family History Nothing Reported. Medical History No medical history recorded. Gynecological HistoryNo gynecological history recorded. Obstetrics History GPAL:G 0 P 0 0 0 0 Past Encounters Encounter ID Performer Location Encounter Start Date Encounter Closed Date Diagnosis/Indication Diagnosis SNOMED-CT Code Diagnosis ICD10 Code [id number] Roberth Escalona MD [facility] - [facility] [address] [place] [phone] 05/11/2024 13:23:18 05/11/2024 19:04:19 Chronic low back pain [id number] M54.50 Health Concerns Section Related Observation LastModified by Organization Detai ls LastModified Time None Recorded Concern Status LastModified by Organization Details LastModified Time None Recorded Advance Directives Directive None Recorded Payers Encounter Date Sequence Insurance Name Policy Number Policy Sood Covered Member ID Sood Member ID Guarantor Name 05/11/2024 1 [facility] - DOS ON OR AFTER 2022 - DUAL ELIGIBLE - SHELTER OPTIONS AND ONE CARE (MEDICARE REPLACEMENT/AD VANTAGE - HMO) Kiersten Park [id number] Kiersten Park Notes Date Note Type Note [...] ................. ................. ................. ................. ................. ................. ..... Blasting Contract Miner Note From Joel Elizabeth: Dispatched to the [...] ..... Disposition: Fulfilled Roberth Escalona MD [address] [facility],[address], [place], [address], [employer] 05/11/2024 14:27:37 OBGyn Episode No OBEpisode recorded.
[2024-09-22 20:34] VITALS: BP 140/80
== END 2024-09-22 17:16 | disposition home or self-care (01) ==
PROVIDERS: PCP Internal Medicine; Visit Provider Internal Medicine
DX: M06.9 Rheumatoid arthritis, unspecified (principal); E66.01 Morbid (severe) obesity due to excess calories; Z68.42 Body mass index [BMI] 45.0-49.9, adult; J44.9 Chronic obstructive pulmonary disease, unspecified; F33.1 Major depressive disorder, recurrent, moderate; I10 Essential (primary) hypertension; M51.369 Other intervertebral disc degeneration, lumbar region without mention of lumbar back pain or lower extremity pain; Z01.818 Encounter for other preprocedural examination

== ENCOUNTER → 2024-09-22 16:18 | Outpatient (BNVA) | payer OTHER, SELFPAY | PROVIDERS: PCP Internal Medicine; Visit Provider Internal Medicine | DX: Z01.818 Encounter for other preprocedural examination (principal); I10 Essential (primary) hypertension; E66.01 Morbid (severe) obesity due to excess calories; Z68.42 Body mass index [BMI] 45.0-49.9, adult; M06.9 Rheumatoid arthritis, unspecified; M51.369 Other intervertebral disc degeneration, lumbar region without mention of lumbar back pain or lower extremity pain; F33.1 Major depressive disorder, recurrent, moderate | CPT/HCPCS: 96127; 99212 ==

== ENCOUNTER 2024-09-26 09:21 | Outpatient (REF) | payer OTHER, SELFPAY ==
[2024-09-26 09:40] LABS: MANUAL DIFF FLAG NO
--- OUTSIDE RECORDS SUMMARY | 2024-09-26 09:47 | XMS_ITS | Data Portability ---
Author Organization [employer] Address [address] [place] [address] Care Team Providers Care Chalk Cutter Name Role Phone REI ALBERTO Primary Care Provider [phone] HIM NICKOLAS OTHER Assessment Encounter Date Assessment Date Assessment LastModified by Organization Details LastModified Time 05/11/2024 05/11/2024 As noted, we shruthi e called to see this patient regarding concerns of chronic low back pain. Evaluation in the field was performed by my education paraprofessional colleague, as noted above, I provided real-time [...] back pain symptoms to be re-evaluated for. [email or web address] Not available 05/11/2024 13:29:27 Plan of Treatment Reminders Order Date Submit Date Provider Last Modified By Organization Details Last Modified Time Details Appointments None recorded. Lab None recorded. Referral None recorded. Procedures None recorded. Surgeries None recorded. Imaging None recorded. Medication Orders ketorolac 30 mg/mL (1 mL) injection solution 2023 024 rsullivan 84 [facility], [address] [place] [address], [id number], 13:24:46 Patient TargetsNo targets recorded. Patient InstructionsNo [...] /min 130 mm[Hg] 82 mm[Hg] Not Available [employer] - production 4 13:23:21 Social History None recorded. Functional Status None recorded. Mental Status None recorded. Family History Nothing Reported. Medical History No medical history recorded. Gynecological HistoryNo gynecological history recorded. Obstetrics History GPAL:G 0 P 0 0 0 0 Past Encounters Encounter ID Performer Location Encounter Start Date Encounter Closed Date Diagnosis/Indication Diagnosis SNOMED-CT Code Diagnosis ICD10 Code Diagnosis Note [id number] Roberth Escalona MD [facility] - [facility] [address] [place] [phone] 05/11/2024 13:23:18 05/11/2024 19:04:19 Chronic low back pain [id number] M54.50 Health Concerns Section Related Observation LastModified by Organization Detai ls LastModified Time None Recorded Concern Status LastModified by Organization Details LastModified Time None Recorded Advance Directives Directive None Recorded Payers Encounter Date Sequence Insurance Name Policy Number Policy Sood Covered Member ID Sood Member ID Guarantor Name 05/11/2024 1 [facility] - DOS ON OR AFTER 2022 - DUAL ELIGIBLE - PENITENTIARY OPTIONS AND ONE CARE (MEDICARE REPLACEMENT/AD VANTAGE - HMO) Kiersten Park [id number] Kiersten Park Notes Date Note Type Note [...] ................. ................. ................. ................. ................. ................. ..... Optical Lathe Operator Note From Joel Elizabeth: Dispatched to the [...] ..... Disposition: Fulfilled Roberth Escalona MD [address] [facility],[address], [place], [address], [employer] 05/11/2024 14:27:37 OBGyn Episode No OBEpisode recorded.
[2024-09-26 10:18] LABS: Basophils Absolute Auto 0.1 X10*3/uL (0.0-0.2); Basophils Percent Auto 0.6 % (0-2); Eosinophils Absolute Auto 0.1 X10*3/uL (0.0-0.4); Eosinophils Percent Auto 1.1 % (0-4); Hematocrit 46.7 % (37.0-47.0); Hemoglobin 15.5 g/dl (12.0-16.0); Imm Gran Abs Auto 0.04 X10*3/uL (0.00-0.03); Imm Gran Pct Auto 0.5 % (0.0-0.4); Lymphocytes Absolute Auto 1.9 X10*3/uL (1.2-4.9); Lymphocytes Percent Auto 21.4 % (20-40); Mean Corpuscular HGB Conc 33.2 g/dl (31.0-35.0); Mean Corpuscular Hemoglobin 27.7 pg (27.0-33.0); Mean Corpuscular Volume 83.4 fL (80.0-98.0); Mean Platelet Volume 10.5 fL (9.4-12.3); Monocytes Absolute Auto 0.6 X10*3/uL (0.1-1.2); Monocytes Percent Auto 6.9 % (2-11); Neutrophils Absolute Auto 6.1 x10*3/uL (2.0-8.3); Neutrophils Percent Auto 69.5 % (45-73); Platelet Count 264 X10*3/uL (160-400); Red Cell Distribution Width 14.9 % (11.0-16.0); White Blood Count 8.8 X10*3/uL (4.8-10.8)
[2024-09-26 11:31] LABS: Alanine Aminotransferase 26 U/L (0-31); Albumin Level 4.6 g/dL (3.5-5.0); Alkaline Phosphatase 101 U/L (39-117); Anion Gap 13 (12-20); Aspartate Amino Transferase 25 U/L (5-31); Bilirubin Total 1.3 mg/dL (0.0-1.0); Blood Urea Nitrogen 12 mg/dL (9-16); Calcium 10.1 mg/dL (8.4-10.2); Carbon Dioxide 24 mmol/L (22-29); Chloride 108 mmol/L (96-108); Cholesterol 166 mg/dL (<200); Estimated Glomerular Filt Rate > 60; Glucose Fasting 109 mg/dL (60-99); HDL Cholesterol 67 mg/dL (>40); LDL Cholesterol Calculated 77 mg/dL (<100); Potassium 3.5 mmol/L (3.3-5.1); Sodium 141 mmol/L (135-145); Total Protein 8.2 g/dL (6.5-8.0); Triglycerides 111 mg/dL (<150)
== END 2024-09-26 09:22 | disposition home or self-care (01) ==
LOC: HO.LAB 09:21
PROVIDERS: PCP Internal Medicine; Visit Provider Internal Medicine
DX: Z01.818 Encounter for other preprocedural examination (principal); D64.9 Anemia, unspecified; E78.5 Hyperlipidemia, unspecified
CPT/HCPCS: 36415; 80053; 80061; 85025

== ENCOUNTER → 2024-10-28 13:30 | Outpatient (REF) | LOC: HO.CARD 13:30 | DX: Z01.818 Encounter for other preprocedural examination (principal) ==

== ENCOUNTER → 2024-10-28 13:35 | Outpatient (BNV) | payer OTHER, SELFPAY | PROVIDERS: PCP Internal Medicine; Visit Provider Internal Medicine Cardiovascular Disease | DX: Z01.818 Encounter for other preprocedural examination (principal) | CPT/HCPCS: 93010 ==

== ENCOUNTER 2024-12-02 11:47 | Outpatient (AMB) | payer OTHER, SELFPAY ==
--- NOTE | 2024-12-02 11:51 | MHC.OFFVIS ---
Vital Signs 12/02/24 11:53 Height 4 ft 11 in Weight 225 lb BMI 45.4 BP 126/85 Blood Pressure Location Rt radial Position Sitting Respiration 16 Pulse 78 Pulse Source Pulse Oximeter Pulse Oximetry (%) 96 Oxygen Delivery Method Room Air Intake Visit Reasons: increased back pain P D Driver Required: No Humidifier Maintenance Worker: Humidifier Maintenance Worker Present Accompanied by: Maxime Bunch Allergies pineapple [PINEAPPLE] Adverse Reaction (Severe, Verified 12/20/24 15:54) DIARRHEA Medication List - Last Reconciled 12/02/24 by Darshana Garcia LPN acetaminophen ER 650 mg PO Q8H 90 days albuterol sulfate 90 mcg/actuation (Ventolin HFA) 2 puffs inhalation Q6H PRN alendronate 70 mg PO QWEEK 90 days amlodipine 5 mg PO DAILY 90 days atorvastatin 20 mg PO DAILY 90 days [bath mat As directed] blood pressure monitor (Blood Pressure Kit) As directed bupropion HCl XL 150 mg PO DAILY 90 days calcium citrate-vitamin D3 200 mg-6.25 mcg (250 unit) 1 tab PO BID 30 days celecoxib 100 mg PO BID chlorthalidone 25 mg PO DAILY 90 days docusate sodium 100 mg PO BID 90 days escitalopram oxalate 20 mg PO DAILY 90 days incontinence pad, liner, disp Use 1 pad three times a day Incruse Ellipta 62.5 mcg/actuation (umeclidinium) 1 inh inhalation BEDTIME 30 days NS lorazepam (Ativan) 1 mg PO ONCE losartan 100 mg PO DAILY 90 days losartan 50 mg PO DAILY methocarbamol 500 mg PO TID PRN multivitamin with folic acid 400 mcg (Tab-A-Duarte) 1 tab PO DAILY omeprazole 40 mg PO DAILY 90 days pregabalin 200 mg PO BID 30 days selenium sulfide 1% (Dandruff Shampoo (selenium sulfide)) 5 mL topical 2XW 14 days trazodone 100 mg PO BEDTIME 30 days triamcinolone acetonide 0.1% 1 appl topical DAILY 30 days venlafaxine ER 75 mg PO BID walker (Ultra-Light Rollator misc) As directed [wipes As directed] HPI HPI increased back pain: Details: History of Present Illness The patient is a 64-year-old female presenting with acute worsening of mid-back pain. She has dealt with chronic pain for several years, with a noticeable and progressive increase in intensity. Pain management attempts have included tazi-dol-pdgerfg medications such as Tylenol and ibuprofen without significant success. A recent administration of Toradol also failed to provide the usual relief. Pain is reported as particularly severe during physical exertion and deep breathing, impacting her daily activities and causing significant discomfort. She has experienced no relief from these interventions and is open to trying new pain management strategies. Trigger point injections were conducted in this session to address the current exacerbation of her mid-back pain. Pain Description - Onset: Ongoing for several years, worsening each year - Location: Mid-back, including the upper back and mid-back region - Quality: Severe pain, intensifying during physical activity such as walking or deep breathing - Exacerbating Factors: Physical activity, deep breathing - Relieving Factors: None identified; previous interventions ineffective - Interventions: Toradol injection without relief, frequent use of Tylenol and ibuprofen Physical Exam - Appears afebrile. - Alert and oriented. - Mood and affect appropriate. - Follows and participates in conversation appropriately. - Respiratory effort is unlabored. - Able to transition from sit to stand unassisted. - Ambulates with bilaterally normal heel strike and toe off. - Able to stand and walk on toes and heels. Results Pain Management - Affect: Pain significantly affecting daily life, causing distress and frustration - Analgesia: Toradol and syhp-wgy-pvzmdwu Tylenol and ibuprofen; current medications ineffective - Adverse Effects: Not explicitly discussed - Activities of Daily Living: Pain interrupts walking and breathing, affecting physical activity - Aberrant Drug-Related Behaviors: None reported [facility] Medical History Mild recurrent major depression History of high cholesterol History of high blood pressure Right shoulder pain Restrictive lung disease Morbid obesity with BMI of 45.0-49.9, adult MAGGIE (generalized anxiety disorder) 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 Rheumatoid arthritis Insomnia Chronic back pain COPD (chronic obstructive pulmonary disease) Iron deficiency anemia Morbid obesity Fibromyalgia Chronic GERD Constipation by delayed colonic transit Hypovitaminosis D Pure hypercholesterolemia Severe major depression Surgical History H/O colonoscopy History of back surgery History of neck surgery Family History Mother Uterus cancer Breast cancer, Onset Age: 43 Diabetes Arthritis IBS (irritable bowel syndrome) Father Heart disease Sister Mental health disorder Brother Mental health disorder Social History Housing: Apartment Alcohol intake: never Patient Tobacco Use Status: Former Tobacco user Tobacco use type: Cigarette e-Cigarette/Vaping Use: Never Used Second Hand Smoke Exposure: No service: No Current occupational status: disabled 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) Hearing needs: No Vision needs: Yes Physical Exam Vital Signs: Last Vital Signs Pulse 78 12/02/24 11:53 Resp 16 12/02/24 11:53 BP 126/85 12/02/24 11:53 Pulse Ox 96 12/02/24 11:53 Oxygen Delivery Method Room Air 12/02/24 11:53 BMI result Body Mass Index 45.4 Office Procedures Injection Trigger Point Multi Trigger Point Injections Pre-procedure diagnosis: Myofascial pain Post-procedure diagnosis: Myofascial pain Site and number of trigger points: Trapezius Rhomboid Thoracic paraspinal muscles Lumbar paraspinal muscles Solution: Total volume administered 15 ml (ropivacaine 0.25%) The procedure, its benefits, and its risks were explained to the patient and all questions were answered. Prior to the start of the procedure, a ?time out? was performed to confirm correct patient, procedure, and laterality. Trigger points were identified by manual palpation and marked. The skin was cleaned with Chloraprep. A 1.5 inch 25 G needle was used. Each of the trigger points were approximated and elevated in the direction away from the body. Dry needling then took place for five seconds. Approximately 0.5 ml to 1 ml of injectate was delivered to the trigger point followed by dry needling for five seconds. This process was repeated at each trigger point site. The patient tolerated the procedure well. Post-procedure, breath sounds were equal at both sides of the chest. The patient tolerated the procedure well, without complication. The patient denied any numbness, paresthesias, or weakness. Post-procedure vitals were recorded as part of the nursing discharge note in electronic medical record. Following a period of observation, the patient was discharged in stable condition with written discharge instructions. Trigger Point Multiple: 86455- Trigger point injection =/>3 Assessment & Plan Assessment & Plan (1) Morbid obesity with BMI of 40.0-44.9, adult: Code(s): E66.01 - Morbid (severe) obesity due to excess calories; Z68.41 - Body mass index [BMI] 40.0-44.9, adult Category: Medical (2) Myofascial pain: Code(s): M79.18 - Myalgia, other site Category: Medical Plan Plan The patient underwent trigger point injections to address the acute worsening of mid-back pain. This decision was made after establishng the ineffectiveness of prior medication strategies such as Toradol and consistent use of jsgy-lzq-jlyrwbi analgesics. The goal is to achieve symptomatic relief from the injections, after which the patient's response will be reevaluated to determine further pain management at follow-up. Patient was informed and verbally consented to the use of an ambient scribe for clinic note documentation during this visit. Discussion Notes In discussing the current exacerbation of the patient's chronic mid-back pain, I emphasized the expected benefits of trigger point injections as a potential intervention to alleviate her symptoms. We reviewed her previous experiences with pain management, noting limited relief from medications such as Toradol and frequent use of hpfl-ttd-mwjesbi options like Tylenol and ibuprofen. The patient was informed about the procedure specifics, potential risks, and outcomes, and she voiced her understanding and consent to proceed. We agreed to monitor her condition closely after the procedure to determine the subsequent steps. Patient Instructions - Monitor the response to trigger point injections and note any changes in pain intensity. - Continue use of Tylenol and ibuprofen as needed but do not exceed the recommended dosage. - Avoid activities that exacerbate pain, such as strenuous physical exertion, until further instruction. - Schedule a follow-up appointment to reassess pain levels and determine necessary adjustments to the management plan. - Contact the clinic if there are any adverse effects post-injection or worsening pain. Coding Level of Care Code Est Pt Level 3 (95564) Diagnoses Morbid obesity with BMI of 40.0-44.9, adult E66.01; Z68.41 Myofascial pain M79.18 CPT Codes Details - Trigger Point Multiple: 66226- Trigger point injection =/>3 ([id number])
[2024-12-02 11:53] VITALS: BP 126/85; PULSE 78; RESP 16; O2SAT 96; BMI 45.4
--- OUTSIDE RECORDS SUMMARY | 2024-12-02 13:36 | XMS_ITS | Encounter Summary ---
Author Organization [employer] Address [address] [facility] [address] [place] [address] Care Team Providers Care Press Smith Helper Name Role Phone Veda Dawson MD Primary Care Provider [phone] Reason for Visit * Reason Comments Med Refill Encounter Details Date Type Department Care Team ([facility] st Contact Info) Description 04/11/[address] [facility] MEDICINE [address] [place] [address] Veda Dawson MD [address] [place] [address] Social History Tobacco Use Types Packs/Day Years Used Date Smoking Tobacco: Never Assessed Comments Unknown Sex and Gender Information Value Date Recorded Sex Assigned at Female 07/21/2022 10:28 AM EDT Legal Sex Female 10:28 AM EDT Gender Identity Female 07/21/2022 10:28 AM EDT Sexual Orientation Straight 07/21/2022 10 :28 AM EDT documented as of this encounter Plan of Treatment Not on file documented as of this encounter Visit Diagnoses Not on filedocumented in this encounter Care Teams Press Smith Helper Relationship Specialty Start Date End Date Veda Dawson MD [address] [place] [address] PCP - General Family Medicine 02/21/20 11/22/24 documented as of this encounter
--- OUTSIDE RECORDS SUMMARY | 2024-12-02 13:36 | XMS_ITS | Encounter Summary ---
Author Organization [employer] Address [address] [facility] [address] [place] [address] Care Team Providers Care Pole Maker Name Role Phone Veda Dawson MD Primary Care Provider Reason for Visit * Reason Comments Med Refill Encounter Details Date Type Department Care Team ([facility] st Contact Info) Description 10/06/2024 Refill [facility] MEDICINE [address] [place] [address] Veda Dawson MD [address] [place] [address] Social History Tobacco Use Types Packs/Day Years [...] on filedocumented in this encounter Care Teams Pole Maker Relationship Specialty Start Date End Date Veda Dawson MD [address] [place] [address] PCP - General Family Medicine 02/21/20 11/22/24 documented as of this encounter
--- OUTSIDE RECORDS SUMMARY | 2024-12-02 13:36 | XMS_ITS | Clinical Summary ---
Author Organization [employer] Address [address] [facility] [address] [place] [address] Care Team Providers Care Bench Technician Name Role Phone Unavailable Primary Care Provider Unavailabl e Medications omeprazole (PriLOSEC) [address] Flores ns:GERD without esophagitis take 1 capsule by oral route every day before a meal Strength: 40 mg 30 capsule 11 09/23/2022 Active Multiple Vitamin (Tab-A-Duarte) tablet TAKE 1 TABLET BY MOUTH EVERY DAY 90 tablet 03/14/2024 Active Encounters Date Type Department Care Team Description 10/06/2024 Refill [facility] MEDICINE [address] [place] [address] Veda Dawson MD from Last 3 Months Social History Tobacco Use Types Packs/Day Years Used Date Smoking Tobacco: Never Assessed Comments Unknown Sex and Gender Information Value Date Recorded Sex Assigned at Female 07/21/2022 10:28 AM EDT Legal Sex Female 10:28 AM EDT Gender Identity Female 07/21/2022 10:28 AM EDT Sexual Orientation Straight 07/21/2022 10 :28 AM EDT Last Filed Vital Signs Vital Sign Reading Time Taken Comments Blood Pressure 138/82 09/19/2021 12:12 AM EST Pulse 88 09/19/2021 12:12 AM EST Temperature - - Respiratory Rate - - Oxygen Saturation - - Inhaled Oxygen Concentration - - Weight 101 kg (222 lb) 09/19/2021 12:12 AM EST Height 149.9 cm (4' 11 ) 09/19/2021 12:12 AM EST Body Mass Index 44.84 09/19/2021 12:12 AM EST Plan of Treatment Health Maintenance Due Date Last Done Comments CT Colonography 1961 Colonoscopy 1961 Colorectal Cancer Screening 1961 Depression Screening 1961 FIT DNA/Cologuard 1961 FIT 1961 FOBT 1961 Sigmoidoscopy 1961 Alcohol/Substance Use Screening 1973 Tobacco Screening 1973 Pap Smear 1982 Cervical Cancer Screening 1991 HPV/Cotest 1991 Pneumococcal Vaccine: 50+ Years (2 of 2 - PCV) 07/07/2020 07/07/2019, 10/22/2006 Mammogram 04/16/2023 04/16/2021, 07/02/2018 COVID-19 Vaccine ( season) 2024 09/11/2021, 12/25/2020, 11/27/2020 Influenza Vaccine (#1) 2024 , 07/14/2022, 08/05/2021, Additional history exists DTaP/Tdap/Td Vaccines (2 - Td or Tdap) 06/16/2028 06/16/2018, 09/26/2008 RSV Patients and Patients Aged 60 years or older (1 - 1-dose 75+ series) 2036 Zoster Vaccines Completed 09/24/2020, 05/10/2019 HIB Vaccines Aged Out No longer eligi ble based on patient's age to complete this topic HPV Vaccines Aged Out No longer eligi ble based on patient's age to complete this topic Hepatitis A Vaccines Aged Out No long er eligible based on patient's age to complete this topic Hepatitis B Vaccines Aged Out No long er eligible based on patient's age to complete this topic IPV Vaccines Aged Out No longer eligi ble based on patient's age to complete this topic Meningococcal Vaccine Aged Out No oracio phoenix eligible based on patient's age to complete this topic RSV under 20 months Aged Out No longe r eligible based on patient's age to complete this topic Rotavirus Vaccines Aged Out No longer eligible based on patient's age to complete this topic Procedures Procedure Name Priority Date/Time Associated Diagnosis Comments MAMMOGRAM GENERIC Routine 04/16/2021 3:4 5 PM EDT from Last 3 Months or Most Recently Relevant to Health Maintenance Results * Mammography Report 1 (04/16/2021 3:45 PM EDT) Anatomical Region Laterality Modality Breast Bilateral Mammography 04/16/2021 3:45 PM EDT Narrative 04/17/2021 3:47 PM EDT Refer to the Notes tab for result details [facility] Procedure: Mammography Report 1 Procedure Note Provider, MD Avril - 12/14/2022 Refer to the Notes tab for result details [facility] Procedure: Mammography Report 1 us Veda Dawson MD IMG BI PROCEDURES Final Result from Last 3 Months or Most Recently Relevant to Health Maintenance
--- OUTSIDE RECORDS SUMMARY | 2024-12-02 13:36 | XMS_ITS | Encounter Summary ---
Author Organization [employer] Address [address] [facility] [address] [place] [address] Care Team Providers Care Softwood Faller Name Role Phone Veda Dawson MD Primary Care Provider [phone] Reason for Visit * Reason Comments Med Refill Encounter Details Date Type Department Care Team ([facility] st Contact Info) Description 08/01/2024 Refill [facility] MEDICINE [address] [place] [address] Veda Dawson MD [address] [place] [address] Social History Tobacco Use Types Packs/Day Years [...] on filedocumented in this encounter Care Teams Softwood Faller Relationship Specialty Start Date End Date Veda Dawson MD [address] [place] [address] PCP - General Family Medicine 02/21/20 11/22/24 documented as of this encounter
--- OUTSIDE RECORDS SUMMARY | 2024-12-02 13:37 | XMS_ITS | Continuity of Care Document ---
Author Organization [employer] Address [address] [place] [phone] Care Team Providers Care Motorcycle Tester Name Role Phone REI ALBERTO Primary Care Provider [facility] OTHER Assessment Encounter Date Assessment Date Assessment LastModified by Organization Details LastModified Time 11/28/2024 11/28/2024 Mrs. Park was evaluated for acute on chronic left-sided low back pain characteristic to her of prior flareups. She denies any red flag signs or symptoms such as numbness/weakness /bowel/bladder incontinence that would suggest acute cord compression, vascular pathology, occult traumatic injury, or other emergent process that would require ER visit or hospitalization. Her exam is reassuring without any focal neurologic findings. She is moderately hypertensive but this is not unusual for her. She feels comfortable remaining at home and is requesting a shot of IM toradol. No prior history of renal dysfunction. Will plan to treat with 30mg IM toradol and patient otherwise appears safe and is comfortable with remaining at home with PCP follow up. I provided real -time medical direction via phone for this encounter, and was available for additional phone based assistance as needed. I have reviewed and agree with the Assessment and Plan as documented by the Quality And Reliability Engineer. We discussed the diagnostic uncertainty of home visits and the risk associated with this. In this case the patient and I felt this to be an acceptable and reasonable amount of risk given the benefit of avoiding an ED visit. The patient given the opportunity to ask questions. Advised if develops CP/severe SOB/turning blue/uncontrolled n/v/d or black/bloody emesis or stool/ AMS/ syncope/ hi fever unresponsive to APAP to call 911- verbalized understanding of instruction [email or web address] Not available 11/28/2024 17:41:38 Plan of Treatment Reminders Order Date Submit Date Provider Last Modified By Organization Details Last Modified Time Details Appointments None recorded. Lab None recorded. Referral None recorded. Procedures None recorded. Surgeries None recorded. Imaging None recorded. Medication Orders ketorolac 30 mg/mL injection solution 2024 025 [email or web address] [facility], [address] [place] [address], [place], [place], [phone], 5 16:50:50 Patient TargetsNo targets recorded. Patient InstructionsNo instructions recorded. Reason for Referral None Reported. Medical Equipment None Reported. Allergies No known drug allergies Medications Name Sig Start Date Stop Date [...] Available Not Available Vitals Date Recorded Body weight Body temperature Respiratory rate Heart rate Body height Oxygen saturation Oxygen saturation in Arterial blood by Pulse oximetry Systolic blood pressure Diastolic blood pressure Provider Name and Address Organization Details Last Updated DateTime 07286.5 04 g 97.8 [degF] 19 /min 73 /min 149.86 cm 95 % 95 % 166 mm[Hg] 77 mm[Hg] Not Available [facility] production 16:49:00 Social History None recorded. Functional Status None recorded. Mental Status None recorded. Family History Nothing Reported. Medical History No medical history recorded. Gynecological HistoryNo gynecological history recorded. Obstetrics History GPAL:G 0 P 0 0 0 0 Past Encounters Encounter ID Performer Location Encounter Start Date Encounter Closed Date Diagnosis/Indication Diagnosis SNOMED-CT Code Diagnosis ICD10 Code Diagnosis Note [id number] JUAN DIEGO AMARAL MD Main - [facility] [address] [place] [phone] 11/28/2024 16:48:58 11/28/2024 17:41:56 Low back pain 229659729 M54.50 Health Concerns Section Related Observation LastModified by Organization Detai ls LastModified Time None Recorded Concern Status LastModified by Organization Details LastModified Time None Recorded Payers Encounter Date Sequence Insurance Name Policy Number Policy Sood Covered Member ID Sood Member ID Guarantor Name 11/28/2024 1 [facility] - DOS ON OR AFTER 2022 - DUAL ELIGIBLE - [employer] OPTIONS AND [employer] (MEDICARE REPLACEMENT/AD VANTAGE - HMO) Kiersten Park [id number] Kiersten Park Notes Date Note Type Note Provider Name and Address Organization Details Recorded Time 11/28/2024 text/html CRC Nurse Triage Notes (Jaya Anne): Reason For Request: Patient has back pain. More painful when she moves. Denies: Worst Headache of life New onset of vision loss Sudden onset -unilateral weakness/gait disturbance Fall with head strike and altered LOC New onset of Slurred speech or difficulty finding words Sudden Mental status changes Head pain with fever chills and neck pain Seizure activity Chief Complaints: Back Pain PMH: COPD/Asthma, Fibromyalgia, Osteoporosis, Osteoarthritis, Chronic Pain, Chronic Back Pain, Depression PMH Reviewed at 11/28/2024 Allergies Reviewed at 11/28/2024: Comments: Additional PMH: Rheumatoid Arthritis Hand Potter verified the patient's name//address and phone number. Pt calling reporting spasming L sided back pain worsening for the last three days. Pt denies any known injury to area. Pt states she has hx of similar pain. Pt reports hx of back surgery. Pt denies any new loss of control of bowel or bladder. Pt denies any new numbness or tingling. Education provided on the response time and the patient was advised to monitor reported s/s and seek emergency treatment if needed -Marisa Anne RN ................... ................... ................... ................... ................... ................... ................... ........ Quality And Reliability Engineer Note From Jhonathan Quijano: Pt chief complaint today of chronic lower left back pain, to states that signs and symptoms have been occurring since 4 days prior to [facility] visit today, pt stated that she has not had any recent trauma to the area, slips/ falls or anything that would note the area to injured. Pt state that the area happens to be at an 8/10 level of pain. Pt state that previous time this type of pain occurred she was given intramuscular ketorlac with very positive relief. Pt today is looking to a general assessment as well as possible treatment. Pt denies any cp, sob, NVD, dizziness or blurred vision. Pt allergies are noted to be in the appropriate PCR tab. Nonneural focal exam, afebrile, vitals wnl for the baseline of the patient. Lungs present as clear bilaterally on auscultation. Benign abdominal assessment, no lower extremity edema. Upon inspection of the lower left back. Pain is producible on palpation. Bowel movements have been regular with no bleeding noted. Pt is CAOX4 with a GCS of 15. Positive csm. [facility] Juan Diego Amaral consulted Pt given 30 mg of intramuscular ketorlac via the left deltoid. Pt informed to contact her pcp as early as possible as needed. Pt informs of red flag S&S and informed to call emergency services if any present. [facility] Medication Orders: ketorolac 30 mg/mL injection solution: Administered ................... ................... ................... ................... ................... ................... ................... ........ [facility] Consulted: Juan Diego Amaral ................... ................... ................... ................... ................... ................... ................... ........ Disposition: Inés AMARAL MD [address] [facility],[address], [place], [phone], PHILLIP - MAUREEN, KENY 11/28/2024 17:41:52 OBGyn Episode No OBEpisode recorded.
--- OUTSIDE RECORDS SUMMARY | 2024-12-02 13:37 | XMS_ITS | Data Portability ---
Author Organization [employer] Address [address] [place] [phone] Care Team Providers Care Vocational Training Teacher Name Role Phone REI ALBERTO Primary Care Provider HIM NICKOLAS OTHER Assessment Encounter Date Assessment Date Assessment LastModified by Organization Details LastModified Time 05/11/2024 05/11/2024 As noted, we shruthi e called to see this patient regarding concerns of chronic low back pain. Evaluation in the field was performed by my bottle label inspector colleague, as noted above, I provided real-time [...] back pain symptoms to be re-evaluated for. [email or web address] Not available 05/11/2024 13:29:27 11/28/2024 11/28/2024 Mrs. Park was evaluated for [...] Assessment and Plan as documented by the Dietetic Technician. We discussed the diagnostic uncertainty of home [...] 30 mg/mL injection solution 2024 025 [email or web address] [facility], [address] [facility], [facility] [address], [place], [place], [phone], 5 16:50:50 ketorolac 30 mg/mL (1 mL) injection solution 2023 024 [email or web address] 84 [facility], [address] [facility] [address], [place], [place], [phone], 4 13:24:46 Patient TargetsNo targets recorded. Patient InstructionsNo [...] /min 130 mm[Hg] 82 mm[Hg] Not Available mAPPn 4 13:23:21 Date Recorded Body weight Body temperature Respiratory rate Heart rate Body height Oxygen saturation Oxygen saturation in Arterial blood by Pulse oximetry Systolic blood pressure Diastolic blood pressure Provider Name and Address Organization Details Last Updated DateTime 5 57078.5 04 g 97.8 [degF] 19 /min 73 /min 149.86 cm 95 % 95 % 166 mm[Hg] 77 mm[Hg] Not Available mAPPn 5 16:49:00 Social History None recorded. Functional Status None recorded. Mental Status None recorded. Family History Nothing Reported. Medical History No medical history recorded. Gynecological HistoryNo gynecological history recorded. Obstetrics History GPAL:G 0 P 0 0 0 0 Past Encounters Encounter ID Performer Location Encounter Start Date Encounter Closed Date Diagnosis/Indication Diagnosis SNOMED-CT Code Diagnosis ICD10 Code Diagnosis Note [id number] Roberth Escalona MD Main - [facility] [address] [place] [phone] 05/11/2024 13:23:18 05/11/2024 19:04:19 Chronic low back pain 413520383 M54.50 [id number] JUAN DIEGO AMARAL MD Main - [address] [phone] 11/28/2024 16:48:58 11/28/2024 17:41:56 Low back pain 182349891 M54.50 Health Concerns Section Related Observation LastModified by Organization Detai ls LastModified Time None Recorded Concern Status LastModified by Organization Details LastModified Time None Recorded Advance Directives Directive None Recorded Payers Encounter Date Sequence Insurance Name Policy Number Policy Sood Covered Member ID Sood Member ID Guarantor Name 05/11/2024 1 [facility] - DOS ON OR AFTER 2022 - DUAL ELIGIBLE - PENITENTIARY OPTIONS AND ONE CARE (MEDICARE REPLACEMENT/AD VANTAGE - HMO) Kiersten Park [id number] Kiersten Park 11/28/2024 1 [facility] - DOS ON OR AFTER 2022 - DUAL ELIGIBLE - PENITENTIARY OPTIONS AND ONE CARE (MEDICARE REPLACEMENT/AD VANTAGE - HMO) Kiersten Park [id number] Kiersten Park Notes Date Note Type Note [...] JASPER Allergies > NKDA No blood thinners ................... ................... ................... ................... ................... ................... ................... ........ Dietetic Technician Note From Joel Elizabeth: Dispatched to the [...] Red flags discussed. ALL times are approx. ................... ................... ................... ................... ................... ................... ................... ........ Disposition: Fulfilled Roberth Escalona MD [address] [place] [address],[address], [place], [phone], [employer] 05/11/2024 14:27:37 11/28/2024 text/html CRC Nurse Triage Notes (Jaya [...] Back Pain, Depression PMH Reviewed at 11/28/2024 - : Allergies Reviewed at 11/28/2024 - :10 Comments: Additional PMH: Rheumatoid Arthritis Groundskeeper verified the patient's name//address and phone number. [...] ................... ................... ................... ................... ................... ................... ........ Dietetic Technician Note From Jhonathan Quijano: Pt chief complaint today of chronic lower left back pain, to states that signs and symptoms have been occurring since 4 days prior to [facility] visit today, pt stated that she [...] with a GCS of 15. Positive csm. [facility] Juan Diego Amaral consulted Pt given 30 mg of intramuscular ketorlac via the left deltoid. Pt informed to contact her pcp as early as possible as needed. Pt informs of red flag S&S and informed to call emergency services if any present. [facility] Medication Orders: ketorolac 30 mg/mL injection solution: Administered ................... ................... ................... ................... ................... ................... ................... ........ [facility] Consulted: Juan Diego Amaral ................... ................... ................... ................... ................... ................... ................... ........ Disposition: Fulfilled JUAN DIEGO AMARAL MD [address] [facility],[address], [place], [phone], [employer] 11/28/2024 17:41:52 OBGyn Episode No OBEpisode recorded.
== END 2024-12-02 12:25 | disposition home or self-care (01) ==
LOC: HO.PMC 11:47
PROVIDERS: PCP Internal Medicine; Visit Provider Internal Medicine
DX: M79.18 Myalgia, other site (principal); E66.01 Morbid (severe) obesity due to excess calories; Z68.41 Body mass index [BMI] 40.0-44.9, adult
CPT/HCPCS: 20553; 99213

== ENCOUNTER → 2024-12-02 11:47 | Outpatient (BNVA) | payer OTHER, SELFPAY | PROVIDERS: PCP Internal Medicine; Visit Provider Internal Medicine | DX: M79.18 Myalgia, other site (principal); E66.01 Morbid (severe) obesity due to excess calories; Z68.42 Body mass index [BMI] 45.0-49.9, adult | CPT/HCPCS: 20553; 99212 ==

== ENCOUNTER 2024-12-07 08:50 | Outpatient (AMB) | payer OTHER, SELFPAY ==
--- NOTE | 2024-12-07 08:54 | A.OFFPC_ITS ---
Vital Signs 12/07/24 08:55 Height 4 ft 11 in Weight 212 lb 4.882 oz BMI 42.9 BP 132/80 Blood Pressure Location Lt brachial Position Sitting Pulse 85 Pulse Source Pulse Oximeter Pulse Oximetry (%) 96 Oxygen Delivery Method Room Air Intake Visit Reasons: [facility] cataract lt 12/23 & rt15 [employer] Sales Required: No Accompanied by: Self / Same As Patient Allergies pineapple [PINEAPPLE] Adverse Reaction (Severe, Verified 12/07/24 09:18) DIARRHEA Medication List - Last Reconciled 12/07/24 by Riddhi Michael MD acetaminophen ER 650 mg PO Q8H 90 days albuterol sulfate 90 mcg/actuation (Ventolin HFA) 2 puffs inhalation Q6H PRN alendronate 70 mg PO QWEEK 90 days amlodipine 5 mg PO DAILY 90 days atorvastatin 20 mg PO DAILY 90 days [bath mat As directed] blood pressure monitor (Blood Pressure Kit) As directed bupropion HCl XL 150 mg PO DAILY 90 days calcium citrate-vitamin D3 200 mg-6.25 mcg (250 unit) 1 tab PO BID 30 days celecoxib 100 mg PO BID chlorthalidone 25 mg PO DAILY 90 days docusate sodium 100 mg PO BID 90 days escitalopram oxalate 20 mg PO DAILY 90 days incontinence pad, liner, disp Use 1 pad three times a day Incruse Ellipta 62.5 mcg/actuation (umeclidinium) 1 inh inhalation BEDTIME 30 days NS lorazepam (Ativan) 1 mg PO ONCE losartan 100 mg PO DAILY 90 days losartan 50 mg PO DAILY methocarbamol 500 mg PO TID PRN multivitamin with folic acid 400 mcg (Tab-A-Duarte) 1 tab PO DAILY omeprazole 40 mg PO DAILY 90 days pregabalin 200 mg PO BID 30 days selenium sulfide 1% (Dandruff Shampoo (selenium sulfide)) 5 mL topical 2XW 14 days trazodone 100 mg PO BEDTIME 30 days triamcinolone acetonide 0.1% 1 appl topical DAILY 30 days venlafaxine ER 75 mg PO BID walker (Ultra-Light Rollator misc) As directed [wipes As directed] Tobacco use date assessed: 12/07/24 Dental Screening Dental Screen Date: 12/07/24 Did you have a dental visit in the last 12 months?: No Did you have a dental problem in the last 6 months where you did not have access to dental care?: No Was dental information given to patient?: Patient has dentist HPI HPI Comments History of Present Illness Details The patient is a 64-year-old female presenting for a preoperative evaluation for cataract extraction surgery. She has scheduled surgeries for both her left and right eyes in December. She has a history of rheumatoid arthritis but has not followed up with her train gateman after her last visit a year ago due to limited treatment options. The patient also has Chronic Obstructive Pulmonary Disease (COPD) but has not continued follow-up with her pasting inspector due to dissatisfaction with their care. The patient treats her osteoporosis with alendronate and had her last bone density in 2021, with no noted progression. Her medical history includes hypertension, controlled with Amlodipine and Losartan, and hyperlipidemia, controlled with Atorvastatin. She has a significant history of depression, managed with Bupropion and Escitalopram, and participates in counseling. For constipation, she takes Docusate and experiences issues related to neuropathy treated with Pregabalin. She uses Trazodone to aid with sleep. The patient has undergone various surgeries in the past, including back and neck surgery, and a colonoscopy was last performed in 2018. She quit smoking in the past and does not drink alcohol. She has prediabetes, with glucose levels shown to have improved with lifestyle modifications. She manages mobility with a walker due to arthritis but maintains cardiovascular health, allowing some degree of physical activity. EKG and labs were reviewed. This is a low risk surgery and patient is a medium risk patient. By RCRI patient is class 1 with 0.4% risk of cardiac complications. Patient is medically clear. [facility] Medical History (Updated 12/07/24 @ 09:29 by Riddhi Michael MD) Mild recurrent major depression History of high cholesterol History of high blood pressure Right shoulder pain Restrictive lung disease Morbid obesity with BMI of 45.0-49.9, adult MAGGIE (generalized anxiety disorder) 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 Rheumatoid arthritis Insomnia Chronic back pain COPD (chronic obstructive pulmonary disease) Iron deficiency anemia Morbid obesity Fibromyalgia Chronic GERD Constipation by delayed colonic transit Hypovitaminosis D Pure hypercholesterolemia Severe major depression Surgical History H/O colonoscopy History of back surgery History of neck surgery Family History Mother Uterus cancer Breast cancer, Onset Age: 43 Diabetes Arthritis IBS (irritable bowel syndrome) Father Heart disease Sister Mental health disorder Brother Mental health disorder Social History Housing: Apartment Alcohol intake: never Patient Tobacco Use Status: Former Tobacco user Tobacco use type: Cigarette e-Cigarette/Vaping Use: Never Used Second Hand Smoke Exposure: No service: No Current occupational status: disabled 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) Hearing needs: No Vision needs: Yes Questionnaire Thrive Questionnaire Date Thrive assessed: 09/22/24 AUDIT C Alcohol Use Questionnaire (AUDIT-C) 3. How often do you have six or more drinks on one occasion?: Never Total Score: 0 MAGGIE-7 AMB Questionnaire MAGGIE-7 Date MAGGIE - 7 assessed: 09/22/24 Source: Developed by Drs. Luis Antonio Rice, Alyssa Levin, Larry Dennison and colleagues, with an educational kareem from [employer]. Review of Systems Const All systems reviewed & are unremarkable except as noted in HPI and below Card Denies chest pain at rest, Denies chest pain with activity, Denies edema, Denies irregular heart rhythm, Denies claudication, Denies dyspnea, Denies dyspnea on exertion, Denies orthopnea, Denies paroxysmal nocturnal dyspnea and Denies slow heart rate Resp Denies cough, Denies dyspnea and Denies dyspnea on exertion GI Denies abdominal pain, Denies change in bowel habits, Denies excessive flatus, Denies nausea and Denies vomiting Denies urinary incontinence, Denies urinary hesitancy and Denies urinary urgency Physical exam (Primary Care) Vital Signs: Last Vital Signs Pulse 85 12/07/24 08:55 BP 132/80 12/07/24 08:55 Pulse Ox 96 12/07/24 08:55 Oxygen Delivery Method Room Air 12/07/24 08:55 BMI result Body Mass Index 42.9 BMI Assessment/Plan discussion: High BMI High, discussed plan: lifestyle, weight reduction, dietary and physical activity Tobacco/Smoking Status: Tobacco use Status Tobacco use date assessed 12/07/24 12/07/24 09:03 Patient Tobacco Use Status Former Tobacco user 12/07/24 08:55 Tobacco use type Cigarette 12/07/24 08:55 e-Cigarette/Vaping Use Never Used 12/07/24 08:55 Thrive Assessment: Date of Thrive Assessment Date Thrive assessed 09/22/24 12/07/24 08:55 Const Limitations: ambulation with walker Resp Effort & Inspection: normal respiratory effort Auscultation: clear to auscultation bilaterally Cardio Jugular venous distension: no JVD Rate: regular rate Rhythm: regular rhythm Heart sounds: S1 normal heart sound present and S2 normal heart sound present Extrem General: Yes full ROM Coding Level of Care Code Est Pt Level 4 (71354) Complex EM visit Add On G2211 Diagnoses Pre-op evaluation Z01.818 Moderate recurrent major depression F33.1 Morbid obesity with BMI of 40.0-44.9, adult E66.01; Z68.41 Osteoporosis M81.0 Rheumatoid arthritis M06.9 Chronic obstructive pulmonary disease, unspecified COPD type J44.9 COPD type: unspecified COPD Time Spent (min) 22 Assessment & Plan Assessment & Plan (1) Pre-op evaluation: Code(s): Z01.818 - Encounter for other preprocedural examination Category: Medical (2) Moderate recurrent major depression: Code(s): F33.1 - Major depressive disorder, recurrent, moderate Category: Medical (3) Morbid obesity with BMI of 40.0-44.9, adult: Code(s): E66.01 - Morbid (severe) obesity due to excess calories; Z68.41 - Body mass index [BMI] 40.0-44.9, adult Category: Medical (4) Osteoporosis: Code(s): M81.0 - Age-related osteoporosis without current pathological fracture Category: Medical (5) Rheumatoid arthritis: Comment: Follow by train gateman Dr. Knox [facility] Code(s): M06.9 - Rheumatoid arthritis, unspecified Category: Medical (6) COPD (chronic obstructive pulmonary disease): Comment: Patient known to have mild to moderate degree of chronic obstructive pulmonary disease. Doing well with use of Incruse Ellipta 1 inhalation daily. Should also have a rescue inhaler on hand and I have prescribed ProAir 2 puffs Q 6 hours p.r.n. * I explained to her that her obstructive disorder is very mild, CONTINUE TO USE INCRUSE ELLIPTA ONE INH DAILY AND VENTOLIN HFA 2 PUFFS Q 6 HRS ONLY PRN . Code(s): J44.9 - Chronic obstructive pulmonary disease, unspecified Category: Medical Qualifiers: COPD type: unspecified COPD Qualified Code(s): J44.9 - Chronic obstructive pulmonary disease, unspecified Plan The patient's electrocardiogram and laboratory assessments are stable and support clearance for her upcoming cataract surgeries. We will coordinate with her surgery team to implement any necessary considerations based on her rheumatoid arthritis. I recommend considering alternative client care specialist consultations to better manage her COPD, maintaining a focus on her chronic care amidst her multifactorial health concerns. Osteoporosis management involves continued administration of alendronate with considerations for a new bone density test. Her current medication regimen effectively manages associated chronic health issues, including hypertension and depression, with counseling occupying a pivotal role in maintaining her mental health. The patient will be scheduled for a follow-up evaluation post-surgery to ensure continued care and a ddress outstanding health concerns, including her interest in advancing weight management developments. Patient was informed and verbally consented to the use of an ambient scribe for clinic note documentation during this visit. I have informed the patient regarding the stable cardiovascular and laboratory evaluations from September that adequately clear her for the scheduled cataract surgeries. We have conversed regarding the importance of careful consideration of her rheumatoid arthritis during surgical intervention, engaging with her surgical team to coordinate. We have discussed the opportunity to seek care from a different pasting inspector given her previous dissatisfaction and ensure continuity of care for COPD management. She understands that a new bone density test will be arranged to keep osteoporosis in check. I emphasized the importance of adhering to her current medication regimen, particularly around hypertension, hyperlipidemia, depression, and pain management. Our weight management discussion revealed challenges related to the insurance coverage for specific therapies, and I suggested exploring available options and provided counselling on maintaining lifestyle improvements concerning weight. Follow-up scheduling post-surgical intervention is agreed upon to accurately assess her response to her various chronic health issues and plan accordingly. Orders: Orders XR DEXA axial skeleton Today Z78.0 - Asymptomatic menopausal state Referrals Pulmonology Referral J44.9 - Chronic obstructive pulmonary disease, unspecified Medical Weight Management Referral E66.01 - Morbid (severe) obesity due to excess calories, Z68.41 - Body mass index [BMI] 40.0-44.9, adult Rheumatology Referral M06.9 - Rheumatoid arthritis, unspecified Patient Instructions: - Proceed with cataract surgeries as scheduled in December. - Continue all current medications as prescribed, including those for hypertension and depression. - Follow-up with surgical and medical appointments post-cataract surgery for overall health management. - Explore recommendations for pursuing alternative care for COPD. - Maintain soft dietary alterations to better manage prediabetes and consider weight monitoring. - Ensure engagement with supportive counseling and weight management resources as discussed for overall well-being. - Report any unexplained cardiovascular or respiratory symptoms immediately.
[2024-12-07 08:55] VITALS: BP 132/80; PULSE 85; O2SAT 96; BMI 42.9
--- OUTSIDE RECORDS SUMMARY | 2024-12-07 09:43 | XMS_ITS | Continuity of Care Document ---
Author Organization [employer], [employer] Address [address] [place] [phone] Care Team Providers Care Count Room Clerk Name Role Phone REI ALBERTO Primary Care Provider [facility] [place] OTHER Assessment Encounter Date Assessment [...] Assessment and Plan as documented by the Family Practice Physician. We discussed the diagnostic uncertainty of home [...] 30 mg/mL injection solution 2024 025 [email or web address] [facility], [address] [place] [address], [place], [place], [phone], 5 16:50:50 Patient TargetsNo targets recorded. Patient [...] and Address Organization Details Last Updated DateTime 79063.5 04 g 97.8 [degF] 19 /min 73 [...] SNOMED-CT Code Diagnosis ICD10 Code Diagnosis Note [id number] JUAN DIEGO AMARAL MD Main - [facility] [address] [place] [phone] 11/28/2024 16:48:58 11/28/2024 17:41:56 Low back pain [id number] M54.50 Health Concerns Section Related Observation LastModified by Organization Detai ls LastModified Time None Recorded Concern Status LastModified by Organization Details LastModified Time None Recorded Payers Encounter Date Sequence Insurance Name Policy Number Policy Sood Covered Member ID Sood Member ID Guarantor Name 11/28/2024 1 [facility] - DOS ON OR AFTER 2022 - DUAL ELIGIBLE - [place] OPTIONS AND ONE CARE (MEDICARE REPLACEMENT/AD VANTAGE - HMO) Kiersten Park [id number] Kiersten Park Notes Date Note Type Note [...] at 11/28/2024: Comments: Additional PMH: Rheumatoid Arthritis Photography And Prints Curator verified the patient's name//address and phone number. [...] ................... ................... ................... ................... ................... ................... ........ Family Practice Physician Note From Jhonathan Quijano: Pt chief complaint today of chronic lower left back pain, to states that signs and symptoms have been occurring since 4 days prior to [facility] visit today, pt stated that she has [...] with a GCS of 15. Positive csm. [facility] Juan Diego Amaral consulted Pt given 30 mg of intramuscular ketorlac via the left deltoid. Pt informed to contact her pcp as early as possible as needed. Pt informs of red flag S&S and informed to call emergency services if any present. [facility] Medication Orders: ketorolac 30 mg/mL injection solution: Administered ................... ................... ................... ................... ................... ................... ................... ........ [facility] Consulted: Juan Diego Amaral ................... ................... ................... ................... ................... ................... ................... ........ Disposition: Inés AMARAL MD [address] [facility],[address], [place], [address], PHILLIP - MAUREEN, KENY 11/28/2024 17:41:52 OBGyn Episode No OBEpisode recorded.
== END 2024-12-07 09:30 | disposition home or self-care (01) ==
LOC: HO.HMCH 08:51
PROVIDERS: PCP Internal Medicine; Visit Provider Internal Medicine
DX: J44.9 Chronic obstructive pulmonary disease, unspecified (principal); F33.1 Major depressive disorder, recurrent, moderate; E66.01 Morbid (severe) obesity due to excess calories; Z68.41 Body mass index [BMI] 40.0-44.9, adult; M06.9 Rheumatoid arthritis, unspecified; Z01.818 Encounter for other preprocedural examination; M81.0 Age-related osteoporosis without current pathological fracture

== ENCOUNTER → 2024-12-07 08:50 | Outpatient (BNVA) | payer OTHER, SELFPAY | PROVIDERS: PCP Internal Medicine; Visit Provider Internal Medicine | DX: Z01.818 Encounter for other preprocedural examination (principal); F33.1 Major depressive disorder, recurrent, moderate; E66.01 Morbid (severe) obesity due to excess calories; Z68.41 Body mass index [BMI] 40.0-44.9, adult; M81.0 Age-related osteoporosis without current pathological fracture; M06.9 Rheumatoid arthritis, unspecified; J44.9 Chronic obstructive pulmonary disease, unspecified | CPT/HCPCS: 99212 ==

== ENCOUNTER → 2024-12-15 08:40 | Outpatient (BNVA) | payer OTHER, SELFPAY | PROVIDERS: PCP Internal Medicine; Visit Provider Surgery ==

== ENCOUNTER 2024-12-15 09:02 | Emergency (ER) | payer OTHER, SELFPAY ==
--- NOTE | ~2024-12-15 | XR_ITS ---
CLINICAL HISTORY: pain 3 views lumbar spine Comparison: 12/05/2022 Findings: Normal alignment. No acute fractures or dislocation. No significant degenerative change. There is mild levoscoliosis. IMPRESSION: There is mild levoscoliosis. This document has been electronically signed by: Surya Alaniz MD on 12/15/2024 13:00:34
--- NOTE | ~2024-12-15 | XR_ITS ---
CLINICAL HISTORY: pain 3 views cervical spine Comparison: None Findings: Normal vertebral body alignment. No acute fractures or dislocation. The patient is status post anterior cervical discectomy and fusion from C4 through C6. There is degenerative disc disease at C6-7 with disc space narrowing. Prevertebral soft tissues within normal limits. The disc spaces are poorly seen at these levels. IMPRESSION: 1. The patient is status post anterior cervical discectomy and fusion from C4 through C6. 2. There is degenerative disc disease at C6-7 with disc space narrowing. 3. No acute abnormalities noted. This document has been electronically signed by: Surya Alaniz MD on 12/15/2024 12:52:14
--- NOTE | ~2024-12-15 | XR_ITS ---
CLINICAL HISTORY: pain 2 views thoracic spine Comparison: 02/25/2024 Findings: Normal vertebral body alignment. No acute fractures or dislocation. There are moderate degenerative changes in the midthoracic spine. No acute abnormalities are noted. IMPRESSION: 1. There are moderate degenerative changes in the midthoracic spine. 2. No acute abnormalities are noted. This document has been electronically signed by: Surya Alaniz MD on 12/15/2024 13:00:16
[2024-12-15 09:18] VITALS: BP 102/64; PULSE 108; RESP 16; TEMP 36.7; O2SAT 94; BMI 41.6
[2024-12-15 11:41] VITALS: BP 128/60; PULSE 77; RESP 16; TEMP 37; O2SAT 94
[2024-12-15] MEDS: predniSONE 20 MG TABLET 60 MG PO (11:53)
[2024-12-15] MEDS: Ketorolac Tromethamine 60 MG/2 ML VIAL IM (11:54)
--- NOTE | 2024-12-15 13:54 | ED.GENADULT ---
HPI - General Adult General Chief complaint: Back Pain/Injury Stated complaint: chronic back pain Time Seen by Provider: 12/15/24 10:14 Source: patient Mode of arrival: ambulatory Limitations: no limitations History of Present Illness ED Provider: Steve Luke HPI narrative: 64 yold female with with pmh of BPPV, HTN, cervical/thoraic/Lumbar arthritis presents to the ED for neck and back pain. patient denies any upper or lower extremity tingling/numbness/paralysis, headache, nuasea, vomitting, dizziness, or new trauma. Patient denies any history of immunocompromise diseases, chronic steroid use, or IV drug use. Patient denies any urinary/bowel incontinence. Patient presents to ED for chronic back pain exacerbation and follow-up with pain management. Related Data Home Medications ?Medication ?Instructions ?Recorded ?Confirmed venlafaxine 75 mg capsule,extended 75 mg PO BID 01/14/22 12/07/24 release 24 hr losartan 50 mg tablet 50 mg PO DAILY 07/07/24 12/07/24 hydroxyzine HCl 10 mg tablet 10 mg PO BID 12/15/24 sertraline 25 mg tablet 25 mg PO DAILY 12/15/24 trazodone 150 mg tablet 150 mg PO BEDTIME 12/15/24 Previous Rx's ?Medication ?Instructions ?Recorded escitalopram oxalate 20 mg tablet 20 mg PO DAILY 90 days #90 tabs 10/21/22 blood pressure monitor (Blood #1 ea 11/01/22 Pressure Kit) selenium sulfide 1 % shampoo 5 ml topical 2XW 14 days #207 mL 11/03/23 (Dandruff Shampoo (selenium sulfide)) triamcinolone acetonide 0.1 % 1 appl topical DAILY 30 days #30 11/06/23 topical cream grams albuterol sulfate 90 mcg/actuation 2 puff inhalation Q6H PRN 02/17/24 aerosol inhaler (Ventolin HFA) bronchospasm #8.5 grams docusate sodium 100 mg capsule 100 mg PO BID 90 days #180 caps 03/31/24 walker (Ultra-Light Rollator misc) #1 ea 04/13/24 bath mat #1 ea 05/03/24 alendronate 70 mg tablet 70 mg PO QWEEK 90 days #13 tabs 05/09/24 lorazepam 1 mg tablet (Ativan) 1 mg PO ONCE anxiety #1 tab 06/24/24 pregabalin 200 mg capsule 200 mg PO BID pain 30 days #60 caps 06/30/24 incontinence pad, liner, disp #90 ea 07/27/24 wipes #200 ea 07/27/24 omeprazole 40 mg capsule,delayed 40 mg PO DAILY 90 days #90 caps 08/10/24 release Incruse Ellipta 62.5 mcg/actuation 1 inh inhalation BEDTIME 30 days 09/26/24 powder for inhalation #30 ea (umeclidinium) calcium 200 mg (as 1 tab PO BID 30 days #60 tabs 09/27/24 citrate)-vitamin D3 6.25 mcg (250 unit) tablet chlorthalidone 25 mg tablet 25 mg PO DAILY 90 days #90 tabs 11/08/24 atorvastatin 20 mg tablet 20 mg PO DAILY 90 days #90 tabs 11/23/24 amlodipine 5 mg tablet 5 mg PO DAILY 90 days #90 tabs 11/28/24 acetaminophen 650 mg 650 mg PO Q8H 90 days #270 tabs 12/09/24 tablet,extended release multivitamin with folic acid 400 1 tab PO DAILY 90 days #90 tabs 12/11/24 mcg tablet (Tab-A-Duarte) bupropion HCl 150 mg 24 hr tablet, 150 mg PO DAILY 90 days #90 tabs 12/14/24 extended release prednisone 20 mg tablet 40 mg (2 x 20 mg) PO DAILY 5 days 12/15/24 #10 tabs Allergies Allergy/AdvReac Type Severity Reaction Status Date / Time pineapple [PINEAPPLE] AdvReac Severe DIARRHEA Verified 12/15/24 09:23 Review of Systems Review of Systems: Chronic neck/back pain Yes all other systems are reviewed and are negative [facility] Past Medical History Medical History (Updated 12/15/24 @ 14:07 by JONH Harris) Mild recurrent major depression History of high cholesterol History of high blood pressure Right shoulder pain Restrictive lung disease Morbid obesity with BMI of 45.0-49.9, adult MAGGIE (generalized anxiety disorder) 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 Rheumatoid arthritis Insomnia Chronic back pain COPD (chronic obstructive pulmonary disease) Iron deficiency anemia Morbid obesity Fibromyalgia Chronic GERD Constipation by delayed colonic transit Hypovitaminosis D Pure hypercholesterolemia Severe major depression Surgical History H/O colonoscopy History of back surgery History of neck surgery Family History Family History Mother Uterus cancer Breast cancer, Onset Age: 43 Diabetes Arthritis IBS (irritable bowel syndrome) Father Heart disease Sister Mental health disorder Brother Mental health disorder Social History Social History Housing: Apartment Alcohol intake: never Patient Tobacco Use Status: Former Tobacco user Tobacco use type: Cigarette e-Cigarette/Vaping Use: Never Used Second Hand Smoke Exposure: No service: No Current occupational status: disabled 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) Hearing needs: No Vision needs: Yes Physical Exam ED Vital Signs: Vital Signs - 24 hr 12/15/24 09:18 12/15/24 11:41 12/15/24 14:27 Temperature 98.1 F 98.6 F 98.9 F Pulse Rate 108 H 77 78 Respiratory Rate 16 16 16 Blood Pressure 102/64 128/60 105/69 Pulse Oximetry 94 94 93 Oxygen Delivery Method Room Air Room Air Room Air 12/15/24 14:36 Temperature 98.9 F Pulse Rate 78 Respiratory Rate 16 Blood Pressure 105/69 Pulse Oximetry 93 Oxygen Delivery Method Room Air BMI result Body Mass Index 41.6 Const General: cooperative, healthy appearing, comfortable, no acute distress, well developed, alert, awake and Physically active Orientation/consciousness: patient oriented x3 HENMT Head: Yes normal to inspection, Yes No palpable skull fracture present, Yes normocephalic and Yes atraumatic Eyes General: appearance normal, both eyes and all related structures Neck Neck: Yes normal visual inspection, Yes full ROM, Yes no lymphadenopathy, Yes no meningeal signs, Yes trachea midline, Yes supple, No anterior neck swelling and Yes tender (posterior cervical tenderness) Chest Chest palpation & inspection: normal inspection of the chest and normal palpation of entire chest wall Resp Effort & Inspection: normal respiratory effort and able to speak in complete sentences Auscultation: clear to auscultation bilaterally Cardio Jugular venous distension: no JVD Heart sounds: S1 normal heart sound present and S2 normal heart sound present GI Inspection: Yes normal to inspection Palpation (GI): Soft to palpation, not firm, nontender, no guarding and not rigid General: Yes no CVA tenderness Back/Spine/Pelvis Back: no CVA tenderness and back tenderness (thoracic and lumbar) Skin General skin exam: no rashes or lesions noted, elasticity normal and turgor normal Neuro General: patient oriented x3, gait normal, tone normal, moves all extremities, Normal light touch and pain sensation, no meningeal signs, no focal motor deficits, CN's II-XI intact bilaterally and normal sensation to monofilament Extrem General: Yes normal to inspection, Yes full ROM and Yes capillary refill normal Psych Appearance: grossly normal, well kempt and not disheveled Medications Administered Discontinued Medications Generic Name Dose Route Start Last Admin Trade Name Freq PRN Reason Stop Dose Admin Cyclobenzaprine HCl 10 mg 12/15/24 14:18 12/15/24 14:26 Cyclobenzaprine Hcl 10 Mg Tablet PO 12/15/24 14:19 10 mg ONCE ONE Administration Ketorolac Tromethamine 60 mg 12/15/24 11:22 12/15/24 11:54 Ketorolac Tromethamine 60 Mg/2 Ml Vial IM 12/15/24 11:23 60 mg ONCE ONE Administration Prednisone 60 mg 12/15/24 11:22 12/15/24 11:53 Prednisone 20 Mg Tablet PO 12/15/24 11:23 60 mg ONCE ONE Administration Medical Decision Making Medical Decision Making MDM Narrative: 64-year-old patient presents ED for chronic neck and back pain exacerbation without any trauma. Patient has no neuro deficits on exam. Patient denies any fever, chills, nausea or vomiting. Patient denies any history of IV drug use or immunocompromise diseases. Patient is not on any daily steroid. X-ray shows chronic arthritis. Not suspecting cauda equina, osteomoyelitis, or epidural abscess. Not suspecting carotid dissection or meningitis. Patient given Toradol prednisone with relief of pain. Patient informed to follow up with primary care provider, spine surgeon, and pain medicine Differential Diagnosis Differential Diagnoses: The differential diagnosis associated with the presentation includes (Lumbar thoracic cervical radiculopathy) Admission/Observation Consideration of admission/observation: Escalation of care including admission/observation considered Independent Interpretation I performed an independent interpretation of an: Plain X-Ray Radiology Impression Discussion of test interpretation with radiology: I have reviewed the radiologist's reading. Independent Historian Clinical information obtained from an independent historian. History obtained from or confirmed by: Other (Patient) Prescription Management I considered prescription management with: Other (Steroids) Discharge Plan Discharge Clinical Impression: Thoracic radiculopathy, Lumbar disc disease with radiculopathy, Cervical radiculopathy, chronic Patient Disposition: Home, Self-Care Instructions: Cervical Radiculopathy (ED), Back Pain (ED), Degenerative Disc Disease (ED) Additional Instructions: Recommend follow up with primary care provider, spinal surgeon, and pain specialist. Return to the ED immediately for any worsening pain, urinary/bowel incontinence, tingling/numbness/paralysis of extremities, fever, chills, weakness, dizziness, or any other concerning symptoms. Continue taking pain medications you have at home. You will be prescribed steroids. Prescriptions: New prednisone 20 mg tablet 40 mg PO DAILY 5 Days Qty: 10 0RF No Action escitalopram oxalate 20 mg tablet 20 mg PO DAILY 90 Days Qty: 90 1RF (DME) blood pressure monitor [Blood Pressure Kit] Kit See Rx Instructions .Route Qty: 1 0RF Rx Instructions: As directed Dandruff Shampoo (selenium) 1 % shampoo 5 ml topical 2XW 14 Days Qty: 207 2RF Rx Instructions: lather into wet hair; leave in place for approximately 3 mins ; rinse triamcinolone acetonide 0.1 % cream 1 appl topical DAILY 30 Days Qty: 30 1RF albuterol sulfate [Ventolin HFA] 90 mcg/actuation HFA aerosol inhaler 2 puff inhalation Q6H PRN (Reason: bronchospasm) Qty: 8.5 0RF docusate sodium 100 mg capsule 100 mg PO BID 90 Days Qty: 180 1RF (DME) Ultra-Light Rollator Misc See Rx Instructions .Route Qty: 1 0RF Rx Instructions: As directed (DME) bath mat See Rx Instructions .Route .MEDSUPPLY Qty: 1 0RF Rx Instructions: As directed alendronate 70 mg tablet 70 mg PO QWEEK 90 Days Qty: 13 1RF pregabalin 200 mg capsule 200 mg PO BID 30 Days Qty: 60 2RF (DME) incontinence pad, liner, disp Pad See Rx Instructions .Route Qty: 90 11RF Rx Instructions: Use 1 pad three times a day (DME) wipes See Rx Instructions .Route .MEDSUPPLY Qty: 200 11RF Rx Instructions: As directed omeprazole 40 mg capsule,delayed release(DR/EC) 40 mg PO DAILY 90 Days Qty: 90 0RF Incruse Ellipta 62.5 mcg/actuation blister with device 1 inh inhalation BEDTIME 30 Days Qty: 30 2RF calcium citrate-vitamin D3 200 mg-6.25 mcg (250 unit) tablet 1 tab PO BID 30 Days Qty: 60 1RF chlorthalidone 25 mg tablet 25 mg PO DAILY 90 Days Qty: 90 0RF atorvastatin 20 mg tablet 20 mg PO DAILY 90 Days Qty: 90 4RF amlodipine 5 mg tablet 5 mg PO DAILY 90 Days Qty: 90 10RF acetaminophen 650 mg tablet extended release 650 mg PO Q8H 90 Days Qty: 270 0RF multivitamin with folic acid [Tab-A-Duarte] 400 mcg tablet 1 tab PO DAILY 90 Days Qty: 90 3RF bupropion HCl 150 mg tablet extended release 24 hr 150 mg PO DAILY 90 Days Qty: 90 4RF venlafaxine 75 mg capsule,extended release 24hr 75 mg PO BID lorazepam [Ativan] 1 mg tablet 1 mg PO ONCE Qty: 1 0RF Rx Instructions: Take 30 minutes prior to arrival to procedure losartan 50 mg tablet 50 mg PO DAILY trazodone 150 mg tablet 150 mg PO BEDTIME sertraline 25 mg tablet 25 mg PO DAILY hydroxyzine HCl 10 mg tablet 10 mg PO BID Referrals: Dyllan Teague MD, PhD [Physician] - (Chronic cervicothoracic and lumbar degenerative disc disease with disc herniation) Stand Alone Forms: Work/School Release Interventions: ED Discharge Assessment Last Done: 12/15/24 14:36 Discharge Date/Time: 12/15/24 14:37 Print Language: Nigerian
[2024-12-15] MEDS: Cyclobenzaprine HCl 10 MG TABLET PO (14:26)
[2024-12-15 14:27] VITALS: BP 105/69; PULSE 78; RESP 16; TEMP 37.2; O2SAT 93
[2024-12-15 14:36] VITALS: BP 105/69; PULSE 78; RESP 16; TEMP 37.2; O2SAT 93
== END 2024-12-15 14:37 | disposition home or self-care (01) ==
PROVIDERS: Emergency Provider Emergency Medicine; PCP Internal Medicine
DX: M54.14 Radiculopathy, thoracic region (principal); M54.12 Radiculopathy, cervical region; M51.16 Intervertebral disc disorders with radiculopathy, lumbar region; G89.29 Other chronic pain; M54.2 Cervicalgia; M54.6 Pain in thoracic spine; I10 Essential (primary) hypertension; E78.5 Hyperlipidemia, unspecified; Z87.891 Personal history of nicotine dependence; Z79.899 Other long term (current) drug therapy; Z79.02 Long term (current) use of antithrombotics/antiplatelets
CPT/HCPCS: 72040; 72070; 72100; 96372; 99284; J1885

== ENCOUNTER → 2024-12-15 11:55 | Outpatient (BNV) | payer OTHER, SELFPAY | PROVIDERS: Emergency Provider Emergency Medicine; PCP Internal Medicine; Visit Provider Radiology Diagnostic Radiology | DX: M54.6 Pain in thoracic spine (principal); M50.30 Other cervical disc degeneration, unspecified cervical region; M41.26 Other idiopathic scoliosis, lumbar region | CPT/HCPCS: 72040; 72070; 72100 ==

== ENCOUNTER 2024-12-20 15:32 | Outpatient (AMB) | payer OTHER, SELFPAY ==
[2024-12-20 15:41] VITALS: BP 182/98; BMI 42.4
--- NOTE | 2024-12-20 15:41 | A.OFFPC_ITS ---
Vital Signs 12/20/24 15:41 Height 4 ft 11 in Weight 210 lb BMI 42.4 BP 182/98 H Blood Pressure Location Lt brachial Position Sitting Intake Visit Reasons: [facility] 12/15 back pain Recruiting Coordinator Required: No Accompanied by: Significant Other Allergies pineapple [PINEAPPLE] Adverse Reaction (Severe, Verified 12/20/24 15:54) DIARRHEA Medication List - Last Reconciled 12/20/24 by Riddhi Michael MD acetaminophen ER 650 mg PO Q8H 90 days albuterol sulfate 90 mcg/actuation (Ventolin HFA) 2 puffs inhalation Q6H PRN alendronate 70 mg PO QWEEK 90 days amlodipine 5 mg PO DAILY 90 days atorvastatin 20 mg PO DAILY 90 days [bath mat As directed] blood pressure monitor (Blood Pressure Kit) As directed bupropion HCl XL 150 mg PO DAILY 90 days calcium citrate-vitamin D3 200 mg-6.25 mcg (250 unit) 1 tab PO BID 30 days chlorthalidone 25 mg PO DAILY 90 days docusate sodium 100 mg PO BID 90 days escitalopram oxalate 20 mg PO DAILY 90 days hydroxyzine HCl 10 mg PO BID incontinence pad, liner, disp Use 1 pad three times a day Incruse Ellipta 62.5 mcg/actuation (umeclidinium) 1 inh inhalation BEDTIME 30 days NS lorazepam (Ativan) 1 mg PO ONCE losartan 50 mg PO DAILY multivitamin with folic acid 400 mcg (Tab-A-Duarte) 1 tab PO DAILY 90 days omeprazole 40 mg PO DAILY 90 days prednisone 40 mg (2 x 20 mg) PO DAILY 5 days pregabalin 200 mg PO BID 30 days selenium sulfide 1% (Dandruff Shampoo (selenium sulfide)) 5 mL topical 2XW 14 days sertraline 25 mg PO DAILY trazodone 150 mg PO BEDTIME triamcinolone acetonide 0.1% 1 appl topical DAILY 30 days venlafaxine ER 75 mg PO BID walker (Ultra-Light Rollator misc) As directed [wipes As directed] Tobacco use date assessed: 12/07/24 Dental Screening Dental Screen Date: 12/07/24 HPI HPI Comments History of Present Illness Details The patient is a 64-year-old female presenting with chronic pain management and hypertension evaluation. She has a history of back pain secondary to arthritis, identified via imaging during a recent emergency department visit. This pain is chronic and radiates from the lumbar region upwards. Efforts to manage the pain with gabapentin were ineffective, and she is currently taking Lyrica for pain control, though results have been limited. Furthermore, her hypertension remains suboptimally managed with readings such as 158/110 mmHg. Despite multiple antihypertensives including amlodipine, losartan, and chlorthalidone, control is inadequate, which previously improved with Wegovy, not covered by her insurance. Other chronic conditions include osteoporosis treated with alendronate, depression and anxiety managed with escitalopram, bupropion, and sertraline, and insomnia for which she uses trazodone. Her GERD is treated with omeprazole, contributing to her complex medication regimen. 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 Rheumatoid arthritis Insomnia Chronic back pain COPD (chronic obstructive pulmonary disease) Iron deficiency anemia Morbid obesity Fibromyalgia Chronic GERD Constipation by delayed colonic transit Hypovitaminosis D Pure hypercholesterolemia Severe major depression Surgical History H/O colonoscopy History of back surgery History of neck surgery Family History Mother Uterus cancer Breast cancer, Onset Age: 43 Diabetes Arthritis IBS (irritable bowel syndrome) Father Heart disease Sister Mental health disorder Brother Mental health disorder Social History Housing: Apartment Alcohol intake: never Patient Tobacco Use Status: Former Tobacco user Tobacco use type: Cigarette e-Cigarette/Vaping Use: Never Used Second Hand Smoke Exposure: No service: No Current occupational status: disabled 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) Hearing needs: No Vision needs: Yes Questionnaire Thrive Questionnaire Date Thrive assessed: 09/22/24 MAGGIE-7 AMB Questionnaire MAGGIE-7 Date MAGGIE - 7 assessed: 09/22/24 Source: Developed by Drs. Luis Antonio Rice, Alyssa Levin, Larry Dennsion and colleagues, with an educational kareem from [employer]. Review of Systems Const All systems reviewed & are unremarkable except as noted in HPI and below Card Denies chest pain at rest, Denies chest pain with activity, Denies edema, Denies irregular heart rhythm, Denies claudication, Denies dyspnea, Denies dyspnea on exertion, Denies orthopnea, Denies paroxysmal nocturnal dyspnea and Denies slow heart rate Resp Denies cough, Denies dyspnea and Denies dyspnea on exertion GI Denies abdominal pain, Denies change in bowel habits, Denies excessive flatus, Denies nausea and Denies vomiting Denies urinary incontinence, Denies urinary hesitancy and Denies urinary urgency Neuro Denies lack of coordination Physical exam (Primary Care) Vital Signs: Last Vital Signs BP 182/98 H 12/20/24 15:41 BMI result Body Mass Index 42.4 BMI Assessment/Plan discussion: High BMI High, discussed plan: lifestyle, weight reduction, dietary and physical activity Tobacco/Smoking Status: Tobacco use Status Tobacco use date assessed 12/07/24 12/20/24 15:47 Patient Tobacco Use Status Former Tobacco user 12/20/24 15:47 Tobacco use type Cigarette 12/20/24 15:47 e-Cigarette/Vaping Use Never Used 12/20/24 15:47 Thrive Assessment: Date of Thrive Assessment Date Thrive assessed 09/22/24 12/20/24 15:47 Resp Effort & Inspection: normal respiratory effort Auscultation: clear to auscultation bilaterally Cardio Jugular venous distension: no JVD Rate: regular rate Rhythm: regular rhythm Heart sounds: S1 normal heart sound present and S2 normal heart sound present Extrem General: Yes full ROM Coding Level of Care Code Est Pt Level 4 (65568) Complex EM visit Add On G2211 Diagnoses Thoracic spondylosis M47.814 Morbid obesity with BMI of 40.0-44.9, adult E66.01; Z68.41 Moderate recurrent major depression F33.1 Essential hypertension I10 Intractable back pain M54.9 MAGGIE (generalized anxiety disorder) F41.1 Time Spent (min) 22 Assessment & Plan Assessment & Plan (1) Thoracic spondylosis: Code(s): M47.814 - Spondylosis without myelopathy or radiculopathy, thoracic region Category: Medical (2) Morbid obesity with BMI of 40.0-44.9, adult: Code(s): E66.01 - Morbid (severe) obesity due to excess calories; Z68.41 - Body mass index [BMI] 40.0-44.9, adult Category: Medical (3) Moderate recurrent major depression: Code(s): F33.1 - Major depressive disorder, recurrent, moderate Category: Medical (4) Essential hypertension: Code(s): I10 - Essential (primary) hypertension Category: Medical (5) Intractable back pain: Code(s): M54.9 - Dorsalgia, unspecified Category: Medical (6) MAGGIE (generalized anxiety disorder): Code(s): F41.1 - Generalized anxiety disorder Category: Medical Plan To optimally manage the patient's hypertension, losartan will be increased to 100 mg. For her chronic pain, she will continue Lyrica 200 mg twice daily and start tramadol to assess efficacy in combination. Physical therapy or aquatic therapy is recommended, with a re-evaluation post six weeks for potential MRI of the lumbar spine. Close monitoring of her symptoms due to medication alterations will be necessary. Patient was informed and verbally consented to the use of an ambient scribe for clinic note documentation during this visit. During our discussion, I emphasized the importance of managing arterial hypertension and chronic pain to prevent complications. We discussed increasing losartan for better blood pressure control and adding tramadol for pain management, noting its potential side effects and the need for monitoring. Physical therapy was recommended to qualify for a lumbar MRI, with further evaluations based on those findings. The patient was advised to continue independent aquatic exercises as they have previously provided temporary relief. Potential risks, benefits, and alternatives for the medications were clearly articulated, and the patient consents to proceed with these adjustments. Follow- up was emphasized to ensure blood pressure and pain management effectiveness. Orders: Orders Vitamin D 25-OH Total 3 Months E55.9 - Vitamin D deficiency, unspecified Comprehensive [place]. Panel Fast 3 Months I10 - Essential (primary) hypertension Lipid Panel 3 Months E78.5 - Hyperlipidemia, unspecified Medications: New losartan 100 mg PO DAILY 90 days 90 tabs 0RF tramadol 50 mg PO Q8H 30 days PRN 90 tabs 0RF pain Patient Instructions: - Increase losartan dosage to 100 mg to help manage blood pressure. - Continue taking Lyrica at 200 mg twice daily, and add tramadol as directed. - Perform aquatic therapy exercises regularly for pain relief. - Arrange for six weeks of physical therapy. - Return for follow-up to assess the effectiveness of the medication adjustments. - Seek care sooner if pain or blood pressure symptoms worsen.
--- OUTSIDE RECORDS SUMMARY | 2024-12-20 18:25 | XMS_ITS | Clinical Summary ---
Author Organization [employer] Address [address] [place] [address] Care Team Providers Care Home Comfort Advisor Name Role Phone Unavailable Primary Care Provider Unavailabl e Medications omeprazole (PriLOSEC) [address] Flores ns:GERD without esophagitis take 1 capsule by oral route every day before a meal Strength: 40 mg 30 capsule 11 09/23/2022 Active Multiple Vitamin (Tab-A-Duarte) tablet TAKE 1 TABLET BY MOUTH EVERY DAY 90 tablet 03/14/2024 Active Encounters Date Type Department Care Team Description 10/06/2024 Refill [facility] [address] [place] [address] Veda Dawson MD from Last 3 Months [...] this topic Meningococcal Vaccine Aged Out No oarcio phoenix eligible based on patient's age to [...]
--- OUTSIDE RECORDS SUMMARY | 2024-12-20 18:25 | XMS_ITS | Encounter Summary ---
Author Organization [employer] Address [address] [facility] 7t [place] [address] Care Team Providers Care Sewage Plant Operator Name Role Phone Veda Dawson MD Primary Care Provider [phone] Reason for Visit * Reason Comments Med Refill Encounter Details Date Type Department Care Team ([facility] st Contact Info) Description 10/06/2024 Refill [facility] MEDICINE [address] [place] [address] Veda Dawson MD [address] [place] [address] Social History Tobacco Use Types Packs/Day Years [...] on filedocumented in this encounter Care Teams Sewage Plant Operator Relationship Specialty Start Date End Date Veda Dawson MD [address] [place] [address] PCP - General Family Medicine 02/21/20 11/22/24 documented as of this encounter
--- OUTSIDE RECORDS SUMMARY | 2024-12-20 18:25 | XMS_ITS | Encounter Summary ---
Author Organization [facility] [employer] Address [address] [facility] 7t [place] [address] Care Team Providers Care Skin Care Technician Name Role Phone Veda Dawson MD Primary Care Provider [phone] Reason for Visit * Reason Comments Med Refill Encounter Details Date Type Department Care Team ([facility] st Contact Info) Description 08/01/2024 Refill [facility] MEDICINE [address] [place] [address] Veda Dawson MD [address] [place] [address] Social History Tobacco Use Types Packs/Day Years [...] on filedocumented in this encounter Care Teams Skin Care Technician Relationship Specialty Start Date End Date Veda Dawson MD [address] [place] [address] PCP - General Family Medicine 02/21/20 11/22/24 documented as of this encounter
--- OUTSIDE RECORDS SUMMARY | 2024-12-20 18:25 | XMS_ITS | Data Portability ---
Author Organization [facility] [employer] Address [address] [place] [phone] Care Team Providers Care Freezer Laboratory Technician Name Role Phone REI ALBERTO Primary Care Provider HIM NICKOLAS OTHER Assessment Encounter Date Assessment Date Assessment LastModified by Organization Details LastModified Time 05/11/2024 05/11/2024 As noted, we shruthi e called to see this patient regarding concerns of chronic low back pain. Evaluation in the field was performed by my denture model maker colleague, as noted above, I provided real-time [...] back pain symptoms to be re-evaluated for. [email or web address] Not available 05/11/2024 13:29:27 11/28/2024 11/28/2024 Mrs. [...] Assessment and Plan as documented by the Environmental Field Services Technician. We discussed the diagnostic uncertainty of [...] 30 mg/mL injection solution 2024 025 [email or web address] [facility], [address] [facility], [facility] [address], [place], [place], [id number], 5 16:50:50 ketorolac 30 mg/mL (1 mL) injection solution 2023 024 [email or web address] 84 [facility], [address] [facility] [address], [place], [place], [id number], 4 13:24:46 Patient TargetsNo targets recorded. Patient [...] /min 130 mm[Hg] 82 mm[Hg] Not Available [employer] 4 13:23:21 Date Recorded Body weight Body temperature Respiratory rate Heart rate Body height Oxygen saturation Oxygen saturation in Arterial blood by Pulse oximetry Systolic blood pressure Diastolic blood pressure Provider Name and Address Organization Details Last Updated DateTime 5 26698.5 04 g 97.8 [degF] 19 /min 73 /min 149.86 cm 95 % 95 % 166 mm[Hg] 77 mm[Hg] Not Available [facility] 5 16:49:00 Social History None recorded. Functional Status None recorded. Mental Status None recorded. Family History Nothing Reported. Medical History No medical history recorded. Gynecological HistoryNo gynecological history recorded. Obstetrics History GPAL:G 0 P 0 0 0 0 Past Encounters Encounter ID Performer Location Encounter Start Date Encounter Closed Date Diagnosis/Indication Diagnosis SNOMED-CT Code Diagnosis ICD10 Code Diagnosis Note [id number] Roberth Escalona MD Main - [facility] [address] [place] [id number] 05/11/2024 13:23:18 05/11/2024 19:04:19 Chronic low back pain 925534217 M54.50 [id number] UJAN DIEGO AMARAL MD Main - [address] [address] 11/28/2024 16:48:58 11/28/2024 17:41:56 Low back pain 289134047 M54.50 Health Concerns Section Related Observation LastModified by Organization Detai ls LastModified Time None Recorded Concern Status LastModified by Organization Details LastModified Time None Recorded Advance Directives Directive None Recorded Payers Encounter Date Sequence Insurance Name Policy Number Policy Sood Covered Member ID Sood Member ID Guarantor Name 05/11/2024 1 [facility] - DOS ON OR AFTER 2022 - DUAL ELIGIBLE - LONGTERM OPTIONS AND ONE CARE (MEDICARE REPLACEMENT/AD VANTAGE - HMO) Kiersten Park [id number] Kiersten Park 11/28/2024 1 [facility] - DOS ON OR AFTER 2022 - DUAL ELIGIBLE - LONGTERM OPTIONS AND ONE CARE (MEDICARE REPLACEMENT/AD VANTAGE - HMO) Kiersten Park [id number] Kiersten Park Notes Date Note Type Note [...] ................... ................... ................... ................... ................... ................... ........ Environmental Field Services Technician Note From Joel Elizabeth: Dispatched to [...] ................... ........ Disposition: Fulfilled Roberth Escalona MD [address] [place] [address],[address], [place], [address], [facility] 05/11/2024 14:27:37 11/28/2024 text/html CRC Nurse Triage [...] - :10 Comments: Additional PMH: Rheumatoid Arthritis Mammographer verified the patient's name//address and phone number. [...] ................... ................... ................... ................... ................... ................... ........ Environmental Field Services Technician Note From Jhonathan Quijano: Pt chief complaint today of chronic lower left back pain, to states that signs and symptoms have been occurring since 4 days prior to [facility] visit today, pt stated that she [...] with a GCS of 15. Positive csm. [facility] Juan Diego Amaral consulted Pt given 30 mg of intramuscular ketorlac via the left deltoid. Pt informed to contact her pcp as early as possible as needed. Pt informs of red flag S&S and informed to call emergency services if any present. [facility] Medication Orders: ketorolac 30 mg/mL injection solution: Administered ................... ................... ................... ................... ................... ................... ................... ........ [facility] Consulted: Juan Diego Amaral ................... ................... ................... ................... ................... ................... ................... ........ Disposition: Fulfilled JUAN DIEGO AMARAL MD [address] [facility],[address], [place], [address], [facility] 11/28/2024 17:41:52 OBGyn Episode No OBEpisode recorded.
--- OUTSIDE RECORDS SUMMARY | 2024-12-20 18:25 | XMS_ITS | Encounter Summary ---
Author Organization [employer] Address [address] [facility] 7t [place] [address] Care Team Providers Care Marketing Communications Assistant Name Role Phone Veda Dawson MD Primary Care Provider Reason for Visit * Reason Comments Med Refill Encounter Details Date Type Department Care Team ([facility] st Contact Info) Description 04/11/2024 Refill [facility] MEDICINE [address] [place] [address] Veda Dawson MD [address] [place] [address] Social History Tobacco Use Types Packs/Day Years [...] on filedocumented in this encounter Care Teams Marketing Communications Assistant Relationship Specialty Start Date End Date Veda Dawson MD [address] [place] [address] PCP - General Family Medicine 02/21/20 11/22/24 documented as of this encounter
== END 2024-12-20 16:12 | disposition home or self-care (01) ==
LOC: HO.HMCH 15:33
PROVIDERS: PCP Internal Medicine; Visit Provider Internal Medicine
DX: M47.814 Spondylosis without myelopathy or radiculopathy, thoracic region (principal); E66.01 Morbid (severe) obesity due to excess calories; Z68.41 Body mass index [BMI] 40.0-44.9, adult; F33.1 Major depressive disorder, recurrent, moderate; I10 Essential (primary) hypertension; M54.9 Dorsalgia, unspecified; F41.1 Generalized anxiety disorder

== ENCOUNTER → 2024-12-20 15:32 | Outpatient (BNVA) | payer OTHER, SELFPAY | PROVIDERS: PCP Internal Medicine; Visit Provider Internal Medicine | DX: M47.814 Spondylosis without myelopathy or radiculopathy, thoracic region (principal); E66.01 Morbid (severe) obesity due to excess calories; Z68.41 Body mass index [BMI] 40.0-44.9, adult; F33.1 Major depressive disorder, recurrent, moderate; I10 Essential (primary) hypertension; M54.9 Dorsalgia, unspecified; F41.1 Generalized anxiety disorder; Z71.3 Dietary counseling and surveillance | CPT/HCPCS: 99212 ==

== ENCOUNTER 2025-01-23 10:16 | Outpatient (AMB) | payer OTHER, SELFPAY ==
--- OUTSIDE RECORDS SUMMARY | 2025-01-23 11:34 | XMS_ITS | Clinical Summary ---
Author Organization [employer] Address [address] [facility] 7t [place] [address] Care Team Providers Care Civil Clerk Name Role Phone Unavailable Primary Care Provider Unavailabl e Medications omeprazole (PriLOSEC) [address] Flores ns:GERD without esophagitis take 1 capsule by oral route every day before a meal Strength: 40 mg 30 capsule 11 09/23/2022 Active Multiple Vitamin (Tab-A-Duarte) tablet TAKE 1 TABLET BY MOUTH EVERY DAY 90 tablet 03/14/2024 Active Social History Tobacco Use Types Packs/Day Years [...] Mammogram 04/16/2023 04/16/2021, 07/02/2018 COVID-19 Vaccine ( - season) 2024 09/11/2021, 12/25/2020, 11/27/2020 Influenza Vaccine [...] Legacy Procedure: Mammography Report 1 Procedure Note ProviderAvril MD - 12/14/2022 Refer to the Notes tab for result details Legacy Procedure: Mammography Report 1 Veda Dawson MD IMG BI PROCEDURES Final Result from Last 3 Months or Most Recently Relevant to Health Maintenance
--- OUTSIDE RECORDS SUMMARY | 2025-01-23 11:34 | XMS_ITS | Encounter Summary ---
Author Organization [employer] Address [address] [facility] 7t [place] [address] Care Team Providers Care Sales Representative Marine Supplies Name Role Phone Veda Dawson MD Primary Care Provider [phone] Reason for Visit * Reason Comments Med Refill Encounter Details Date Type Department Care Team ([facility] st Contact Info) Description 04/11/2024 Refill [facility] MEDICINE [address] [place] [address] Veda Dawson MD [address] [place] [address] Social History Tobacco Use Types Packs/Day Years [...] on filedocumented in this encounter Care Teams Sales Representative Marine Supplies Relationship Specialty Start Date End Date Veda Dawson MD [address] [place] [address] PCP - General Family Medicine 02/21/20 11/22/24 documented as of this encounter
--- OUTSIDE RECORDS SUMMARY | 2025-01-23 11:34 | XMS_ITS | Encounter Summary ---
Author Organization [employer] Address [address] [facility] 7t [place] [address] Care Team Providers Care Trauma Therapist Name Role Phone Veda Dawson MD Primary Care Provider [phone] Reason for Visit * Reason Comments Med Refill Encounter Details Date Type Department Care Team ([facility] st Contact Info) Description 10/06/2024 Refill [facility] MEDICINE [address] [place] [address] Veda Dawson MD [address] [place] [address] Social History Tobacco Use Types Packs/Day Years [...] on filedocumented in this encounter Care Teams Trauma Therapist Relationship Specialty Start Date End Date Veda Dawson MD [address] [place] [address] PCP - General Family Medicine 02/21/20 11/22/24 documented as of this encounter
--- OUTSIDE RECORDS SUMMARY | 2025-01-23 11:34 | XMS_ITS | Data Portability ---
Author Organization [facility] [employer] [facility] [employer] Address [address] [place] [address] Care Team Providers Care Ve Teacher Name Role Phone REI ALBERTO Primary Care Provider HIM NICKOLAS OTHER Assessment Encounter Date Assessment Date Assessment LastModified by Organization Details LastModified Time 05/11/2024 05/11/2024 As noted, we shruthi e called to see this patient regarding concerns of chronic low back pain. Evaluation in the field was performed by my cash grain farmer colleague, as noted above, I provided real-time [...] back pain symptoms to be re-evaluated for. [email or web address] Not available 05/11/2024 13:29:27 11/28/2024 11/28/2024 Mrs. [...] Assessment and Plan as documented by the Gold Leaf Gilder. We discussed the diagnostic uncertainty of home [...] 30 mg/mL injection solution 2024 025 [email or web address] [facility], [address] [facility], [facility] [address], [place], [place], [id number], 5 16:50:50 ketorolac 30 mg/mL (1 mL) injection solution 2023 024 rsullivan 84 [facility], [address] [facility] [address], [place], [place], [id number], 4 13:24:46 Patient TargetsNo targets recorded. Patient [...] /min 130 mm[Hg] 82 mm[Hg] Not Available [employer] 4 13:23:21 Date Recorded Body weight Body temperature Respiratory rate Heart rate Body height Oxygen saturation Oxygen saturation in Arterial blood by Pulse oximetry Systolic blood pressure Diastolic blood pressure Provider Name and Address Organization Details Last Updated DateTime 5 99741.5 04 g 97.8 [degF] 19 /min 73 /min 149.86 cm 95 % 95 % 166 mm[Hg] 77 mm[Hg] Not Available [employer] 5 16:49:00 Social History None recorded. Functional Status None recorded. Mental Status None recorded. Family History Nothing Reported. Medical History No medical history recorded. Gynecological HistoryNo gynecological history recorded. Obstetrics History GPAL:G 0 P 0 0 0 0 Past Encounters Encounter ID Performer Location Encounter Start Date Encounter Closed Date Diagnosis/Indication Diagnosis SNOMED-CT Code Diagnosis ICD10 Code Diagnosis Note [id number] Roberth Escalona MD Main - [facility] [address] [place] [phone] 05/11/2024 13:23:18 05/11/2024 19:04:19 Chronic low back pain [id number] M54.50 [id number] JUAN DIEGO AMARAL MD Main - [facility] [address] [place] [address] 11/28/2024 16:48:58 01/10/2025 17:15:31 Low back pain 637569926 M54.50 Health Concerns Section Related Observation LastModified by Organization Detai ls LastModified Time None Recorded Concern Status LastModified by Organization Details LastModified Time None Recorded Advance Directives Directive None Recorded Payers Encounter Date Sequence Insurance Name Policy Number Policy Sood Covered Member ID Sood Member ID Guarantor Name 05/11/2024 1 [facility] - DOS ON OR AFTER 2022 - DUAL ELIGIBLE - FDC OPTIONS AND ONE CARE (MEDICARE REPLACEMENT/AD VANTAGE - HMO) Kiersten Park [id number] Kiersten Park 11/28/2024 1 [facility] - DOS ON OR AFTER 2022 - DUAL ELIGIBLE - FDC OPTIONS AND ONE CARE (MEDICARE REPLACEMENT/AD VANTAGE - HMO) Kiersten Park [id number] Kiersten Park Notes Date Note Type Note [...] ................... ................... ................... ................... ................... ................... ........ Gold Leaf Gilder Note From Joel Elizabeth: Dispatched to the [...] ................... ........ Disposition: Fulfilled Roberth Escalona MD [address] [place] [address],[address], [place], [address], [facility] 05/11/2024 14:27:37 11/28/2024 text/html CRC Nurse Triage [...] - :10 Comments: Additional PMH: Rheumatoid Arthritis Brazer Assembler verified the patient's name//address and phone number. [...] ................... ................... ................... ................... ................... ................... ........ Gold Leaf Gilder Note From Jhonathan Quijano: Pt chief complaint today of chronic lower left back pain, to states that signs and symptoms have been occurring since 4 days prior to [facility] visit today, pt stated [...] with a GCS of 15. Positive csm. [facility] Juan Diego Amaral consulted Pt given 30 mg of intramuscular ketorlac via the left deltoid. Pt informed to contact her pcp as early as possible as needed. Pt informs of red flag S&S and informed to call emergency services if any present. [facility] Medication Orders: ketorolac 30 mg/mL injection solution: Administered ................... ................... ................... ................... ................... ................... ................... ........ [facility] Consulted: Juan Diego Amaral ................... ................... ................... ................... ................... ................... ................... ........ Disposition: Fulfilled JUAN DIEGO AMARAL MD [address] [facility],[address], [place], [address], [facility] 11/28/2024 17:41:52 OBGyn Episode No OBEpisode recorded.
--- OUTSIDE RECORDS SUMMARY | 2025-01-23 11:34 | XMS_ITS | Encounter Summary ---
Author Organization [employer] Address [address] [facility] 7t [place] [address] Care Team Providers Care Etiologist Name Role Phone Veda Dawson MD Primary Care Provider [phone] Reason for Visit * Reason Comments Med Refill Encounter Details Date Type Department Care Team ([facility] st Contact Info) Description 08/01/2024 Refill [facility] MEDICINE [address] [place] [address] Veda Dawson MD [address] [place] [address] Social History Tobacco Use Types Packs/Day Years [...] on filedocumented in this encounter Care Teams Etiologist Relationship Specialty Start Date End Date Veda Dawson MD [address] [place] [address] PCP - General Family Medicine 02/21/20 11/22/24 documented as of this encounter
--- NOTE | 2025-01-23 14:58 | A.OFFVIS_ITS ---
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 Allergies pineapple [PINEAPPLE] Adverse Reaction (Severe, Verified 12/20/24 15:54) DIARRHEA Medication List - Last Reconciled 01/23/25 by Andreas Spence MD acetaminophen ER 650 mg PO Q8H 90 days albuterol sulfate 90 mcg/actuation (Ventolin HFA) 2 puffs inhalation Q6H PRN alendronate 70 mg PO QWEEK 90 days amlodipine 5 mg PO DAILY 90 days atorvastatin 20 mg PO DAILY 90 days [bath mat As directed] blood pressure monitor (Blood Pressure Kit) As directed bupropion HCl XL 150 mg PO DAILY 90 days calcium citrate-vitamin D3 200 mg-6.25 mcg (250 unit) 1 tab PO BID 30 days chlorthalidone 25 mg PO DAILY 90 days docusate sodium 100 mg PO BID 90 days escitalopram oxalate 20 mg PO DAILY 90 days [heating pad As directed] hydroxyzine HCl 10 mg PO BID incontinence pad, liner, disp Use 1 pad three times a day Incruse Ellipta 62.5 mcg/actuation (umeclidinium) 1 inh inhalation BEDTIME 30 days NS lorazepam (Ativan) 1 mg PO ONCE losartan 100 mg PO DAILY 90 days multivitamin with folic acid 400 mcg (Tab-A-Duarte) 1 tab PO DAILY 90 days omeprazole 40 mg PO DAILY 90 days [pillow- lumbar support As directed] pregabalin 200 mg PO BID 30 days selenium sulfide 1% (Dandruff Shampoo (selenium sulfide)) 5 mL topical 2XW 14 days tramadol 50 mg PO Q8H PRN 30 days trazodone 150 mg PO BEDTIME triamcinolone acetonide 0.1% 1 appl topical DAILY 30 days venlafaxine ER 75 mg PO BID walker (Ultra-Light Rollator misc) As directed [wipes As directed] HPI 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: Details: Start time: 2.56pm, End time: 3.41pm I spent 40 minutes speaking with the patient on the phone plus an additional 5 minutes reviewing and updating records for a total of 45 minutes HPI Comments Details: Previous weight loss efforts: Wegovy (lost 40lbs but regained since it was stopped) Wakes up: 8.30am, Sleeps: 10.30pm Breakfast: 9am (oatmeal, fruits, or Premier shake premade Lunch: 12pm (salad) Dinner: 5.30pm (fish, corn, potatoes) Snacks: None Exercise: pedals Beverages: Coffee: none, tea: none, soda: none, juice: V8, ETOH: none PFSH Medical History Mild recurrent major depression History of high cholesterol History of high blood pressure Right shoulder pain Restrictive lung disease Morbid obesity with BMI of 45.0-49.9, adult MAGGIE (generalized anxiety disorder) 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 Rheumatoid arthritis Insomnia Chronic back pain COPD (chronic obstructive pulmonary disease) Iron deficiency anemia Morbid obesity Fibromyalgia Chronic GERD Constipation by delayed colonic transit Hypovitaminosis D Pure hypercholesterolemia Severe major depression Surgical History H/O colonoscopy History of back surgery History of neck surgery Family History Mother Uterus cancer Breast cancer, Onset Age: 43 Diabetes Arthritis IBS (irritable bowel syndrome) Father Heart disease Sister Mental health disorder Brother Mental health disorder Social History Housing: Apartment Alcohol intake: never Patient Tobacco Use Status: Former Tobacco user Tobacco use type: Cigarette e-Cigarette/Vaping Use: Never Used Second Hand Smoke Exposure: No service: No Current occupational status: disabled 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) Hearing needs: No Vision needs: Yes Telehealth Telehealth Telehealth Platform: Telephone Location of provider rendering services: practice address Location of patient: address on file Patient Identification confirmed using: Name, : Yes Telehealth method: voice only Patient verbally consented to treatment: Yes Patient verbally consented to billing insurance company: Yes Patient informed of any privacy concerns related to visit: Yes Minutes spent on Phone/Video with Pt.: 45 Assessment & Plan Assessment & Plan (1) Morbid obesity with BMI of 40.0-44.9, adult: Code(s): E66.01 - Morbid (severe) obesity due to excess calories; Z68.41 - Body mass index [BMI] 40.0-44.9, adult Category: Medical Plan: 1. We discussed in detail the available therapeutic options: 1) her insurance requires a diagnosis of diabetes to cover anti-obesity medications. 2) We discussed about our lifestyle program that includes a meal and exercise plan. 3) We also discussed about the lap sleeve gastrectomy. I emphasized the importance of close follow-up, adherence to instructions and good communication. The surgery does not replace the need to change your lifestlyle which is the cause of the obesity problem. The surgery provides the motivation to try again to change your lifestyle, it reduces the appetite and make the transition to a better lifestyle easier and doubles the amount of weight you would lose compared to doing the lifestyle change without the surgery. You will need to be on a liquid diet with protein shakes for 2 weeks before surgery to maximize weight loss and boost your nutritional status to recover better from surgery and also for the first two weeks after surgery to let the stomach heal before we introduce other foods. After the first 2 weeks we will introduce protein bars and soft foods like scrambled eggs, cottage cheese and yogurt and after the 6th week will introduce meat, fish and cooked vegetables in small amounts. Over time you should be able to eat everything in small amounts. Side effects like nausea, vomiting, heartburn or abdominal pain are not common in the practice unless you are not following in the practice. This operation requires lifetime commitment to following in our practice and communication with me. You will much less weight and experience side effects if you don?t communicate or not following in the practice. Complications are rare and in our practice is about 1/10 of the national average. The patient will consider these options and get back to me with her decision.
[2025-01-23 15:20] VITALS: BMI 42.4
== END 2025-01-23 15:42 | disposition home or self-care (01) ==
LOC: HO.HBS 10:16
PROVIDERS: PCP Internal Medicine; Visit Provider Surgery
DX: E66.01 Morbid (severe) obesity due to excess calories (principal); Z68.41 Body mass index [BMI] 40.0-44.9, adult
CPT/HCPCS: 99204

== ENCOUNTER → 2025-01-23 10:16 | Outpatient (BNVA) | payer OTHER, SELFPAY | PROVIDERS: PCP Internal Medicine; Visit Provider Surgery ==

== ENCOUNTER 2025-02-03 09:25 | Day surgery (SDC) | payer OTHER, SELFPAY ==
--- OUTSIDE RECORDS SUMMARY | 2025-01-30 06:32 | XMS_ITS | Encounter Summary ---
Author Organization [employer] Address [address] [facility] 7t [place] [address] Care Team Providers Care Stranding Machine Operator Name Role Phone Veda Dawson MD Primary Care Provider [phone] Reason for Visit * Reason Comments Med Refill Encounter Details Date Type Department Care Team ([facility] st Contact Info) Description 08/01/2024 Refill [facility] MEDICINE [address] [place] [address] Veda Dawson MD [address] [place] [address] Social History Tobacco Use Types Packs/Day Years [...] on filedocumented in this encounter Care Teams Stranding Machine Operator Relationship Specialty Start Date End Date Veda Dawson MD 230 [place] [address] PCP - General Family Medicine 02/21/20 11/22/24 documented as of this encounter
--- OUTSIDE RECORDS SUMMARY | 2025-01-30 06:32 | XMS_ITS | Encounter Summary ---
Author Organization [employer] Address [address] [facility] [address] [place] [address] Care Team Providers Care Teacher Education Instructor Name Role Phone Veda Dawson MD Primary Care Provider [phone] Reason for Visit * Reason Comments Med Refill Encounter Details Date Type Department Care Team ([facility] st Contact Info) Description 10/06/2024 Refill [facility] [address] [place] [address] Veda Dawson MD [address] [place] [address] Social History Tobacco Use Types Packs/Day Years [...] on filedocumented in this encounter Care Teams Teacher Education Instructor Relationship Specialty Start Date End Date Veda Dawson MD [address] [place] [address] PCP - General Family Medicine 02/21/20 11/22/24 documented as of this encounter
--- OUTSIDE RECORDS SUMMARY | 2025-01-30 06:32 | XMS_ITS | Encounter Summary ---
Author Organization [employer] Address [address] [facility] [address] [place] [address] Care Team Providers Care Benefits Sales Consultant Name Role Phone Veda Dawson MD Primary Care Provider [phone] Reason for Visit * Reason Comments Med Refill Encounter Details Date Type Department Care Team ([facility] st Contact Info) Description 04/11/2024 Refill [facility] [address] [place] [address] Veda Dawson MD [address] [place] [address] Social History Tobacco Use Types Packs/Day Years [...] on filedocumented in this encounter Care Teams Benefits Sales Consultant Relationship Specialty Start Date End Date Veda Dawson MD [address] [place] [address] PCP - General Family Medicine 02/21/20 11/22/24 documented as of this encounter
--- OUTSIDE RECORDS SUMMARY | 2025-01-30 06:32 | XMS_ITS | Data Portability ---
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 Evaluation in the field was performed by my tattoo designer colleague, as noted above, I provided real-time [...] back pain symptoms to be re-evaluated for. Not available 05/11/2024 13:29:27 11/28/2024 11/28/2024 Mrs. [...] Assessment and Plan as documented by the Pencil Inspector. We discussed the diagnostic uncertainty of home [...] 30 mg/mL injection solution 2024 025 [email or web address] [facility], [address] [facility], [facility] [address], [place], [place], [phone], 5 16:50:50 ketorolac 30 mg/mL (1 mL) injection solution 2023 024 [email or web address] [facility], [address] [facility] [address], [place], [place], [phone], 4 13:24:46 Patient TargetsNo targets recorded. Patient [...] /min 130 mm[Hg] 82 mm[Hg] Not Available e(ye)BRAIN 4 13:23:21 Date Recorded Body weight Body temperature Respiratory rate Heart rate Body height Oxygen saturation Oxygen saturation in Arterial blood by Pulse oximetry Systolic blood pressure Diastolic blood pressure Provider Name and Address Organization Details Last Updated DateTime 5 [address]35.5 04 g 97.8 [degF] 19 /min 73 /min 149.86 cm 95 % 95 % 166 mm[Hg] 77 mm[Hg] Not Available e(ye)BRAIN 5 16:49:00 Social History None recorded. Functional Status None recorded. Mental Status None recorded. Family History Nothing Reported. Medical History No medical history recorded. Gynecological HistoryNo gynecological history recorded. Obstetrics History GPAL:G 0 P 0 0 0 0 Past Encounters Encounter ID Performer Location Encounter Start Date Encounter Closed Date Diagnosis/Indication Diagnosis SNOMED-CT Code Diagnosis ICD10 Code Diagnosis Note [id number] Roberth Escalona MD [facility] [address] [place] [phone] 05/11/2024 13:23:18 05/11/2024 19:04:19 Chronic low back pain 517527286 M54.50 [id number] JUAN DIEGO AMARAL MD [facility] [address] [place] [phone] 11/28/2024 16:48:58 01/10/2025 17:15:31 Low back pain 884846095 M54.50 Health Concerns Section Related Observation LastModified by Organization [employer] LastModified Time None Recorded Concern Status LastModified by Organization Details LastModified Time None Recorded Advance Directives Directive None Recorded Payers Insurance Date Sequence Insurance Name Policy Number Policy Sood Covered Member ID Sood Member ID Guarantor Name 01/10/2025 1 [facility] - DOS ON OR AFTER 2022 - DUAL ELIGIBLE - SNF OPTIONS AND ONE CARE (MEDICARE REPLACEMENT/AD VANTAGE - HMO) Kiersten Park [id number] Kiersten Park Notes Date Note Type Note [...] ................... ................... ................... ................... ................... ................... ........ Pencil Inspector Note From Joel Elizabeth: Dispatched to the [...] ................... ........ Disposition: Fulfilled Roberth Escalona MD [address] [place] [address],[address], [place], [phone], [employer] 05/11/2024 14:27:37 11/28/2024 text/html CRC Nurse Triage [...] Pain, Depression PMH Reviewed at 11/28/2024 - 12:10 Allergies Reviewed at 11/28/2024 - 12:10 Comments: Additional PMH: Rheumatoid Arthritis Captain/Check Airman verified the patient's name//address and phone number. [...] ................... ................... ................... ................... ................... ................... ........ Pencil Inspector Note From Jhonathan Quijano: Pt chief complaint today of chronic lower left back pain, to states that signs and symptoms have been occurring since 4 days prior to [facility] visit today, pt stated that she [...] with a GCS of 15. Positive csm. [facility] [place] Juan Diego Amaral consulted Pt given 30 mg of intramuscular ketorlac via the left deltoid. Pt informed to contact her pcp as early as possible as needed. Pt informs of red flag S&S and informed to call emergency services if any present. [facility] [place] Medication Orders: ketorolac 30 mg/mL injection solution: Administered ................... ................... ................... ................... ................... ................... ................... ........ [facility] [place] Consulted: Juan Diego Amaral ................... ................... ................... ................... ................... ................... ................... ........ Disposition: Fulfilled JUAN DIEGO AMARAL MD [address] [place] [address] [facility], [place], [phone], [employer] 11/28/2024 17:41:52 OBGyn Episode No OBEpisode recorded.
--- OUTSIDE RECORDS SUMMARY | 2025-01-30 06:32 | XMS_ITS | Clinical Summary ---
Author Organization [employer] Address [address] [place] [address] Care Team Providers Care Waterworks Employee Name Role Phone Unavailable Primary Care Provider [...]
--- NOTE | 2025-02-01 12:40 | P.CONAN_ITS ---
Documented by User: Daksha Little NP 02/01/25 12:42 HPI - Anesthesia Eval Consult details Narrative: 64yo F for Upper Endoscopy BMI 42.5 PMFSH Active Problems Active Problems: All Active Problems Morbid obesity with BMI of 40.0-44.9, adult (Acute) Moderate recurrent major depression (Acute) Pre-op evaluation (Acute) Essential hypertension (Acute) Intractable back pain (Acute) Thoracic spondylosis (Acute) BPPV (benign paroxysmal positional vertigo) (Acute) Venous (peripheral) insufficiency (Acute) Physical exam (Acute) Right hip pain (Acute) Left hip pain (Acute) Urge urinary incontinence (Acute) Myofascial pain (Acute) Greater trochanteric pain syndrome (Acute) Cervicalgia (Acute) Intractable back pain (Acute) Lumbar degenerative disc disease (Acute) Post laminectomy syndrome (Acute) Tendinitis of right rotator cuff (Acute) Osteoarthritis of right acromioclavicular joint (Acute) Chest pain (Acute) Lumbar back pain with radiculopathy affecting left lower extremity (Acute) Lumbar spondylosis (Acute) Osteoarthritis of right shoulder (Acute) Right shoulder pain (Acute) Essential hypertension (Acute) Restrictive lung disease (Acute) Thoracic spine pain (Acute) Screening for cervical cancer (Acute) Physical exam (Acute) Osteoarthritis of left knee (Acute) Left leg pain (Acute) Osteoporosis (Acute) MAGGIE (generalized anxiety disorder) (Acute) 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 (Acute) Rheumatoid arthritis (Acute) Insomnia (Acute) Chronic back pain (Acute) COPD (chronic obstructive pulmonary disease) (Acute) Iron deficiency anemia (Acute) Fibromyalgia (Acute) Chronic GERD (Acute) Constipation by delayed colonic transit (Acute) Hypovitaminosis D (Acute) Pure hypercholesterolemia (Acute) Past Medical History Medical History Mild recurrent major depression History of high cholesterol History of high blood pressure Right shoulder pain Restrictive lung disease Morbid obesity with BMI of 45.0-49.9, adult MAGGIE (generalized anxiety disorder) 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 Rheumatoid arthritis Insomnia Chronic back pain COPD (chronic obstructive pulmonary disease) Iron deficiency anemia Morbid obesity Fibromyalgia Chronic GERD Constipation by delayed colonic transit Hypovitaminosis D Pure hypercholesterolemia Severe major depression Family History Family History Mother Uterus cancer Breast cancer, Onset Age: 43 Diabetes Arthritis IBS (irritable bowel syndrome) Father Heart disease Sister Mental health disorder Brother Mental health disorder Family history of problems with anesthesia: No Surgical History Surgical History H/O colonoscopy History of back surgery History of neck surgery History of Problems with Anesthesia: No Social History Social History Housing: Apartment Alcohol intake: never Patient Tobacco Use Status: Former Tobacco user Tobacco use type: Cigarette e-Cigarette/Vaping Use: Never Used Second Hand Smoke Exposure: No Advance Directives: No Advance Directives Information Provided: Yes service: No Current occupational status: disabled 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) Hearing needs: No Vision needs: Yes Meds Allergies Allergy/AdvReac Type Severity Reaction Status Date / Time pineapple [PINEAPPLE] AdvReac Severe DIARRHEA Verified 02/03/25 09:44 Home Medications ?Medication ?Instructions ?Recorded ?Confirmed ?Last Taken ?Type venlafaxine 75 mg capsule,extended 75 mg PO BID 01/14/22 01/23/25 Unknown History release 24 hr hydroxyzine HCl 10 mg tablet 10 mg PO BID 12/15/24 01/23/25 Unknown History trazodone 150 mg tablet 150 mg PO BEDTIME 12/15/24 01/23/25 Unknown History Exam Narrative Narrative: EKG 10/2024 Vent. Rate : 69 BPM Atrial Rate : 69 BPM P-R Int : 140 ms QRS Dur : 72 ms QT Int : 380 ms P-R-T Axes : 47 39 51 degrees QTcB Int : 407 ms Normal sinus rhythm Normal ECG When compared with ECG of 19-Jun-2023 03:23, No significant change was found Assessment and Plan Assessment Anesthesia Assessment: Chart Reviewed Final Anesthetic Review Family History of Problems with Anesthesia: No History of Problems with Anesthesia: No Documented by User: Mago Love MD 02/03/25 09:47 [facility] Past Medical History Medical History Mild recurrent major depression History of high cholesterol History of high blood pressure Right shoulder pain Restrictive lung disease Morbid obesity with BMI of 45.0-49.9, adult MAGGIE (generalized anxiety disorder) 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 Rheumatoid arthritis Insomnia Chronic back pain COPD (chronic obstructive pulmonary disease) Iron deficiency anemia Morbid obesity Fibromyalgia Chronic GERD Constipation by delayed colonic transit Hypovitaminosis D Pure hypercholesterolemia Severe major depression Family History Family History Mother Uterus cancer Breast cancer, Onset Age: 43 Diabetes Arthritis IBS (irritable bowel syndrome) Father Heart disease Sister Mental health disorder Brother Mental health disorder Surgical History Surgical History H/O colonoscopy History of back surgery History of neck surgery Social History Social History Housing: Apartment Alcohol intake: never Patient Tobacco Use Status: Former Tobacco user Tobacco use type: Cigarette e-Cigarette/Vaping Use: Never Used Second Hand Smoke Exposure: No Advance Directives: No Advance Directives Information Provided: Yes service: No Current occupational status: disabled 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) Hearing needs: No Vision needs: Yes Meds Allergies Allergy/AdvReac Type Severity Reaction Status Date / Time pineapple [PINEAPPLE] AdvReac Severe DIARRHEA Verified 02/03/25 09:44 Home Medications ?Medication ?Instructions ?Recorded ?Confirmed ?Last Taken ?Type venlafaxine 75 mg capsule,extended 75 mg PO BID 01/14/22 01/23/25 Unknown History release 24 hr hydroxyzine HCl 10 mg tablet 10 mg PO BID 12/15/24 01/23/25 Unknown History trazodone 150 mg tablet 150 mg PO BEDTIME 12/15/24 01/23/25 Unknown History Exam Airway Mallampati Class: III (one loosevmolar bottom left) TM Dist: >3cm Neck ROM: Poor (limited in all directions) Heart: rrr Lungs: cta Assessment and Plan Assessment Anesthesia Assessment: Anesthesia Plan Discussed Final Anesthetic Review NPO: Yes ASA Class: III Final Preanesthetic Review: No Changes in Pt Med Stat, Meds/Allgs Chart Reviewed and Consent Obtained/Reviewed Patient Risk: Intermediate Procedure Risk: Intermediate Anesthetic Plan Anesthetic Plan: MAC: Disposition: Standard PACU
[2025-02-03 09:55] VITALS: BP 149/83; PULSE 85; RESP 18; TEMP 36.6; O2SAT 95; BMI 41.9
[2025-02-03] MEDS: Lactated Ringers 1,000 ML 80 ML IVCONT (10:01)
--- NOTE | 2025-02-03 10:14 | P.HPSUR_ITS ---
Pre-Procedural Eval Section A - 24 Hr Update-Section A only Date of Service: 02/03/25 The patient is an INPATIENT: No The patient has been examined within 24 hours of the surgical procedure. The History & Physical has been completed within 30 days and I have reviewed it.: Yes Section B - Complete if H&P > 30 days Chief Complaint: Morbid (severe) obesity due to excess calories Details of Present Illness: GERD Relevant Family History (Specify if Yes): No Relevant Social History: None Present Medications: None Medical History: No relevant PMH History of Previous Operations: No relevant previous surgery Allergies: Allergies Allergy/AdvReac Type Severity Reaction Status Date / Time pineapple [PINEAPPLE] AdvReac Severe DIARRHEA Verified 02/03/25 09:44 Review of Systems Sugical H&P ROS: Negative: Constitution, Cardiovascular, Respiratory, Neurological, Psychiatric, Hem-Onc, Allergic/Immunologic, Gastrointestinal, Genitourinary, Musculoskeletal, Integumentary, Endocrine and Eyes/Ear s/Nose/Throat Exam Surgical H&P Exam: Normal: HEENT, Normal: Heart, Normal: Lungs, Normal: Extremities, Normal: Abdomen, Normal: Skin and Normal: Neurological Plan Diagnosis/Plan: Unchanged (EGD to assess etiology of GERD. Risks of bleeding and perforation were discussed with the patient and she is in agreement with the plan.) I have reviewed the history and physical and performed a pertinent physical examination on my patient. No changes have occurred unless specified. Time Spent With Patient Time: Total time managing care of this patient today ____ minutes.
--- NOTE | 2025-02-03 10:18 | P.BOP_ITS ---
Brief Operative Note Date of Service: 02/03/25 Pre-op diagnosis: GERD Post-op diagnosis: same Procedure: PROCEDURE DATE: 02/03/2025 PREOPERATIVE DIAGNOSIS: GERD POSTOPERATIVE DIAGNOSIS: ?Same as above. 1) Small diaphragmatic hernia PROCEDURE: [id number] with biopsies Surgeon: ?Pierre Spence M.D.. Ph.D. Global Professional: None ? Anesthesia: IV sedation Estimated blood loss: ?Minimal FINDINGS AND PROCEDURE: ? OPERATIVE INDICATIONS: ?The patient is a 64 year old female known to me who is interested in bariatric surgery. The patient has severe GERD. Based on this information I recommended an upper endoscopy to evaluate the patient's symptoms. Risks and complications of the surgery were discussed with the patient in advance particularly the possibility of perforation or bleeding that may require surgical intervention. The patient understood the risks and was in agreement with the plan. ? PROCEDURE: After informed consent was obtained by the patient, the patient was ?transferred to the Operating Room and was placed in the supine position.? After successful induction of IV sedation, a mouth block was inserted and the patient was placed in the left lateral decubitus position. An upper endoscopy was performed next, the oropharynx and esophagus appeared within thenormal limits. There was a small fixed 2-3cm diaphragmatic hernia. The z-line was smooth. Two biopsies were obtained from the distal esophagus 2-3 cm proximal to the GE junction and two additional biopsies from the GE junction. The stomach was entered and it appeared to be of normal size. There was no gastritis. There was no stricture or ulcer. A biopsy was obtained from the gastric fundus and the antrum. No significant bleeding was noted from any of the biopsy sites. Retroflexion of the scope confirmed the presence of a small diaphragmatic hernia. The scope was then advanced into the duodenum which appeared to be normal as well. At that point the duodenum ?and the stomach were decompressed and the scope was withdrawn from the patient's mouth. The patient extubated and was transferred in stable condition to the Recovery Room for further care. I was present and performed all steps of the procedure. There were no residents to assist with this case. Pierre Spence M.D., Ph.D. Surgeon: Andreas Spence MD Anesthesia: MAC Was an Global Professional used for this Procedure?: No Estimated blood loss (mL): 0 IV fluids (mL): 400 Urine output (mL): 0 (No Taveras to record output) Pathology: other (1) antrum x1, 2) fundus x1, 3) GE junction x2, 4) distal esophagus x2) Condition: stable Disposition: PACU
[2025-02-03 10:33] VITALS: BP 116/59; PULSE 86; RESP 16; TEMP 36.1; O2SAT 91
[2025-02-03 10:48] VITALS: BP 127/82; PULSE 79; RESP 16; TEMP 36.1; O2SAT 94
== END 2025-02-03 11:15 | disposition home or self-care (01) ==
PROVIDERS: PCP Internal Medicine; Visit Provider Surgery
PROC: 0DJ08ZZ Inspection of Upper Intestinal Tract, Via Natural or Artificial Opening Endoscopic (ICD-10-PCS; CPT 43235; principal; 2025-02-03 10:20)
DX: K21.9 Gastro-esophageal reflux disease without esophagitis (principal); E66.01 Morbid (severe) obesity due to excess calories; Z68.41 Body mass index [BMI] 40.0-44.9, adult; K44.9 Diaphragmatic hernia without obstruction or gangrene; K59.01 Slow transit constipation; E55.9 Vitamin D deficiency, unspecified; E78.00 Pure hypercholesterolemia, unspecified; G47.33 Obstructive sleep apnea (adult) (pediatric); F33.0 Major depressive disorder, recurrent, mild; F41.1 Generalized anxiety disorder; M06.9 Rheumatoid arthritis, unspecified; M79.7 Fibromyalgia; G89.29 Other chronic pain; M54.9 Dorsalgia, unspecified; J44.9 Chronic obstructive pulmonary disease, unspecified; J98.4 Other disorders of lung; D50.9 Iron deficiency anemia, unspecified; Z79.51 Long term (current) use of inhaled steroids; Z99.89 Dependence on other enabling machines and devices; Z79.899 Other long term (current) drug therapy; Z98.1 Arthrodesis status; Z98.890 Other specified postprocedural states; Z87.891 Personal history of nicotine dependence
CPT/HCPCS: 43239; 88305; 88313; 88342; J2003; J2704

== ENCOUNTER → 2025-02-03 09:25 | Outpatient (BNV) | payer OTHER, SELFPAY | PROVIDERS: PCP Internal Medicine; Visit Provider Surgery | DX: K44.0 Diaphragmatic hernia with obstruction, without gangrene (principal) | CPT/HCPCS: 43239 ==

== ENCOUNTER 2025-02-06 08:30 | Emergency (ER) | payer OTHER, SELFPAY ==
[2025-02-06 08:42] VITALS: BP 116/88; PULSE 95; RESP 22; TEMP 35.7; O2SAT 96; BMI 41.8
--- NOTE | 2025-02-06 09:21 | ED.BACK ---
HPI - Back Pain/Injury General Chief Complaint: Back Pain/Injury Stated Complaint: spine pain from neck down Time Seen by Provider: 02/06/25 09:18 Source: patient, RN notes reviewed and old records reviewed Mode of arrival: ambulatory History of Present Illness ED Provider: Kierra Gimenez PA-C HPI Narrative: 64-year-old female with a past medical history depression, HLD, HTN, 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, anxiety, COPD, obesity, fibromyalgia, chronic back pain, presenting to the ED complaining of entire back pain, radiating from neck to hips x yesterday. Reports some radiation down RLE. Admits symptoms are acute on chronic, has been taking Tylenol/Tramadol at home without improvement. Denies known injury, trauma, fall, heavy lifting, numbness, tingling, weakness, incontinence, retention, fever, abdominal pain. Reports pain worse with ambulation Related Data Home Medications ?Medication ?Instructions ?Recorded ?Confirmed venlafaxine 75 mg capsule,extended 75 mg PO BID 01/14/22 02/03/25 release 24 hr hydroxyzine HCl 10 mg tablet 10 mg PO BID 12/15/24 02/03/25 trazodone 150 mg tablet 150 mg PO BEDTIME 12/15/24 02/03/25 Previous Rx's ?Medication ?Instructions ?Recorded escitalopram oxalate 20 mg tablet 20 mg PO DAILY 90 days #90 tabs 10/21/22 blood pressure monitor (Blood #1 ea 11/01/22 Pressure Kit) selenium sulfide 1 % shampoo 5 ml topical 2XW 14 days #207 mL 11/03/23 (Dandruff Shampoo (selenium sulfide)) triamcinolone acetonide 0.1 % 1 appl topical DAILY 30 days #30 11/06/23 topical cream grams albuterol sulfate 90 mcg/actuation 2 puff inhalation Q6H PRN 02/17/24 aerosol inhaler (Ventolin HFA) bronchospasm #8.5 grams docusate sodium 100 mg capsule 100 mg PO BID 90 days #180 caps 03/31/24 walker (Ultra-Light Rollator misc) #1 ea 04/13/24 bath mat #1 ea 05/03/24 lorazepam 1 mg tablet (Ativan) 1 mg PO ONCE anxiety #1 tab 06/24/24 incontinence pad, liner, disp #90 ea 07/27/24 wipes #200 ea 07/27/24 Incruse Ellipta 62.5 mcg/actuation 1 inh inhalation BEDTIME 30 days 09/26/24 powder for inhalation #30 ea (umeclidinium) chlorthalidone 25 mg tablet 25 mg PO DAILY 90 days #90 tabs 11/08/24 amlodipine 5 mg tablet 5 mg PO DAILY 90 days #90 tabs 11/28/24 acetaminophen 650 mg 650 mg PO Q8H 90 days #270 tabs 12/09/24 tablet,extended release multivitamin with folic acid 400 1 tab PO DAILY 90 days #90 tabs 12/11/24 mcg tablet (Tab-A-Duarte) atorvastatin 20 mg tablet 20 mg PO DAILY 90 days #90 tabs 12/19/24 tramadol 50 mg tablet 50 mg PO Q8H PRN pain 30 days #90 12/20/24 tabs pregabalin 200 mg capsule 200 mg PO BID pain 30 days #60 caps 12/28/24 omeprazole 40 mg capsule,delayed 40 mg PO DAILY 90 days #90 caps 01/04/25 release alendronate 70 mg tablet 70 mg PO QWEEK 90 days #13 tabs 01/09/25 losartan 100 mg tablet 100 mg PO DAILY 90 days #90 tabs 01/09/25 bupropion HCl 150 mg 24 hr tablet, 150 mg PO DAILY 90 days #90 tabs 01/10/25 extended release calcium 200 mg (as 1 tab PO BID 30 days #60 tabs 01/10/25 citrate)-vitamin D3 6.25 mcg (250 unit) tablet heating pad #1 ea 01/11/25 pillow- lumbar support #1 ea 01/19/25 acetaminophen 500 mg tablet 500 mg PO Q6H PRN fever or pain 02/06/25 (Tylenol Extra Strength) #14 tabs cyclobenzaprine 10 mg tablet 10 mg PO TID PRN muscle spasm #10 02/06/25 tabs lidocaine 5 % topical patch 1 patch topical DAILY PRN pain #30 02/06/25 (Lidoderm) ea morphine 15 mg immediate release 15 mg PO Q6H PRN pain (scale score 02/06/25 tablet 7-10) 3 days #6 tabs naproxen 500 mg tablet 500 mg PO BID PRN pain 10 days #20 02/06/25 tabs Allergies Allergy/AdvReac Type Severity Reaction Status Date / Time pineapple [PINEAPPLE] AdvReac Severe DIARRHEA Verified 02/06/25 08:44 Review of Systems Review of Systems: Yes all other systems are reviewed and are negative Constitutional: Constitutional: Reports as per HPI Neurologic: Denies Sensory deficit (Neuro) [facility] Past Medical History Attestation statement: The following information was validated with the patient. Source: old records reviewed Medical History Mild recurrent major depression History of high cholesterol History of high blood pressure Right shoulder pain Restrictive lung disease Morbid obesity with BMI of 45.0-49.9, adult MAGGIE (generalized anxiety disorder) 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 Rheumatoid arthritis Insomnia Chronic back pain COPD (chronic obstructive pulmonary disease) Iron deficiency anemia Morbid obesity Fibromyalgia Chronic GERD Constipation by delayed colonic transit Hypovitaminosis D Pure hypercholesterolemia Severe major depression Surgical History H/O colonoscopy History of back surgery History of neck surgery Family History Family History Mother Uterus cancer Breast cancer, Onset Age: 43 Diabetes Arthritis IBS (irritable bowel syndrome) Father Heart disease Sister Mental health disorder Brother Mental health disorder Social History Social History Housing: Apartment Are you a primary menagerie caretaker to a significant other at home: No Do you presently have visiting nurse or other home services: No Alcohol intake: never Patient Tobacco Use Status: Former Tobacco user Tobacco use type: Cigarette e-Cigarette/Vaping Use: Never Used Second Hand Smoke Exposure: No Advance Directives: No Advance Directives Information Provided: Yes service: No Current occupational status: disabled 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) Hearing needs: No Vision needs: Yes Physical Exam Vital Signs: Vital Signs: Last Vital Signs Temp 96.3 F L 02/06/25 08:42 Pulse 95 02/06/25 08:42 Resp 22 H 02/06/25 08:42 BP 116/88 02/06/25 08:42 Pulse Ox 96 02/06/25 08:42 O2 Del Method Room Air 02/06/25 08:42 BMI result Body Mass Index 41.8 Const: Other: Tearful General: cooperative and no acute distress Orientation/consciousness: patient oriented x3 Limitations: no limitations HEENT: Head: Yes normal to inspection and Yes atraumatic Ears: hearing grossly normal bilaterally General nose exam: Normal external nose present Face and sinus: Yes normal facial exam Eyes: General: appearance normal, both eyes and all related structures EOM: EOMs intact bilaterally Neck: Neck: Yes normal visual inspection and Yes no meningeal signs Resp: Effort & Inspection: normal respiratory effort and no respiratory distress Cardio: Rate: regular rate GI: Inspection: Yes normal to inspection Palpation (GI): Soft to palpation, nontender, no guarding and not rigid : General: Yes no CVA tenderness Back/Spine/Pelvis: Other: No midline cervical/thoracic/lumbar spinous tenderness/step-off or deformity. + bilateral paraspinal thoracic and lumbar diffuse reproducible tenderness to palpation. + MSK tenderness to palpation. No swelling, no rash/erythema or ecchymosis Back: no CVA tenderness Skin: Rashes: no rashes Wounds: no wounds Neuro: Other: Strength intact throughout. No saddle anesthesia. Sensation intact to light touch. Neurovascular intact distally General: patient oriented x3, tone normal and no meningeal signs Cranial nerves: Yes CN's II-XII intact bilaterally Sensory Exam: No Sensory deficit (Neuro) Extrem: General: Yes normal to inspection Course Course Course Narrative: -1206--on re-evaluation patient reports symptomatic improvement, feels comfortable w/ discharge at this time. Changing positions in stretcher comfortably. Results discussed with patient including worrisome signs and symptoms and strict return precautions, and when to return to the emergency department. They verbalized understanding and feel safe for discharge at this time. Medications Administered Discontinued Medications Generic Name Dose Route Start Last Admin Trade Name Yefriq PRN Reason Stop Dose Admin Cyclobenzaprine HCl 10 mg 02/06/25 09:28 02/06/25 09:57 Cyclobenzaprine Hcl 10 Mg Tablet PO 02/06/25 09:29 10 mg ONCE ONE Administration Ketorolac Tromethamine 30 mg 02/06/25 09:28 02/06/25 09:57 Ketorolac Tromethamine 30 Mg/Ml Vial IM 02/06/25 09:29 30 mg ONCE ONE Administration Lidocaine 1 patch 02/06/25 09:28 02/06/25 09:57 Lidocaine 4 % Patch Adh..Patch TRANSDERMA 02/06/25 09:29 1 patch ONCE ONE Administration Protocol Morphine Sulfate 15 mg 02/06/25 11:22 02/06/25 11:47 Morphine Sulfate Immed Release 15 Mg Tablet PO 02/06/25 11:23 15 mg ONCE ONE Administration Medical Decision Making Medical Decision Making MDM Narrative: 64-year-old female with a past medical history depression, HLD, HTN, 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, anxiety, COPD, obesity, fibromyalgia, chronic back pain, presenting to the ED complaining of entire back pain, radiating from neck to hips x yesterday. On exam tachypneic, NAD, tearful, nontoxic appearing, no midline spinous tenderness throughout or red flag symptoms. PE as above. Concern for acute on chronic back pain vs herniated disc vs sciatica vs MSK spasm. Low suspicion for cauda equina, cord compression, epidural abscess, renal stone, intra-abdominal pathology or fracture Plan: Pain management Please refer to course for remaining clinical decision making, interpretation of labs/imaging results, and discussions with consultants and/or family members. Differential Diagnosis Differential Diagnoses: The differential diagnosis associated with the presentation includes As above Admission/Observation Consideration of admission/observation: Escalation of care including admission/observation considered Lab Data [facility] Lab Attestation statement: I reviewed the patient's lab results. Radiology Impression Discussion of test interpretation with radiology: I have reviewed the radiologist's reading. Independent Historian Clinical information obtained from an independent historian. History obtained from or confirmed by: Other External Record Review External record reviewed: Inpatient record, Office record, Outpatient record, Prior outpatient labs, Prior outpatient radiology, Primary care record and Outside ED record Tests considered The following testing was considered but not selected: As above Prescription Management I considered prescription management with: Pain Medication and Other Chronic Conditions Patient?s care impacted by: Hypertension and Other Social Determinants Patient?s care significantly limited by Social Determinants of Health including: Alcoholism and drug addiction in family and Problems related to primary support group Discharge Plan Discharge Clinical Impression: Acute on chronic back pain Patient Disposition: Home, Self-Care Instructions: Acute Low Back Pain (ED) Additional Instructions: Your pain is likely musculoskeletal. You need to follow up with the primary care doctor and pain management Flexeril is a muscle relaxer, take at night as it makes you drowsy, do not drive, drink alcohol, or operate machinery while taking it Naproxen as an anti-inflammatory / pain medication, take with food Lidoderm patches are numbing patches, apply to painful area In addition take Tylenol at home Morphine as an opiate pain medication, take only when pain is severe for the next 3 days If symptoms persist or worsen, pain becomes unbearable, you developed urinary retention or incontinence, or weakness return to the ED Prescriptions: New cyclobenzaprine 10 mg tablet 10 mg PO TID PRN (Reason: muscle spasm) Qty: 10 0RF acetaminophen [Tylenol Extra Strength] 500 mg tablet 500 mg PO Q6H PRN (Reason: fever or pain) Qty: 14 0RF lidocaine [Lidoderm] 5 % adhesive patch,medicated 1 patch topical DAILY MDD remove after 12 hours PRN (Reason: pain) Qty: 30 0RF Rx Instructions: leave on most painful area for up to 12 hrs morphine 15 mg tablet 15 mg PO Q6H PRN (Reason: pain (scale score 7-10)) 3 Days Qty: 6 0RF Rx Instructions: Partial Fill upon patient request. naproxen 500 mg tablet 500 mg PO BID PRN (Reason: pain) 10 Days Qty: 20 0RF No Action escitalopram oxalate 20 mg tablet 20 mg PO DAILY 90 Days Qty: 90 1RF (DME) blood pressure monitor [Blood Pressure Kit] Kit See Rx Instructions .Route Qty: 1 0RF Rx Instructions: As directed Dandruff Shampoo (selenium) 1 % shampoo 5 ml topical 2XW 14 Days Qty: 207 2RF Rx Instructions: lather into wet hair; leave in place for approximately 3 mins ; rinse triamcinolone acetonide 0.1 % cream 1 appl topical DAILY 30 Days Qty: 30 1RF albuterol sulfate [Ventolin HFA] 90 mcg/actuation HFA aerosol inhaler 2 puff inhalation Q6H PRN (Reason: bronchospasm) Qty: 8.5 0RF docusate sodium 100 mg capsule 100 mg PO BID 90 Days Qty: 180 1RF (DME) Ultra-Light Rollator Misc See Rx Instructions .Route Qty: 1 0RF Rx Instructions: As directed (DME) bath mat See Rx Instructions .Route .MEDSUPPLY Qty: 1 0RF Rx Instructions: As directed (DME) incontinence pad, liner, disp Pad See Rx Instructions .Route Qty: 90 11RF Rx Instructions: Use 1 pad three times a day (DME) wipes See Rx Instructions .Route .MEDSUPPLY Qty: 200 11RF Rx Instructions: As directed Incruse Ellipta 62.5 mcg/actuation blister with device 1 inh inhalation BEDTIME 30 Days Qty: 30 2RF chlorthalidone 25 mg tablet 25 mg PO DAILY 90 Days Qty: 90 0RF amlodipine 5 mg tablet 5 mg PO DAILY 90 Days Qty: 90 10RF acetaminophen 650 mg tablet extended release 650 mg PO Q8H 90 Days Qty: 270 0RF multivitamin with folic acid [Tab-A-Duarte] 400 mcg tablet 1 tab PO DAILY 90 Days Qty: 90 3RF atorvastatin 20 mg tablet 20 mg PO DAILY 90 Days Qty: 90 0RF pregabalin 200 mg capsule 200 mg PO BID 30 Days Qty: 60 2RF omeprazole 40 mg capsule,delayed release(DR/EC) 40 mg PO DAILY 90 Days Qty: 90 0RF alendronate 70 mg tablet 70 mg PO QWEEK 90 Days Qty: 13 10RF losartan 100 mg tablet 100 mg PO DAILY 90 Days Qty: 90 4RF calcium citrate-vitamin D3 200 mg-6.25 mcg (250 unit) tablet 1 tab PO BID 30 Days Qty: 60 0RF bupropion HCl 150 mg tablet extended release 24 hr 150 mg PO DAILY 90 Days Qty: 90 0RF (DME) heating pad x-lg See Rx Instructions .Route .MEDSUPPLY Qty: 1 0RF Rx Instructions: As directed (DME) pillow- lumbar support See Rx Instructions .Route .MEDSUPPLY Qty: 1 0RF Rx Instructions: As directed venlafaxine 75 mg capsule,extended release 24hr 75 mg PO BID lorazepam [Ativan] 1 mg tablet 1 mg PO ONCE Qty: 1 0RF Rx Instructions: Take 30 minutes prior to arrival to procedure tramadol 50 mg tablet 50 mg PO Q8H PRN (Reason: pain) 30 Days Qty: 90 0RF trazodone 150 mg tablet 150 mg PO BEDTIME hydroxyzine HCl 10 mg tablet 10 mg PO BID Referrals: [facility] Pain Management [Provider Group] - 1 week Riddhi Chan MD [Primary Care Provider] - 5 days Print Language: Choose Not To Answer
--- OUTSIDE RECORDS SUMMARY | 2025-02-06 09:33 | XMS_ITS | Encounter Summary ---
Author Organization [employer] Address [address] [facility] 7[address] [place] [address] Care Team Providers Care Drafter Construction Name Role Phone Veda Dawson MD Primary Care Provider [phone] Reason for Visit * Reason Comments Med Refill Encounter Details Date Type Department Care Team ([facility] st Contact Info) Description 04/11/2024 Refill [facility] [address] [place] [address] Veda Dawson MD [address] [place] [address] Social History Tobacco Use Types Packs/Day Years [...] on filedocumented in this encounter Care Teams Drafter Construction Relationship Specialty Start Date End Date Veda Dawson MD [address] [place] [address] PCP - General Family Medicine 02/21/20 11/22/24 documented as of this encounter
--- OUTSIDE RECORDS SUMMARY | 2025-02-06 09:33 | XMS_ITS | Encounter Summary ---
Author Organization [employer] Address [address] [facility] [address] [place] [address] Care Team Providers Care Claims Clerk Name Role Phone Veda Dawson MD Primary Care Provider [phone] Reason for Visit * Reason Comments Med Refill Encounter Details Date Type Department Care Team ([facility] st Contact Info) Description 08/01/2024 Refill [facility] [address] [place] [address] Veda Dawson MD [address] [place] [address] Social History Tobacco Use Types Packs/Day Years [...] on filedocumented in this encounter Care Teams Claims Clerk Relationship Specialty Start Date End Date Veda Dawson MD [address] [place] [address] PCP - General Family Medicine 02/21/20 11/22/24 documented as of this encounter
--- OUTSIDE RECORDS SUMMARY | 2025-02-06 09:33 | XMS_ITS | Clinical Summary ---
Author Organization [employer] Address [address] [facility] [address] [place] [address] Care Team Providers Care Feed Mixer Helper Name Role Phone Unavailable Primary Care Provider [...] patient's age to complete this topic Meningococcal B Vaccine Aged Out No l onger eligible based on patient's age to complete [...]
--- OUTSIDE RECORDS SUMMARY | 2025-02-06 09:33 | XMS_ITS | Encounter Summary ---
Author Organization [employer] Address [address] [facility] [address] [place] [address] Care Team Providers Care Station Cleaning Porter Name Role Phone Veda Dawson MD Primary Care Provider [phone] Reason for Visit * Reason Comments Med Refill Encounter Details Date Type Department Care Team ([facility] st Contact Info) Description 10/06/2024 Refill [facility] [address] [place] [address] Veda Dawson MD [address] [place] [address] Social History Tobacco Use Types Packs/Day Years [...] on filedocumented in this encounter Care Teams Station Cleaning Porter Relationship Specialty Start Date End Date Veda Dawson MD [address] [place] [address] PCP - General Family Medicine 02/21/20 11/22/24 documented as of this encounter
--- OUTSIDE RECORDS SUMMARY | 2025-02-06 09:34 | XMS_ITS | Data Portability ---
Author Organization [employer] [place] [employer] Address [address] [place] [phone] Care Team Providers Care Mandrel Maker Name Role Phone REI ALBERTO Primary Care Provider HIM NICKOLAS OTHER Assessment Encounter Date Assessment Date Assessment LastModified by Organization Details LastModified Time 05/11/2024 05/11/2024 As noted, we shruthi e called to see this patient regarding concerns of chronic low back pain. Evaluation in the field was performed by my linseed oil boiler colleague, as noted above, I provided real-time [...] back pain symptoms to be re-evaluated for. [email or web address] Not available 05/11/2024 13:29:27 11/28/2024 11/28/2024 Mrs. [...] Assessment and Plan as documented by the Racebook Writer. We discussed the diagnostic uncertainty of home [...] 30 mg/mL injection solution 2024 025 [email or web address] [facility], [address] [facility], [facility] [address], [place], [place], [id number], 5 16:50:50 ketorolac 30 mg/mL (1 mL) injection solution 2023 024 [email or web address] [facility], [address] [facility] [address], [place], [place], [id number], 4 13:24:46 Patient TargetsNo targets recorded. Patient [...] /min 130 mm[Hg] 82 mm[Hg] Not Available [facility] 4 13:23:21 Date Recorded Body weight Body temperature Respiratory rate Heart rate Body height Oxygen saturation Oxygen saturation in Arterial blood by Pulse oximetry Systolic blood pressure Diastolic blood pressure Provider Name and Address Organization Details Last Updated DateTime 5 [address]58[address].5 04 g 97.8 [degF] 19 /min 73 /min 149.86 cm 95 % 95 % 166 mm[Hg] 77 mm[Hg] Not Available [facility] 5 16:49:00 Social History None recorded. Functional Status None recorded. Mental Status None recorded. Family History Nothing Reported. Medical History No medical history recorded. Gynecological HistoryNo gynecological history recorded. Obstetrics History GPAL:G 0 P 0 0 0 0 Past Encounters Encounter ID Performer Location Encounter Start Date Encounter Closed Date Diagnosis/Indication Diagnosis SNOMED-CT Code Diagnosis ICD10 Code Diagnosis Note [id number] Roberth Escalona MD [facility] [address] [place] [phone] 05/11/2024 13:23:18 05/11/2024 19:04:19 Chronic low back pain 809287531 M54.50 [id number] JUAN DIEGO AMARAL MD [facility] [address] [place] [phone] 11/28/2024 16:48:58 01/10/2025 17:15:31 Low back pain [id number] M54.50 Health Concerns Section Related Observation LastModified [...] OR AFTER 2022 - DUAL ELIGIBLE - [facility] [employer] [facility] (MEDICARE REPLACEMENT/AD VANTAGE - HMO) [facility] [place] [id number] [facility] [place] Notes Date Note Type Note [...] ................... ................... ................... ................... ................... ................... ........ Racebook Writer Note From Joel Elizabeth: Dispatched to the [...] ................... ........ Disposition: Fulfilled Roberth Escalona MD [address] [place] [address],[address], [place], [phone], [employer] 05/11/2024 14:27:37 11/28/2024 text/html CRC Nurse Triage [...] - 12:10 Comments: Additional PMH: Rheumatoid Arthritis Cold Meat Cook verified the patient's name//address and phone number. [...] ................... ................... ................... ................... ................... ................... ........ Racebook Writer Note From Jhonathan Quijano: Pt chief complaint today of chronic lower left back pain, to states that signs and symptoms have been occurring since 4 days prior to [facility] visit today, pt stated that [...] with a GCS of 15. Positive csm. [facility] Juan Diego Amaral consulted Pt given 30 mg of intramuscular ketorlac via the left deltoid. Pt informed to contact her pcp as early as possible as needed. Pt informs of red flag S&S and informed to call emergency services if any present. [facility] Medication Orders: ketorolac 30 mg/mL injection solution: Administered ................... ................... ................... ................... ................... ................... ................... ........ [facility] Consulted: Juan Diego Amaral ................... ................... ................... ................... ................... ................... ................... ........ Disposition: Fulfilled JUAN DIEGO AMARAL MD [address] [place] [address] [facility], [place], [phone], [employer] [employer] 11/28/2024 17:41:52 OBGyn Episode No OBEpisode recorded.
[2025-02-06] MEDS: Ketorolac Tromethamine 30 MG/ML VIAL IM (09:57)
[2025-02-06] MEDS: Cyclobenzaprine HCl 10 MG TABLET PO (09:57)
[2025-02-06] MEDS: Lidocaine 4 % Patch ADH..PATCH 1 PATCH TRANSDERMA (09:57)
[2025-02-06] MEDS: Morphine Sulfate Immed Release 15 MG TABLET PO (11:47)
[2025-02-06 12:29] VITALS: BP 108/56; PULSE 65; RESP 18; TEMP 36.4; O2SAT 94
[2025-02-06 12:32] VITALS: BP 108/56; PULSE 65; RESP 18; TEMP 36.4; O2SAT 94
== END 2025-02-06 12:32 | disposition home or self-care (01) ==
PROVIDERS: Emergency Provider Emergency Medicine; PCP Internal Medicine
DX: G89.29 Other chronic pain (principal); M54.50 Low back pain, unspecified
CPT/HCPCS: 96372; 99284; J1885

== ENCOUNTER 2025-02-09 07:58 | Outpatient (REF) | payer OTHER, SELFPAY ==
--- OUTSIDE RECORDS SUMMARY | 2025-02-09 08:01 | XMS_ITS | Encounter Summary ---
Author Organization [employer] Address [address] [place] [address] [address] [place] [address] Care Team Providers Care Belt Back Operator Name Role Phone Veda Dawson MD Primary Care Provider [phone] Reason for Visit * Reason Comments Med Refill Encounter Details Date Type Department Care Team ([facility] st Contact Info) Description 08/01/2024 Refill [facility] [address] [place] [address] Veda Dawson MD [address] [place] [address] Social History Tobacco Use Types Packs/Day Years [...] on filedocumented in this encounter Care Teams Belt Back Operator Relationship Specialty Start Date End Date Veda Dawson MD [address] [place] [address] PCP - General Family Medicine 02/21/20 11/22/24 documented as of this encounter
--- OUTSIDE RECORDS SUMMARY | 2025-02-09 08:01 | XMS_ITS | Clinical Summary ---
Author Organization [employer] Address [address] [place] [address] [address] [place] [address] Care Team Providers Care Slab Lifting Engineer Name Role Phone Unavailable Primary Care Provider [...] 1961 FIT 1961 FOBT 1961 Sigmoidoscopy 1961 Disability Screening 1961 Alcohol/Substance Use Screening 1973 Tobacco Screening [...]
--- OUTSIDE RECORDS SUMMARY | 2025-02-09 08:01 | XMS_ITS | Encounter Summary ---
Author Organization [employer] Address [address] [place] [address] [address] [place] [address] Care Team Providers Care Physical Therapy Technician Name Role Phone Veda Dawson MD Primary Care Provider [phone] Reason for Visit * Reason Comments Med Refill Encounter Details Date Type Department Care Team ([facility] st Contact Info) Description 04/11/2024 Refill [facility] [address] [place] [address] Veda Dawson MD [address] [place] [address] Social History Tobacco Use Types Packs/Day Years [...] on filedocumented in this encounter Care Teams Physical Therapy Technician Relationship Specialty Start Date End Date Veda Dawson MD [address] [place] [address] PCP - General Family Medicine 02/21/20 11/22/24 documented as of this encounter
--- OUTSIDE RECORDS SUMMARY | 2025-02-09 08:01 | XMS_ITS | Encounter Summary ---
Author Organization [employer] Address [address] [place] [address] [address] [place] [address] Care Team Providers Care Tube Room Cashier Name Role Phone Veda Dawson MD Primary Care Provider [phone] Reason for Visit * Reason Comments Med Refill Encounter Details Date Type Department Care Team ([facility] st Contact Info) Description 10/06/2024 Refill [facility] [address] [place] [address] Veda Dawson MD [address] [place] [address] Social History Tobacco Use Types Packs/Day Years [...] on filedocumented in this encounter Care Teams Tube Room Cashier Relationship Specialty Start Date End Date Veda Dawson MD [address] [place] [address] PCP - General Family Medicine 02/21/20 11/22/24 documented as of this encounter
--- OUTSIDE RECORDS SUMMARY | 2025-02-09 08:01 | XMS_ITS | Data Portability ---
Author Organization [employer] Address [address] [place] [id number] Care Team Providers Care Ferryboat Pilot Name Role Phone REI ALBERTO Primary Care Provider [phone] HIM NICKOLAS OTHER Assessment Encounter Date Assessment Date Assessment LastModified by Organization Details LastModified Time 05/11/2024 05/11/2024 As noted, we shruthi e called to see this patient regarding concerns of chronic low back pain. Evaluation in the field was performed by my manager medical device colleague, as noted above, I provided real-time [...] back pain symptoms to be re-evaluated for. [email or web address] Not available 05/11/2024 13:29:27 11/28/2024 11/28/2024 Mrs. [...] Assessment and Plan as documented by the Foundation Digger. We discussed the diagnostic uncertainty of home [...] 30 mg/mL injection solution 2024 025 [email or web address] [facility], [address] [facility], [facility] [address], [place], [place], [id number], 5 16:50:50 ketorolac 30 mg/mL (1 mL) injection solution 2023 024 [email or web address] [facility], [address] [facility] [address], [place], [place], [id number], 4 13:24:46 Patient TargetsNo targets recorded. Patient [...] /min 130 mm[Hg] 82 mm[Hg] Not Available [employer] 4 13:23:21 Date Recorded Body weight Body temperature Respiratory rate Heart rate Body height Oxygen saturation Oxygen saturation in Arterial blood by Pulse oximetry Systolic blood pressure Diastolic blood pressure Provider Name and Address Organization Details Last Updated DateTime 5 16437.5 04 g 97.8 [degF] 19 /min 73 /min 149.86 cm 95 % 95 % 166 mm[Hg] 77 mm[Hg] Not Available [employer] 5 16:49:00 Social History None recorded. Functional Status None recorded. Mental Status None recorded. Family History Nothing Reported. Medical History No medical history recorded. Gynecological HistoryNo gynecological history recorded. Obstetrics History GPAL:G 0 P 0 0 0 0 Past Encounters Encounter ID Performer Location Encounter Start Date Encounter Closed Date Diagnosis/Indication Diagnosis SNOMED-CT Code Diagnosis ICD10 Code Diagnosis Note [id number] Roberth Escalona MD [facility] [address] [place] [id number] 05/11/2024 13:23:18 05/11/2024 19:04:19 Chronic low back pain 527334969 M54.50 [id number] JUAN DIEGO AMARAL MD [facility] [address] [place] [phone] 11/28/2024 16:48:58 01/10/2025 17:15:31 Low back pain 110508465 M54.50 Health Concerns Section Related Observation LastModified by Organization [employer] LastModified Time None Recorded Concern Status LastModified by Organization Details LastModified Time None Recorded Advance Directives Directive None Recorded Payers Insurance Date Sequence Insurance Name Policy Number Policy Sood Covered Member ID Sood Member ID Guarantor Name 01/10/2025 1 [facility] - DOS ON OR AFTER 2022 - DUAL ELIGIBLE - [employer] AND ONE [employer] (MEDICARE REPLACEMENT/AD VANTAGE - HMO) Kiersten Park [id number] [place]sten [place] Notes Date Note Type Note [...] ................... ................... ................... ................... ................... ................... ........ Foundation Digger Note From Joel Elizabeth: Dispatched to the [...] ........ Disposition: Fulfilled Roberth Escalona MD [address] [place] [address],[address], [place], [phone], [employer] 05/11/2024 14:27:37 11/28/2024 text/html CRC Nurse Triage [...] - 12:10 Comments: Additional PMH: Rheumatoid Arthritis Hoop Maker Machine verified the patient's name//address and phone number. [...] ................... ................... ................... ................... ................... ................... ........ Foundation Digger Note From Jhonathan Quijano: Pt chief complaint today of chronic lower left back pain, to states that signs and symptoms have been occurring since 4 days prior to [facility] visit today, pt stated that she [...] with a GCS of 15. Positive csm. [facility] Juan Diego Amaral consulted Pt given 30 mg of intramuscular ketorlac via the left deltoid. Pt informed to contact her pcp as early as possible as needed. Pt informs of red flag S&S and informed to call emergency services if any present. [facility] Medication Orders: ketorolac 30 mg/mL injection solution: Administered ................... ................... ................... ................... ................... ................... ................... ........ [facility] Consulted: Juan Diego Amaral ................... ................... ................... ................... ................... ................... ................... ........ Disposition: Fulfilled JUAN DIEGO AMARAL MD [address] [place] [address] [facility], [place], [phone], [employer] 11/28/2024 17:41:52 OBGyn Episode No OBEpisode recorded.
[2025-02-09 08:11] LABS: MANUAL DIFF FLAG NO
[2025-02-09 08:44] LABS: Basophils Percent Auto 0.7 % (0-2); Eosinophils Absolute Auto 0.2 X10*3/uL (0.0-0.4); Eosinophils Percent Auto 2.7 % (0-4); Hematocrit 39.4 % (37.0-47.0); Hemoglobin 13.3 g/dl (12.0-16.0); Imm Gran Abs Auto 0.03 X10*3/uL (0.00-0.03); Imm Gran Pct Auto 0.5 % (0.0-0.4); Lymphocytes Absolute Auto 1.7 X10*3/uL (1.2-4.9); Lymphocytes Percent Auto 29.3 % (20-40); Mean Corpuscular HGB Conc 33.8 g/dl (31.0-35.0); Mean Corpuscular Hemoglobin 28.4 pg (27.0-33.0); Mean Corpuscular Volume 84.2 fL (80.0-98.0); Mean Platelet Volume 10.6 fL (9.4-12.3); Monocytes Absolute Auto 0.4 X10*3/uL (0.1-1.2); Neutrophils Absolute Auto 3.5 x10*3/uL (2.0-8.3); Neutrophils Percent Auto 59.8 % (45-73); Platelet Count 240 X10*3/uL (160-400); Red Blood Count 4.68 X10*6/uL (4.20-5.50); White Blood Count 5.9 X10*3/uL (4.8-10.8)
[2025-02-09 09:05] LABS: Estimated Average Glucose 114 mg/dL; Hemoglobin A1c % 5.6 % (<6.0); Total Hemoglobin (HGBA1C) 3443.5425 umol/L
[2025-02-09 09:29] LABS: Alanine Aminotransferase 24 U/L (0-31); Albumin Level 4.1 g/dL (3.5-5.0); Alkaline Phosphatase 93 U/L (39-117); Anion Gap 13 (12-20); Aspartate Amino Transferase 20 U/L (5-31); Bilirubin Total 0.5 mg/dL (0.0-1.0); Blood Urea Nitrogen 17 mg/dL (9-16); C Reactive Protein 1.19 mg/dL (< or = 0.50); Calcium 9.5 mg/dL (8.4-10.2); Carbon Dioxide 23 mmol/L (22-29); Chloride 109 mmol/L (96-108); Cholesterol 143 mg/dL (<200); Estimated Glomerular Filt Rate > 60; Glucose Random 118 mg/dL (60-115); Iron 74 mcg/dL (30-160); Percent Iron Saturation 26 % (15-50); Potassium 3.8 mmol/L (3.3-5.1); Sodium 141 mmol/L (135-145); Total Iron Binding Capacity 281 mcg/dL (228-428); Total Protein 6.8 g/dL (6.5-8.0); Triglycerides 128 mg/dL (<150); Unsaturated Iron Binding 207 ug/dL
[2025-02-09 09:40] LABS: Ferritin 66 ng/mL (10-250); TSH reflex Free T4 2.11 uIU/mL (0.32-4.0); Vitamin D 25-OH Total 34.4 ng/mL (>30)
[2025-02-09 09:44] LABS: Folate 8.7 ng/mL (> or = 4.0); Vitamin B12 605 pg/mL (200-900)
[2025-02-09 11:16] LABS: HDL Cholesterol 51 mg/dL (>40); LDL Cholesterol Calculated 67 mg/dL (<100)
[2025-02-09 12:12] LABS: Insulin 17 uU/mL (2-29)
[2025-02-12 19:32] LABS: Zinc 68 mcg/dL (60-130)
[2025-02-13 01:33] LABS: Vitamin A 57 mcg/dL (38-98)
[2025-02-16 07:37] LABS: Vitamin B1 9 nmol/L (8-30)
== END 2025-02-09 07:59 | disposition home or self-care (01) ==
LOC: HO.LAB 07:58
PROVIDERS: PCP Internal Medicine; Visit Provider Surgery
DX: E66.01 Morbid (severe) obesity due to excess calories (principal); Z68.41 Body mass index [BMI] 40.0-44.9, adult; I10 Essential (primary) hypertension; E78.00 Pure hypercholesterolemia, unspecified; Z13.1 Encounter for screening for diabetes mellitus
CPT/HCPCS: 36415; 80053; 80061; 82306; 82607; 82728; 82746; 83036; 83525; 83540; 84425; 84443; 84590; 84630; 85025; 86140

== ENCOUNTER 2025-02-10 11:13 | Outpatient (AMB) | payer OTHER, SELFPAY ==
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
--- OUTSIDE RECORDS SUMMARY | 2025-02-10 11:19 | XMS_ITS | Clinical Summary ---
Author Organization [employer] Address [address] [place] [address] [address] [place] [address] Care Team Providers Care Compressor Operator Portable Name Role Phone Unavailable Primary Care Provider [...]
== END 2025-02-10 12:20 | disposition home or self-care (01) ==
LOC: HO.HBST 11:13
PROVIDERS: PCP Internal Medicine; Visit Provider Counselor Mental Health
DX: F33.1 Major depressive disorder, recurrent, moderate (principal); Z71.89 Other specified counseling
CPT/HCPCS: 90791

== ENCOUNTER 2025-02-10 11:13 | Outpatient (REF) | payer OTHER, SELFPAY ==
--- NOTE | ~2025-02-10 | XR_ITS ---
EXAMINATION: XR CHEST CLINICAL INFORMATION: E66.01 - Morbid (severe) obesity due to excess calories COMPARISON: November 25, 2022. TECHNIQUE: 2 views of the chest were obtained. FINDINGS: No consolidation, pleural effusion or pneumothorax. Cardiomediastinal silhouette size is normal. Multilevel thoracic spondylosis. Metallic plate lower cervical spine no fully included in the exam. XR/XR chest 2V IMPRESSION: No acute airspace disease. Stable chest. Electronically signed by: Rene Pantoja MD 02/10/2025 01:49 PM EDT
--- NOTE | 2025-02-10 13:25 | ECG_ITS ---
Test Reason : E66.01 Blood Pressure : */* mmHG Vent. Rate : 78 BPM Atrial Rate : 78 BPM P-R Int : 144 ms QRS Dur : 78 ms QT Int : 388 ms P-R-T Axes : 60 36 57 degrees QTcB Int : 442 ms Normal sinus rhythm Normal ECG When compared with ECG of 28-Oct-2024 13:31, No significant change was found Referred By: Andreas Spence Electronically Signed By: Carlos Rosales
== END 2025-02-10 11:14 | disposition home or self-care (01) ==
LOC: HO.XRAY 11:13
PROVIDERS: PCP Internal Medicine; Visit Provider Surgery
DX: E66.01 Morbid (severe) obesity due to excess calories (principal); Z68.41 Body mass index [BMI] 40.0-44.9, adult; I10 Essential (primary) hypertension; E78.00 Pure hypercholesterolemia, unspecified
CPT/HCPCS: 71046; 93005

== ENCOUNTER → 2025-02-10 13:25 | Outpatient (BNV) | payer OTHER, SELFPAY | PROVIDERS: PCP Internal Medicine; Visit Provider Internal Medicine Cardiovascular Disease | DX: E66.01 Morbid (severe) obesity due to excess calories (principal) | CPT/HCPCS: 93010 ==

== ENCOUNTER → 2025-02-10 13:26 | Outpatient (BNV) | payer OTHER, SELFPAY | PROVIDERS: PCP Internal Medicine; Visit Provider Radiology Diagnostic Radiology | DX: E66.01 Morbid (severe) obesity due to excess calories (principal) | CPT/HCPCS: 71046 ==

== ENCOUNTER 2025-03-01 09:15 | Outpatient (AMB) | payer OTHER, SELFPAY ==
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
--- OUTSIDE RECORDS SUMMARY | 2025-03-01 09:54 | XMS_ITS | Clinical Summary ---
Author Organization [facility] Address [address] [place] [address] [address] [place] [address] Care Team Providers Care Principal Programmer Name Role Phone Unavailable Primary Care Provider [...] season) 2024 09/11/2021, 12/25/2020, 11/27/2020 Influenza Vaccine (Season Ended) 2025 07/08/2023, 07/14/2022, 08/05/2021, Additional history exists DTaP/Tdap/Td Vaccines [...]
== END 2025-03-01 10:08 | disposition home or self-care (01) ==
LOC: HO.HBST 09:15
PROVIDERS: PCP Internal Medicine; Visit Provider Counselor Mental Health
DX: F33.1 Major depressive disorder, recurrent, moderate (principal); Z71.89 Other specified counseling
CPT/HCPCS: 90837

== ENCOUNTER → 2025-03-01 09:15 | Outpatient (BNVA) | payer OTHER, SELFPAY | PROVIDERS: PCP Internal Medicine; Visit Provider Counselor Mental Health ==

== ENCOUNTER 2025-03-07 13:07 | Outpatient (REF) | payer OTHER, SELFPAY ==
--- NOTE | ~2025-03-07 | MM_ITS ---
EXAMINATION: BONE DENSITOMETRY CLINICAL INDICATION: Menopausal state. COMPARISON: This is the patient's baseline examination. TECHNIQUE: Using a [employer] dual-energy x-ray absorptiometry was performed of the lumbar spine and left femur. The images are of good technical quality. Summary results are attached. FINDINGS: AP SPINE L1-L4: BMD 0.953 g/cm2, Z-score -1.4, T-score -1.9, normal appearance of bone density. LEFT FEMUR, NECK: BMD 0.963 g/cm2, Z-score 0.1, T-score -0.4, normal bone density of the neck. IDENTIFIED RISK FACTORS: Rheumatoid arthritis, secondary osteoporosis. HISTORY OF FRACTURE: Other fractures: None listed. MM/XR DEXA axial skeleton IMPRESSION: 1. DIAGNOSIS: Osteoporosis based on the lowest T-score value of -1.9 in the lumbar spine applying World Health Organization criteria. 2. 10-YEAR FRACTURE RISK PREDICTION, FRAX: Major osteoporotic fracture 4.8% and left hip 0.3%. 3. Recommendations: NOF guidelines recommend consideration for in postmenopausal women and men age 50 and older presenting with the following: -A hip or vertebral (clinical or morphometric) fracture. -T-score less than or equal to -2.5 at the femoral neck or spine after appropriate evaluation to exclude secondary causes. -Low bone mass at the hip or spine and a 10-year fracture probability by FRAX of greater than or equal to 3% for hip fracture or greater than or equal to 20% for major osteoporotic fracture based on the [place] adapted WHO algorithm. 4. All treatment decisions require clinical judgment and consideration of individual patient factors, including patient preferences, comorbidities, previous drug use, risk factors not captured in the FRAX model and possible under or overestimation of fracture risk by fractures. Additional medical evaluation for secondary causes of lobe bone mineral density may be appropriate. FUTURE SCAN RECOMMENDATION: People with diagnosed cases of osteoporosis or at high risk for fracture should have regular bone mineral density tests. For patients eligible for Medicare including patient preferences, comorbidities, previous drug use, risk factors not captured in the fracture mottle and possible under overestimation of fracture risk by fax routine testing is allowed once every 2 years. The testing frequency can be increased to one year for patients who have rapidly progressing disease, those who are receiving or discontinuing medical therapy to restore bone mass, or have additional risk factors. Electronically signed by: Ki Bell MD 03/09/2025 07:44 AM EDT
--- NOTE | ~2025-03-07 | MM_ITS ---
EXAMINATION: MM SCREENING DIGITAL BREAST TOMOSYNTHESIS, BILATERAL CLINICAL INFORMATION: Screening. Asymptomatic. COMPARISON: Mammography: Comparison is made with available priors TECHNIQUE: Digital breast mammography with tomosynthesis is performed in both the craniocaudal and mediolateral oblique views along with computer-aided detection (CAD). FINDINGS: The breasts are heterogeneously dense, which may obscure small masses (ACR BI-RADS breast composition Category c). Bilateral circumscribed oval masses which wax and wane consistent with benign fibrocystic changes. There are no significant masses, abnormal calcifications, or other abnormalities. MM/MM tomosynthesis screening BI IMPRESSION: No mammographic evidence of malignancy. ASSESSMENT: BI-RADS BI-RADS 2 - Benign Findings RECOMMENDATION: Routine annual mammography screening. 1 year F/U This examination should not preclude the clinical evaluation of a suspicious palpable abnormality. This patient's information was entered into a reminder system with a target due date for their next mammogram. Electronically signed by: aGbriella Dc DO 03/12/2025 09:36 PM EDT
--- OUTSIDE RECORDS SUMMARY | 2025-03-07 14:55 | XMS_ITS | Clinical Summary ---
Author Organization [facility] Address [address] [place] [address] [address] [place] [address] Care Team Providers Care Montessori Paraprofessional Name Role Phone Unavailable Primary Care Provider [...]
== END 2025-03-07 13:08 | disposition home or self-care (01) ==
LOC: HO.MAMMO 13:07
PROVIDERS: PCP Internal Medicine; Visit Provider Internal Medicine
DX: Z12.31 Encounter for screening mammogram for malignant neoplasm of breast (principal); Z13.820 Encounter for screening for osteoporosis; Z78.0 Asymptomatic menopausal state
CPT/HCPCS: 77063; 77067; 77080

== ENCOUNTER → 2025-03-07 14:00 | Outpatient (BNV) | payer OTHER, SELFPAY | PROVIDERS: PCP Internal Medicine; Visit Provider Radiology Diagnostic Radiology | DX: Z12.31 Encounter for screening mammogram for malignant neoplasm of breast (principal) | CPT/HCPCS: 77063; 77067; 77080 ==

== ENCOUNTER 2025-03-13 | Outpatient (REF) | payer OTHER, SELFPAY ==
--- OUTSIDE RECORDS SUMMARY | 2025-04-13 08:33 | XMS_ITS | Clinical Summary ---
Author Organization [facility] Address [address] [place] [phone] Phone Care Team Providers Care Firmware Test Engineer Name Role Phone Riddhi Chan MD Primary Care Provid er Allergies Active Allergy Reactions Criticality Noted Date Comments Pineapple 03/11/2022 Medications topiramate (TOPAMAX) 100 MG tablet Take 100 mg by mouth. 01/01/2021 Active traZODone (DESYREL) 100 MG tablet Take 100 mg by mouth nightly at bedtime. at bedtime. 01/31/2022 Active venlafaxine (EFFEXOR-XR) 75 MG 24 hr capsule TAKE 1 CAPSULE BY MOUTH TWICE DAILY WITH FOOD 01/27/2022 Active omeprazole (PRILOSEC) 40 MG capsule Take 40 mg by mouth. 02/15/2022 Active atorvastatin (LIPITOR) 20 MG tablet Take 20 mg by mouth daily. 12/14/2021 Active calcium citrate-vitamin D3 (CITRACAL+D) 315 mg-5 mcg (200 unit) per tablet Take 1 tablet by mouth daily. 02/26/2022 Active cholecalciferol (VITAMIN D3) 2,000 unit capsule Take 2,000 Units by mouth daily. 12/30/2021 Active cyclobenzaprine (FLEXERIL) 5 MG tablet 02/27/2022 Active pregabalin (LYRICA) 75 MG capsule Take 25 mg by mouth daily. 12/16/2021 Active docusate sodium (COLACE) 100 MG capsule Take 100 mg by mouth 2 (two) times a day. 12/30/2021 Active ondansetron (ZOFRAN) 4 MG tablet Take 4 mg by mouth. 01/01/2021 Active FEROSUL 325 mg (65 mg iron) tablet Take 1 tablet by mouth daily. 02/12/2022 Active escitalopram oxalate (LEXAPRO) 20 MG tablet TAKE 1 TABLET BY MOUTH ONCE EVERY DAY AFTER MEALS 03/04/2022 Active Active Problems Problem Noted Date Diagnosed Date Fibromyalgia 03/11/2022 Osteoporosis without current pathological fractu re 03/11/2022 Primary osteoarthritis of right hip 03/11/2022 Social History Tobacco Use Types Packs/Day Years Used Date Smoking Tobacco: Former Smokeless Tobacco: Never Education Answer Date Recorded Are you interested in more education? Not on geoff e 01/16/2023 Are you concerned about learning? Not on file 01/16/2023 No 01/16/2023 No 01/16/2023 Digital Access Answer Date Recorded No 02/14/2023 No 02/14/2023 No 02/14/2023 Reliable internet access at home? Not on file 02/14/2023 Device with a working camera? Not on file Comments Unknown Sex and Gender Information Value Date Recorded Sex Assigned at Female 12/11/2021 12:56 PM EDT Legal Sex Female 11:11 AM EST Gender Identity Female 12/11/2021 12:56 PM EDT Sexual Orientation Straight 12/11/2021 12 :56 PM EDT Last Filed Vital Signs Vital Sign Reading Time Taken Comments Blood Pressure 144/75 03/11/2022 2:56 PM EDT Pulse 88 03/11/2022 2:56 PM EDT Temperature 36.2 C (97.1 F) 03/11/2022 2:56 PM EDT Respiratory Rate - - Oxygen Saturation 96% 03/11/2022 2:56 PM EDT Inhaled Oxygen Concentration - - Weight 103 kg (227 lb) 03/11/2022 2:56 PM EDT Height 149.9 cm (4' 11 ) 03/11/2022 2:56 PM EDT Body Mass Index 45.85 03/11/2022 2:56 PM EDT Plan of Treatment Health Maintenance Due Date Last Done Comments LIPID PANEL 1961 DEPRESSION SCREENING 1973 SMOKING Hx and SMOKELESS TOBACCO SCREENING 1974 HEPATITIS C SCREENING 1979 HIV ONE-TIME SCREENING (18-6 5 YEARS) 1979 PAP SMEAR 1982 MAMMOGRAM 2001 COLOGUARD 2006 COLONOSCOPY 2006 COLORECTAL CANCER SCREENING 2006 FIT TEST 2006 FOBT 2006 SIGMOIDOSCOPY 2006 VIRTUAL COLONOSCOPY 2006 PNEUMOCOCCAL VACCINES (50+ years) (2 of 2 - PCV) 07/07/2020 07/07/2019, 10/22/2006 COVID-19 VACCINE (4 - 2023-2 5 season) 2024 09/11/2021, 12/25/2020, 11/27/2020 Adult Td,Tdap Booster 06/16/2028 06/16/2018 , 09/26/2008 RSV VACCINE (1 - 1-dose 75+ series) 2036 ZOSTER VACCINES Completed 09/24/2020, 05/10/2019 HEPATITIS A VACCINES Aged Out No long er eligible based on patient's age to complete this topic HIB VACCINES Aged Out No longer eligi ble based on patient's age to complete this topic MENINGOCOCCAL VACCINES (ACWY) Aged Out No longer eligible based on patient's age to complete this topic MENINGOCOCCAL VACCINES (B) Aged Out N o longer eligible based on patient's age to complete this topic Medical Devices Not on file Insurance MEDICARE PART A & B [facility] MEDICARE PART A & B [facility] MEDICARE PART A & B [place] [facility] & B [facility] [place] [facility] & B Member Subscriber Plan / Payer (Ef fective 2008-Present) Name:Kiersten Park Member ID:[id number] Relation to Subscriber:Self Name:Kiersten Park Subscriber ID:[id number] Payer ID:[id number] Group ID:Not on file Type:Medicare Address: [employer] [address] [place] MEDICARE PART A & B [facility] B [facility] Care Teams Firmware Test Engineer Relationship Specialty Start Date End Date Riddhi Chan MD [address] [place] [address] PCP - General Internal Medicine 01/22/22 Additional Source Comments The information contained in this document represents components of the legal health record. It is not the complete legal health record.[facility]
--- OUTSIDE RECORDS SUMMARY | 2025-04-13 08:33 | XMS_ITS | Clinical Summary ---
Author Organization [employer] Address [address] [place] [address] [address] [place] [address] Care Team Providers Care Lock Tender Name Role Phone Unavailable Primary Care Provider [...] 2024 09/11/2021, 12/25/2020, 11/27/2020 Influenza Vaccine (#1) 2025 , 07/14/2022, 08/05/2021, Additional history exists DTaP/Tdap/Td [...]
--- OUTSIDE RECORDS SUMMARY | 2025-04-13 08:33 | XMS_ITS | Data Portability ---
Author Organization [facility] Address [address] [place] [address] Care Team Providers Care Wafer Machine Operator Name Role Phone REI ALBERTO Primary Care Provider HIM NICKOLAS OTHER Assessment Encounter Date Assessment Date Assessment LastModified by Organization Details LastModified Time 05/11/2024 05/11/2024 As noted, we shruthi e called to see this patient regarding concerns of chronic low back pain. Evaluation in the field was performed by my hyperbaric technologist colleague, as noted above, I provided real-time [...] back pain symptoms to be re-evaluated for. [email or web address] Not available 05/11/2024 13:29:27 11/28/2024 11/28/2024 Mrs. [...] Assessment and Plan as documented by the Ingot Buggy Operator. We discussed the diagnostic uncertainty of home [...] 30 mg/mL injection solution 2024 025 [email or web address] [facility], [address] [facility] [address], [place], [place], [id number], 5 16:50:50 ketorolac 30 mg/mL (1 mL) injection solution 2023 024 [email or web address] 84 [facility], [address] [facility] [address], [place], [id number], 4 13:24:46 Patient TargetsNo targets recorded. Patient [...] in Arterial blood by Pulse oximetry Systolic And Diastolic Provider Name and Address Organization Details Last Updated DateTime 5 16896.5 04 g 97.8 [degF] 19 /min 73 /min 149.86 cm 95 % 95 % 166/77 mm[Hg] Not Available Clipboard 5 16:49:00 Date Recorded Body temperature Respiratory rate Oxygen saturation Oxygen saturation in Arterial blood by Pulse oximetry Heart rate Systolic And Diastolic Provider Name and Address Organization Details Last Updated DateTime 4 98.7 [degF] 18 /min 97 % 97 % 73 /min 130/82 mm[Hg] Not Available Clipboard 4 13:23:21 Social History None recorded. Functional Status None recorded. Mental Status None recorded. Family History Nothing Reported. Medical History No medical history recorded. Gynecological HistoryNo gynecological history recorded. Obstetrics History GPAL:G 0 P 0 0 0 0 Past Encounters Encounter ID Performer Location Encounter Start Date Encounter Closed Date Diagnosis/Indication Diagnosis SNOMED-CT Code Diagnosis ICD10 Code Diagnosis Note [id number] Roberth Escalona MD Main - [address] [phone] 05/11/2024 13:23:18 05/11/2024 19:04:19 Chronic low back pain 561642410 M54.50 [id number] JUAN DIEGO AMARAL MD [address] [address] 11/28/2024 16:48:58 01/10/2025 17:15:31 Low back pain 835213943 M54.50 Health Concerns Section Related Observation LastModified by Organization Detai ls LastModified Time None Recorded Concern Status LastModified by Organization Details LastModified Time None Recorded Advance Directives Directive None Recorded Payers Insurance Date Sequence Insurance Name Policy Number Policy Sood Covered Member ID Sood Member ID Guarantor Name 01/10/2025 1 [facility] - DOS ON OR AFTER 2022 - DUAL ELIGIBLE - [employer] OPTIONS AND ONE CARE (MEDICARE REPLACEMENT/AD VANTAGE - HMO) Kiersten Park [id number] Kiersten Park Notes Date Note Type Note Provider Name and Address Organization Details Recorded Time 05/11/2024 text/html ROS as noted in the [facility] Nurse Triage Notes (Dianne Santiago): Reason [...] ................... ................... ................... ................... ................... ................... ........ Ingot Buggy Operator Note From Joel Elizabeth: Dispatched to [...] ................... ........ Disposition: Fulfilled Roberth Escalona MD [address] [place] [address],[address], [place], [address], Cost Effective [employer] 05/11/2024 14:27:37 11/28/2024 text/html ROS as noted in the [facility] Nurse Triage Notes (Jaya Anne): Reason [...] - 12:10 Comments: Additional PMH: Rheumatoid Arthritis Travel Ot verified the patient's name//address and phone number. [...] ................... ................... ................... ................... ................... ................... ........ Ingot Buggy Operator Note From Jhonathan Quijano: Pt chief complaint [...] with a GCS of 15. Positive csm. [facility] Juan Diego Amaral consulted Pt given 30 mg of intramuscular ketorlac via the left deltoid. Pt informed to contact her pcp as early as possible as needed. Pt informs of red flag S&S and informed to call emergency services if any present. [facility] Medication Orders: ketorolac 30 mg/mL injection solution: Administered ................... ................... ................... ................... ................... ................... ................... ........ [facility] Consulted: Juan Diego Amaral ................... ................... ................... ................... ................... ................... ................... ........ Disposition: Fulfilled JUAN DIEGO AMARAL MD [address] [place] [address],[address], [place], [address], [facility] 11/28/2024 17:41:52 OBGyn Episode No OBEpisode recorded.
== END 2025-03-13 00:01 | disposition home or self-care (01) ==
LOC: CF
PROVIDERS: PCP Internal Medicine; Visit Provider Internal Medicine
DX: M96.1 Postlaminectomy syndrome, not elsewhere classified (principal); M47.816 Spondylosis without myelopathy or radiculopathy, lumbar region
CPT/HCPCS: 99212

== ENCOUNTER 2025-03-13 10:49 | Outpatient (AMB) | payer OTHER, SELFPAY ==
--- NOTE | 2025-03-13 10:58 | A.OFFVIS_ITS ---
Vital Signs 03/13/25 10:59 Height 4 ft 11 in Weight 199 lb BMI 40.2 BP 146/85 H Blood Pressure Location Lt brachial Position Sitting Respiration 16 Pulse 88 Pulse Source Pulse Oximeter Pulse Oximetry (%) 96 Oxygen Delivery Method Room Air Intake Visit Reasons: ED REFERRAL FOR SPINE PAIN Social Science Teacher Required: No Allergies pineapple (PINEAPPLE) Adverse Reaction (Severe, Verified 03/13/25 11:00) DIARRHEA Medication List - Last Reconciled 03/13/25 by Darshana Garcia LPN acetaminophen (Tylenol Extra Strength) 500 mg PO Q6H PRN albuterol sulfate 90 mcg/actuation (Ventolin HFA) 2 puffs inhalation Q6H PRN alendronate 70 mg PO QWEEK 90 days amlodipine 5 mg PO DAILY 90 days atorvastatin 20 mg PO DAILY 90 days [bath mat As directed] blood pressure monitor (Blood Pressure Kit) As directed bupropion HCl XL 150 mg PO DAILY 90 days calcium citrate-vitamin D3 200 mg-6.25 mcg (250 unit) 1 tab PO BID 30 days chlorthalidone 25 mg PO DAILY 90 days cyclobenzaprine 10 mg PO TID PRN docusate sodium 100 mg PO BID 90 days escitalopram oxalate 20 mg PO DAILY 90 days [heating pad As directed] hydroxyzine HCl 10 mg PO BID incontinence pad, liner, disp Use 1 pad three times a day Incruse Ellipta 62.5 mcg/actuation (umeclidinium) 1 inh inhalation BEDTIME 30 days NS losartan 100 mg PO DAILY 90 days multivitamin with folic acid 400 mcg (Tab-A-Duarte) 1 tab PO DAILY 90 days naproxen 500 mg PO BID PRN 10 days omeprazole 40 mg PO DAILY 90 days [pillow- lumbar support As directed] polyethylene glycol 3350 (Miralax) 17 grams PO DAILY PRN 30 days selenium sulfide 1% (Dandruff Shampoo (selenium sulfide)) 5 mL topical 2XW 14 days trazodone 150 mg PO BEDTIME triamcinolone acetonide 0.1% 1 appl topical DAILY 30 days venlafaxine ER 75 mg PO BID walker (Ultra-Light Rollator misc) As directed [wipes As directed] HPI HPI ED REFERRAL FOR SPINE PAIN: Details: History of Present Illness The patient is a 64-year-old female presenting with persistent pain in the lumbar region and hips. The pain has been progressively worsening, impacting her ability to move and sleep, and is accompanied by weight loss. She reports that the pain is most severe in her hips and the middle of her back, and it interferes with her daily activities such as walking and bending. The patient has tried various interventions including ibuprofen, Tylenol, and lidocaine patches, but these have not provided relief. She visited the emergency room three weeks ago and was advised to follow up with her physician. An MRI from 2022 showed no significant neurofibro or central stenosis. The patient experiences significant discomfort during lumbar flexion and extension, indicating anterior column involvement and facet-mediated pain. She has been advised to continue weight management and stretching exercises. Pain Description - Onset: Persistent and worsening over time - Quality: Severe pain in hips and middle of the back - Location: Hips and lumbar region - Exacerbating factors: Walking, bending, standing - Relieving factors: None identified - Interference: Affects mobility and sleep Physical Exam - Musculoskeletal: Pain with lumbar flexion and extension, indicating anterior column involvement and facet-mediated pain Results - MRI (2022): No significant neurofibro or central stenosis Pain Management - Affect: Pain significantly impacts sleep and daily activities - Analgesia: Current medications include ibuprofen and Tylenol, with no relief from lidocaine patches - Adverse Effects: None reported - Activities of Daily Living: Pain interferes with walking, bending, and sleep - Aberrant Drug Related Behaviors: None reported [facility] Medical History Mild recurrent major depression History of high cholesterol History of high blood pressure Right shoulder pain Restrictive lung disease Morbid obesity with BMI of 45.0-49.9, adult MAGGIE (generalized anxiety disorder) 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 Rheumatoid arthritis Insomnia Chronic back pain COPD (chronic obstructive pulmonary disease) Iron deficiency anemia Morbid obesity Fibromyalgia Chronic GERD Constipation by delayed colonic transit Hypovitaminosis D Pure hypercholesterolemia Severe major depression Surgical History H/O colonoscopy History of back surgery History of neck surgery Family History Mother Uterus cancer Breast cancer, Onset Age: 43 Diabetes Arthritis IBS (irritable bowel syndrome) Father Heart disease Sister Mental health disorder Brother Mental health disorder Social History Housing: Apartment Are you a primary home health care social worker to a significant other at home: No Do you presently have visiting nurse or other home services: No Alcohol intake: never Patient Tobacco Use Status: Former Tobacco user Tobacco use type: Cigarette e-Cigarette/Vaping Use: Never Used Second Hand Smoke Exposure: No service: No Current occupational status: disabled 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) Hearing needs: No Vision needs: Yes Physical Exam Vital Signs: Last Vital Signs Pulse 88 03/13/25 10:59 Resp 16 03/13/25 10:59 BP 146/85 H 03/13/25 10:59 Pulse Ox 96 03/13/25 10:59 Oxygen Delivery Method Room Air 03/13/25 10:59 BMI result Body Mass Index 40.2 Assessment & Plan Assessment & Plan (1) Post laminectomy syndrome: Code(s): M96.1 - Postlaminectomy syndrome, not elsewhere classified Category: Medical (2) Lumbar spondylosis: Code(s): M47.816 - Spondylosis without myelopathy or radiculopathy, lumbar region Category: Medical Plan Plan - Initiate diagnostic lumbar medial branch blocks at L3, L4, L5 to assess pain relief potential - Consider radiofrequency ablation if diagnostic blocks provide temporary relief - Continue weight management and stretching exercises as part of conservative management - Follow up with Dr. Rojas as previously advised by the emergency department Patient was informed and verbally consented to the use of an ambient scribe for clinic note documentation during this visit. Discussion Notes I discussed with the patient the option of diagnostic lumbar medial branch blocks to assess the potential for pain relief, explaining that if these provide temporary relief, radiofrequency ablation may be considered as a next step. We a lso reviewed the importance of continuing weight management and stretching exercises as part of her conservative management plan. The patient was advised to follow up with Dr. Rojas as previously recommended by the emergency department. Patient Instructions - Continue with weight management and stretching exercises as advised. - Follow up with Dr. Rojas as scheduled. - Monitor pain levels and report any changes or worsening symptoms. Coding Level of Care Code Est Pt Level 3 (33628) Diagnoses Post laminectomy syndrome M96.1 Lumbar spondylosis M47.816
[2025-03-13 10:59] VITALS: BP 146/85; PULSE 88; RESP 16; O2SAT 96; BMI 40.2
--- OUTSIDE RECORDS SUMMARY | 2025-03-13 12:13 | XMS_ITS | Clinical Summary ---
Author Organization [employer] Address [address] [place] [address] [address] [place] [address] Care Team Providers Care Web Page Developer Name Role Phone Unavailable Primary Care Provider [...]
== END 2025-03-13 11:33 | disposition home or self-care (01) ==
LOC: HO.PMC 10:50
PROVIDERS: PCP Internal Medicine; Visit Provider Internal Medicine
DX: M96.1 Postlaminectomy syndrome, not elsewhere classified (principal); M47.816 Spondylosis without myelopathy or radiculopathy, lumbar region
CPT/HCPCS: 99213

== ENCOUNTER 2025-03-20 10:19 | Outpatient (AMB) | payer OTHER, SELFPAY ==
--- NOTE | 2025-03-20 10:00 | MHC.WMTHER ---
Intake Intake Visit Reasons: TV BH Intake Part 2 Allergies pineapple (PINEAPPLE) Adverse Reaction (Severe, Verified 03/13/25 11:00) DIARRHEA PFSH Medical History Mild recurrent major depression History of high cholesterol History of high blood pressure Right shoulder pain Restrictive lung disease Morbid obesity with BMI of 45.0-49.9, adult MAGGIE (generalized anxiety disorder) 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 Rheumatoid arthritis Insomnia Chronic back pain COPD (chronic obstructive pulmonary disease) Iron deficiency anemia Morbid obesity Fibromyalgia Chronic GERD Constipation by delayed colonic transit Hypovitaminosis D Pure hypercholesterolemia Severe major depression Surgical History H/O colonoscopy History of back surgery History of neck surgery Family History Mother Uterus cancer Breast cancer, Onset Age: 43 Diabetes Arthritis IBS (irritable bowel syndrome) Father Heart disease Sister Mental health disorder Brother Mental health disorder Social History Housing: Apartment Are you a primary resident care technician to a significant other at home: No Do you presently have visiting nurse or other home services: No Alcohol intake: never Patient Tobacco Use Status: Former Tobacco user Tobacco use type: Cigarette e-Cigarette/Vaping Use: Never Used Second Hand Smoke Exposure: No service: No Current occupational status: disabled 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) Hearing needs: No Vision needs: Yes Behavioral Health Assessment Weight Management Therapy Therapy Notes Details Subjective: PT is considering to postpone surgery as she has been strugglin with pain and she was offered a new procedure that could help. This could also support the need around movement since she can't due to increased pain. PT feels frustrated as she can't do the excercuse plan proposed due to physical challenges. In terms of her mood reports feeling depressed but denies any safety/risk concerns. She has been informed this provider spoke with her therapist from [facility] and she has been cleared from standpoint. Objective: PT presents for a pre-op BH rian via Telehealth. . Active and reflective listening. Processed functioning challenges and ongoing decision making issues around postponing weight-loss surgery to prioritize pain management so she can have physical strength to focus on weight loss. Used CBT, worked on decision making and mindfulness. She was encourage to implement Behavioral activation plan and to inform Dr Sabillon about feedback from her pain Dr on last visit to better plan for weight-loss surgery. Assessment/Response: Mental status: depressed, moderate functioning issues due to pain. But alert, ortiented x3. Risk reported/identified: None. Food/Weight/Diet Expectations of change PT started the program in 01/23/25 at 210Lbs and most recent weight as of 02/28/25 was 204Lbs. Her target weight is 135Lbs post-op. And her goals is to improve functioning and have some pain relief. Pt recently have decided to move forward with surgical weight loss. Weight as of 03/13/2025: 199Lbs Assessment & Plan Assessment & Plan (1) Moderate recurrent major depression: Code(s): F33.1 - Major depressive disorder, recurrent, moderate (2) Pre-bariatric surgery psychological evaluation: Code(s): Z71.89 - Other specified counseling Plan The patient will continue weekly outpatient counseling sessions at [facility] to support ongoing management of depression and pain. She has been cleared from a behavioral health standpoint, with no current safety concerns or issues identified that would require further monitoring by this provider. Follow-up with this provider will be scheduled for 2?3 weeks post-operatively. Telehealth Telehealth Telehealth Platform: [employer] Location of provider rendering services: other (Home office. [place], [place]) Location of patient: address on file Patient Identification confirmed using: Name, : Yes Telehealth method: voice only Patient verbally consented to treatment: Yes Patient verbally consented to billing insurance company: Yes Patient informed of any privacy concerns related to visit: Yes Minutes spent on Phone/Video with Pt.: 45 Coding Level of Care Code Established Pt Tele Psytx 45 mins (31030) Patient Type Established Diagnoses Moderate recurrent major depression F33.1 Pre-bariatric surgery psychological evaluation Z71.89 Time Spent (min) 45
--- OUTSIDE RECORDS SUMMARY | 2025-03-20 10:57 | XMS_ITS | Clinical Summary ---
Author Organization [employer] Address [address] [place] [address] [address] [place] [address] Care Team Providers Care Brine Process Operator Name Role Phone Unavailable Primary Care Provider [...]
== END 2025-03-20 11:04 | disposition home or self-care (01) ==
LOC: HO.HBST 10:19
PROVIDERS: PCP Internal Medicine; Visit Provider Counselor Mental Health
DX: F33.1 Major depressive disorder, recurrent, moderate (principal); Z71.89 Other specified counseling
CPT/HCPCS: 90834

== ENCOUNTER 2025-04-20 06:20 | Outpatient (REF) | payer OTHER, SELFPAY ==
--- NOTE | ~2025-04-20 | FL_ITS ---
EXAMINATION: FL GUIDANCE ONLY HISTORY: M47.816 - Spondylosis without myelopathy or radiculopathy, lumbar region COMPARISON: None available. TECHNIQUE: Fluoroscopy time: 0.1 minutes. Cumulative Dose: 6.47 mGy. DAP: 0.0784 mGym2 Images: 2. FINDINGS: Fluoroscopic spot films of the lumbar spine demonstrate needles and contrast material in the regions of the bilateral L3-4, L4-5, and L5-S1 facet joints. FL/FL guidance in treatment room IMPRESSION: Fluoroscopy during procedure. Please see procedure report for additional information. Electronically signed by: Luis Antonio Aldana MD 04/20/2025 01:53 PM EDT
--- OUTSIDE RECORDS SUMMARY | 2025-04-20 06:23 | XMS_ITS | Clinical Summary ---
Author Organization [employer] Address [address] [place] [address] [address] [place] [address] Care Team Providers Care Derrick Barge Operator Name Role Phone Unavailable Primary Care [...]
--- OUTSIDE RECORDS SUMMARY | 2025-04-20 06:23 | XMS_ITS | Clinical Summary ---
Author Organization [facility] Address [address] [place] [address] Phone Care Team Providers Care Solar Project Manager Name Role Phone Riddhi Chan MD Primary [...] file Insurance MEDICARE PART A & B [facility] MEDICARE PART A & B [facility] MEDICARE PART A & B [place] & [facility] [place] [facility] A & B Member Subscriber Plan / Payer (Ef fective 2008-Present) Name:Kiersten Park Member ID:[id number] Relation to Subscriber:Self Name:Kiersten Park Subscriber ID:[id number] Payer ID:[id number] Group ID:Not on file Type:Medicare Address: [employer] [address] [place] PART A & B [facility] PART A & B [facility] Care Teams Solar Project Manager Relationship Specialty Start Date End Date Riddhi Chan MD [address] [place] [address] PCP - General Internal Medicine 01/22/22 Additional Source Comments The information contained in this document represents components of the legal health record. It is not the complete legal health record.[facility]
== END 2025-04-20 06:21 | disposition home or self-care (01) ==
LOC: CF 06:20
PROVIDERS: Visit Provider Internal Medicine
DX: M47.816 Spondylosis without myelopathy or radiculopathy, lumbar region (principal)
CPT/HCPCS: 64493; 64494; 96127; 99212; 99396; J2003; J2795; Q9967

== ENCOUNTER 2025-04-20 09:01 | Outpatient (AMB) | payer OTHER, SELFPAY ==
[2025-04-20 09:20] VITALS: BP 112/75; PULSE 76; RESP 16; O2SAT 96; BMI 40.4
--- NOTE | 2025-04-20 09:20 | MHC.OFFVIS ---
Vital Signs 04/20/25 09:20 04/20/25 09:57 Height 4 ft 11 in 4 ft 11 in Weight 200 lb 200 lb BMI 40.4 40.4 BP 112/75 127/73 Blood Pressure Location Lt radial Lt radial Position Sitting Sitting Respiration 16 16 Pulse 76 76 Pulse Source Pulse Oximeter Pulse Oximeter Pulse Oximetry (%) 96 95 Oxygen Delivery Method Room Air Room Air Intake Visit Reasons: Jacky Dx L3-L4-L5 MBB/ ativan Allergies pineapple (PINEAPPLE) Adverse Reaction (Severe, Verified 03/13/25 11:00) DIARRHEA HPI HPI Jacky Dx L3-L4-L5 MBB/ ativan: Details: Patient presents for scheduled procedure. Denies any recent cough, cold, infection, fever or other significant changes in medical history since last office visit. 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 Rheumatoid arthritis Insomnia Chronic back pain COPD (chronic obstructive pulmonary disease) Iron deficiency anemia Morbid obesity Fibromyalgia Chronic GERD Constipation by delayed colonic transit Hypovitaminosis D Pure hypercholesterolemia Severe major depression Surgical History H/O colonoscopy History of back surgery History of neck surgery Family History Mother Uterus cancer Breast cancer, Onset Age: 43 Diabetes Arthritis IBS (irritable bowel syndrome) Father Heart disease Sister Mental health disorder Brother Mental health disorder Social History Housing: Apartment Are you a primary nurse behavioral health care to a significant other at home: No Do you presently have visiting nurse or other home services: No Alcohol intake: never Patient Tobacco Use Status: Former Tobacco user Tobacco use type: Cigarette e-Cigarette/Vaping Use: Never Used Second Hand Smoke Exposure: No service: No Current occupational status: disabled 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) Hearing needs: No Vision needs: Yes Physical Exam Vital Signs: Last Vital Signs Pulse 76 04/20/25 09:20 Resp 16 04/20/25 09:20 BP 112/75 04/20/25 09:20 Pulse Ox 96 04/20/25 09:20 Oxygen Delivery Method Room Air 04/20/25 09:57 BMI result Body Mass Index 40.4 Office Procedures Details: Lumbar Medial Branch Block, Bilateral L3, L4 medial branches and L5 Dorsal Ramus (2 levels, 3 nerves) After obtaining written consent, pre-procedure blood pressure and pulse were recorded and are in the nursing record for review. The patient was placed in a prone position. The respective lumbosacral area was prepped with chloraprep and draped in sterile fashion. The skin over the target medial branch nerves was anesthetized with 0.5% lidocaine. A 22 gauge 3.5 inch needle was inserted into the target medial branch nerve under fluoroscopic guidance. No paresthesias were elicited with needle placement and aspiration was negative for blood and CSF. Next, 0.2cc of omnipaque 180 was injected to verify positioning in AP and oblique imaging. Next 0.5 ml 0.5% ropivicaine was injected (0.5cc total per level). The identical procedure was performed at the remaining levels. The skin was cleansed and a sterile bandage was applied. Following the procedure the patient's vital signs were stable. The patient tolerated the procedure well and no complications were encountered. Following the procedure the patient's vital signs were stable. The patient was discharged home in good condition with post-procedural instructions. Time Out: Immediately prior to the procedure, the following was verbally confirmed that there is a signed consent form and that the correct patient, planned procedure, site and side are consistent with documentation and that necessary equipment and/or blood products are available prior to the start of the case. Complications: none EBL: <5 cc 11725 - with Fluoroscopy (L3-L4) 67465 - second level with Fluoroscopy (L3-L4-L5) Procedure code (CPT) selection complete Assessment & Plan Assessment & Plan (1) Lumbar spondylosis: Code(s): M47.816 - Spondylosis without myelopathy or radiculopathy, lumbar region Category: Medical Plan Patient is status post bilateral diagnostic lumbar medial branch blocks. Patient tolerated procedure well and was discharged home in stable condition with discharge instructions. All questions were answered. We will follow-up via telephone or in clinic to assess response to therapy. A follow-up appointment was made during today's visit. Orders: Orders AMB Medial Branch Block - Lumbar/Sacral Today Wenceslao Walsh MD M47.816 - Spondylosis without myelopathy or radiculopathy, lumbar region FL guidance in treatment room Today Kristi Ramirez APRN, MAINSPRING STRIP INSPECTOR M47.816 - Spondylosis without myelopathy or radiculopathy, lumbar region Medications: New lorazepam (Ativan) Take 30 minutes prior to arrival to procedure 1 mg PO ONCE 1 tab 0RF anxiety Kristi Ramirez APRN, MAINSPRING STRIP INSPECTOR Coding Level of Care Code Procedure Only Diagnoses Lumbar spondylosis M47.816 CPT Codes Medial Branch Block Lumbar/Sacral1 - Branch Block Lumb/Sac 1: 68124 - with Fluoroscopy (L3-L4) ([id number]) Medial Branch Block Lumbar/Sacral1 - Branch Block Lumb/Sac 2: 18819 - second level with Fluoroscopy (L3-L4-L5) ([id number])
[2025-04-20 09:57] VITALS: BP 127/73; PULSE 76; RESP 16; O2SAT 95; BMI 40.4
== END 2025-04-20 10:13 | disposition home or self-care (01) ==
LOC: HO.PMCPRC 09:01
PROVIDERS: PCP Internal Medicine; Visit Provider Internal Medicine
DX: M47.816 Spondylosis without myelopathy or radiculopathy, lumbar region (principal)
CPT/HCPCS: 64493; 64494

== ENCOUNTER 2025-04-20 15:38 | Outpatient (AMB) | payer OTHER, SELFPAY ==
--- OUTSIDE RECORDS SUMMARY | 2025-04-20 15:41 | XMS_ITS | Clinical Summary ---
Author Organization [facility] Address [address] [place] [phone] Phone Care Team Providers Care Gathering Worker Name Role Phone Riddhi Chan MD Primary [...] Insurance MEDICARE PART A & B [facility] MEDICARE PART A & B [facility] MEDICARE PART A & B [place] [facility] [place] [facility] [place] [facility] B Member Subscriber Plan / Payer (Ef fective 2008-Present) Name:Kiersten Park Member ID:[id number] Relation to Subscriber:Self Name:Kiersten Park Subscriber ID:[id number] Payer ID:[id number] Group ID:Not on file Type:Medicare Address: [employer] [address] [place] MEDICARE PART A & [facility] Care Teams Gathering Worker Relationship Specialty Start Date End Date Riddhi Chan MD [address] [place] [address] PCP - General Internal Medicine 01/22/22 Additional Source Comments The information contained in this document represents components of the legal health record. It is not the complete legal health record.[facility]
--- OUTSIDE RECORDS SUMMARY | 2025-04-20 15:41 | XMS_ITS | Clinical Summary ---
Author Organization [facility] Address [address] [place] [address] [address] [place] [address] Care Team Providers Care Textile Colorist Dyer Name Role Phone Unavailable Primary Care Provider [...]
--- NOTE | 2025-04-20 15:47 | MHC.PC.OV ---
Vital Signs 04/20/25 15:48 Height 4 ft 11 in Weight 202 lb BMI 40.8 BP 138/72 Blood Pressure Location Lt brachial Position Sitting Intake Visit Reasons: Annual Checkup Intake Note: Patient here for a physical exam Sash Assembler Required: No Accompanied by: Self / Same As Patient Allergies pineapple (PINEAPPLE) Adverse Reaction (Severe, Verified 04/20/25 16:21) DIARRHEA Medication List - Last Reconciled 04/20/25 by Riddhi Michael MD acetaminophen (Tylenol Extra Strength) 500 mg PO Q6H PRN albuterol sulfate 90 mcg/actuation (Ventolin HFA) 2 puffs inhalation Q6H PRN alendronate 70 mg PO QWEEK 90 days amlodipine 5 mg PO DAILY 90 days atorvastatin 20 mg PO DAILY 90 days [bath mat As directed] blood pressure monitor (Blood Pressure Kit) As directed bupropion HCl XL 150 mg PO DAILY 90 days calcium citrate-vitamin D3 200 mg-6.25 mcg (250 unit) 1 tab PO BID 30 days chlorthalidone 25 mg PO DAILY 90 days cyclobenzaprine 10 mg PO TID PRN docusate sodium 100 mg PO BID 90 days escitalopram oxalate 20 mg PO DAILY 90 days [heating pad As directed] hydroxyzine HCl 10 mg PO BID incontinence pad, liner, disp Use 1 pad three times a day Incruse Ellipta 62.5 mcg/actuation (umeclidinium) 1 inh inhalation BEDTIME 30 days NS lorazepam (Ativan) 1 mg PO ONCE losartan 100 mg PO DAILY 90 days multivitamin with folic acid 400 mcg (Tab-A-Duarte) 1 tab PO DAILY 90 days naproxen 500 mg PO BID PRN 10 days omeprazole 40 mg PO DAILY 90 days [pillow- lumbar support As directed] polyethylene glycol 3350 (Miralax) 17 grams PO DAILY PRN 30 days selenium sulfide 1% (Dandruff Shampoo (selenium sulfide)) 5 mL topical 2XW 14 days trazodone 150 mg PO BEDTIME triamcinolone acetonide 0.1% 1 appl topical DAILY 30 days venlafaxine ER 75 mg PO BID walker (Ultra-Light Rollator misc) As directed [wipes As directed] Tobacco use date assessed: 12/07/24 Fall risk assessment: 1 Fall in past year Last assessed Fall Risk: 04/20/25 Dental Screening Dental Screen Date: 12/07/24 HPI HPI Comments History of Present Illness Details The patient is a 65-year-old female presenting for an annual physical examination. She has a history of osteoporosis, confirmed by a recent DEXA scan, and is currently taking alendronate 70 mg weekly. The patient reports a family history of breast cancer, uterine cancer, diabetes, and heart disease, which necessitates regular screenings and preventative measures. The patient also has a history of depression and anxiety, for which she is taking bupropion and escitalopram. She reports feeling depressed and anxious, with a PHQ-9 score indicating moderate depression. She experiences constipation, managed with docusate and MiraLAX, and has been advised to maintain adequate hydration and fiber intake. The patient has hyperlipidemia, managed with atorvastatin 20 mg daily, and hypertension, for which she takes chlorthalidone. She denies alcohol use and has a history of smoking, which she has since quit. [facility] Medical History (Updated 04/20/25 @ 16:37 by Riddhi Michael MD) Mild recurrent major depression History of high cholesterol History of high blood pressure Right shoulder pain Restrictive lung disease Morbid obesity with BMI of 45.0-49.9, adult MAGGIE (generalized anxiety disorder) 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 Rheumatoid arthritis Insomnia Chronic back pain COPD (chronic obstructive pulmonary disease) Iron deficiency anemia Morbid obesity Fibromyalgia Chronic GERD Constipation by delayed colonic transit Hypovitaminosis D Pure hypercholesterolemia Severe major depression Surgical History H/O colonoscopy History of back surgery History of neck surgery Family History Mother Uterus cancer Breast cancer, Onset Age: 43 Diabetes Arthritis IBS (irritable bowel syndrome) Father Heart disease Sister Mental health disorder Brother Mental health disorder Social History Housing: Apartment Are you a primary career development coordinator to a significant other at home: No Do you presently have visiting nurse or other home services: No Alcohol intake: never Patient Tobacco Use Status: Former Tobacco user Tobacco use type: Cigarette e-Cigarette/Vaping Use: Never Used Second Hand Smoke Exposure: No service: No Current occupational status: disabled 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) Hearing needs: No Vision needs: Yes Questionnaire PHQ-9 Over the last 2 weeks, how often have you been bothered by any of the following problems? 1. Little interest or pleasure in doing things: nearly every day 2. Feeling down, depressed, or hopeless: nearly every day 3. Trouble falling or staying asleep, or sleeping too much: nearly every day 4. Feeling tired or having little energy: nearly every day 5. Poor appetite or overeating: nearly every day 6. Feeling bad about yourself - or that you are a failure or have let yourself or your family down: nearly every day 7. Trouble concentrating on things, such as reading the newspaper or watching television: nearly every day 8. Moving or speaking so slowly that other people could have noticed. Or the opposite - being so fidgety or restless that you have been moving around a lot more than usual: nearly every day 9. Thoughts that you would be better off or of hurting yourself in some way: not at all Total score: 24 Depression Screening Interpretation: Positive Depression Screening Follow-up: Existing condition, In treatment, Community Mental Health Worker F/U and Follow-up Visit Requested Depression Screening Done: Yes 79728 - PHQ-9 Billing: Yes Source: Developed by Drs. Luis Antonio Rice, Alyssa Levin, Larry Dennison and colleagues, with an educational kareem from [employer]. Thrive Questionnaire Date Thrive assessed: 04/13/25 I am a: Patient What is your living situation today?: I have a steady place to live Within the past 12 months, did the food you bought not last and you didn't have the money to get more?: Often true Within the past 12 months, did you worry whether your food would run out before you got money to buy more?: Often true Do you have trouble paying for medicines?: No Do you have trouble getting transportation to medical appointments?: No Do you have trouble paying your heating and electricity bill?: No Do you have trouble taking care of your child, family member or friend?: I choose not to answer this question Do you have trouble with day-to-day activities such as bathing, preparing meals, shopping, managing finances, etc.?: Yes Are you currently unemployed and looking for a job?: Yes Are you interested in more education?: No Please select the resources that you would like help with: None Currently or been in a relationship where the following occur: No concerns reported THRIVE Score: 2 AUDIT C Alcohol Use Questionnaire (AUDIT-C) 1. How often do you have a drink containing alcohol?: Never Total Score: 0 Score Reviewed/Action Taken: No MAGGIE-7 AMB Questionnaire MAGGIE-7 Date MAGGIE - 7 assessed: 04/20/25 Feeling nervous, anxious, or on edge: 3 = Nearly every day Not being able to stop or control worryin = Nearly every day Worrying too much about different things: 3 = Nearly every day Trouble relaxin = Nearly every day Being so restless that it is hard to sit still: 3 = Nearly every day Becoming easily annoyed or irritable: 3 = Nearly every day Feeling afraid as if something awful might happen: 3 = Nearly every day Total MAGGIE-7 score (0-4 normal; 5-9 mild; 10-14 moderate; 15-21 severe): 21 Source: Developed by Drs. Luis Antonio Rice, Alyssa Levin, Larry Dennison and colleagues, with an educational kareem from [employer]. MAGGIE-7 Assessment Billing MAGGIE-7 Assessment Tool: MAGGIE-7 Assessment 86598 Review of Systems Const All systems reviewed & are unremarkable except as noted in HPI and below Card Denies chest pain at rest, Denies chest pain with activity, Denies edema, Denies irregular heart rhythm, Denies claudication, Denies dyspnea, Denies dyspnea on exertion, Denies orthopnea, Denies paroxysmal nocturnal dyspnea and Denies slow heart rate Resp Denies cough, Denies dyspnea and Denies dyspnea on exertion GI Denies abdominal pain, Denies change in bowel habits, Denies excessive flatus, Denies nausea and Denies vomiting Physical exam (Primary Care) Vital Signs: Last Vital Signs BP 138/72 04/20/25 15:48 BMI result Body Mass Index 40.8 BMI Assessment/Plan discussion: High BMI High, discussed plan: lifestyle, weight reduction, dietary and physical activity Tobacco/Smoking Status: Tobacco use Status Tobacco use date assessed 12/07/24 04/20/25 15:55 Patient Tobacco Use Status Former Tobacco user 04/20/25 15:55 Tobacco use type Cigarette 07/31/25 15:55 e-Cigarette/Vaping Use Never Used 04/20/25 15:55 PHQ-9: PHQ-9 Score PHQ-9: Total score 04/20/25 16:31 Depression Screening Interpretation: Positive Depression Screening Follow-up: Existing condition, In treatment, Community Mental Health Worker F/U and Follow-up Visit Requested Thrive Assessment: Date of Thrive Assessment Date Thrive assessed 04/13/25 04/20/25 15:55 Currently or been in a relationship where the following occur: No concerns reported HENND Head: Yes normal to inspection, Yes normocephalic and Yes atraumatic Ears: external ears normal Eyes General: appearance normal, both eyes and all related structures Eyelids: Yes eyelids normal Conjunctivae: conjunctivae normal Neck Neck: Yes normal visual inspection and Yes supple Resp Effort & Inspection: normal respiratory effort Auscultation: clear to auscultation bilaterally Cardio Jugular venous distension: no JVD Rate: regular rate Rhythm: regular rhythm Heart sounds: S1 normal heart sound present and S2 normal heart sound present GI Inspection: Yes normal to inspection Palpation (GI): Soft to palpation and nontender Auscultation: normal bowel sounds Skin General skin exam: no rashes or lesions noted Neuro General: no focal motor deficits Extrem General: Yes full ROM Psych Appearance: grossly normal Coding Level of Care Code Est Pt Level 3 (63638) Est Pt Prev Care 40-64y(18043) Diagnoses Physical exam Z00.00 Chronic obstructive pulmonary disease, unspecified COPD type J44.9 COPD type: unspecified COPD Rheumatoid arthritis M06.9 Morbid obesity with BMI of 40.0-44.9, adult E66.01; Z68.41 Moderate recurrent major depression F33.1 Osteoporosis M81.0 Ear discomfort H92.09 Additional Codes MAGGIE-7 Assessment Billing - MAGGIE-7 Assessment Tool: MAGGIE-7 Assessment 90672 ([id number]) PHQ-9 - 42095 - PHQ-9 Billing: Yes ([id number]) Time Spent (min) 33 Assessment & Plan Assessment & Plan (1) Physical exam: Code(s): Z00.00 - Encounter for general adult medical examination without abnormal findings Category: Medical (2) COPD (chronic obstructive pulmonary disease): Comment: Patient known to have mild to moderate degree of chronic obstructive pulmonary disease. Doing well with use of Incruse Ellipta 1 inhalation daily. Should also have a rescue inhaler on hand and I have prescribed ProAir 2 puffs Q 6 hours p.r.n. * I explained to her that her obstructive disorder is very mild, CONTINUE TO USE INCRUSE ELLIPTA ONE INH DAILY AND VENTOLIN HFA 2 PUFFS Q 6 HRS ONLY PRN . Code(s): J44.9 - Chronic obstructive pulmonary disease, unspecified Category: Medical Qualifiers: COPD type: unspecified COPD Qualified Code(s): J44.9 - Chronic obstructive pulmonary disease, unspecified (3) Rheumatoid arthritis: Comment: Follow by ammonium hydroxide operator Dr. Knox at [facility] Code(s): M06.9 - Rheumatoid arthritis, unspecified Category: Medical (4) Morbid obesity with BMI of 40.0-44.9, adult: Code(s): E66.01 - Morbid (severe) obesity due to excess calories; Z68.41 - Body mass index [BMI] 40.0-44.9, adult Category: Medical (5) Moderate recurrent major depression: Code(s): F33.1 - Major depressive disorder, recurrent, moderate Category: Medical (6) Osteoporosis: Code(s): M81.0 - Age-related osteoporosis without current pathological fracture Category: Medical (7) Ear discomfort: Code(s): H92.09 - Otalgia, unspecified ear Category: Medical Plan The patient will continue with alendronate 70 mg weekly for osteoporosis management. Regular follow-up for bone density monitoring is advised. For depression and anxiety, the patient will continue bupropion and escitalopram, with regular mental health evaluations. Constipation management includes continued use of docusate and MiraLAX, along with dietary modifications to increase fiber and fluid intake. Hyperlipidemia will be managed with atorvastatin 20 mg daily, and hypertension with chlorthalidone. Preventative care includes regular mammograms and DEXA scans, especially given the family history of cancer. Patient was informed and verbally consented to the use of an ambient scribe for clinic note documentation during this visit. Orders: Orders Lipid Panel 04/20/25 E78.5 - Hyperlipidemia, unspecified Vitamin D 25-OH Total 04/20/25 E55.9 - Vitamin D deficiency, unspecified Comprehensive [place]. Panel Fast 04/20/25 I10 - Essential (primary) hypertension Referrals Endocrinology Referral M81.0 - Age-related osteoporosis without current pathological fracture Ear/Nose/Throat Referral H92.09 - Otalgia, unspecified ear Medications: Refilled albuterol sulfate 90 mcg/actuation (Ventolin HFA) 2 puffs inhalation Q6H PRN 8.5 grams 0RF bronchospasm triamcinolone acetonide 0.1% 1 appl topical DAILY 30 grams 1RF 30 days
[2025-04-20 15:48] VITALS: BP 138/72; BMI 40.8
== END 2025-04-20 16:39 | disposition home or self-care (01) ==
LOC: HO.HMCH 15:39
PROVIDERS: PCP Internal Medicine; Visit Provider Internal Medicine
DX: Z00.00 Encounter for general adult medical examination without abnormal findings (principal); J44.9 Chronic obstructive pulmonary disease, unspecified; M06.9 Rheumatoid arthritis, unspecified; E66.01 Morbid (severe) obesity due to excess calories; Z68.41 Body mass index [BMI] 40.0-44.9, adult; F33.1 Major depressive disorder, recurrent, moderate; M81.0 Age-related osteoporosis without current pathological fracture; H92.02 Otalgia, left ear

== ENCOUNTER 2025-04-24 09:42 | Outpatient (AMB) | payer OTHER, SELFPAY ==
--- NOTE | 2025-04-24 09:45 | A.OFFVIS_ITS ---
Vital Signs 04/24/25 09:46 Height 4 ft 11 in Weight 198 lb BMI 40.0 BP 139/74 Blood Pressure Location Lt brachial Position Sitting Respiration 16 Pulse 78 Pulse Source Pulse Oximeter Pulse Oximetry (%) 97 Oxygen Delivery Method Room Air Intake Visit Reasons: s/p geraldo Dx L3-L4-L5 MBB Lighting Fixtures Decorator Required: No Allergies pineapple (PINEAPPLE) Adverse Reaction (Severe, Verified 04/24/25 09:47) DIARRHEA Medication List - Last Reconciled 04/24/25 by Darshana Garcia LPN acetaminophen (Tylenol Extra Strength) 500 mg PO Q6H PRN albuterol sulfate 90 mcg/actuation (Ventolin HFA) 2 puffs inhalation Q6H PRN alendronate 70 mg PO QWEEK 90 days amlodipine 5 mg PO DAILY 90 days atorvastatin 20 mg PO DAILY 90 days [bath mat As directed] blood pressure monitor (Blood Pressure Kit) As directed bupropion HCl XL 150 mg PO DAILY 90 days calcium citrate-vitamin D3 200 mg-6.25 mcg (250 unit) 1 tab PO BID 30 days cyclobenzaprine 10 mg PO TID PRN docusate sodium 100 mg PO BID 90 days escitalopram oxalate 20 mg PO DAILY 90 days [heating pad As directed] hydroxyzine HCl 10 mg PO BID incontinence pad, liner, disp Use 1 pad three times a day Incruse Ellipta 62.5 mcg/actuation (umeclidinium) 1 inh inhalation BEDTIME 30 days NS losartan 100 mg PO DAILY 90 days multivitamin with folic acid 400 mcg (Tab-A-Duarte) 1 tab PO DAILY 90 days omeprazole 40 mg PO DAILY 90 days [pillow- lumbar support As directed] polyethylene glycol 3350 (Miralax) 17 grams PO DAILY PRN 30 days selenium sulfide 1% (Dandruff Shampoo (selenium sulfide)) 5 mL topical 2XW 14 days sertraline 25 mg PO DAILY trazodone 150 mg PO BEDTIME triamcinolone acetonide 0.1% 1 appl topical DAILY 30 days venlafaxine ER 75 mg PO BID walker (Ultra-Light Rollator misc) As directed [wipes As directed] HPI HPI s/p geraldo Dx L3-L4-L5 MBB: Details: History of Present Illness The patient is a 65-year-old female presenting with chronic back pain. The pain has been persistent since an injury at work when she was 22 years old, and it has progressively worsened over the years. She underwent back surgery at the beginning of 1999 at [facility], which involved the placement of a TENS unit, although it did not provide significant relief. The patient reports that the pain affects her entire back, with a focus on the lower back, and it intensifies with activities such as breathing. Previous lumbar radial branch blocks in 2022 and 2023 provided relief, but recent attempts have not been effective. She has been taking Tylenol and ibuprofen daily without significant relief and finds temporary relief in a hot pool, which lasts only a few hours. The patient was previously on Wegovy for weight loss, which was effective, but she discontinued it due to insurance issues. She continues to lose weight by following a prescribed diet and engaging in exercises, including swimming and chair yoga. Dx MBBs this time did not provide any relief. Pain Description - Onset: Persistent since age 22 due to a work-related injury - Quality: Affects entire back, worsens with breathing - Location: Entire back, primarily lower back - Exacerbating factors: Breathing, physical activity - Relieving factors: Temporary relief from hot pool immersion Physical Exam - Appears afebrile. - Alert and oriented. - Mood and affect appropriate. - Follows and participates in conversation appropriately. - Respiratory effort is unlabored. - Ambulates with a walker. Pain Management - Affect: Pain significantly impacts daily activities and mood - Analgesia: Currently using Tylenol and ibuprofen without significant relief - Activities of Daily Living: Pain affects ability to perform daily activities, temporary relief from hot pool - Aberrant Drug Related Behaviors: None reported [facility] Medical History Mild recurrent major depression History of high cholesterol History of high blood pressure Right shoulder pain Restrictive lung disease Morbid obesity with BMI of 45.0-49.9, adult MAGGIE (generalized anxiety disorder) 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 Rheumatoid arthritis Insomnia Chronic back pain COPD (chronic obstructive pulmonary disease) Iron deficiency anemia Morbid obesity Fibromyalgia Chronic GERD Constipation by delayed colonic transit Hypovitaminosis D Pure hypercholesterolemia Severe major depression Surgical History H/O colonoscopy History of back surgery History of neck surgery Family History Mother Uterus cancer Breast cancer, Onset Age: 43 Diabetes Arthritis IBS (irritable bowel syndrome) Father Heart disease Sister Mental health disorder Brother Mental health disorder Social History Housing: Apartment Are you a primary home care liaison to a significant other at home: No Do you presently have visiting nurse or other home services: No Alcohol intake: never Patient Tobacco Use Status: Former Tobacco user Tobacco use type: Cigarette e-Cigarette/Vaping Use: Never Used Second Hand Smoke Exposure: No service: No Current occupational status: disabled 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) Hearing needs: No Vision needs: Yes Physical Exam Vital Signs: Last Vital Signs Pulse 78 04/24/25 09:46 Resp 16 04/24/25 09:46 BP 139/74 04/24/25 09:46 Pulse Ox 97 04/24/25 09:46 Oxygen Delivery Method Room Air 04/24/25 09:46 BMI result Body Mass Index 40.0 Assessment & Plan Assessment & Plan (1) Post laminectomy syndrome: Code(s): M96.1 - Postlaminectomy syndrome, not elsewhere classified Category: Medical (2) Intractable back pain: Code(s): M54.9 - Dorsalgia, unspecified Category: Medical Plan Plan - Continue weight management through diet and exercise, including swimming and chair yoga. - Minimize use of ibuprofen due to lack of efficacy. - Consider re-evaluation for lumbar medial branch blocks in six months if insurance approves. - Encourage daily swimming and exercises to aid weight loss and pain management. Patient was informed and verbally consented to the use of an ambient scribe for clinic note documentation during this visit. Discussion Notes I discussed with the patient the current management of her chronic back pain, emphasizing the importance of continuing weight management through diet and exercise, including swimming and chair yoga. We reviewed the limited efficacy of ibuprofen and the potential for re-evaluation of lumbar radial branch blocks in six months if insurance allows. I encouraged her to maintain daily physical activity to aid in weight loss and pain management. Patient Instructions - Continue following the prescribed diet to aid weight loss. - Engage in daily swimming and chair yoga exercises. - Minimize the use of ibuprofen due to its limited effectiveness. - Consider re-evaluation for lumbar radial branch blocks in six months if insurance approves. Coding Level of Care Code Est Pt Level 3 (22123) Diagnoses Post laminectomy syndrome M96.1 Intractable back pain M54.9
[2025-04-24 09:46] VITALS: BP 139/74; PULSE 78; RESP 16; O2SAT 97; BMI 40.0
--- OUTSIDE RECORDS SUMMARY | 2025-04-24 10:16 | XMS_ITS | Clinical Summary ---
Author Organization [facility] Address [address] [place] [address] Phone Care Team Providers Care Gasoline Truck Crane Operator Name Role Phone Riddhi Chan MD Primary [...] file Insurance MEDICARE PART A & B [facility] MEDICARE PART A & B [facility] MEDICARE PART A & B [place] [facility] MED[facility] PART [place] & [place] [facility] MEDIC[facility] PART A & B Member Subscriber Plan / Payer (Ef fective 2008-Present) Name:Kiersten Park Member ID:[id number] Relation to Subscriber:Self Name:Kiersten Park Subscriber ID:[id number] Payer ID:[id number] Group ID:Not on file Type:Medicare Address: [employer] [address] [place] MED[place] PART A & B [facility] MEDICARE PART A & B [facility] Care Teams Gasoline Truck Crane Operator Relationship Specialty Start Date End Date Riddhi Chan MD [address] [place] [address] PCP - General Internal Medicine 01/22/22 Additional Source Comments The information contained in this document represents components of the legal health record. It is not the complete legal health record.[facility]
--- OUTSIDE RECORDS SUMMARY | 2025-04-24 10:16 | XMS_ITS | Clinical Summary ---
Author Organization [employer] Address [address] [place] [address] 7t [place] [address] Care Team Providers Care Printer Floor Covering Assistant Name Role Phone Unavailable Primary Care Provider [...]
== END 2025-04-24 10:08 | disposition home or self-care (01) ==
LOC: HO.PMC 09:43
PROVIDERS: PCP Internal Medicine; Visit Provider Internal Medicine
DX: M96.1 Postlaminectomy syndrome, not elsewhere classified (principal); M54.9 Dorsalgia, unspecified
CPT/HCPCS: 99213

== ENCOUNTER → 2025-04-24 09:42 | Outpatient (BNVA) | payer OTHER, SELFPAY | PROVIDERS: PCP Internal Medicine; Visit Provider Internal Medicine | DX: M96.1 Postlaminectomy syndrome, not elsewhere classified (principal); M54.9 Dorsalgia, unspecified | CPT/HCPCS: 99212 ==

== ENCOUNTER 2025-05-10 08:50 | Outpatient (REF) | payer OTHER, SELFPAY ==
--- NOTE | ~2025-05-10 | FL_ITS ---
EXAMINATION: XR FLUOROSCOPY UPPER GI WITH AIR CLINICAL INFORMATION: Moderate to severe obesity due to excess calories. Preop planning. COMPARISON: None available. TECHNIQUE: Routine upper GI air contrast study was performed in upright and lying position. FINDINGS: Following oral administration of thick barium and effervescent granules there is normal propagation of bolus from the oral cavity through the pharynx, esophagus into stomach without any evidence of obstruction, narrowing or stricture. Incidental finding of ventral plate and screws from C4 through C6 vertebra for fusion is noted On placing patient supine and prone lying the course, caliber and peristalsis of the stomach, duodenal bulb and the sweep is normal. The mucosal pattern of stomach, duodenal bulb and the sweep is normal. There is moderate gastroesophageal reflux into upper to mid esophagus without hiatal hernia. FLUOROSCOPY TIME: 2 minutes and 25 seconds DOSE AREA PRODUCT: 29.68 uGy-m2 (microgray-meter squared) FL/FL upper GI w air IMPRESSION: Moderate gastroesophageal reflux without hiatal hernia. Rest of the upper GI air contrast study is unremarkable. Electronically signed by: Ki Bell MD 05/10/2025 10:00 AM EDT
--- OUTSIDE RECORDS SUMMARY | 2025-05-10 09:33 | XMS_ITS | Clinical Summary ---
Author Organization [employer] Address [address] [place] [address] 7t [place] [address] Care Team Providers Care Greenskeeper Laborer Name Role Phone Unavailable Primary Care Provider [...]
--- OUTSIDE RECORDS SUMMARY | 2025-05-10 09:33 | XMS_ITS | Clinical Summary ---
Author Organization [facility] Address [address] [place] [address] Phone Care Team Providers Care Crusher Feeder Name Role Phone Riddhi Chan MD Primary [...] file Insurance MEDICARE PART A & B [facility] MEDICARE PART A & B [facility] MEDICARE PART A & B [place] [facility] [place] [facility] [place] [facility] & [facility] & B Member Subscriber Plan / Payer (Ef fective 2008-Present) Name:Kiersten Park Member ID:[id number] Relation to Subscriber:Self Name:Kiersten Park Subscriber ID:[id number] Payer ID:[id number] Group ID:Not on file Type:Medicare Address: [employer] [address] [place] MEDICARE PART A & B [facility] B Member Subscriber Plan / Payer (Ef fective 2008-Present) Name:Kiersten Park Member ID:[id number] Relation to Subscriber:Self Name:Kiersten Park Subscriber ID:[id number] Payer ID:[id number] Group ID:Not on file Type:Medicare Address: [facility] [employer] [facility] [address] [place] [address] [facility] Care Teams Crusher Feeder Relationship Specialty Start Date End Date Riddhi Chan MD [address] [place] [address] PCP - General Internal Medicine 01/22/22 Additional Source Comments The information contained in this document represents components of the legal health record. It is not the complete legal health record.[facility]
== END 2025-05-10 08:51 | disposition home or self-care (01) ==
LOC: HO.XRAY 08:50
PROVIDERS: PCP Internal Medicine; Visit Provider Surgery
DX: E66.01 Morbid (severe) obesity due to excess calories (principal); I10 Essential (primary) hypertension; E78.00 Pure hypercholesterolemia, unspecified; Z68.41 Body mass index [BMI] 40.0-44.9, adult
CPT/HCPCS: 74246

== ENCOUNTER → 2025-05-10 08:53 | Outpatient (BNV) | payer OTHER, SELFPAY | PROVIDERS: PCP Internal Medicine; Visit Provider Radiology Diagnostic Radiology | DX: K21.9 Gastro-esophageal reflux disease without esophagitis (principal) | CPT/HCPCS: 74246 ==

== ENCOUNTER 2025-05-24 09:57 | Outpatient (REF) | payer OTHER, SELFPAY ==
[2025-05-24 11:15] LABS: Alanine Aminotransferase 20 U/L (0-31); Albumin Level 4.3 g/dL (3.5-5.0); Alkaline Phosphatase 90 U/L (39-117); Anion Gap 14 (12-20); Aspartate Amino Transferase 23 U/L (5-31); Blood Urea Nitrogen 14 mg/dL (9-16); Calcium 9.4 mg/dL (8.4-10.2); Carbon Dioxide 24 mmol/L (22-29); Chloride 109 mmol/L (96-108); Cholesterol 165 mg/dL (<200); Estimated Glomerular Filt Rate 60; HDL Cholesterol 60 mg/dL (>40); Potassium 3.6 mmol/L (3.3-5.1); Sodium 143 mmol/L (135-145); Total Protein 7.1 g/dL (6.5-8.0); Triglycerides 79 mg/dL (<150)
--- OUTSIDE RECORDS SUMMARY | 2025-05-24 11:23 | XMS_ITS | Encounter Summary ---
Author Organization [employer] Address [address] [place] [address] [address] [place] [address] Care Team Providers Care Amusement Ride Operator Name Role Phone Veda Dawson MD Primary Care Provider [phone] Reason for Visit * Reason Comments Med Refill Encounter Details Date Type Department Care Team ([facility] st Contact Info) Description 04/11/2024 Refill [facility] MEDICINE [address] [place] [address] Veda Dawson MD [address] [place] [address] Social History Tobacco Use Types Packs/Day Years [...] on filedocumented in this encounter Care Teams Amusement Ride Operator Relationship Specialty Start Date End Date Veda Dawson MD [address] [place] [address] PCP - General Family Medicine 02/21/20 11/22/24 documented as of this encounter
--- OUTSIDE RECORDS SUMMARY | 2025-05-24 11:23 | XMS_ITS | Clinical Summary ---
Author Organization [employer] Address [address] [place] [address] 7t [place] [address] Care Team Providers Care Orthopedic Technician Name Role Phone Unavailable Primary Care [...]
--- OUTSIDE RECORDS SUMMARY | 2025-05-24 11:24 | XMS_ITS | Encounter Summary ---
Author Organization [facility] Address [address] [place] [address] [place] [address] Phone Care Team Providers Care Fiberglass Auto Body Repairer Name Role Phone Marielle Maya MD Primary Care Provider [phone] Veda Dawson MD Primary Care Provider [phone] Riddhi Chan MD Primary Care Provid er Reason for Referral * MRI/CAT Scan - Closed Specialty Diagnoses / Procedures Referred By Sherrill renee Referred To Contact Radiology Diagnoses Chest pain, unspecified type Procedures NC Myocardial Perfusion Stress Single NC Myocardial Perfusion Pharmacologic Stress Multiple Carson Cabrera MD Phone: tel: [email or web address] Referral ID Status Reason Start Date Expiration Date Visits Re quested Visits Authorized [id number] Closed 11/25/2017 01/25/2018 1 1 Encounter Details Date Type Department Care Team (Latest Contact Info) Description 02/04/2018 Ancillary Orders [facility], [address] [place], [place] [id number] Carson Cabrera MD [address] [place] [address] [email or web address] Chest pain, unspecified type Social History Tobacco Use Types Packs/Day Years Used Date Smoking Tobacco: Never Assessed Comments Unknown Sex and Gender Information Value Date Recorded Sex Assigned at Female 12/11/2021 12:56 PM EDT Legal Sex Female 11:11 AM EST Gender Identity Female 12/11/2021 12:56 PM EDT Sexual Orientation Straight 12/11/2021 12 :56 PM EDT documented as of this encounter Plan of Treatment Not on file documented as of this encounter Results * NC Myocardial Perfusion Stress Single (02/04/2018 9:17 AM EDT) Nuc Stress EF 72 % LV Systolic Volume Index 19 mL/m2 LV Diastolic Volume Index 69 mL/m2 Anatomical Region Laterality Modality Heart Ultrasound Narrative 02/05/2018 4:12 PM EDT Normal study. There is no evidence of myocardial infarction or ischemia. Normal LV size and function with no regional wall motion abnormalities. Very low likelihood of hemodynamically significant coronary artery disease. Low risk study for myocardial events or cardiac in the next two years. Nuclear Study Quality Overall image quality is good. Stress only study.sestamibi administered during stress. There are no artifacts present. Study successfully gated. Response to Stress BMI:39.99 Patient was unable to walk on TM due to chronic low back pain. Test preformed using Lexiscan which the patient tolerated infusion without complications. Test terminated due to completion of protocol. SUMMARY: 1. RESTING EKG: Normal sinus rhythm 2. EXERCISE EKG: No ekg changes suggestive of ischemia 3. SYMPTOMS: Patient complained of nausea and chest heaviness which persisted into recovery. Aminophylline 75mg IV given with resolution of symptoms 4. PHYSIOLOGY: Not assessed pharm study 5. ARRHYTHMIA: None CONCLUSION: No ekg changes suggestive of ischemia. Patient hemodynamically stable at completion of exam. Michael Davis NP . Stress Function Comments Post-stress ejection fraction was 72%. Stress end diastolic index: 69 mL/m2. Stress end systolic index: 19 mL/m2. Nuclear Prior Study There is no prior study available for comparison. Perfusion Scoring Stress Summed Score: 0 Percent Normal: 0.00% The left ventricular perfusion is normal. us Carson Cabrera MD CV NM CARDIAC Final Result documented in this encounter Visit Diagnoses Diagnosis Chest pain, unspecified type Chest pain, unspecified type documented in this encounter Care Teams Fiberglass Auto Body Repairer Relationship Specialty Start Date End Date Marielle Maya MD [address] [place] [address] PCP - General Internal Medicine 10/29/17 12/10/21 Veda Dawson MD [address] [place] [address] PCP - General Family Medicine 12/11/21 01/21/22 Riddhi Chan MD [address] [place] [address] PCP - General Internal Medicine 01/22/22 documented as of this encounter Additional Source Comments The information contained in this document represents components of the legal health record. It is not the complete legal health record.[facility]
--- OUTSIDE RECORDS SUMMARY | 2025-05-24 11:24 | XMS_ITS | Encounter Summary ---
Author Organization [employer] Address [address] [place] [address] [address] [place] [address] Care Team Providers Care Physician Extender Name Role Phone Veda Dawson MD Primary Care Provider [phone] Reason for Visit * Reason Comments Med Refill Encounter Details Date Type Department Care Team ([facility] st Contact Info) Description 10/06/2024 Refill [facility] MEDICINE [address] [place] [address] Veda Dawson MD [address] [place] [address] Social History Tobacco Use Types Packs/Day Years [...] on filedocumented in this encounter Care Teams Physician Extender Relationship Specialty Start Date End Date Veda Dawson MD [address] [place] [address] PCP - General Family Medicine 02/21/20 11/22/24 documented as of this encounter
--- OUTSIDE RECORDS SUMMARY | 2025-05-24 11:24 | XMS_ITS | Encounter Summary ---
Author Organization [employer] [facility] Address [address] [place] [address] [place] [address] Phone Care Team Providers Care Farm Crops Teacher Name Role Phone Marielle Maya MD Primary Care Provider [phone] Veda Dawson MD Primary Care Provider [phone] Riddhi Chan MD Primary Care Provid er Encounter Details Date Type Department Care Team (Latest Contact Info) Description 11/25/2017 Ancillary Orders [facility] 22 [facility] 3rd Floor, [address] [place] [address] Carson Cabrera MD [address] [place] [id number] [email or web address] Chest pain, unspecified type Social History [...] documented as of this encounter Visit Diagnoses Diagnosis Chest pain, unspecified type documented in this encounter Care Teams Farm Crops Teacher Relationship Specialty Start Date End Date Marielle Maya MD [address] [place] [id number] PCP - General Internal Medicine 10/29/17 12/10/21 Veda Dawson MD [address] [place] [address] PCP - General Family Medicine 12/11/21 01/21/22 Riddhi Chan MD [address] [place] [address] PCP - General Internal Medicine 01/22/22 documented as of this encounter Additional Source Comments The information contained in this document represents components of the legal health record. It is not the complete legal health record.[facility]
--- OUTSIDE RECORDS SUMMARY | 2025-05-24 11:24 | XMS_ITS | Encounter Summary ---
Author Organization [employer] Address [address] [place] [address] [address] [place] [address] Care Team Providers Care Metal Riveter Name Role Phone Veda Dawson MD Primary Care Provider Reason for Visit * Reason Comments Med Refill Encounter Details Date Type Department Care Team ([facility] st Contact Info) Description 08/01/2024 Refill [facility] MEDICINE [address] [place] [address] Veda Dawson MD [address] [place] [address] Social History Tobacco Use Types Packs/Day Years [...] on filedocumented in this encounter Care Teams Metal Riveter Relationship Specialty Start Date End Date Veda Dawson MD [address] [place] [address] PCP - General Family Medicine 02/21/20 11/22/24 documented as of this encounter
--- OUTSIDE RECORDS SUMMARY | 2025-05-24 11:24 | XMS_ITS | Clinical Summary ---
Author Organization [facility] Address [address] [place] [address] Phone Care Team Providers Care Water Project Engineer Name Role Phone Riddhi Chan MD [...] HEPATITIS C SCREENING 1979 HIV ONE-TIME SCREENING (18-65 YEARS) 1979 PAP SMEAR 1982 MAMMOGRAM 2001 COLOGUARD 2006 COLONOSCOPY 2006 COLORECTAL CANCER SCREENING 2006 FIT TEST 2006 FOBT 2006 SIGMOIDOSCOPY 2006 VIRTUAL COLONOSCOPY 2006 PNEUMOCOCCAL VACCINES (50+ years) (2 of 2 - PCV) 07/07/2020 07/07/2019, 10/22/2006 INFLUENZA VACCINE (#1) 2025 , 09/24/2020, 07/07/2019, Additional history exists COVID-19 VACCINE ( season) 2025 09/11/2021, 12/25/2020, 11/27/2020 Adult Td,Tdap Booster 06/16/2028 06/16/2018, 009 RSV VACCINE (1 - 1-dose 75+ series) [...] file Insurance [place]ICARE PART A & B [place] & [facility] [place] * Guarantor: Kiersten Park Account Type Relation to Patient Date of Phone Billing Address Personal/Family Self 1960 [address] [facility] [place] [id number] MEDICARE PART A & B [facility] & B Member Subscriber Plan / Payer (Ef fective 2008-Present) Name:Kiersten Park Member ID:[id number] Relation to Subscriber:Self Name:Kiersten Park Subscriber ID:[id number] Payer ID:[id number] Group ID:Not on file Type:Medicare Address: [employer] [address] [place] MEDICARE PART A & B [facility] & [place] PART A & B [facility] PART A & B [facility] Care Teams Water Project Engineer Relationship Specialty Start Date End Date Riddhi Chan MD [address] [place] [address] PCP - General Internal Medicine 01/22/22 Additional Source Comments The information contained in this document represents components of the legal health record. It is not the complete legal health record.[facility]
== END 2025-05-24 09:58 | disposition home or self-care (01) ==
LOC: HO.LAB 09:57
PROVIDERS: PCP Internal Medicine; Visit Provider Internal Medicine
DX: I10 Essential (primary) hypertension (principal); E78.5 Hyperlipidemia, unspecified; E55.9 Vitamin D deficiency, unspecified
CPT/HCPCS: 36415; 80053; 80061; 82306

== ENCOUNTER 2025-06-14 09:02 | Outpatient (AMB) | payer OTHER, SELFPAY ==
--- NOTE | 2025-06-14 09:06 | MHC.OFFVIS ---
Vital Signs 06/14/25 09:08 Height 4 ft 11.83 in Weight 205 lb 7.533 oz BMI 40.4 BP 128/82 Blood Pressure Location Lt brachial Position Sitting Pulse 75 Pulse Source Pulse Oximeter Pulse Oximetry (%) 95 Oxygen Delivery Method Room Air Intake Visit Reasons: Age-related osteoporosis Intake Note: New patient internally referred by PCP for Osteoporosis. Computer Engineering Technician Required: No Accompanied by: Self / Same As Patient Allergies pineapple (PINEAPPLE) Adverse Reaction (Severe, Verified 06/14/25 09:09) DIARRHEA Medication List - Last Reconciled 06/14/25 by Luis Antonio Venegas MD acetaminophen (Tylenol Extra Strength) 500 mg PO Q6H PRN albuterol sulfate 90 mcg/actuation (Ventolin HFA) 2 puffs inhalation Q6H PRN alendronate 70 mg PO QWEEK 90 days amlodipine 5 mg PO DAILY 90 days atorvastatin 20 mg PO DAILY 90 days [bath mat As directed] blood pressure monitor (Blood Pressure Kit) As directed bupropion HCl XL 150 mg PO DAILY 90 days calcium citrate-vitamin D3 200 mg-6.25 mcg (250 unit) 1 tab PO BID 30 days cyclobenzaprine 10 mg PO TID PRN docusate sodium 100 mg PO BID 90 days escitalopram oxalate 20 mg PO DAILY 90 days [heating pad As directed] hydroxyzine HCl 10 mg PO BID incontinence pad, liner, disp Use 1 pad three times a day Incruse Ellipta 62.5 mcg/actuation (umeclidinium) 1 inh inhalation BEDTIME 30 days NS losartan 100 mg PO DAILY 90 days multivitamin with folic acid 400 mcg (Tab-A-Duarte) 1 tab PO DAILY 90 days omeprazole 40 mg PO DAILY 90 days [pillow- lumbar support As directed] polyethylene glycol 3350 (Miralax) 17 grams PO DAILY PRN 30 days selenium sulfide 1% (Dandruff Shampoo (selenium sulfide)) 5 mL topical 2XW 14 days sertraline 25 mg PO DAILY trazodone 150 mg PO BEDTIME triamcinolone acetonide 0.1% 1 appl topical DAILY 30 days venlafaxine ER 75 mg PO BID walker (Ultra-Light Rollator misc) As directed [wipes As directed] HPI Comments Details: The patient is a 65-year-old female presenting with osteopenia. She was diagnosed with low bone mass approximately six years ago at the [facility], initially misdiagnosed as osteoporosis. She has been on calcium and vitamin D supplementation since then, without any other specific treatment for osteopenia. The patient denies any recent fractures but reports a distant past heel fracture and a back sprain. She participates in aquatic therapy three times a week due to back pain, which limits her ability to walk. Her family history includes osteoporosis in her mother and hip problems in her brother. 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 Pain management has advised that no further interventions are available for her condition. The patient has a significant family history of breast cancer, affecting her mother, sister, and several cousins. She has been informed about the potential benefits of raloxifene for reducing the risk of breast cancer and managing osteopenia. First diagnosed in 6 yrs ago .Never saw specialist Not Received treatment in the past No history of pathologic fracture or ONJ. Has several servings of dietary calcium per day in the form of cheese, broccoli , milk . Takes Calcium supplement 400 mg daily in divided doses. Takes 500 IU of Vitamin D daily. The patient consumes Tunisian cheese, broccoli, and milk regularly. She also eats plain Cheerios with milk. She has been advised to monitor her dietary calcium intake to ensure it meets the recommended 1200 mg daily requirement. Uses PPI, anticoagulant, antiepileptic or glucocorticoid medication. Does weight bearing exercise 3 days per week in the form of aquatic therapy . The patient engages in aquatic therapy three times a week to manage her back pain, which limits her ability to perform weight-bearing exercises. 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 UTD on dental cleanings and sees dentist every 6 months. No planned upcoming dental work or extractions. No tobacco use or heavy ETOH use DXA dated 03/07/25 :FINDINGS: AP SPINE L1-L4: BMD 0.953 g/cm2, Z-score -1.4, T-score -1.9, normal appearance of bone density. LEFT FEMUR, NECK: BMD 0.963 g/cm2, Z-score 0.1, T-score -0.4, normal bone density of the neck. IDENTIFIED RISK FACTORS: Rheumatoid arthritis, secondary osteoporosis. HISTORY OF FRACTURE: Other fractures: None listed. MM/XR DEXA axial skeleton IMPRESSION: 1. DIAGNOSIS: Osteoporosis based on the lowest T-score value of -1.9 in the lumbar spine applying World Health Organization criteria. 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 Rheumatoid arthritis Insomnia Chronic back pain COPD (chronic obstructive pulmonary disease) Iron deficiency anemia Morbid obesity Fibromyalgia Chronic GERD Constipation by delayed colonic transit Hypovitaminosis D Pure hypercholesterolemia Severe major depression Surgical History H/O colonoscopy History of back surgery History of neck surgery Family History Mother Uterus cancer Breast cancer, Onset Age: 43 Diabetes Arthritis IBS (irritable bowel syndrome) Father Heart disease Sister Mental health disorder Brother Mental health disorder Social History Housing: Apartment Are you a primary vision care associate to a significant other at home: No Do you presently have visiting nurse or other home services: No Alcohol intake: never Patient Tobacco Use Status: Former Tobacco user Tobacco use type: Cigarette e-Cigarette/Vaping Use: Never Used Second Hand Smoke Exposure: No service: No Current occupational status: disabled 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) Hearing needs: No Vision needs: Yes Physical Exam There are no Cushingoid features. Absence of blue sclera. Absence of kyphosis. Thyroid gland is of nl size and weighs 15 gms. There are no thyroid nodules palpated. Lungs CTA. Heart S1 S2 Reg R/R Abdominal exam benign. Muscle strength 5/5 . Examination of spine reveals absence of tenderness on palpation Assessment & Plan Assessment & Plan (1) Osteoporosis: Code(s): M81.0 - Age-related osteoporosis without current pathological fracture Category: Medical Plan: This is a 65-year-old female with a history of low bone mass. Partial secondary workup was performed. Plan is to complete the secondary workup by checking phosphorus level, 24 hour urine for calcium and creatinine, urine immunofixation. Will ensure total of 1200 mg of calcium per day and continue calcium and vitamin-D supplementation. Assuming secondary workup is negative, could consider use of raloxifene in this patient with a very high risk of breast cancer in the family and low bone mass for its protection against vertebral fracture as well 1. Osteopenia The patient's T-score of -1.9 indicates osteopenia. She should continue calcium and vitamin D supplementation and engage in weight-bearing exercises. A follow-up workup is planned to rule out secondary causes. Raloxifene is considered for its dual benefit in managing osteopenia and reducing breast cancer risk. The patient had an opportunity to ask questions regarding treatment plan. The patient expressed understanding and agreement with the above treatment plan. Patient was informed and verbally consented to the use of an ambient scribe for clinic note documentation during this visit. Orders: Orders Phosphorus Today M81.0 - Age-related osteoporosis without current pathological fracture Calcium, 24 Hr Ur Today M81.0 - Age-related osteoporosis without current pathological fracture Creatinine, 24 Hr Group Today M81.0 - Age-related osteoporosis without current pathological fracture Immunofixation, Random Urine Today M81.0 - Age-related osteoporosis without current pathological fracture Coding Level of Care Code New Pt Level 4 (56691) Diagnoses Osteoporosis M81.0
[2025-06-14 09:08] VITALS: BP 128/82; PULSE 75; O2SAT 95; BMI 40.4
--- OUTSIDE RECORDS SUMMARY | 2025-06-14 10:37 | XMS_ITS | Encounter Summary ---
Author Organization [facility] Address [address] [place] [address] [place] [address] Phone Care Team Providers Care Director Customer Name Role Phone Marielle Maya MD Primary Care Provider [phone] Veda Dawson MD Primary Care Provider [phone] Riddhi Chan MD Primary Care Provid er Encounter Details Date Type Department Care Team (Latest Contact Info) Description 11/25/2017 Ancillary Orders [facility] [address] [facility] 3rd Floor, [address] [place] [address] Carson Cabrera MD [address] [place] [id number] [email or web address] Chest pain, unspecified type Social [...] type documented in this encounter Care Teams Director Customer Relationship Specialty Start Date End Date Marielle Maya MD [address] [place] [address] [id number] PCP - General Internal Medicine 10/29/17 12/10/21 Veda Dawson MD [address] [place] [address] PCP - General Family Medicine 12/11/21 01/21/22 Riddhi Chan MD [address] [place] [id number] PCP - General Internal Medicine 01/22/22 documented as of this encounter Additional Source Comments The information contained in this document represents components of the legal health record. It is not the complete legal health record.[facility]
--- OUTSIDE RECORDS SUMMARY | 2025-06-14 10:37 | XMS_ITS | Clinical Summary ---
Author Organization [facility] Address [address] [place] [address] Phone Care Team Providers Care Talent Acquisition Partner Name Role Phone Riddhi Chan MD Primary [...] B [place] & [facility] [place] [facility] & B Member Subscriber Plan / Payer (Ef fective 2008-Present) Name:Kiersten Park Member ID:[id number] Relation to Subscriber:Self Name:Kiersten Park Subscriber ID:[id number] Payer ID:[id number] Group ID:Not on file Type:Medicare Address: Chain [id number] [place] A & [facility] & [place] & [facility] & B [facility] Care Teams Talent Acquisition Partner Relationship Specialty Start Date End Date Riddhi Chan MD [address] [place] [address] PCP - General Internal Medicine 01/22/22 Additional Source Comments The information contained in this document represents components of the legal health record. It is not the complete legal health record.[facility]
--- OUTSIDE RECORDS SUMMARY | 2025-06-14 10:37 | XMS_ITS | Encounter Summary ---
Author Organization [employer] Address [address] [place] [address] [address] [place] [address] Care Team Providers Care Voice Pathologist Name Role Phone Veda Dawson MD Primary Care Provider [phone] Reason for Visit * Reason Comments Med Refill Encounter Details Date Type Department Care Team ([facility] st Contact Info) Description 08/01/2024 Refill [facility] [address] [place] [address] Veda Dawson MD [address] [place] [address] Social History Tobacco Use Types Packs/Day Years [...] on filedocumented in this encounter Care Teams Voice Pathologist Relationship Specialty Start Date End Date Veda Dawson MD [address] [place] [address] PCP - General Family Medicine 02/21/20 11/22/24 documented as of this encounter
--- OUTSIDE RECORDS SUMMARY | 2025-06-14 10:37 | XMS_ITS | Encounter Summary ---
Author Organization [employer] Address [address] [place] [address] [address] [place] [address] Care Team Providers Care Lifter Driver Name Role Phone Veda Dawson MD Primary Care Provider [phone] Reason for Visit * Reason Comments Med Refill Encounter Details Date Type Department Care Team ([facility] st Contact Info) Description 10/06/2024 Refill [facility] [address] [place] [address] Veda Dawson MD [address] [place] [address] Social History Tobacco Use Types Packs/Day Years [...] on filedocumented in this encounter Care Teams Lifter Driver Relationship Specialty Start Date End Date Veda Dawson MD [address] [place] [address] PCP - General Family Medicine 02/21/20 11/22/24 documented as of this encounter
--- OUTSIDE RECORDS SUMMARY | 2025-06-14 10:37 | XMS_ITS | Encounter Summary ---
Author Organization [facility] Address [address] [place] [address] [place] [address] Phone Care Team Providers Care Senior Ux Designer Name Role Phone Marielle Maya MD Primary Care Provider [phone] Veda Dawson MD Primary Care Provider [phone] Riddhi Chan MD Primary Care Provid er Reason for Referral * MRI/CAT Scan - Closed Specialty Diagnoses / Procedures Referred By Sherrill renee Referred To Contact Radiology Diagnoses Chest pain, unspecified type Procedures NC Myocardial Perfusion Stress Single NC Myocardial Perfusion Pharmacologic Stress Multiple Carson Cabrera MD Phone: tel: [email or web address] Referral ID Status Reason Start Date Expiration Date Visits Re quested Visits Authorized [id number] Closed 11/25/2017 01/25/2018 1 1 Encounter Details Date Type Department Care Team (Latest Contact Info) Description 02/04/2018 Ancillary Orders [facility] [address], [address] [place], [place] [id number] Carson Cabrera MD [address] [place] [id number] [email or web address] Chest pain, unspecified type Social History [...] type documented in this encounter Care Teams Senior Ux Designer Relationship Specialty Start Date End Date Marielle Maya MD [address] [place] [address] PCP - General Internal Medicine 10/29/17 12/10/21 Veda Dawson MD [address] [place] [address] PCP - General Family Medicine 12/11/21 01/21/22 Riddhi Chan MD [address] [place] [id number] PCP - General Internal Medicine 01/22/22 documented as of this encounter Additional Source Comments The information contained in this document represents components of the legal health record. It is not the complete legal health record.[facility]
--- OUTSIDE RECORDS SUMMARY | 2025-06-14 10:37 | XMS_ITS | Clinical Summary ---
Author Organization [employer] Address [address] [place] [address] [address] [place] [address] Care Team Providers Care Radiation Control Health Physicist Name Role Phone Unavailable Primary Care Provider [...] 04/16/2021, 07/02/2018 COVID-19 Vaccine ( - season) 2025 09/11/2021, 12/25/2020, 11/27/2020 Influenza Vaccine (#1) 2025 [...]
--- OUTSIDE RECORDS SUMMARY | 2025-06-14 10:37 | XMS_ITS | Encounter Summary ---
Author Organization [employer] Address [address] [place] [address] [address] [place] [address] Care Team Providers Care Telegraphic Typewriter Operator Name Role Phone Veda Dawson MD Primary Care Provider [phone] Reason for Visit * Reason Comments Med Refill Encounter Details Date Type Department Care Team ([facility] st Contact Info) Description 04/11/2024 Refill [facility] [address] [place] [address] Veda Dawson MD [address] [place] [address] Social History Tobacco Use Types Packs/Day Years [...] on filedocumented in this encounter Care Teams Telegraphic Typewriter Operator Relationship Specialty Start Date End Date Veda Dawson MD [address] [place] [address] PCP - General Family Medicine 02/21/20 11/22/24 documented as of this encounter
== END 2025-06-14 09:47 | disposition home or self-care (01) ==
LOC: HO.ENCR 09:03
PROVIDERS: PCP Internal Medicine; Visit Provider Internal Medicine Endocrinology, Diabetes & Metabolism
DX: M81.0 Age-related osteoporosis without current pathological fracture (principal)
CPT/HCPCS: 99204

== ENCOUNTER → 2025-06-14 09:02 | Outpatient (BNVA) | payer OTHER, SELFPAY | PROVIDERS: PCP Internal Medicine; Visit Provider Internal Medicine Endocrinology, Diabetes & Metabolism | DX: M81.0 Age-related osteoporosis without current pathological fracture (principal); M79.7 Fibromyalgia; E27.49 Other adrenocortical insufficiency; Z80.3 Family history of malignant neoplasm of breast; Z79.01 Long term (current) use of anticoagulants | CPT/HCPCS: 99202 ==

== ENCOUNTER 2025-06-30 09:59 | Outpatient (REF) | payer OTHER, SELFPAY ==
[2025-06-30 11:14] LABS: MANUAL DIFF FLAG NO
[2025-06-30 11:50] LABS: Hematocrit 42.0 % (37.0-47.0); Hemoglobin 13.9 g/dl (12.0-16.0); Imm Gran Abs Auto 0.03 X10*3/uL (0.00-0.03); Imm Gran Pct Auto 0.4 % (0.0-0.4); Lymphocytes Absolute Auto 1.8 X10*3/uL (1.2-4.9); Mean Corpuscular HGB Conc 33.1 g/dl (31.0-35.0); Mean Corpuscular Hemoglobin 27.7 pg (27.0-33.0); Mean Corpuscular Volume 83.8 fL (80.0-98.0); NRBC Abs Auto 0.000 X10*3/uL (0.0-0.012); NRBC Pct Auto 0.0 /100WBC (0.0-0.2); Platelet Count 256 X10*3/uL (160-400); Red Blood Count 5.01 X10*6/uL (4.20-5.50); White Blood Count 7.0 X10*3/uL (4.8-10.8)
[2025-06-30 12:32] LABS: Alanine Aminotransferase 24 U/L (0-31); Albumin Level 4.4 g/dL (3.5-5.0); Alkaline Phosphatase 100 U/L (39-117); Anion Gap 12 (12-20); Aspartate Amino Transferase 22 U/L (5-31); Blood Urea Nitrogen 13 mg/dL (9-16); Calcium 9.6 mg/dL (8.4-10.2); Carbon Dioxide 26 mmol/L (22-29); Chloride 107 mmol/L (96-108); Cholesterol 166 mg/dL (<200); Estimated Glomerular Filt Rate > 60; HDL Cholesterol 61 mg/dL (>40); Iron 58 mcg/dL (30-160); Percent Iron Saturation 18 % (15-50); Potassium 3.8 mmol/L (3.3-5.1); Sodium 141 mmol/L (135-145); Total Iron Binding Capacity 315 mcg/dL (228-428); Total Protein 7.0 g/dL (6.5-8.0); Triglycerides 97 mg/dL (<150); Unsaturated Iron Binding 257 ug/dL
[2025-06-30 12:52] LABS: Folate 11.3 ng/mL (> or = 4.0); Vitamin B12 512 pg/mL (200-900)
== END 2025-06-30 10:00 | disposition home or self-care (01) ==
LOC: HO.LAB 09:59
PROVIDERS: PCP Internal Medicine; Visit Provider Internal Medicine Endocrinology, Diabetes & Metabolism
DX: I10 Essential (primary) hypertension (principal); E78.5 Hyperlipidemia, unspecified; E55.9 Vitamin D deficiency, unspecified; E53.8 Deficiency of other specified B group vitamins; M81.0 Age-related osteoporosis without current pathological fracture; M06.9 Rheumatoid arthritis, unspecified; R73.03 Prediabetes; E66.01 Morbid (severe) obesity due to excess calories; G47.33 Obstructive sleep apnea (adult) (pediatric); R73.02 Impaired glucose tolerance (oral); F33.1 Major depressive disorder, recurrent, moderate; F41.1 Generalized anxiety disorder; J44.9 Chronic obstructive pulmonary disease, unspecified; M54.30 Sciatica, unspecified side; M51.369 Other intervertebral disc degeneration, lumbar region without mention of lumbar back pain or lower extremity pain; K59.09 Other constipation; M54.16 Radiculopathy, lumbar region; D64.9 Anemia, unspecified; Z68.41 Body mass index [BMI] 40.0-44.9, adult; Z99.89 Dependence on other enabling machines and devices; Z79.899 Other long term (current) drug therapy
CPT/HCPCS: 36415; 80053; 80061; 82306; 82607; 82746; 83540; 85025; 99212

== ENCOUNTER 2025-06-30 10:08 | Outpatient (AMB) | payer OTHER, SELFPAY ==
[2025-06-30 10:09] VITALS: BP 130/90; PULSE 67; RESP 18; O2SAT 97; BMI 40.9
--- NOTE | 2025-06-30 10:09 | MHC.PC.OV ---
Vital Signs 06/30/25 10:09 Height 4 ft 11.83 in Weight 208 lb 6 oz BMI 40.9 BP 130/90 H Blood Pressure Location Lt brachial Position Sitting Respiration 18 Pulse 67 Pulse Source Pulse Oximeter Temp Source Temporal Artery Scan Pulse Oximetry (%) 97 Oxygen Delivery Method Room Air Intake Visit Reasons: nerve pain in her toes and leg Countersinker Balance Screw Hole Required: No Accompanied by: Self / Same As Patient Allergies pineapple (PINEAPPLE) Adverse Reaction (Severe, Verified 06/30/25 10:32) DIARRHEA Medication List - Last Reconciled 06/30/25 by Riddhi Michael MD acetaminophen (Tylenol Extra Strength) 500 mg PO Q6H PRN albuterol sulfate 90 mcg/actuation (Ventolin HFA) 2 puffs inhalation Q6H PRN alendronate 70 mg PO QWEEK 90 days amlodipine 5 mg PO DAILY 90 days atorvastatin 20 mg PO DAILY 90 days [bath mat As directed] blood pressure monitor (Blood Pressure Kit) As directed bupropion HCl XL 150 mg PO DAILY 90 days calcium citrate-vitamin D3 200 mg-6.25 mcg (250 unit) 1 tab PO BID 30 days cyclobenzaprine 10 mg PO TID PRN docusate sodium 100 mg PO BID 90 days escitalopram oxalate 20 mg PO DAILY 90 days [heating pad As directed] hydroxyzine HCl 10 mg PO BID incontinence pad, liner, disp Use 1 pad three times a day Incruse Ellipta 62.5 mcg/actuation (umeclidinium) 1 inh inhalation BEDTIME 30 days NS losartan 100 mg PO DAILY 90 days multivitamin with folic acid 400 mcg (Tab-A-Duarte) 1 tab PO DAILY 90 days omeprazole 40 mg PO DAILY 90 days [pillow- lumbar support As directed] polyethylene glycol 3350 (Miralax) 17 grams PO DAILY PRN 30 days selenium sulfide 1% (Dandruff Shampoo (selenium sulfide)) 5 mL topical 2XW 14 days sertraline 25 mg PO DAILY trazodone 150 mg PO BEDTIME triamcinolone acetonide 0.1% 1 appl topical DAILY 30 days venlafaxine ER 75 mg PO BID walker (Ultra-Light Rollator misc) As directed [wipes As directed] Tobacco use date assessed: 06/30/25 Fall risk assessment: 1 Fall in past year Last assessed Fall Risk: 06/30/25 Dental Screening Dental Screen Date: 06/30/25 Did you have a dental visit in the last 12 months?: Yes Did you have a dental problem in the last 6 months where you did not have access to dental care?: No Was dental information given to patient?: Patient has dentist HPI HPI Comments History of Present Illness Details The patient is a 65-year-old female presenting for management of multiple chronic conditions including hypertension, osteoporosis, depression, and rheumatoid arthritis. Hypertension is controlled with amlodipine, with a recent blood pressure reading of 130/90 mmHg. Osteoporosis is managed with alendronate following a diagnosis confirmed by bone densitometry. The patient has major depressive disorder, treated with escitalopram and sertraline, and uses trazodone for insomnia. Chronic constipation is managed with docusate and Miralax as needed. Rheumatoid arthritis is a concern, with a rheumatology appointment scheduled. The patient reports nerve pain suggestive of sciatica, with symptoms including shocks in her toes and fingers. The patient is prediabetic, with plans for laboratory tests in August. She is managing morbid obesity and obstructive sleep apnea, with potential treatment discussions for Zepbound. [facility] Medical History (Updated 06/30/25 @ 10:47 by Riddhi Michael MD) Mild recurrent major depression History of high cholesterol History of high blood pressure Right shoulder pain Restrictive lung disease Morbid obesity with BMI of 45.0-49.9, adult MAGGIE (generalized anxiety disorder) 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 Rheumatoid arthritis Insomnia Chronic back pain COPD (chronic obstructive pulmonary disease) Iron deficiency anemia Morbid obesity Fibromyalgia Chronic GERD Constipation by delayed colonic transit Hypovitaminosis D Pure hypercholesterolemia Severe major depression Surgical History H/O colonoscopy History of back surgery History of neck surgery Family History Mother Uterus cancer Breast cancer, Onset Age: 43 Diabetes Arthritis IBS (irritable bowel syndrome) Father Heart disease Sister Mental health disorder Brother Mental health disorder Social History Housing: Apartment Are you a primary day care attendant to a significant other at home: No Do you presently have visiting nurse or other home services: No Alcohol intake: never Patient Tobacco Use Status: Former Tobacco user Tobacco use type: Cigarette e-Cigarette/Vaping Use: Never Used Second Hand Smoke Exposure: No service: No Current occupational status: disabled 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) Hearing needs: No Vision needs: Yes Questionnaire Thrive Questionnaire Date Thrive assessed: 04/13/25 I am a: Patient What is your living situation today?: I have a steady place to live Within the past 12 months, did the food you bought not last and you didn't have the money to get more?: Often true Within the past 12 months, did you worry whether your food would run out before you got money to buy more?: Often true Do you have trouble paying for medicines?: No Do you have trouble getting transportation to medical appointments?: No Do you have trouble paying your heating and electricity bill?: No Do you have trouble taking care of your child, family member or friend?: I choose not to answer this question Do you have trouble with day-to-day activities such as bathing, preparing meals, shopping, managing finances, etc.?: Yes Are you currently unemployed and looking for a job?: Yes Are you interested in more education?: No Please select the resources that you would like help with: None Currently or been in a relationship where the following occur: No concerns reported THRIVE Score: 2 MAGGIE-7 AMB Questionnaire MAGGIE-7 Date MAGGIE - 7 assessed: 04/20/25 Source: Developed by Drs. Luis Antonio Rice, Alyssa Levin, Larry Dennison and colleagues, with an educational kareem from [employer]. Review of Systems Const All systems reviewed & are unremarkable except as noted in HPI and below Card Denies chest pain at rest, Denies chest pain with activity, Denies edema, Denies irregular heart rhythm, Denies claudication, Denies dyspnea, Denies dyspnea on exertion, Denies orthopnea, Denies paroxysmal nocturnal dyspnea and Denies slow heart rate Resp Denies cough, Denies dyspnea and Denies dyspnea on exertion Physical exam (Primary Care) Vital Signs: Last Vital Signs Pulse 67 06/30/25 10:09 Resp 18 06/30/25 10:09 BP 130/90 H 06/30/25 10:09 Pulse Ox 97 06/30/25 10:09 Oxygen Delivery Method Room Air 06/30/25 10:09 BMI result Body Mass Index 40.9 BMI Assessment/Plan discussion: High BMI High, discussed plan: lifestyle, weight reduction, dietary and physical activity Tobacco/Smoking Status: Tobacco use Status Tobacco use date assessed 06/30/25 06/30/25 10:24 Patient Tobacco Use Status Former Tobacco user 06/30/25 10:24 Tobacco use type Cigarette 06/30/25 10:24 e-Cigarette/Vaping Use Never Used 06/30/25 10:24 Thrive Assessment: Date of Thrive Assessment Date Thrive assessed 04/13/25 06/30/25 10:24 Currently or been in a relationship where the following occur: No concerns reported Resp Effort & Inspection: normal respiratory effort Auscultation: clear to auscultation bilaterally Cardio Jugular venous distension: no JVD Rate: regular rate Heart sounds: S1 normal heart sound present and S2 normal heart sound present Extrem General: Yes full ROM Coding Level of Care Code Est Pt Level 4 (34041) Complex EM visit Add On G2211 Diagnoses Impaired glucose tolerance R73.02 Moderate recurrent major depression F33.1 Essential hypertension I10 MAGGIE (generalized anxiety disorder) F41.1 Morbid obesity with BMI of 40.0-44.9, adult E66.01; Z68.41 Rheumatoid arthritis M06.9 Chronic obstructive pulmonary disease, unspecified COPD type J44.9 COPD type: unspecified COPD Lumbar degenerative disc disease M51.36 Time Spent (min) 23 Assessment & Plan Assessment & Plan (1) Impaired glucose tolerance: Code(s): R73.02 - Impaired glucose tolerance (oral) Category: Medical (2) Moderate recurrent major depression: Code(s): F33.1 - Major depressive disorder, recurrent, moderate Category: Medical (3) Essential hypertension: Code(s): I10 - Essential (primary) hypertension Category: Medical (4) MAGGIE (generalized anxiety disorder): Code(s): F41.1 - Generalized anxiety disorder Category: Medical (5) Morbid obesity with BMI of 40.0-44.9, adult: Code(s): E66.01 - Morbid (severe) obesity due to excess calories; Z68.41 - Body mass index [BMI] 40.0-44.9, adult Category: Medical (6) Rheumatoid arthritis: Comment: Follow by automatic print developer Dr. Knox at arthritis [facility] center Code(s): M06.9 - Rheumatoid arthritis, unspecified Category: Medical (7) COPD (chronic obstructive pulmonary disease): Comment: Patient known to have mild to moderate degree of chronic obstructive pulmonary disease. Doing well with use of Incruse Ellipta 1 inhalation daily. Should also have a rescue inhaler on hand and I have prescribed ProAir 2 puffs Q 6 hours p.r.n. * I explained to her that her obstructive disorder is very mild, CONTINUE TO USE INCRUSE ELLIPTA ONE INH DAILY AND VENTOLIN HFA 2 PUFFS Q 6 HRS ONLY PRN . Code(s): J44.9 - Chronic obstructive pulmonary disease, unspecified Category: Medical Qualifiers: COPD type: unspecified COPD Qualified Code(s): J44.9 - Chronic obstructive pulmonary disease, unspecified (8) Lumbar degenerative disc disease: Code(s): M51.36 - Other intervertebral disc degeneration, lumbar region Category: Medical Plan Plan Patient was informed and verbally consented to the use of an ambient scribe for clinic note documentation during this visit. 1. Essential Hypertension The patient's hypertension is currently managed with amlodipine 5 mg, and her blood pressure was recorded at 130/90 mmHg, indicating effective control. 2. Osteoporosis Osteoporosis is being treated with alendronate 70 mg weekly, following a diagnosis confirmed by bone densitometry. 3. Major Depressive Disorder The patient is on escitalopram and sertraline for depression, with trazodone used for insomnia. 4. Chronic Constipation Chronic constipation is managed with docusate and Miralax as needed. 5. Rheumatoid Arthritis Rheumatoid arthritis is a significant concern, with a rheumatology appointment scheduled for further evaluation. 6. Prediabetes The patient is prediabetic, with plans for laboratory tests in August to monitor her glucose levels. 7. Morbid Obesity The patient is managing morbid obesity, with discussions about potential treatment with Zepbound if approved. 8. Obstructive Sleep Apnea The patient reports obstructive sleep apnea and uses a CPAP machine for management. 9. Sciatica The patient reports nerve pain suggestive of sciatica, with symptoms including shocks in her toes and fingers, potentially indicating nerve damage. Orders: Orders IRON PROFILE 06/30/25 D64.9 - Anemia, unspecified Vitamin B12 and Folate 06/30/25 E53.8 - Deficiency of other specified B group vitamins Lipid Panel 06/30/25 E78.5 - Hyperlipidemia, unspecified Complete Blood Count Auto Diff 06/30/25 D64.9 - Anemia, unspecified Vitamin D 25-OH Total 06/30/25 E55.9 - Vitamin D deficiency, unspecified Comprehensive [place]. Panel Fast 06/30/25 R73.02 - Impaired glucose tolerance (oral) Medications: New tirzepatide (weight loss) (Zepbound) for 4 weeks 2.5 mg (0.5 mL) subcut QWEEK 2 mL 0RF 4 weeks E66.01 - Morbid (severe) obesity due to excess calories, Z68.41 - Body mass index [BMI] 40.0-44.9, adult pregabalin 75 mg PO BID 60 caps 0RF 30 days M54.16 - Radiculopathy, lumbar region
== END 2025-06-30 10:45 | disposition home or self-care (01) ==
PROVIDERS: PCP Internal Medicine; Visit Provider Internal Medicine
DX: R73.02 Impaired glucose tolerance (oral) (principal); F33.1 Major depressive disorder, recurrent, moderate; I10 Essential (primary) hypertension; F41.1 Generalized anxiety disorder; E66.01 Morbid (severe) obesity due to excess calories; Z68.41 Body mass index [BMI] 40.0-44.9, adult; M06.9 Rheumatoid arthritis, unspecified; J44.9 Chronic obstructive pulmonary disease, unspecified; M51.369 Other intervertebral disc degeneration, lumbar region without mention of lumbar back pain or lower extremity pain

== ENCOUNTER 2025-07-20 10:49 | Outpatient (AMB) | payer OTHER, SELFPAY ==
--- NOTE | 2025-07-20 11:07 | A.OFFVIS_ITS ---
Vital Signs 07/20/25 11:17 Height 4 ft 11.83 in Weight 207 lb 0.225 oz BMI 40.7 BP 152/90 H Blood Pressure Location Lt brachial Position Sitting Pulse 83 Pulse Source Pulse Oximeter Pulse Oximetry (%) 96 Oxygen Delivery Method Room Air Intake Visit Reasons: Rheumatoid arthritis/ New Patient Intake Note: New patient presents for RA. Patient c/o of back pain, bilateral leg pain, bilateral knee pain and LT arm pain. Patient has been feeling these symptoms since [age] years old. Patient takes Tylenol and Ibuprofen for pain. Patient stated it doesn't work. Allergies pineapple (PINEAPPLE) Adverse Reaction (Severe, Verified 07/20/25 11:16) DIARRHEA Medication List - Last Reconciled 07/20/25 by Carolyn Andrea MD acetaminophen (Tylenol Extra Strength) 500 mg PO Q6H PRN albuterol sulfate 90 mcg/actuation (Ventolin HFA) 2 puffs inhalation Q6H PRN alendronate 70 mg PO QWEEK 90 days amlodipine 5 mg PO DAILY 90 days atorvastatin 20 mg PO DAILY 90 days [bath mat As directed] blood pressure monitor (Blood Pressure Kit) As directed bupropion HCl XL 150 mg PO DAILY 90 days calcium citrate-vitamin D3 200 mg-6.25 mcg (250 unit) 1 tab PO BID 30 days cyclobenzaprine 10 mg PO TID PRN docusate sodium 100 mg PO BID 90 days escitalopram oxalate 20 mg PO DAILY 90 days [heating pad As directed] hydroxyzine HCl 10 mg PO BID incontinence pad, liner, disp Use 1 pad three times a day Incruse Ellipta 62.5 mcg/actuation (umeclidinium) 1 inh inhalation BEDTIME 30 days NS [lift recliner As directed] losartan 100 mg PO DAILY 90 days multivitamin with folic acid 400 mcg (Tab-A-Duarte) 1 tab PO DAILY 90 days omeprazole 40 mg PO DAILY 90 days [pillow- lumbar support As directed] polyethylene glycol 3350 (Miralax) 17 grams PO DAILY PRN 30 days pregabalin 75 mg PO BID 30 days selenium sulfide 1% (Dandruff Shampoo (selenium sulfide)) 5 mL topical 2XW 14 days sertraline 25 mg PO DAILY tirzepatide (weight loss) (Zepbound) 2.5 mg (0.5 mL) subcut QWEEK 4 weeks trazodone 150 mg PO BEDTIME triamcinolone acetonide 0.1% 1 appl topical DAILY 30 days venlafaxine ER 75 mg PO BID walker (Ultra-Light Rollator misc) As directed [wipes As directed] HPI Comments Details: Patient is a 65-year-old female with COPD, hypertension, hyperlipidemia, GERD, depression, osteoporosis and osteoarthritis here today to establish care Patient states that she saw [employer] in [place] [phone] and was bring followed for arthritis Therapeutic options performed - injections. lower back/neck - no oral medications offered Her main complaint today is back pain This has has been on going for several years and she has had numerous interventions for this Denies prolonged morning stiffness involving the hands Does report worsening knee pain over the past 1-2 years which she is attributing to her weight gain. Left knee worse than right knee Known known family history of rheumatoid arthritis Patient has never had a formal diagnosis of rheumatoid arthritis nor has she had been treated with any DMARDs PFSH Medical History Mild recurrent major depression History of high cholesterol History of high blood pressure Right shoulder pain Restrictive lung disease Morbid obesity with BMI of 45.0-49.9, adult MAGGIE (generalized anxiety disorder) 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 Rheumatoid arthritis Insomnia Chronic back pain COPD (chronic obstructive pulmonary disease) Iron deficiency anemia Morbid obesity Fibromyalgia Chronic GERD Constipation by delayed colonic transit Hypovitaminosis D Pure hypercholesterolemia Severe major depression Surgical History H/O colonoscopy History of back surgery History of neck surgery Family History Mother Uterus cancer Breast cancer, Onset Age: 43 Diabetes Arthritis IBS (irritable bowel syndrome) Father Heart disease Sister Mental health disorder Brother Mental health disorder Social History Housing: Apartment Are you a primary career coordinator to a significant other at home: No Do you presently have visiting nurse or other home services: No Alcohol intake: never Patient Tobacco Use Status: Former Tobacco user Tobacco use type: Cigarette e-Cigarette/Vaping Use: Never Used Second Hand Smoke Exposure: No service: No Current occupational status: disabled 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) Hearing needs: No Vision needs: Yes Review of Systems Narrative Review of Systems Constitutional: Denies fever, chills, weight loss ENT: Denies vision changes, eye pain or eye redness, dental caries, dry mouth GI: Denies nausea, vomiting, diarrhea, abdominal pain, change in BM Pulm: Denies SOB, MOELLER, hemoptysis, wheezing Cards: Denies chest pain, palpitations Skin: Denies Raynaud's, rash, nail changes, photosensitivity, RADIO RECORDER: Denies headaches, weakness, paresthesias, recurrent falls MSK: as per HPI All other systems reviewed and are unremarkable except noted above Physical Exam Exam Exam: Vital signs reviewed Physical Examination CONSTITUITIONAL Patient alert and cooperative. Patient clearly is having widespread back pain with muscle spasm as evidenced by the way that she holds her torso MSK Hands * Right Hand: Able to make a fist. No swelling or tenderness to palpation of the MCPs, PIPs or DIPs. * Left Hand: Able to make a fist. No swelling or tenderness to palpation of the MCPs, PIPs or DIPs. Wrists * Right Wrist: Full ROM to flexion and extension. No swelling or TTP * Left Wrist: Full ROM to flexion and extension. No swelling or TTP Elbows * Right Elbow: Full ROM. No swelling or TTP. No TTP of the medial epicondyle. No TTP of the lateral epicondyle * Left Elbow: Full ROM. No swelling or TTP. No TTP of the medial epicondyle. No TTP of the lateral epicondyle Shoulders * Right shoulder: No swelling noted. No TTP of the AC joint. No TTP of the subacromial bursa. No TTP of the posterior shoulder * Left shoulder: No swelling noted. No TTP of the AC joint. No TTP of the subacromial bursa. No TTP of the posterior shoulder * Decreased ROM bilaterally Knees * Right knee: No swelling noted. No TTP of the knee joint line. No TTP of pes anserine bursa * Left knee: No swelling noted. TTP of the knee joint line. No TTP of pes anserine bursa. Ankles * Right ankle: Good ankle dorsiflexion and plantar flexion. No swelling. No TTP of the ankle joint * Left ankle: Good ankle dorsiflexion and plantar flexion. No swelling. No TTP of the ankle joint Feet * Right foot: Negative squeeze test * Left foot: Negative squeeze test Tender points? * No tenderness to palpation of the bilateral trapezius, supraspinatus, anterior costochondral junctions, bilateral suboccipital muscle insertions SKIN No rashes Vital Signs: Last Vital Signs Pulse 83 07/20/25 11:17 BP 152/90 H 07/20/25 11:17 Pulse Ox 96 07/20/25 11:17 Oxygen Delivery Method Room Air 07/20/25 11:17 BMI result Body Mass Index 40.7 Results Reviewed Results Reviewed: Laboratory Tests 06/30/25 11:13 WBC 7.0 RBC 5.01 Hgb 13.9 Hct 42.0 Plt Count 256 Sodium 141 Potassium 3.8 Chloride 107 Carbon Dioxide 26 BUN 13 Creatinine 0.86 AST 22 ALT 24 Laboratory Tests 08/17/19 04/28/22 13:18 12:27 Rheumatoid Factor < 15.0 Cycl Citrul Peptide IgG <16 RIDDHI Screen Negative DEXA 02/2025 FINDINGS: AP SPINE L1-L4: BMD 0.953 g/cm2, Z-score -1.4, T-score -1.9, normal appearance of bone density. LEFT FEMUR, NECK: BMD 0.963 g/cm2, Z-score 0.1, T-score -0.4, normal bone density of the neck. Assessment & Plan Assessment & Plan (1) Polyarticular osteoarthritis: Code(s): M15.9 - Polyosteoarthritis, unspecified Plan: #Polyarticular OA Patient is a 65-year-old female here today for evaluation of back pain. Discussed with patient that her images are consistent with degenerative disease of the spine which does not have an underlying autoimmune or immunologic component. My recommendation for her is to pursue pain management for further treatment modalities. There is no role for immunosuppression in the management of degenerative disease of the spine Plan - Pain management referral - No follow up needed (2) Osteoporosis: Code(s): M81.0 - Age-related osteoporosis without current pathological fracture Category: Medical Qualifiers: Osteoporosis type: age-related Presence of current pathological fracture: without current pathological fracture Qualified Code(s): M81.0 - Age- related osteoporosis without current pathological fracture Plan: #Osteoporosis Patient with osteoporosis currently being managed by her primary Plan I spent 30 minutes reviewing the record and labs, taking a history, examining the patient, discussing the treatment plan, ordering diagnostic work up and documenting in the medical record Orders: Referrals Pain Management Referral M54.9 - Dorsalgia, unspecified Coding Level of Care Code New Pt Level 3 (08747) Diagnoses Polyarticular osteoarthritis M15.9 Age-related osteoporosis without current pathological fracture M81.0 Osteoporosis type: age-related Presence of current pathological fracture: without current pathological fracture
[2025-07-20 11:17] VITALS: BP 152/90; PULSE 83; O2SAT 96; BMI 40.7
--- OUTSIDE RECORDS SUMMARY | 2025-07-20 13:29 | XMS_ITS | Encounter Summary ---
Author Organization [employer] Address [address] [place] [address] [address] [place] [address] Care Team Providers Care Applications Administrator Name Role Phone Veda Dawson MD Primary Care Provider [phone] Reason for Visit * Reason Comments Med Refill Encounter Details Date Type Department Care Team ([facility] st Contact Info) Description 08/01/2024 Refill [facility] [address] [place] [address] Veda Dawson MD [address] [place] [id number] Social History Tobacco Use Types Packs/Day Years [...] on filedocumented in this encounter Care Teams Applications Administrator Relationship Specialty Start Date End Date Veda Dawson MD [address] [place] [address] PCP - General Family Medicine 02/21/20 11/22/24 documented as of this encounter
--- OUTSIDE RECORDS SUMMARY | 2025-07-20 13:29 | XMS_ITS | Encounter Summary ---
Author Organization [employer] Address [address] [place] [address] [address] [place] [address] Care Team Providers Care Termite Control Representative Name Role Phone Veda Dawson MD Primary Care Provider Reason for Visit * Reason Comments Med Refill Encounter Details Date Type Department Care Team ([facility] st Contact Info) Description 10/06/2024 Refill [facility] [address] [place] [address] Veda Dawson MD [address] [place] [address] Social History Tobacco Use Types Packs/Day Years [...] on filedocumented in this encounter Care Teams Termite Control Representative Relationship Specialty Start Date End Date Veda Dawson MD [address] [place] [address] PCP - General Family Medicine 02/21/20 11/22/24 documented as of this encounter
--- OUTSIDE RECORDS SUMMARY | 2025-07-20 13:29 | XMS_ITS | Encounter Summary ---
Author Organization [employer] Address [address] [place] [address] [address] [place] [address] Care Team Providers Care Painter And Grader Cork Name Role Phone Veda Dawson MD Primary Care Provider [phone] Reason for Visit * Reason Comments Med Refill Encounter Details Date Type Department Care Team ([facility] st Contact Info) Description 04/11/2024 Refill [facility] [address] [place] [address] Veda Dawson MD [address] [place] [address] Social History Tobacco Use Types Packs/Day Years [...] on filedocumented in this encounter Care Teams Painter And Grader Cork Relationship Specialty Start Date End Date Veda Dawson MD [address] [place] [address] PCP - General Family Medicine 02/21/20 11/22/24 documented as of this encounter
--- OUTSIDE RECORDS SUMMARY | 2025-07-20 13:29 | XMS_ITS | Clinical Summary ---
Author Organization [facility] Address [address] [place] [phone] Phone Care Team Providers Care Talent Acquisition [...] [place] [facility] [place] [facility] & B Member Subscriber Plan / Payer (Ef fective 2008-Present) Name:Kiersten Park Member ID:[id number] Relation to Subscriber:Self Name:Kiersten Park Subscriber ID:[id number] Payer ID:[id number] Group ID:Not on file Type:Medicare Address: [employer] [address] [place] A & B [facility] [place] [facility] & B [facility] Care Teams Talent Acquisition Partner Relationship Specialty Start Date End Date Riddhi Chan MD [address] [place] [address] PCP - General Internal Medicine 01/22/22 Additional Source Comments The information contained in this document represents components of the legal health record. It is not the complete legal health record.[facility]
--- OUTSIDE RECORDS SUMMARY | 2025-07-20 13:29 | XMS_ITS | Clinical Summary ---
Author Organization [employer] Address [address] [place] [address] [address] [place] [address] Care Team Providers Care Office Equipment Technician Name Role Phone Unavailable Primary Care [...]
--- OUTSIDE RECORDS SUMMARY | 2025-07-20 13:30 | XMS_ITS | Data Portability ---
Author Organization [facility] Address [address] [place] [address] Care Team Providers Care Dietary Supervisor Name Role Phone REI ALBERTO Primary Care Provider HIM NICKOLAS OTHER Assessment Encounter Date Assessment Date Assessment LastModified by Organization Details LastModified Time 05/11/2024 05/11/2024 As noted, we shruthi e called to see this patient regarding concerns of chronic low back pain. Evaluation in the field was performed by my glass silverer colleague, as noted above, I provided real-time [...] back pain symptoms to be re-evaluated for. [email or web address] Not available 05/11/2024 13:29:27 11/28/2024 11/28/2024 Mrs. [...] Assessment and Plan as documented by the Drama Teacher. We discussed the diagnostic uncertainty of home [...] 30 mg/mL injection solution 2024 025 [email or web address] [facility], [address] [facility] [address], [place], [place], [id number], 5 16:50:50 ketorolac 30 mg/mL (1 mL) injection solution 2023 024 [email or web address] [facility], [address] [facility] [address], [place], [id number], 4 13:24:46 Patient TargetsNo targets recorded. Patient [...] Address Organization Details Last Updated DateTime 5 43257.5 04 g 97.8 [degF] 19 /min 73 /min 149.86 cm 95 % 95 % 166/77 mm[Hg] Not Available [employer] 5 16:49:00 Date Recorded Body temperature Respiratory rate Oxygen saturation Oxygen saturation in Arterial blood by Pulse oximetry Heart rate Systolic And Diastolic Provider Name and Address Organization Details Last Updated DateTime 4 98.7 [degF] 18 /min 97 % 97 % 73 /min 130/82 mm[Hg] Not Available [employer] 4 13:23:21 Social History None recorded. Functional Status None recorded. Mental Status None recorded. Family History Nothing Reported. Medical History No medical history recorded. Gynecological HistoryNo gynecological history recorded. Obstetrics History GPAL:G 0 P 0 0 0 0 Past Encounters Encounter ID Performer Location Encounter Start Date Encounter Closed Date Diagnosis/Indication Diagnosis SNOMED-CT Code Diagnosis ICD10 Code Diagnosis IMO Codes Diagnosis Note [id number] Roberth Escalona MD Main - [facility] [address] [place] [phone] 05/11/2024 13:23:18 05/11/2024 19:04:19 Chronic low back pain 745931569 M54.50 [id number] JUAN DIEGO AMARAL MD Main - [address] [phone] 11/28/2024 16:48:58 01/10/2025 17:15:31 Low back pain 138346201 M54.50 Health Concerns Section Related Observation LastModified by Organization Detai ls LastModified Time None Recorded Concern Status LastModified by Organization Details LastModified Time None Recorded Advance Directives Directive None Recorded Payers Insurance Date Sequence Insurance Name Policy Number Policy Sood Covered Member ID Sood Member ID Guarantor Name 01/10/2025 1 [facility] - DOS ON OR AFTER 2022 - DUAL ELIGIBLE - NURSING HOME OPTIONS AND ONE CARE (MEDICARE REPLACEMENT/AD VANTAGE - HMO) Kiersten Park [id number] Kiersten Park Notes Date Note Type Note Provider Name and Address Organization Details Recorded Time 05/11/2024 text/html ROS as noted in the HPI CRC Nurse Triage Notes (Dianne Santiago): Reason [...] ................... ................... ................... ................... ................... ................... ........ Drama Teacher Note From Joel Elizabeth: Dispatched to the [...] ................... ........ Disposition: Fulfilled Roberth Escalona MD [address] [place] [address],[address], [place], [address], [employer] [employer] 05/11/2024 14:27:37 11/28/2024 text/html ROS as noted in the HPI CRC Nurse Triage Notes (Jaya Anne): Reason [...] - 12:10 Allergies Reviewed at 11/28/2024 - :10 Comments: Additional PMH: Rheumatoid Arthritis Director Business Intelligence verified the patient's name//address and phone number. [...] ................... ................... ................... ................... ................... ................... ........ Drama Teacher Note From Jhonathan Quijano: Pt chief complaint today of chronic lower left back pain, to states that signs and symptoms have been occurring since 4 days prior to [facility] visit today, pt stated that she [...] with a GCS of 15. Positive csm. [facility] Juan Diego Amaral consulted Pt given 30 mg of intramuscular ketorlac via the left deltoid. Pt informed to contact her pcp as early as possible as needed. Pt informs of red flag S&S and informed to call emergency services if any present. [facility] Medication Orders: ketorolac 30 mg/mL injection solution: Administered ................... ................... ................... ................... ................... ................... ................... ........ [facility] Consulted: Juan Diego Amaral ................... ................... ................... ................... ................... ................... ................... ........ Disposition: Fulfilled JUAN DIEGO AMARAL MD [address] [facility], [place], [address], [facility] 11/28/2024 17:41:52 OBGyn Episode No OBEpisode recorded.
--- OUTSIDE RECORDS SUMMARY | 2025-07-20 13:30 | XMS_ITS | Encounter Summary ---
Author Organization [facility] Address [address] [place] [address] [place] [phone] Phone Care Team Providers Care Service Delivery Consultant Name Role Phone Marielle Maya MD Primary Care Provider [phone]- [phone] Veda Dawson MD Primary Care Provider [phone] Riddhi Chan MD Primary Care Provid er Encounter Details Date Type Department Care Team (Latest Contact Info) Description 11/25/2017 Ancillary Orders [facility] [address] [facility] 3rd Floor, [address] [place] [address] Carson Cabrera MD [address] [place] [id number] [email or web address] Chest pain, unspecified type Social [...] type documented in this encounter Care Teams Service Delivery Consultant Relationship Specialty Start Date End Date Marielle Maya MD [address] [place] [phone] PCP - General Internal Medicine 10/29/17 12/10/21 Veda Dawson MD [address] [place] [address] PCP - General Family Medicine 12/11/21 01/21/22 Riddhi Chan MD [address] [place] [address] PCP - General Internal Medicine 01/22/22 documented as of this encounter Additional Source Comments The information contained in this document represents components of the legal health record. It is not the complete legal health record.[facility]
--- OUTSIDE RECORDS SUMMARY | 2025-07-20 13:30 | XMS_ITS | Encounter Summary ---
Author Organization [facility] Address [address] [place] [address] [place] [address] Phone Care Team Providers Care Office Equipment Mechanic Name Role Phone Marielle Maya MD Primary Care Provider [phone] Veda Dawson MD Primary Care Provider [phone] Riddhi Chan MD Primary Care Provid er Reason for Referral * MRI/CAT Scan - Closed Specialty Diagnoses / Procedures Referred By Sherrill renee Referred To Contact Radiology Diagnoses Chest pain, unspecified type Procedures NC Myocardial Perfusion Stress Single NC Myocardial Perfusion Pharmacologic Stress Multiple Carson Cabrera MD Phone: tel: [email or web address] Referral ID Status Reason Start Date Expiration Date Visits Re quested Visits Authorized [id number] Closed 11/25/2017 01/25/2018 1 1 Encounter Details Date Type Department Care Team (Latest Contact Info) Description 02/04/2018 Ancillary Orders [facility], [address] [place], [place] [phone] Carson Cabrera MD [address] [place] [phone] [email or web address] Chest pain, unspecified type Social History [...] type documented in this encounter Care Teams Office Equipment Mechanic Relationship Specialty Start Date End Date Marielle Maya MD [address] [place] [address] PCP - General Internal Medicine 10/29/17 12/10/21 Veda Dawson MD [address] [place] [address] PCP - General Family Medicine 12/11/21 01/21/22 Riddhi Chan MD [address] [place] [phone] PCP - General Internal Medicine 01/22/22 documented as of this encounter Additional Source Comments The information contained in this document represents components of the legal health record. It is not the complete legal health record.[facility]
== END 2025-07-20 11:41 | disposition home or self-care (01) ==
LOC: HO.RHES 10:50
PROVIDERS: PCP Internal Medicine; Visit Provider Student in an Organized Health Care Education/Training Program
DX: M15.9 Polyosteoarthritis, unspecified (principal); M81.0 Age-related osteoporosis without current pathological fracture
CPT/HCPCS: 99203

== ENCOUNTER → 2025-07-20 10:49 | Outpatient (BNVA) | payer OTHER, SELFPAY | PROVIDERS: PCP Internal Medicine; Visit Provider Student in an Organized Health Care Education/Training Program | DX: M15.9 Polyosteoarthritis, unspecified (principal); Z79.899 Other long term (current) drug therapy | CPT/HCPCS: 99202 ==

== ENCOUNTER 2025-08-24 10:28 | Outpatient (AMB) | payer OTHER, SELFPAY ==
[2025-08-24 10:34] VITALS: BP 128/72; PULSE 95; TEMP 36.2; O2SAT 97; BMI 40.1
--- NOTE | 2025-08-24 10:34 | MHC.PC.OV ---
Vital Signs 08/24/25 10:34 Height 5 ft Weight 205 lb 4 oz BMI 40.1 BP 128/72 Blood Pressure Location Lt brachial Position Sitting Pulse 95 Pulse Source Pulse Oximeter Temp 97.1 F Temp Source Temporal Artery Scan Pulse Oximetry (%) 97 Oxygen Delivery Method Room Air Intake Visit Reasons: depression Digital Librarian Required: No Accompanied by: Self / Same As Patient Allergies pineapple (PINEAPPLE) Adverse Reaction (Severe, Verified 08/24/25 10:47) DIARRHEA Medication List - Last Reconciled 08/24/25 by Riddhi Michael MD acetaminophen (Tylenol Extra Strength) 500 mg PO Q6H PRN albuterol sulfate 90 mcg/actuation (Ventolin HFA) 2 puffs inhalation Q6H PRN alendronate 70 mg PO QWEEK 90 days amlodipine 5 mg PO DAILY 90 days atorvastatin 20 mg PO DAILY 90 days [bath mat As directed] blood pressure monitor (Blood Pressure Kit) As directed bupropion HCl XL 150 mg PO DAILY 90 days calcium citrate-vitamin D3 200 mg-6.25 mcg (250 unit) 1 tab PO BID 30 days cyclobenzaprine 10 mg PO TID PRN docusate sodium 100 mg PO BID 90 days escitalopram oxalate 20 mg PO DAILY 90 days [heating pad As directed] hydroxyzine HCl 10 mg PO BID incontinence pad, liner, disp Use 1 pad three times a day Incruse Ellipta 62.5 mcg/actuation (umeclidinium) 1 inh inhalation BEDTIME 30 days NS [lift recliner As directed] losartan 100 mg PO DAILY 90 days multivitamin with folic acid 400 mcg (Tab-A-Duarte) 1 tab PO DAILY 90 days omeprazole 40 mg PO DAILY 90 days [pillow- lumbar support As directed] polyethylene glycol 3350 (Miralax) 17 grams PO DAILY PRN 30 days pregabalin 75 mg PO BID 30 days selenium sulfide 1% (Dandruff Shampoo (selenium sulfide)) 5 mL topical 2XW 14 days sertraline 25 mg PO DAILY tirzepatide (weight loss) (Zepbound) 2.5 mg (0.5 mL) subcut QWEEK 4 weeks trazodone 150 mg PO BEDTIME triamcinolone acetonide 0.1% 1 appl topical DAILY 30 days venlafaxine ER 75 mg PO BID walker (Ultra-Light Rollator misc) As directed [wipes As directed] Tobacco use date assessed: 08/24/25 Fall risk assessment: No Falls in past year Last assessed Fall Risk: 08/24/25 Dental Screening Dental Screen Date: 08/24/25 Did you have a dental visit in the last 12 months?: Yes Did you have a dental problem in the last 6 months where you did not have access to dental care?: No Was dental information given to patient?: Patient has dentist HPI HPI Comments History of Present Illness Details The patient is a 65-year-old female who presented for chronic disease management and medication refills. She has severe major depression with anxiety, hypertension, hyperlipidemia and chronic low back pain. Walks with a walker for gait stability. The patient reports that her chronic pain has worsened and is now located in the posterior aspect of her legs. She currently takes Lyrica 75 mg twice daily for this condition. Regarding her weight, the patient has a diagnosis of morbid obesity and is under the care of a weight agency sales management assistant. A prescription for Zepbound was denied by her insurance. Her current medications include atorvastatin 20 mg for cholesterol, bupropion, calcium with vitamin D, cyclobenzaprine, docusate, escitalopram, Incruse, losartan, a multivitamin, omeprazole, MiraLAX, pregabalin 75 mg twice daily, sertraline 25 mg, trazodone, and venlafaxine. She reports needing refills for all of her medications. She sees a psychiatrist for management of her psychiatric medications. Her last laboratory results showed controlled blood sugar and cholesterol levels. [facility] Medical History (Updated 08/24/25 @ 11:33 by Riddhi Michael MD) Moderate recurrent major depression Mild recurrent major depression History of high cholesterol History of high blood pressure Right shoulder pain Restrictive lung disease Morbid obesity with BMI of 45.0-49.9, adult MAGGIE (generalized anxiety disorder) 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 Insomnia Chronic back pain COPD (chronic obstructive pulmonary disease) Iron deficiency anemia Morbid obesity Fibromyalgia Chronic GERD Constipation by delayed colonic transit Hypovitaminosis D Pure hypercholesterolemia Severe major depression Surgical History H/O colonoscopy History of back surgery History of neck surgery Family History Mother Uterus cancer Breast cancer, Onset Age: 43 Diabetes Arthritis IBS (irritable bowel syndrome) Father Heart disease Sister Mental health disorder Brother Mental health disorder Social History Housing: Apartment Are you a primary hearing healthcare practitioner to a significant other at home: No Do you presently have visiting nurse or other home services: No Alcohol intake: never Patient Tobacco Use Status: Former Tobacco user Tobacco use type: Cigarette e-Cigarette/Vaping Use: Never Used Second Hand Smoke Exposure: No service: No Current occupational status: disabled 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) Hearing needs: No Vision needs: Yes Questionnaire PHQ-9 Over the last 2 weeks, how often have you been bothered by any of the following problems? 1. Little interest or pleasure in doing things: nearly every day 2. Feeling down, depressed, or hopeless: nearly every day 3. Trouble falling or staying asleep, or sleeping too much: nearly every day 4. Feeling tired or having little energy: nearly every day 5. Poor appetite or overeating: nearly every day 6. Feeling bad about yourself - or that you are a failure or have let yourself or your family down: nearly every day 7. Trouble concentrating on things, such as reading the newspaper or watching television: nearly every day 8. Moving or speaking so slowly that other people could have noticed. Or the opposite - being so fidgety or restless that you have been moving around a lot more than usual: nearly every day 9. Thoughts that you would be better off or of hurting yourself in some way: not at all Total score: 24 Depression Screening Interpretation: Positive (no suicidal thoughts) Depression Screening Follow-up: Existing condition, In treatment, Community Mental Health Worker F/U and Follow-up Visit Requested Depression Screening Done: Yes 59927 - PHQ-9 Billing: Yes Source: Developed by Drs. Luis Antonio Rice, Alyssa Levin, Larry Dennison and colleagues, with an educational kareem from [employer]. Thrive Questionnaire Date Thrive assessed: 08/24/25 I am a: Patient What is your living situation today?: I have a steady place to live Within the past 12 months, did the food you bought not last and you didn't have the money to get more?: Often true Within the past 12 months, did you worry whether your food would run out before you got money to buy more?: Often true Do you have trouble paying for medicines?: No Do you have trouble getting transportation to medical appointments?: No Do you have trouble paying your heating and electricity bill?: No Do you have trouble taking care of your child, family member or friend?: I choose not to answer this question Do you have trouble with day-to-day activities such as bathing, preparing meals, shopping, managing finances, etc.?: Yes Are you currently unemployed and looking for a job?: Yes Are you interested in more education?: No Please select the resources that you would like help with: None Currently or been in a relationship where the following occur: No concerns reported THRIVE Score: 2 AUDIT C Alcohol Use Questionnaire (AUDIT-C) 1. How often do you have a drink containing alcohol?: Never Total Score: 0 Score Reviewed/Action Taken: No MAGGIE-7 AMB Questionnaire MAGGIE-7 Date MAGGIE - 7 assessed: 08/24/25 Feeling nervous, anxious, or on edge: 0 = Not at all Not being able to stop or control worryin = Not at all Worrying too much about different things: 0 = Not at all Trouble relaxin = Not at all Being so restless that it is hard to sit still: 0 = Not at all Becoming easily annoyed or irritable: 0 = Not at all Feeling afraid as if something awful might happen: 0 = Not at all Total MAGGIE-7 score (0-4 normal; 5-9 mild; 10-14 moderate; 15-21 severe): 0 Source: Developed by Drs. Luis Antonio Rice, Alyssa Levin, Larry Dennison and colleagues, with an educational kareem from [employer]. MAGGIE-7 Assessment Billing MAGGIE-7 Assessment Tool: MAGGIE-7 Assessment 13189 Review of Systems Const All systems reviewed & are unremarkable except as noted in HPI and below Card Denies chest pain at rest, Denies chest pain with activity, Denies edema, Denies irregular heart rhythm, Denies claudication, Denies dyspnea, Denies dyspnea on exertion, Denies orthopnea, Denies paroxysmal nocturnal dyspnea and Denies slow heart rate Resp Denies cough, Denies dyspnea and Denies dyspnea on exertion GI Denies abdominal pain, Denies change in bowel habits, Denies excessive flatus, Denies nausea and Denies vomiting Physical exam (Primary Care) Vital Signs: Last Vital Signs Temp 97.1 F 08/24/25 10:34 Pulse 95 08/24/25 10:34 BP 128/72 08/24/25 10:34 Pulse Ox 97 08/24/25 10:34 Oxygen Delivery Method Room Air 08/24/25 10:34 BMI result Body Mass Index 40.1 BMI Assessment/Plan discussion: High BMI High, discussed plan: lifestyle, weight reduction, dietary and physical activity Tobacco/Smoking Status: Tobacco use Status Tobacco use date assessed 08/24/25 08/24/25 10:36 Patient Tobacco Use Status Former Tobacco user 08/24/25 10:36 Tobacco use type Cigarette 08/24/25 10:36 e-Cigarette/Vaping Use Never Used 08/24/25 10:36 PHQ-9: PHQ-9 Score PHQ-9: Total score 24 08/24/25 10:36 Depression Screening Interpretation: Positive (no suicidal thoughts) Depression Screening Follow-up: Existing condition, In treatment, Community Mental Health Worker F/U and Follow-up Visit Requested Thrive Assessment: Date of Thrive Assessment Date Thrive assessed 08/24/25 08/24/25 10:36 Currently or been in a relationship where the following occur: No concerns reported Const Limitations: ambulation with walker Resp Effort & Inspection: normal respiratory effort Auscultation: clear to auscultation bilaterally Cardio Jugular venous distension: no JVD Rate: regular rate Rhythm: regular rhythm Heart sounds: S1 normal heart sound present and S2 normal heart sound present Extrem General: Yes full ROM Office Procedures Flu Questionnaire Does the patient have a severe egg allergy?: No Does the patient have severe life threatening allergies?: No Does the patient have a fever or illness today?: No Has the patient ever had Guillain-Collins Syndrome?: No Has the patient ever had any past reaction to a flu shot?: No Immunizations Fluarix [id number] (PF) 45 mcg (15 mcg x 3)/0.5 mL IM syringe Performing Provider: Riddhi Michael MD [facility] Documented (not given) by: Lin Rodas [facility] on 08/24/25 10:36 Reason Not Given: Received Previously Coding Level of Care Code Complex visit Add On G2211 Diagnoses Severe recurrent major depression without psychotic features F33.2 MAGGIE (generalized anxiety disorder) F41.1 Essential hypertension I10 Pure hypercholesterolemia E78.00 Morbid obesity with BMI of 40.0-44.9, adult E66.01; Z68.41 Chronic back pain M54.9; G89.29 Additional Codes PHQ-9 - 49243 - PHQ-9 Billing: Yes ([id number]) MAGGIE-7 Assessment Billing - MAGGIE-7 Assessment Tool: MAGGIE-7 Assessment 15338 ([id number]) Time Spent (min) 23 Assessment & Plan Assessment & Plan (1) Severe recurrent major depression without psychotic features: Code(s): F33.2 - Major depressive disorder, recurrent severe without psychotic features Category: Medical (2) MAGGIE (generalized anxiety disorder): Code(s): F41.1 - Generalized anxiety disorder Category: Medical (3) Essential hypertension: Code(s): I10 - Essential (primary) hypertension Category: Medical (4) Pure hypercholesterolemia: Code(s): E78.00 - Pure hypercholesterolemia, unspecified Category: Medical (5) Morbid obesity with BMI of 40.0-44.9, adult: Code(s): E66.01 - Morbid (severe) obesity due to excess calories; Z68.41 - Body mass index [BMI] 40.0-44.9, adult Category: Medical (6) Chronic back pain: Code(s): M54.9 - Dorsalgia, unspecified; G89.29 - Other chronic pain Category: Medical Plan Plan 1. Chronic Back Pain The patient's chronic pain is worsening and has new involvement of the posterior legs. Her Lyrica dose may be increased from 75 mg. A referral to pain management was previously made. 2. Morbid Obesity The patient is followed by a weight agency sales management assistant. Her insurance has denied coverage for Zepbound despite the office submitting the prior authorization with the appropriate diagnosis. Dietary counseling was provided, advising a focus on vegetables over fruits to limit sugar intake. 3. Essential hypertension Continue losartan and amlodipine. Blood pressure goal is equal or less than 130/80. 4. Hyperlipidemia Continue statins. 5. Severe recurrent major depression with anxiety Follow-up with psychiatry. Continue current psych meds. Orders: Orders Influenza [id number] Immunization Today Z23 - Encounter for immunization Medications: New pregabalin 100 mg PO BID 60 caps 0RF 30 days Refilled amlodipine 5 mg PO DAILY 90 tabs 10RF 90 days atorvastatin 20 mg PO DAILY 90 tabs 0RF 90 days docusate sodium 100 mg PO BID 180 caps 1RF 90 days omeprazole 40 mg PO DAILY 90 caps 0RF 90 days alendronate 70 mg PO QWEEK 13 tabs 0RF 90 days acetaminophen (Tylenol Extra Strength) 500 mg PO Q6H PRN 14 tabs 0RF fever or pain calcium citrate-vitamin D3 200 mg-6.25 mcg (250 unit) 1 tab PO BID 60 tabs 0RF 30 days cyclobenzaprine 10 mg PO TID PRN 10 tabs 0RF muscle spasm Discontinued tirzepatide (weight loss) (Zepbound) for 4 weeks Discontinued Reason: Patient Completed Course 2.5 mg (0.5 mL) subcut QWEEK 4 weeks 2 mL 0RF E66.01 - Morbid (severe) obesity due to excess calories, Z68.41 - Body mass index [BMI] 40.0-44.9, adult pregabalin Discontinued Reason: Patient Completed Course 75 mg PO BID 30 days 60 caps 0RF M54.16 - Radiculopathy, lumbar region
--- OUTSIDE RECORDS SUMMARY | 2025-08-24 12:56 | XMS_ITS | Clinical Summary ---
Author Organization [facility] Address [address] [place] [address] Phone Care Team Providers Care Party Coordinator Name Role Phone Riddhi Chan MD Primary [...] B [place] PART A & B [facility] B Member Subscriber Plan / Payer (Ef fective 2008-Present) Name:Kiersten Park Member ID:[id number] Relation to Subscriber:Self Name:Kiersten Park Subscriber ID:[id number] Payer ID:[id number] Group ID:Not on file Type:Medicare [facility] [address] [place] [id number] [place] A & B Member Subscriber Plan / Payer ( fective 2008-Present) Name:Kiersten Park Member ID:[id number] Relation to Subscriber:Self Name:Enrique Parkqueline Subscriber ID:[id number] Payer ID:[id number] Group ID:Not on file Type:Medicare [facility]: [facility] [address] [place], [place] [id number] [facility] Member Subscriber Plan / Payer (Ef fective 2008-Present) Name:Kiersten Park Member ID:[id number] Relation to Subscriber:Self Name:Kiersten Park Subscriber ID:[id number] Payer ID:[id number] Group ID:Not on file Type:Medicare Address: [facility] [address] [place] PART A & B Member Subscriber Plan / Payer (Ef fective 2008-Present) Name:Kiersten Park Member ID:[id number] Relation to Subscriber:Self Name:Kiersten Park Subscriber ID:[id number] Payer ID:[id number] Group ID:Not on file Type:Medicare Address: [facility] [address] [place], [place] [id number] [facility] & B [place] B [facility] & B [facility] Care Teams Party Coordinator Relationship Specialty Start Date End Date Riddhi Chan MD [address] [place] [address] PCP - General Internal Medicine 01/22/22 Additional Source Comments The information contained in this document represents components of the legal health record. It is not the complete legal health record.[facility]
--- OUTSIDE RECORDS SUMMARY | 2025-08-24 12:56 | XMS_ITS | Encounter Summary ---
Author Organization [employer] Address [address] [place] [address] [address] [place] [address] Care Team Providers Care Nail Puller Name Role Phone Veda Dawson MD Primary Care Provider [phone] Reason for Visit * Reason Comments Med Refill Encounter Details Date Type Department Care Team ([facility] st Contact Info) Description 10/06/2024 Refill [facility] MEDICINE [address] [place] [address] Veda Dawson MD [address] [place] [address] Social History Tobacco Use Types Packs/Day Years [...] on filedocumented in this encounter Care Teams Nail Puller Relationship Specialty Start Date End Date Veda Dawson MD [address] [place] [address] PCP - General Family Medicine 02/21/20 11/22/24 documented as of this encounter
--- OUTSIDE RECORDS SUMMARY | 2025-08-24 12:56 | XMS_ITS | Encounter Summary ---
Author Organization [facility] Address [address] [place] [address] [place] [address] Phone Care Team Providers Care Utilization Manager Name Role Phone Marielle Maya MD Primary Care Provider [phone] Veda Dawson MD Primary Care Provider [phone] Riddhi Chan MD Primary Care Provid er Reason for Referral * MRI/CAT Scan - Closed Specialty Diagnoses / Procedures Referred By Sherrill renee Referred To Contact Radiology Diagnoses Chest pain, unspecified type Procedures NC Myocardial Perfusion Stress Single NC Myocardial Perfusion Pharmacologic Stress Multiple Carson Cabrera MD Phone: tel: [email or web address] Social Promotion Referral ID Status Reason Start Date Expiration Date Visits Re quested Visits Authorized [id number] Closed 11/25/2017 01/25/2018 1 1 Encounter Details Date Type Department Care Team (Latest Contact Info) Description 02/04/2018 Ancillary Orders [facility] [address] [facility] [address] Floor, [address] [place], [place] [id number] Carson Cabrera MD [address] [place] [phone] [email or web address] Chest pain, unspecified type Social History [...] type documented in this encounter Care Teams Utilization Manager Relationship Specialty Start Date End Date Marielle Maya MD [address] [place] [address] PCP - General Internal Medicine 10/29/17 12/10/21 Veda Dawson MD [address] [place] [address] PCP - General Family Medicine 12/11/21 01/21/22 Riddhi Chan MD [address] [place] [address] PCP - General Internal Medicine 01/22/22 documented as of this encounter Additional Source Comments The information contained in this document represents components of the legal health record. It is not the complete legal health record.[facility]
--- OUTSIDE RECORDS SUMMARY | 2025-08-24 12:56 | XMS_ITS | Encounter Summary ---
Author Organization [employer] [facility] Address [address] [place] [address] [place] [address] Phone Care Team Providers Care Director Music Name Role Phone Marielle Maya MD Primary Care Provider [phone] Veda Dawson MD Primary Care Provider [phone] Riddhi Chan MD Primary Care Provid er Encounter Details Date Type Department Care Team (Latest Contact Info) Description 11/25/2017 Ancillary Orders [facility] [address] [facility] 3rd Floor, [address] [place] [address] Carson Cabrera MD [address] [place] [phone] [email or web address] Chest pain, unspecified type Social [...] documented in this encounter Care Teams Director Music Relationship Specialty Start Date End Date Marielle Maya MD [address] [place] [id number] PCP - General Internal Medicine 10/29/17 12/10/21 Veda Dawson MD [address] [place] [address] PCP - General Family Medicine 12/11/21 01/21/22 Riddhi Chan MD [address] [place] [address] PCP - General Internal Medicine 01/22/22 documented as of this encounter Additional Source Comments The information contained in this document represents components of the legal health record. It is not the complete legal health record.[facility]
--- OUTSIDE RECORDS SUMMARY | 2025-08-24 12:56 | XMS_ITS | Clinical Summary ---
Author Organization [employer] Address [address] [place] [address] [address] [place] [address] Care Team Providers Care Appeals Court Associate Justice Name Role Phone Unavailable Primary Care Provider [...]
--- OUTSIDE RECORDS SUMMARY | 2025-08-24 12:56 | XMS_ITS | Encounter Summary ---
Author Organization [employer] Address [address] [place] [address] [address] [place] [address] Care Team Providers Care Ccnp Name Role Phone Veda Dawson MD Primary Care Provider [phone] Reason for Visit * Reason Comments Med Refill Encounter Details Date Type Department Care Team ([facility] st Contact Info) Description 08/01/2024 Refill [facility] MEDICINE [address] [place] [address] Veda Dawson MD [address] [place] [address] Social History Tobacco Use Types Packs/Day Years [...] on filedocumented in this encounter Care Teams Ccnp Relationship Specialty Start Date End Date Veda Dawson MD [address] [place] [address] PCP - General Family Medicine 02/21/20 11/22/24 documented as of this encounter
--- OUTSIDE RECORDS SUMMARY | 2025-08-24 12:56 | XMS_ITS | Encounter Summary ---
Author Organization [employer] Address [address] [place] [address] [address] [place] [address] Care Team Providers Care Travel Specialist Name Role Phone Veda Dawson MD Primary Care Provider [phone] Reason for Visit * Reason Comments Med Refill Encounter Details Date Type Department Care Team ([facility] st Contact Info) Description 04/11/2024 Refill [facility] MEDICINE [address] [place] [address] Veda Dawson MD [address] [place] [address] Social History Tobacco Use Types Packs/Day Years [...] on filedocumented in this encounter Care Teams Travel Specialist Relationship Specialty Start Date End Date Veda Dawson MD [address] [place] [address] PCP - General Family Medicine 02/21/20 11/22/24 documented as of this encounter
== END 2025-08-24 11:03 | disposition home or self-care (01) ==
LOC: HO.HMCH 10:29
PROVIDERS: PCP Internal Medicine; Visit Provider Internal Medicine
DX: F33.2 Major depressive disorder, recurrent severe without psychotic features (principal); F41.1 Generalized anxiety disorder; I10 Essential (primary) hypertension; E78.00 Pure hypercholesterolemia, unspecified; E66.01 Morbid (severe) obesity due to excess calories; Z68.41 Body mass index [BMI] 40.0-44.9, adult; M54.9 Dorsalgia, unspecified; G89.29 Other chronic pain; Z23 Encounter for immunization

== ENCOUNTER → 2025-08-24 10:28 | Outpatient (BNVA) | payer OTHER, SELFPAY | PROVIDERS: PCP Internal Medicine; Visit Provider Internal Medicine | DX: Z28.89 Immunization not carried out for other reason (principal); F33.2 Major depressive disorder, recurrent severe without psychotic features; F41.1 Generalized anxiety disorder; I10 Essential (primary) hypertension; E78.00 Pure hypercholesterolemia, unspecified; E66.01 Morbid (severe) obesity due to excess calories; M54.9 Dorsalgia, unspecified; G89.29 Other chronic pain; Z68.41 Body mass index [BMI] 40.0-44.9, adult | CPT/HCPCS: 90471; 96127; 99212 ==